=== PATIENT | male | born 1965 | race Hispanic/Latino ===

== ENCOUNTER 2019-05-05 00:26 | Emergency (ER) | payer OTHER ==
[2019-05-05] MEDS ORDERED: METOPROLOL TAR 50 MG TAB ONE (01:57)
[2019-05-05 02:03] LABS: Absolute Lymphocytes (CBC) 1.4 K/uL (0.7-4.9); Basophils % 0.8 % (0-1.3); Hematocrit 45.5 % (39.6-49.0); Lymphocytes % 18.4 % (15.3-44.8); MPV 8.4 fL (7.6-11.3); RBC Red Blood Cell Count 5.72 M/uL (4.33-5.43)
[2019-05-05 02:14] LABS: Potassium 3.5 mmol/L (3.5-5.1)
--- NOTE | 2019-05-05 02:30 | ER ---
Nurse's Notes [facility] Name: Mat Tate Age: 54 yrs Sex: Male : 1965 Arrival Date: 05/05/2019 Time: 00:29 Bed 18 Private MD: Montrell Bryant T Diagnosis: Twitching left eye. Hypertension Presentation: 05/05 00:58 Presenting complaint: Patient states: using the language line pt c/o twitching to left bb eye area no changes in vision x 2 or 3 days. Transition of care: patient was not received from another setting of care. Onset of symptoms was May 01, 2019. Risk Assessment: Do you want to hurt yourself or someone else? Patient reports no desire to harm self or others. Initial Sepsis Screen: Does the patient meet any 2 criteria? No. Patient's initial sepsis screen is negative. Does the patient have a suspected source of infection? No. Patient's initial sepsis screen is negative. Care prior to arrival: None. 00:58 Method Of Arrival: Ambulatory bb 00:58 Acuity: CHRISTIANA 3 bb Historical: - Allergies: 01:00 No Known Allergies; bb - Home Meds: 01:00 None [Active]; bb - PMHx: 01:00 Deaf; bb - PSHx: 01:00 Tonsillectomy; bb - Immunization history:: Adult Immunizations up to date. - Social history:: Smoking status: Patient/guardian denies using tobacco. - Ebola Screening: : No symptoms or risks identified at this time. Screenin:00 Abuse screen: Denies threats or abuse. Nutritional screening: No deficits noted. fc Tuberculosis screening: No symptoms or risk factors identified. Fall Risk None identified. Assessment: 01:00 General: Appears in no apparent distress. comfortable, slender, well groomed, Behavior fc is calm, cooperative, appropriate for age. Pain: Denies pain. Neuro: Level of Consciousness is awake, alert, obeys commands, Oriented to person, place, time, situation, Appropriate for age. Cardiovascular: No deficits noted. Respiratory: Airway is patent Respiratory effort is even, unlabored, Respiratory pattern is regular, symmetrical, Breath sounds are clear bilaterally. Denies cough, shortness of breath. GI: No deficits noted. : No deficits noted. EENT: Eyes twitching of left eye. Denies pain or vision loss. Derm: Skin is pink, warm \T\ dry. Musculoskeletal: Circulation, motion, and sensation intact. Capillary refill < 3 seconds, Range of motion: intact in all extremities. 01:20 Reassessment: Pt has just returned from CT Scan via stretcher. fc 01:55 Reassessment: No changes from previously documented assessment. Patient and/or family fc updated on plan of care and expected duration. Pain level reassessed. Patient is alert, oriented x 3, equal unlabored respirations, skin warm/dry/pink. Discussed bp with dr and new orders rec'd. 02:53 Reassessment: No changes from previously documented assessment. Patient and/or family fc updated on plan of care and expected duration. Pain level reassessed. Patient is alert, oriented x 3, equal unlabored respirations, skin warm/dry/pink. Dr Hewitt states that all test are normal and pt is ready to be discharged. 03:02 Reassessment: discharge instructions given to pt with help of field artillery senior sergeant Paco Anguiano #[id number]. Vital Signs: 01:00 BP 175 / 109; Pulse 89; Resp 14 S; Temp 98.5(O); Pulse Ox 96% on R/A; Weight 70.76 kg bb (R); Height 5 ft. 5 in. (165.10 cm) (R); Pain 0/10; 01:22 BP 159 / 99; Pulse 96; Resp 18; Pulse Ox 97% ; fc 01:50 BP 165 / 104; Pulse 75; Resp 18; Pulse Ox 98% on R/A; Pain 0/10; fc 02:19 BP 164 / 94; Pulse 78; Resp 18; Pulse Ox 98% on R/A; fc 02:47 BP 146 / 89; Pulse 72; Resp 18; Pulse Ox 96% on R/A; Pain 0/10; fc 01:00 Body Mass Index 25.96 (70.76 kg, 165.10 cm) bb Visual Acuity: 01:02 Left Eye Visual acuity 20/25, Pupil size 4 mm, Reactive To Accomodation; Right Eye bb Visual acuity 20/25, Pupil size 4 mm, Reactive To Accomodation; Both Eyes Visual acuity 20/20; With Lenses; ED Course: 00:29 Patient arrived in ED. es 00:30 Montrell Bryant MD is Private Physician. es 00:44 Brett Hewitt MD is Attending Physician. pkl 00:59 Triage completed. bb 01:00 Arm band placed on Patient placed in an exam room, on a stretcher, on pulse oximetry. bb 01:00 Patient has correct armband on for positive identification. Placed in gown. Bed in low fc position. Call light in reach. Side rails up X2. dietary internship on. Pulse ox on. NIBP on. 01:00 No provider procedures requiring assistance completed. fc 01:29 Initial lab(s) drawn, by me, sent to lab. fc 01:31 CT completed. Patient tolerated procedure well. Patient moved to CT via stretcher. Patient moved back from CT. 01:40 CT Head Brain wo Cont In Process Unspecified. EDMS 02:28 Shellie Ruiz MD is Referral Physician. pkl 03:03 Patient did not have IV access during this emergency room visit. fc Administered Medications: 01:54 Not Given (Physician Discretion): cloNIDine 0.1 mg PO once bb 01:57 Drug: Metoprolol TARTRATE (Lopressor) 50 mg Route: PO; fc 03:04 Follow up: Response: No adverse reaction; Marked relief of symptoms; Blood pressure is fc lowered Outcome: 02:29 Discharge ordered by . pkl 03:03 Discharged to home ambulatory. fc 03:03 Condition: good 03:03 Discharge instructions given to patient, Instructed on discharge instructions, follow up and referral plans. medication usage, Demonstrated understanding of instructions, follow-up care, medications, Prescriptions given X 1. 03:03 Patient left the ED. fc Signatures: Dispatcher [employer] EDFL Brett Hewitt MD MD pk Onelia Betancourt Ervin Jacqueline Charles RN RN Arianna Pacheco RN RN bb Corrections: (The following items were deleted from the chart) 01:38 01:00 EENT: Eyes twitching of right eye. Denies pain or vision loss. fc fc
--- NOTE | 2019-05-05 02:31 | EDPHYS ---
Physician Documentation [facility] Name: Mat Tate Age: 54 yrs Sex: Male : 1965 Arrival Date: 05/05/2019 Time: 00:29 Bed 18 Private MD: Montrell Bryant T ED Physician Brett Hewitt HPI: 05/05 01:01 This 54 yrs old Male presents to ER via Ambulatory with complaints of Eye pkl Problem. 01:01 Twitching left eye. Onset: The symptoms/episode began/occurred 3 day(s) ago. Associated pkl signs and symptoms: Pertinent positives: None. Historical: - Allergies: 01:00 No Known Allergies; bb - Home Meds: 01:00 None [Active]; bb - PMHx: 01:00 Deaf; bb - PSHx: 01:00 Tonsillectomy; bb - Immunization history:: Adult Immunizations up to date. - Social history:: Smoking status: Patient/guardian denies using tobacco. - Ebola Screening: : No symptoms or risks identified at this time. ROS: 01:01 Eyes: Positive for of the left eye, Twitching. pkl 01:01 ENT: Negative for acute changes. 01:01 Neck: Negative for stiffness. 01:01 Cardiovascular: Negative for chest pain. 01:01 Respiratory: Negative for cough, shortness of breath. 01:01 Abdomen/GI: Negative for abdominal pain, nausea, vomiting, and diarrhea. 01:01 Back: Negative for acute changes. 01:01 : Negative for urinary symptoms. 01:01 MS/extremity: Negative for acute changes. 01:01 Skin: Negative for rash. 01:01 Neuro: Negative for altered mental status, headache, loss of consciousness. Exam: 01:01 Visual Acuity: I have reviewed the nursing documentation. pkl 01:01 ENT: Nares patent. No nasal discharge, no septal abnormalities noted. Tympanic membranes are normal and external auditory canals are clear. Oropharynx with no redness, swelling, or masses, exudates, or evidence of obstruction, uvula midline. Mucous membranes moist. 01:01 Eyes: Periorbital structures: appear normal, Pupils: no acute changes. 01:01 Neck: Exam negative for nuchal rigidity. 01:01 Chest/axilla: Exam negative for acute changes. 01:01 Cardiovascular: Rate: normal, Rhythm: regular. 01:01 Respiratory: the patient does not display signs of respiratory distress, Respirations: normal, Breath sounds: are clear throughout. 01:01 Abdomen/GI: Exam negative for acute changes. 01:01 Back: Exam negative for acute changes. 01:01 : Exam negative for acute changes. 01:01 Musculoskeletal/extremity: Exam is negative for acute changes. 01:01 Skin: Exam negative for rash. 01:01 Neuro: Orientation: is normal, Mentation: is normal, Cranial nerves: grossly normal, Motor: is normal. Vital Signs: 01:00 BP 175 / 109; Pulse 89; Resp 14 S; Temp 98.5(O); Pulse Ox 96% on R/A; Weight 70.76 kg bb (R); Height 5 ft. 5 in. (165.10 cm) (R); Pain 0/10; 01:22 BP 159 / 99; Pulse 96; Resp 18; Pulse Ox 97% ; fc 01:50 BP 165 / 104; Pulse 75; Resp 18; Pulse Ox 98% on R/A; Pain 0/10; fc 02:19 BP 164 / 94; Pulse 78; Resp 18; Pulse Ox 98% on R/A; fc 02:47 BP 146 / 89; Pulse 72; Resp 18; Pulse Ox 96% on R/A; Pain 0/10; fc 01:00 Body Mass Index 25.96 (70.76 kg, 165.10 cm) bb Visual Acuity: 01:02 Left Eye Visual acuity 20/25, Pupil size 4 mm, Reactive To Accomodation; Right Eye bb Visual acuity 20/25, Pupil size 4 mm, Reactive To Accomodation; Both Eyes Visual acuity 20/20; With Lenses; MDM: 00:44 Patient medically screened. pkl 02:28 Data reviewed: vital signs, nurses notes, lab test result(s), radiologic studies, CT pkl scan. 05/05 00:52 Order name: CBC with Diff; Complete Time: 02:22 pkl 05/05 00:52 Order name: Chem 7; Complete Time: 02:22 pkl 05/05 00:52 Order name: CT Head Brain wo Cont pkl Administered Medications: 01:54 Not Given (Physician Discretion): cloNIDine 0.1 mg PO once bb 01:57 Drug: Metoprolol TARTRATE (Lopressor) 50 mg Route: PO; fc 03:04 Follow up: Response: No adverse reaction; Marked relief of symptoms; Blood pressure is fc lowered Disposition: 05/05/19 02:29 Discharged to Home. Impression: Twitching left eye. Hypertension. - Condition is Stable. - Prescriptions for Carvedilol 6.25 mg Oral Tablet - take 1 tablet by ORAL route 2 times per day with food; 60 tablet. - Medication Reconciliation Form, Thank You Letter, Antibiotic Education, Prescription Opioid Use, Work release form form. - Follow up: Shellie Ruiz MD; When: 1 - 2 days; Reason: Re-evaluation by your physician. - Problem is new. - Symptoms are unchanged. Signatures: Dispatcher [employer] EDMS Brett Hewitt MD MD pkl Jacqueline Charles RN RN Arianna Montalvo RN RN bb Corrections: (The following items were deleted from the chart) 03:03 02:29 05/05/2019 02:29 Discharged to Home. Impression: Twitching left eye. fc Hypertension. Condition is Stable. Forms are Medication Reconciliation Form, Thank You Letter, Antibiotic Education, Prescription Opioid Use. Follow up: Shellie Ruiz; When: 1 - 2 days; Reason: Re-evaluation by your physician. Problem is new. Symptoms are unchanged. pkl
[2019-05-05 03:09] VITALS: TEMP 98.5
[2019-05-05 03:15] VITALS: BP 146/89; O2SAT 96
--- NOTE | 2019-05-05 10:22 | RAD REPORT ---
EXAM DESCRIPTION: CT - Head Brain Wo Cont - 05/05/2019 1:40 am CLINICAL HISTORY: The patient is 54 years old and is Male; twitching left eye TECHNIQUE: Axial computed tomography images of the head/brain without intravenous contrast. Sagitt al and coronal reformatted images were created and reviewed. This CT exam was performed using one o r more of the following dose reduction techniques: automated exposure control, adjustment of the mA and/or kV according to patient size, and/or use of iterative reconstruction technique. COMPARISON: No relevant prior studies available. FINDINGS: BRAIN: Unremarkable. The quintana-white matter differentiation is preserved . No hemorrhag e. No significant white matter disease. No edema. No extra-axial fluid collections. VENTRICLES: Unremarkable. No ventriculomegaly. BONES/JOINTS: No acute fracture. SOFT TISSUES: Unremarkable. SINUSES: A right maxillary sinus mucus retention cyst is present. No acute sinusitis. MASTOID AIR CELLS: Unremarkable as visualized. No mastoid effusion. ORBITS: Unremarkable as visualized. IMPRESSION: No acute intracranial findings. Electronically signed by: Nya Betancur MD 05/05/2019 1:58 AM AUTOMATIC CHIEF Due to temporary technical issues with the PACS/Fluency reporting system, reports are being signed by the in house radiologist as a courtesy to ensure prompt reporting. The interpreting radiologist is f ully responsible for the content of the report.
== END 2019-05-05 03:03 | disposition home or self-care (01) ==
LOC: ER 00:26
DX: I10 Essential (primary) hypertension (principal)
CPT/HCPCS: 36415; 70450; 80048; 85025; 99285

== ENCOUNTER 2021-01-29 23:46 | Emergency (ER) | payer BC, OTHER ==
[2021-01-30 00:40] LABS: Urine Blood Trace-intact (Negative); Urine Glucose Negative (Negative); Urine Protein Negative (Negative)
[2021-01-30 01:36] LABS: Urine Blood Negative (Negative); Urine Glucose Negative (Negative); Urine Protein Negative (Negative)
[2021-01-30] MEDS ORDERED: ACETAMINOPHEN 500 MG TAB ONE (01:39)
[2021-01-30 01:53] LABS: Protime INR 1.03
[2021-01-30 01:54] LABS: MPV 8.3 fL (7.6-11.3)
[2021-01-30 02:03] LABS: Absolute Lymphocytes (CBC) 1.3 K/uL (0.7-4.9); Basophils % 0.7 % (0-1.3); Hematocrit 49.2 % (39.6-49.0); Lymphocytes % 16.1 % (15.3-44.8); RBC Red Blood Cell Count 6.26 M/uL (4.33-5.43)
[2021-01-30 02:08] LABS: ALT/SGPT 44 U/L (12-78); AST/SGOT 21 U/L (15-37); Albumin 4.1 g/dL (3.4-5.0); Alkaline Phosphatase 123 U/L (45-117); BUN Blood Urea Nitrogen 18 mg/dL (7-18); Bicarbonate 26 mmol/L (21-32); Bilirubin Direct 0.1 mg/dL (0-0.2); Bilirubin Total 0.5 mg/dL (0.2-1.0); Glucose Level 83 mg/dL (74-106); Magnesium 2.2 mg/dL (1.8-2.4); NT PRO-BNP 51 pg/mL (<125); Phosphorus 2.1 mg/dL (2.5-4.9); Potassium 3.7 mmol/L (3.5-5.1); Protein, Total 7.8 g/dL (6.4-8.2); Sodium Level 143 mmol/L (136-145); Troponin (Emerg Dept Use Only) < 0.02 ng/mL (0.0-0.045)
[2021-01-30 02:56] LABS: Urine Bacteria <20 /HPF (NONE SEEN); Urine RBC <5 /HPF (NONE SEEN)
--- NOTE | 2021-01-30 03:42 | EDPHYS ---
Physician Documentation [facility] Name: Mat Tate Age: 55 yrs Sex: Male : 1965 Arrival Date: 01/29/2021 Time: 23:49 Bed 27 Private MD: ED Physician Woody Lewis HPI: 01/30 00:57 This 55 yrs old Male presents to ER via Ambulatory with complaints of mh7 Headache. Left eye twitching. 00:57 The patient complains of pain to the Left side of head. The patient describes the mh7 headache as throbbing. Onset: The symptoms/episode began/occurred 4 month(s) ago. Associated signs and symptoms: Pertinent positives: dizziness, Left eye twitching, Pertinent negatives: altered mental status, fever, malaise, nausea, neck stiffness, paresthesias, Photophobia rash, sinus congestion, sinus tenderness, vision changes, vision loss, vomiting, weakness, vertigo. Severity of symptoms: At its worst the pain was moderate, 3 months ago, in the emergency department the pain has improved, moderately. Headache History: The patient has had previous headaches and this one is similar to previous episodes. The symptoms are alleviated by over the counter pain medication, OTC NSAIDS, the symptoms are aggravated by nothing. The patient has experienced similar episodes in the past, several times. Patient reports intermittent left-sided headache for least 4 months. He also reports intermittent twitching of left eye and some intermittent tearing of the eye. Denies any visual disturbances. He also complains of pain and unusual sensation to right shoulder has been intermittent for several days. Denies any fever, neck pain, chest pain, abdominal pain, shortness of breath, cough, nausea, vomiting, diarrhea, weakness. He states that he has seen a doctor in the past with the symptoms but was not given any information by doctors in the past.. Historical: - Allergies: 00:12 No Known Allergies; wg - Home Meds: 00:12 None [Active]; wg - PMHx: 00:12 Deaf; wg - Immunization history:: Adult Immunizations up to date. - Social history:: Smoking status: Patient denies any tobacco usage or history of. ROS: 00:57 Constitutional: Negative for fever, chills, and weight loss, ENT: Negative for injury, mh7 pain, and discharge, Neck: Negative for injury, pain, and swelling, Cardiovascular: Negative for chest pain, palpitations, and edema, Respiratory: Negative for shortness of breath, cough, wheezing, and pleuritic chest pain, Abdomen/GI: Negative for abdominal pain, nausea, vomiting, diarrhea, and constipation, Back: Negative for injury and pain, : Negative for injury, bleeding, discharge, and swelling, Skin: Negative for injury, rash, and discoloration, Psych: Negative for depression, anxiety, suicide ideation, homicidal ideation, and hallucinations, Allergy/Immunology: Negative for hives, rash, and allergies, Endocrine: Negative for neck swelling, polydipsia, polyuria, polyphagia, and marked weight changes, Hematologic/Lymphatic: Negative for swollen nodes, abnormal bleeding, and unusual bruising. Exam: 00:57 Constitutional: This is a well developed, well nourished patient who is awake, alert, mh7 and in no acute distress. Head/Face: Normocephalic, atraumatic. Eyes: Pupils equal round and reactive to light, extra-ocular motions intact. Lids and lashes normal. Conjunctiva and sclera are non-icteric and not injected. Cornea within normal limits. Periorbital areas with no swelling, redness, or edema. ENT: Nares patent. No nasal discharge, no septal abnormalities noted. Tympanic membranes are normal and external auditory canals are clear. Oropharynx with no redness, swelling, or masses, exudates, or evidence of obstruction, uvula midline. Mucous membranes moist. Neck: Trachea midline, no thyromegaly or masses palpated, and no cervical lymphadenopathy. Supple, full range of motion without nuchal rigidity, or vertebral point tenderness. No Meningismus. Chest/axilla: Normal chest wall appearance and motion. Nontender with no deformity. No lesions are appreciated. Cardiovascular: Regular rate and rhythm with a normal S1 and S2. No gallops, murmurs, or rubs. Normal PMI, no JVD. No pulse deficits. Respiratory: Lungs have equal breath sounds bilaterally, clear to auscultation and percussion. No rales, rhonchi or wheezes noted. No increased work of breathing, no retractions or nasal flaring. Abdomen/GI: Soft, non-tender, with normal bowel sounds. No distension or tympany. No guarding or rebound. No evidence of tenderness throughout. Back: No spinal tenderness. No costovertebral tenderness. Full range of motion. Skin: Warm, dry with normal turgor. Normal color with no rashes, no lesions, and no evidence of cellulitis. MS/ Extremity: Pulses equal, no cyanosis. Neurovascular intact. Full, normal range of motion. Neuro: Awake and alert, GCS 15, oriented to person, place, time, and situation. Cranial nerves II-XII grossly intact. Motor strength 5/5 in all extremities. Sensory grossly intact. Cerebellar exam normal. Normal gait. Psych: Awake, alert, with orientation to person, place and time. Behavior, mood, and affect are within normal limits. Vital Signs: 00:06 BP 186 / 112; Pulse 78; Resp 18; Temp 98.5; Pulse Ox 100% on R/A; Weight 71.21 kg; wg Height 5 ft. 5 in. (165.10 cm); Pain 7/10; 04:01 BP 144 / 98; Pulse 72; Resp 15; Temp 98.3(O); Pulse Ox 100% on R/A; Pain 0/10; bc5 00:06 Body Mass Index 26.13 (71.21 kg, 165.10 cm) wg [place] Coma Score: 03:37 Eye Response: spontaneous(4). Verbal Response: oriented(5). Motor Response: obeys mh7 commands(6). Total: 15. MDM: 03:37 Differential diagnosis: cluster headache, hypertensive headache, hypoglycemia, mh7 hyponatremia, intracerebral hemorrhage, migraine, neoplasm, tension headache. Data reviewed: vital signs, nurses notes, old medical records, lab test result(s), cardiac enzymes, CBC, electrolytes, urinalysis, EKG, radiologic studies, CT scan, plain films. Data interpreted: Pulse oximetry: on room air is 100 %. Interpretation: normal. Counseling: I had a detailed discussion with the patient and/or guardian regarding: the historical points, exam findings, and any diagnostic results supporting the discharge/admit diagnosis, the presence of at least one elevated blood pressure reading (>120/80) during this emergency department visit, lab results, radiology results, the need for outpatient follow up, an opthalmologist, a neurologist, to return to the emergency department if symptoms worsen or persist or if there are any questions or concerns that arise at home. Response to treatment: the patient's symptoms have markedly improved after treatment. 03:41 Patient medically screened. [facility] 01/30 00:40 Order name: Urine Dipstick-Ancillary [facility] 01/30 00:54 Order name: Basic Metabolic Panel [facility] 01/30 00:54 Order name: CBC with Diff; Complete Time: 02:11 [facility] 01/30 00:54 Order name: LFT's; Complete Time: 02:11 [facility] 01/30 00:54 Order name: Magnesium; Complete Time: 02:11 [facility] 01/30 00:54 Order name: NT PRO-BNP; Complete Time: 02:11 [facility] 01/30 00:54 Order name: PT-INR; Complete Time: 02:11 [facility] 01/30 00:54 Order name: Troponin (emerg Dept Use Only); Complete Time: 02:11 [facility] 01/30 00:54 Order name: XRAY Chest (1 view) [facility] 01/30 00:54 Order name: Phosphorus; Complete Time: 02:11 [facility] 01/30 00:54 Order name: Shoulder Right (2 View) XRAY [facility] 01/30 01:16 Order name: Basic Metabolic Panel; Complete Time: 02:11 [facility] 01/30 01:36 Order name: Urine Dipstick-Ancillary; Complete Time: 01:58 [facility] 01/30 01:59 Order name: Urine Microscopic Only; Complete Time: 03:21 [facility] 01/30 00:54 Order name: EKG; Complete Time: 01:16 [facility] 01/30 00:54 Order name: Cardiac monitoring; Complete Time: 01:18 [facility] 01/30 00:54 Order name: EKG - Nurse/Tech; Complete Time: :29 [facility] 01/30 00:54 Order name: IV Saline Lock; Complete Time: 01:18 [facility] 01/30 00:54 Order name: Labs collected and sent; Complete Time: :23 [facility] 01/30 00:54 Order name: O2 Per Protocol; Complete Time: 01:13 [facility] 01/30 00:54 Order name: O2 Sat Monitoring; Complete Time: 01:18 [facility] 01/30 00:54 Order name: CT Head C Spine [facility] 01/30 00:54 Order name: Urine Dipstick-Ancillary (obtain specimen); Complete Time: 01:28 mh7 Administered Medications: 01:18 Drug: Tylenol 1000 mg Route: PO; bc5 04:00 Follow up: Response: Pain is decreased bc5 Disposition Summary: 01/30/21 03:41 Discharge Ordered Location: Home [facility] Problem: chronic mh7 Symptoms: have improved mh7 Condition: Stable mh7 Diagnosis - Headache mh7 - Left Eye Twitching mh7 - Shoulder Pain, Right mh7 - Essential (primary) hypertension mh7 - UTI/ Urinary tract infection, site not specified 7 Followup: 7 - With: Private Physician - When: 1 - 2 days - Reason: Worsening of condition, Recheck today's complaints, Continuance of care, Re-evaluation by your physician Followup: 7 - With: Reece Castellanos MD - When: 1 - 2 days - Reason: Worsening of condition, Recheck today's complaints Followup: 7 - With: Shellie Ruiz MD - When: 1 - 2 days - Reason: Worsening of condition, Recheck today's complaints Followup: 7 - With: Romario Nichols MD - When: 1 - 2 days - Reason: Worsening of condition, Recheck today's complaints Discharge Instructions: - Discharge Summary Sheet mh7 - General Headache Without Cause mh7 - Hypertension, Adult mh7 - Muscle Pain, Adult mh7 - Urinary Tract Infection, Adult, [id number] 7 - Form - Excuse from Work, School, or Physical Activity [facility] Forms: - Medication Reconciliation Form 7 - Thank You Letter 7 - Antibiotic Education 7 - Prescription Opioid Use 7 - Work release form df1 Prescriptions: - Cephalexin 500 mg Oral Capsule - take 1 capsule by ORAL route every 12 hours for 7 days; 14 capsule; Refills: 0, mh7 Product Selection Permitted Signatures: Dispatcher [employer] Woody Zavala MD MD 7 Rene Jewell RN wg Corado, Bella, RN RN bc5
--- NOTE | 2021-01-30 03:42 | ER ---
Nurse's Notes [facility] Name: Mat Tate Age: 55 yrs Sex: Male : 1965 Arrival Date: 01/29/2021 Time: 23:49 Bed 27 Private MD: Diagnosis: Headache;Left Eye Twitching;Shoulder Pain, Right;Essential (primary) hypertension;UTI/ Urinary tract infection, site not specified Presentation: 01/30 00:06 Chief complaint: Patient states: Pt is deaf and communicates through sign-language and wg writing. Sign-foreign language interpreter used. Pt c/o Left Eye throbbing sensation along with the left side of his head throbbing that has been intermittent for the past 4 months. States his eye jain often and makes it hard to drive. Pt states he was seen about 4 months ago and given eye drops but it hasn't gotten better. Pt a;sp complaining of his right shoulder "Feels funny". Pt denies any trauma or injury but states when he wakes up it feels funny. Pt states he had good ROM and denies pain in the arm/shoulder but states it just feels funny. Pt denies SOB, CP, N/V/D, dizziness and abd pain. Coronavirus screen: Vaccine status: Patient reports receiving the 2nd dose of the covid vaccine. Date December 02, 2020 At this time, the client does not indicate any symptoms associated with coronavirus-19. Ebola Screen: No symptoms or risks identified at this time. Initial Sepsis Screen: Does the patient meet any 2 criteria? No. Patient's initial sepsis screen is negative. Does the patient have a suspected source of infection? No. Patient's initial sepsis screen is negative. Risk Assessment: Do you want to hurt yourself or someone else? Patient reports no desire to harm self or others. Onset of symptoms was September 2020. 00:06 Method Of Arrival: Ambulatory wg 00:06 Acuity: CHRISTIANA 3 wg Triage Assessment: 00:12 General: Appears uncomfortable, Behavior is calm, cooperative, appropriate for age. wg Pain: Complains of pain in Left eye, left side of head and right shoulder Pain currently is 7 out of 10 on a pain scale. Historical: - Allergies: 00:12 No Known Allergies; wg - Home Meds: 00:12 None [Active]; wg - PMHx: 00:12 Deaf; wg - Immunization history:: Adult Immunizations up to date. - Social history:: Smoking status: Patient denies any tobacco usage or history of. Screenin:54 Abuse screen: Denies threats or abuse. Denies injuries from another. Nutritional bc5 screening: No deficits noted. Tuberculosis screening: No symptoms or risk factors identified. Fall Risk None identified. Assessment: 00:54 Reassessment: chief inspector Antonio [id number]. Pt c/o left eye watering and twitching, left bc5 sided head pain onset 4 months ago and right shoulder pain onset 9 am yesterday 01/28/21. Pt denies injury. A\\T\\O x 3, RR is even and unlabored, speaking in clear and complete sentences at this time. Pt agrees to use written communication for short and simple questions/requests "but for more detailed communication like results please use the foreign language interpreter". 01:37 Reassessment:. 5 04:02 Reassessment: staff interpreter Antonio [id number] used to teach discharge instructions. 5 Vital Signs: 00:06 BP 186 / 112; Pulse 78; Resp 18; Temp 98.5; Pulse Ox 100% on R/A; Weight 71.21 kg; wg Height 5 ft. 5 in. (165.10 cm); Pain 7/10; 04:01 BP 144 / 98; Pulse 72; Resp 15; Temp 98.3(O); Pulse Ox 100% on R/A; Pain 0/10; bc5 00:06 Body Mass Index 26.13 (71.21 kg, 165.10 cm) Holt Coma Score: 03:37 Eye Response: spontaneous(4). Verbal Response: oriented(5). Motor Response: obeys mh7 commands(6). Total: 15. ED Course: 01/29 23:49 Patient arrived in ED. cf2 01/30 00:12 Triage completed. wg 00:12 Arm band placed on left wrist. wg 00:19 Dot Ricks, HUGO is Primary Nurse. 5 00:26 Woody Lewis MD is Attending Physician. 7 00:43 Urine Dipstick-Ancillary Sent. bc5 00:54 Patient has correct armband on for positive identification. Call light in reach. Side bc5 rails up X 1. 00:54 No provider procedures requiring assistance completed. bc5 01:46 CT Head C Spine In Process Unspecified. EDMS 01:56 XRAY Chest (1 view) In Process Unspecified. EDMS 01:56 Shoulder Right (2 View) XRAY In Process Unspecified. EDMS 03:39 Reece Castellanos MD is Referral Physician. mh7 03:39 Shellie Ruiz MD is Referral Physician. 7 03:40 Romario Nichols MD is Referral Physician. 7 04:01 Patient did not have IV access during this emergency room visit. bc5 Administered Medications: 01:18 Drug: Tylenol 1000 mg Route: PO; bc5 04:00 Follow up: Response: Pain is decreased [facility] Outcome: 03:41 Discharge ordered by MD. [facility] 04:00 Condition: improved 5 04:00 Discharge instructions given to patient, family, Instructed on discharge instructions, follow up and referral plans. medication usage. 04:01 Discharged to home ambulatory, with family. 5 04:03 Patient left the ED. 5 Signatures: Dispatcher [employer] Edd Bales cf2 Woody Lewis MD MD 7 Rene Jewell, RN Dot Ricks, HUGO RN 5 Corrections: (The following items were deleted from the chart) 00:14 00:06 Chief complaint: Patient states: Pt communicates through sign-language and writing. Sign-foreign language interpreter used. Pt c/o Left Eye throbbing sensation along with the left side of his head throbbing that has been intermittent for the past 4 months. States his eye jain often and makes it hard to drive. Pt states he was seen about 4 months ago and given eye drops but it hasn't gotten better. Pt a;sp complaining of his right shoulder "Feels funny". Pt denies any trauma or injury but states when he wakes up it feels funny. Pt states he had good ROM and denies pain in the arm/shoulder but states it just feels funny. Pt denies SOB, CP, N/V/D, dizziness and abd pain. 01:40 00:54 Reassessment: chief inspector Antonio [id number]. Pt c/o left eye watering and twitching, bc5 left sided head pain onset 4 months ago and right shoulder pain onset 9 am yesterday 01/28/21. Pt denies injury. A\\T\\O x 3, RR is even and unlabored, speaking in clear and complete sentences at this time bc5
[2021-01-30 04:08] VITALS: O2SAT 100
[2021-01-30 04:09] VITALS: BP 144/98; TEMP 98.3
--- NOTE | 2021-01-30 07:54 | RAD REPORT ---
EXAM DESCRIPTION: RAD - Chest Single View - 01/30/2021 1:56 am CLINICAL HISTORY: Hypertension COMPARISON: No comparisons FINDINGS: Lines: None. Lungs: Low lung volumes which accentuates the pulmonary vasculature. Pleural: No significant pleural effusions or pneumothorax. Cardiac: Low lung volumes which accentuates the cardiac silhouette. Bones: No acute fractures. Other: IMPRESSION: Low lung volumes which accentuates the pulmonary vasculature. Difficult to exclude eithe r vascular congestion and/or mild edema.
--- NOTE | 2021-01-30 07:54 | RAD REPORT ---
EXAM DESCRIPTION: RAD - Shoulder Right 2 View - 01/30/2021 1:56 am CLINICAL HISTORY: PAIN COMPARISON: No comparisons FINDINGS: No acute fracture. No malalignment. No significant focal degenerative changes. IMPRESSION: No acute osseous abnormality involving the right shoulder.
--- NOTE | 2021-01-30 13:12 | RAD REPORT ---
EXAM DESCRIPTION: CT - Head C Spine Mpr Wo Con - 01/30/2021 6:29 am COMPARISON: CT head May 05, 2019 CLINICAL HISTORY: [facility] MAIN PAIN TECHNIQUE: Axial images were obtained from skull base to vertex without intravenous contrast. Imag es viewed on bone and brain windows. Multiplanar reformats were performed. Automated exposure contr ol was utilized on this examination as a dose lowering technique. FINDINGS: Brain parenchyma, ventricles, dura, meninges, and extra-axial spaces: Ventricles and sulci are normal. No abnormal attenuation of brain parenchyma is present. No acute intracranial hemor rhage or abnormal extra-axial fluid collections are present. Vascular structures: No hyperdense arteries or veins. Calvarium, mastoid air cells, paranasal sinuses and orbits: The calvarium is normal. The mastoid air cells are clear. 1.8 cm right maxillary sinus mucosal retention cyst or polyp. Orbital structures are unremarkable. EXAM DESCRIPTION: CT Cervical Spine COMPARISON: None. CLINICAL HISTORY: [facility] MAIN PAIN TECHNIQUE: Axial CT images were obtained through the entire cervical spine without contrast. Sagit kevin and coronal reconstructions are provided. Automated exposure control was utilized on this examina tion as a dose lowering technique. FINDINGS: Vertebrae: Vertebral statures and alignment are normal. No acute fracture, dislocation o r destructive osseous process is present. Spinal canal, foramina, and facet joints: No significant spinal canal or foraminal stenoses. No significant facet arthropathy. Paraspinous soft-tissues: Normal. Thyroid: Normal. Other Findings: None. IMPRESSION: HEAD IMPRESSION: No acute intracranial abnormality. C-SPINE IMPRESSION: No acute findings of the cervical spine. Electronically signed by: Patrick Sebastian MD 01/30/2021 2:29 AM CDT Due to temporary technical issues with the PACS/Fluency reporting system, reports are being signed by the in house radiologists without review as a courtesy to insure prompt reporting. The interpreting radiologist is fully responsible for the content of the report.
--- NOTE | 2021-01-31 16:00 | EKG ---
Test Date: 2021-01-30 Test Time: 01:25:31 Senior Accountant Analyst: CALVIN MEASUREMENT RESULTS: Intervals: Rate: 69 ME: 156 QRSD: 94 QT: 398 QTc: 426 [place]: P: 17 ME: 156 QRS: 22 T: 16 INTERPRETIVE STATEMENTS: Normal sinus rhythm Minimal voltage criteria for LVH, may be normal variant Borderline ECG Compared to ECG 05/29/2015 23:12:21 Left ventricular hypertrophy now present Electronically Signed On 01-31-21 15:56:43 CDT by Reginaldo Marr
== END 2021-01-30 04:03 | disposition home or self-care (01) ==
LOC: ER 23:46
DX: R51.9 Headache, unspecified (principal); N39.0 Urinary tract infection, site not specified; M25.511 Pain in right shoulder; H55.89 Other irregular eye movements; I10 Essential (primary) hypertension
CPT/HCPCS: 36415; 70450; 71045; 72125; 80048; 80076; 81003; 81015; 83735; 83880; 84100; 84484; 85025; 85610; 93005; 99283

== ENCOUNTER 2021-06-30 16:31 | Emergency (ER) | payer BC ==
[2021-06-30] MEDS ORDERED: METOCLOPRAMIDE 10 MG/2mL INJ ONE (17:26)
[2021-06-30] MEDS ORDERED: NA CHLORIDE 0.9% 1,000 ML ONE (17:26)
[2021-06-30] MEDS ORDERED: ACETAMINOPHEN 500 MG TAB ONE (17:26)
--- NOTE | 2021-06-30 17:40 | RAD REPORT ---
EXAM DESCRIPTION: CT - Head Brain Wo Cont - 06/30/2021 5:24 pm CLINICAL HISTORY: L facial droop and ataxia COMPARISON: No comparisonsHead Brain Wo Cont dated 05/05/2019 TECHNIQUE: All CT scans are performed using dose optimization technique as appropriate and may inclu de automated exposure control or mA/KV adjustment according to patient size. FINDINGS: 2.8 cm x 1.3 cm right basal ganglia hemorrhageno mass effect or midline shift.No areas of brain edema or evidence of midline shift. Mucous retention cysts in the right maxillary sinus. The calvarium is intact. IMPRESSION: Right basal ganglia hemorrhage likely secondary to a hemorrhagic lacunar infarct. No sig nificant mass effect. Discussed with Dr. William by Dr. Laws at 1739 on 06/30/21
[2021-06-30 17:48] LABS: Absolute Lymphocytes (CBC) 1.5 K/uL (0.7-4.9); Hematocrit 47.7 % (39.6-49.0); Lymphocytes % 14.6 % (15.3-44.8); MPV 7.7 fL (7.6-11.3); RBC Red Blood Cell Count 6.06 M/uL (4.33-5.43)
[2021-06-30 17:51] LABS: Protime INR 1.17
[2021-06-30 18:08] LABS: ALT/SGPT 34 U/L (12-78); Albumin 3.6 g/dL (3.4-5.0); Alkaline Phosphatase 115 U/L (45-117); BUN Blood Urea Nitrogen 24 mg/dL (7-18); Bicarbonate 25 mmol/L (21-32); Bilirubin Total 0.3 mg/dL (0.2-1.0); Glucose Level 158 mg/dL (74-106); NT PRO-BNP 104 pg/mL (<125); Protein, Total 7.2 g/dL (6.4-8.2); Sodium Level 141 mmol/L (136-145)
[2021-06-30 18:09] LABS: AST/SGOT 16 U/L (15-37); Bilirubin Direct < 0.1 mg/dL (0-0.2); Magnesium 2.2 mg/dL (1.8-2.4); Potassium 3.6 mmol/L (3.5-5.1)
[2021-06-30] MEDS ORDERED: Nicardipine/NS 25 MG/250 ML KIT IV ONE (18:10)
--- NOTE | 2021-06-30 18:38 | ER ---
Nurse's Notes [facility] Name: Mat Tate Age: 56 yrs Sex: Male : 1965 Arrival Date: 06/30/2021 Time: 16:36 Bed 23 Private MD: Diagnosis: hemorrhagic stroke;Coronavirus infection, unspecified Presentation: 06/30 16:38 Chief complaint: Patient states: Intermittent dizziness, L arm numbness/ tingling and L ss sided facial droop that began 3.5 days ago. Pt is frustrated because he is deaf and has had trouble communicating with individuals at work. Coronavirus screen: Client denies travel out of the [place] in the last 14 days. Ebola Screen: Patient denies exposure to infectious person. Patient denies travel to an Ebola-affected area in the 21 days before illness onset. Pre-hospital glucose is not applicable to this patient. No acute neurological deficit is noted. Initial Sepsis Screen: Does the patient meet any 2 criteria? No. Patient's initial sepsis screen is negative. Does the patient have a suspected source of infection? No. Patient's initial sepsis screen is negative. Risk Assessment: Do you want to hurt yourself or someone else? Patient reports no desire to harm self or others. Onset of symptoms was June 27, 2021. 16:38 Method Of Arrival: Ambulatory ss 16:38 Acuity: CHRISTIANA 3 ss Triage Assessment: 18:21 The onset of the patients symptoms was June 27, 2021 at 05:00. lr4 Stroke Activation: Symptom onset > 6 hours Physician: Stroke Attending; Name: ; Notified At: ; Arrived At: Physician: Chief Stroke Resident; Name: ; Notified At: ; Arrived At: Physician: Stroke Resident; Name: ; Notified At: ; Arrived At: Physician: ED Attending; Name: ; Notified At: ; Arrived At: Physician: ED Resident; Name: ; Notified At: ; Arrived At: Historical: - Allergies: 16:53 No Known Allergies; ss - Home Meds: 16:53 None [Active]; ss - PMHx: 16:53 Deaf; ss - PSHx: 16:53 None; ss - Immunization history:: Client reports receiving the 2nd dose of the Covid vaccine. - Social history:: Smoking status: Patient denies any tobacco usage or history of. Screenin:54 Abuse screen: Denies threats or abuse. Denies injuries from another. Nutritional ss screening: No deficits noted. Tuberculosis screening: Never had TB. Fall Risk None identified. Assessment: 18:16 VAN Scoring: Arm Drift: Patients demonstrates NO arm weakness. Patient is VAN Negative. lr4 Visual Disturbance: No visual disturbance noted. Aphasia: No aphasia noted. Neglect: No neglect noted. The patient is alert, and able to follow commands. The patient does not exhibit slurred or garbled speech. The patient is not exhibiting difficulty speaking. The patient does not exhibit difficulty understanding words. The patient is able to swallow own secretions with no drooling or need for suction. Patient tolerated one teaspoon of water. No drooling, immediate coughing, gurgling, or clearing of the throat was noted. The patient tolerated 90mL of water. No drooling, immediate coughing, gurgling, or clearing of the throat was noted. The patient passed the bedside swallow screening. Oral medications may be given as ordered. Contact Physician for further diet orders. Provider notified of bedside swallow screening results: Wilbert William MD. The patient has not been NPO before screening. The patient is currently on the following diet: regular. T-PA (Activase) Screening: Contraindications: Intracranial hemorrhage and its risk factor and suspicion of subarachnoid bleed: Yes. General: Appears in no apparent distress. comfortable, Behavior is calm, cooperative. Pain: Denies pain. Neuro: No deficits noted. Reports dizziness, paresthesias. Cardiovascular: No deficits noted. Respiratory: No deficits noted. 19:47 Reassessment: No changes from previously documented assessment. Patient denies pain at lr4 this time. Patient states feeling better. 20:43 Reassessment: report given to Grecia ARIAS at . Patient denies pain at this time. lr4 Patient states feeling better. Pt departed ed with [place] unit 3 with all personal effects, resp even an unlabored, vss. . Vital Signs: 16:38 Pulse 102; Resp 18; Temp 97.5; Pulse Ox 99% ; ss 16:38 BP 191 / 107; Weight 68.95 kg; Height 5 ft. 5 in. (165.10 cm); Pain 0/10; ss 18:02 BP 181 / 110; Pulse 100; Resp 20; Pulse Ox 97% on R/A; lr4 18:20 BP 170 / 110; Pulse 104; Resp 20; Pulse Ox 95% on R/A; lr4 18:34 BP 175 / 98; Pulse 104 LA; Resp 18; Pulse Ox 99% on R/A; lr4 18:54 BP 156 / 92; Pulse 103; Resp 18; Pulse Ox 95% ; Pain 0/10; lr4 19:00 BP 151 / 88; Pulse 101; Resp 20; Pulse Ox 100% on R/A; lr4 19:15 BP 165 / 93; Pulse 100; Resp 20; Pulse Ox 94% on R/A; lr4 19:30 BP 150 / 128; Pulse 102; Resp 20; Pulse Ox 97% ; lr4 19:44 BP 149 / 81; Pulse 102; Resp 18; Pulse Ox 96% on R/A; Pain 0/10; lr4 20:00 BP 145 / 87; Pulse 95; Resp 18; Pulse Ox 98% on R/A; lr4 20:07 BP 145 / 87; Pulse 95; Resp 18; Pulse Ox 96% on R/A; lr4 20:42 BP 151 / 90; Pulse 96; Resp 20; Pulse Ox 95% on R/A; Pain 0/10; lr4 16:38 Body Mass Index 25.29 (68.95 kg, 165.10 cm) NIH Stroke Scale Scores: 18:16 NIHSS Score: 1 lr4 ED Course: 16:36 Patient arrived in ED. ss 16:42 Wilbert William MD is Attending Physician. jr11 16:50 Triage completed. ss 16:53 Arm band placed on right wrist. ss 16:54 Patient has correct armband on for positive identification. Bed in low position. Call ss light in reach. 17:17 Dina Murillo, HUGO is Primary Nurse. lr4 17:24 CT Head Brain wo Cont In Process Unspecified. EDMS 17:35 Inserted saline lock: 20 gauge in right antecubital area, using aseptic technique. lr4 17:38 XRAY Chest (1 view) Sent. lr4 18:00 initiated a transfer with Hawa Alas Rn from the [facility]. eb 18:03 COVID-19 SARS RT PCR (Document "Date of Onset" if Symptomatic) Sent. lr4 18:06 XRAY Chest (1 view) In Process Unspecified. EDMS 18:[address] Daniel the Neuro manager fashion with Dr. William for patient transfer eb consultation. 18:21 No provider procedures requiring assistance completed. lr4 18:37 administrative approval given by Hawa Morel/ patient has been accepted to [address] to the Neuro ICU [address] [address] bed 7512/ Dr. Daniel accepted the patient in transfer/report to be called to [phone]. 19:17 called [facility] Transfer Center spoke to Swathi Rivera to give her the patients [facility] results. 19:34 [facility] denied transfer due to no Covid ICU beds. mw2 19:50 initiated a transfer with Soha from [facility]. mw2 20:[address] Lewis with Dr. Carmona from [facility]. mw2 20:06 administrative approval given by Soha Fuentes/ patient has been accepted to [address] to the Stroke Unit/ Dr. Garner accepted the patient in transfer/ report to be called to [phone]. 20:45 Report given to Grecia RN \\T\\ . lr4 20:45 Patient transferred, IV remains in place. lr4 Administered Medications: 17:38 Drug: NS 0.9% 1000 ml Route: IV; Rate: 1 bolus; Site: right antecubital; lr4 18:15 Follow up: IV Status: Infusion continued lr4 17:38 Drug: Reglan (metoCLOPramide) 10 mg Route: IVP; Site: right antecubital; lr4 18:15 Follow up: Response: No adverse reaction; Nausea is decreased lr4 17:38 Drug: Tylenol 1000 mg Route: PO; lr4 18:15 Follow up: Response: No adverse reaction; Pain is decreased lr4 18:10 Drug: niCARdipine (25mg/250ml) 5 mg/hr Route: IV; Rate: 2.5 Titrate; Site: right lr4 antecubital; 18:16 Follow up: IV Status: Infusion continued lr4 18:36 Follow up: Rate change 7.5 mg/hr lr4 19:45 Follow up: Rate change 5 mg/hr lr4 Point of Care Testing: Blood Glucose: 18:21 Blood Glucose: 158 mg/dL; lr4 Ranges: Outcome: 18:23 Condition: stable lr4 18:38 ER care complete, transfer ordered by . jr11 20:45 Instructed on the need for transfer. lr4 20:46 Transferred by ground EMS to [facility], Transfer form completed. X-rays sent lr4 w/ patient. 20:46 Patient left the ED. lr4 NIH Stroke Scale - NIH Stroke Score Date: 06/30/2021 Time: 18:16 Total Score = 1 1a. Level of Consciousness (LOC) - 0(Alert) 1b. Level of Consciousness (LOC) (Month \\T\\ Age) - 0(Both) 1c. LOC Commands (Open \\T\\ Closes Eyes/Assistant Store Manager Sales) - 0(Both) 2. Best Gaze (Lateral Gaze Paresis) - 0(Normal) 3. Visual Field Loss - 0(No visual loss) 4. Facial Palsy - 1(Minor Paralysis) 5a. Left Arm: Motor (10-second hold) - 0(No drift) 5b. Right Arm: Motor (10-second hold) - 0(No drift) 6a. Left Leg: Motor (5-second hold - always test supine) - 0(No drift) 6b. Right Leg: Motor (5-second hold - always test supine) - 0(No drift) 7. Limb Ataxia (finger/nose \\T\\ heel/borden - test with eyes open) - 0(Absent) 8. Sensory Loss (pinprick arms/legs/face) - 0(Normal) 9. Best Language: Aphasia (description/naming/reading) - 0(No aphasia) 10. Dysarthria (speech clarity - read or repeat words) - 0(Normal) 11. Extinction and Inattention (visual/tactile/auditory/spatial/personal) - 0(No abnormality) Initials: lr4 Signatures: Dispatcher [employer] EDMS Aimee Solano RN RN Katelyn Hamm mw2 Zenaida Dennison Jose, MD MD jr11 Dina Murillo RN RN lr4 Corrections: (The following items were deleted from the chart) 19:35 18:50 administrative approval given by Hawa Morel/ patient has been mw2 accepted to [facility] to the Neuro ICU [address] [place] [address] bed 7512/ Dr. Daniel accepted the patient in transfer/report to be called to [phone] 2
--- NOTE | 2021-06-30 18:38 | EDPHYS ---
Physician Documentation [facility] Name: Mat Tate Age: 56 yrs Sex: Male : 1965 Arrival Date: 06/30/2021 Time: 16:36 Bed 23 Private MD: ED Physician Wilbert William HPI: 06/30 17:17 This 56 yrs old Male presents to ER via Ambulatory with complaints of jr11 Dizziness, Arm Problem. 17:17 The patient presents with dizziness, feeling faint, lightheadedness, feeling off jr11 balance, vertigo. Onset: The symptoms/episode began/occurred 3 day(s) ago. Context: occurred at home, occurred while the patient was working. Modifying factors: The symptoms are alleviated by nothing, the symptoms are aggravated by movement of head, changing position. Associated signs and symptoms: Pertinent positives: ataxia, headache, L facial droop and eye twitching x 1 mo. Severity of symptoms: At their worst the symptoms were moderate in the emergency department the symptoms are worse Pain is currently a 8 / 10. Patient is a 56-year-old male that has had a history of dizziness for 3 days, has been falling over to the left, and has had a left-sided facial droop for 3 months. Patient also with greater than 8 hours episode of chest pain, only when coughing. Denies a productive cough or shortness of breath. Denies any weakness.. Historical: - Allergies: 16:53 No Known Allergies; ss - Home Meds: 16:53 None [Active]; ss - PMHx: 16:53 Deaf; ss - PSHx: 16:53 None; ss - Immunization history:: Client reports receiving the 2nd dose of the Covid vaccine. - Social history:: Smoking status: Patient denies any tobacco usage or history of. ROS: 17:17 Constitutional: Negative for fever, chills Eyes: Negative for injury, pain, redness, jr11 and discharge, ENT: Negative for injury, pain, and discharge, Neck: Negative for injury, pain, and swelling, Cardiovascular: Negative for chest pain, palpitations, and edema, Respiratory: Negative for shortness of breath, cough Back: Negative for injury and pain, : Negative for injury, bleeding, discharge, and swelling, MS/Extremity: Negative for injury and deformity, Skin: Negative for injury, rash, and discoloration, Endocrine: Negative for neck swelling, polydipsia, polyuria, polyphagia, and marked weight changes. Exam: 17:17 Constitutional: This is a well developed, well nourished patient who is awake, alert, jr11 and in no acute distress. Head/Face: Normocephalic, atraumatic. L sided facial droop, complete Eyes: Extra-ocular motions intact. Lids and lashes normal. Conjunctiva and sclera are non-icteric and not injected. Cornea within normal limits. Periorbital areas with no swelling, redness, or edema. ENT: Nares patent. No nasal discharge, no septal abnormalities noted. Oropharynx with no redness, swelling, or masses, exudates, or evidence of obstruction, uvula midline. Mucous membranes moist. Neck: Trachea midline, no thyromegaly or masses palpated, and no cervical lymphadenopathy. Supple, full range of motion without nuchal rigidity, or vertebral point tenderness. No Meningismus. Chest/axilla: Normal chest wall appearance and motion. Nontender with no deformity. No lesions are appreciated. Cardiovascular: Regular rate and rhythm with a normal S1 and S2. No gallops, murmurs, or rubs. Normal PMI, no JVD. No pulse deficits. Respiratory: Lungs have equal breath sounds bilaterally, clear to auscultation and percussion. No rales, rhonchi or wheezes noted. No increased work of breathing, no retractions or nasal flaring. Abdomen/GI: Soft, non-tender, with normal bowel sounds. No distension or tympany. No guarding or rebound. No evidence of tenderness throughout. Skin: Warm, dry with normal turgor. Normal color with no rashes, no lesions, and no evidence of cellulitis. Neuro: Awake and alert, GCS 15, oriented to person, place, time, and situation. No gross motor or sensory deficits. +ataxia and diziness on feet. 17:35 g EKG interpreted by me shows normal sinus rhythm, normal axis, T wave inversions in jr11 lead II and aVF also V5 V6 concerning for inferior and lateral ischemia. No acute ST changes. Vital Signs: 16:38 Pulse 102; Resp 18; Temp 97.5; Pulse Ox 99% ; ss 16:38 BP 191 / 107; Weight 68.95 kg; Height 5 ft. 5 in. (165.10 cm); Pain 0/10; ss 18:02 BP 181 / 110; Pulse 100; Resp 20; Pulse Ox 97% on R/A; lr4 18:20 BP 170 / 110; Pulse 104; Resp 20; Pulse Ox 95% on R/A; lr4 18:34 BP 175 / 98; Pulse 104 LA; Resp 18; Pulse Ox 99% on R/A; lr4 18:54 BP 156 / 92; Pulse 103; Resp 18; Pulse Ox 95% ; Pain 0/10; lr4 19:00 BP 151 / 88; Pulse 101; Resp 20; Pulse Ox 100% on R/A; lr4 19:15 BP 165 / 93; Pulse 100; Resp 20; Pulse Ox 94% on R/A; lr4 19:30 BP 150 / 128; Pulse 102; Resp 20; Pulse Ox 97% ; lr4 19:44 BP 149 / 81; Pulse 102; Resp 18; Pulse Ox 96% on R/A; Pain 0/10; lr4 20:00 BP 145 / 87; Pulse 95; Resp 18; Pulse Ox 98% on R/A; lr4 20:07 BP 145 / 87; Pulse 95; Resp 18; Pulse Ox 96% on R/A; lr4 20:42 BP 151 / 90; Pulse 96; Resp 20; Pulse Ox 95% on R/A; Pain 0/10; lr4 16:38 Body Mass Index 25.29 (68.95 kg, 165.10 cm) ss NIH Stroke Scale Scores: 18:16 NIHSS Score: 1 lr4 MDM: 17:06 Patient medically screened. jr11 17:17 Differential diagnosis: cardiac arrhythmia, generalized weakness, TIA, vertigo. Data [facility] reviewed: vital signs, nurses notes, lab test result(s), EKG. 20:15 ED course: Patient not accepted to [facility] due to positive COVID test and no COVID [facility] beds available. Accepted for transfer to [facility].. 06/30 17:09 Order name: Basic Metabolic Panel; Complete Time: 18:17 06/30 17:09 Order name: CBC with Diff; Complete Time: 17:55 [facility] 06/30 17:09 Order name: LFT's; Complete Time: 18:17 [facility] 06/30 17:09 Order name: Magnesium; Complete Time: 18:17 06/30 17:09 Order name: NT PRO-BNP; Complete Time: 18:17 06/30 17:09 Order name: PT-INR; Complete Time: 17:55 06/30 17:09 Order name: Troponin HS; Complete Time: 18:17 06/30 17:09 Order name: XRAY Chest (1 view); Complete Time: 19:37 06/30 17:10 Order name: CT Head Brain wo Cont; Complete Time: 17:55 06/30 17:48 Order name: COVID-19 SARS RT PCR (Document "Date of Onset" if Symptomatic); Complete ss Time: 19:37 06/30 17:09 Order name: EKG; Complete Time: 17:09 06/30 17:09 Order name: Cardiac monitoring; Complete Time: 17:38 06/30 17:09 Order name: EKG - Nurse/Tech; Complete Time: 17:39 06/30 17:09 Order name: IV Saline Lock; Complete Time: 17:39 06/30 17:09 Order name: Labs collected and sent; Complete Time: 17:39 06/30 17:09 Order name: O2 Per Protocol; Complete Time: 17:39 06/30 17:09 Order name: O2 Sat Monitoring; Complete Time: 17:39 Administered Medications: 17:38 Drug: NS 0.9% 1000 ml Route: IV; Rate: 1 bolus; Site: right antecubital; lr4 18:15 Follow up: IV Status: Infusion continued lr4 17:38 Drug: Reglan (metoCLOPramide) 10 mg Route: IVP; Site: right antecubital; lr4 18:15 Follow up: Response: No adverse reaction; Nausea is decreased lr4 17:38 Drug: Tylenol 1000 mg Route: PO; lr4 18:15 Follow up: Response: No adverse reaction; Pain is decreased lr4 18:10 Drug: niCARdipine (25mg/250ml) 5 mg/hr Route: IV; Rate: 2.5 Titrate; Site: right lr4 antecubital; 18:16 Follow up: IV Status: Infusion continued lr4 18:36 Follow up: Rate change 7.5 mg/hr lr4 19:45 Follow up: Rate change 5 mg/hr lr4 Point of Care Testing: Blood Glucose: 18:21 Blood Glucose: 158 mg/dL; lr4 Ranges: Critical Glucose Levels:Adult <50 mg/dl or >400 mg/dl <40 mg/dl or >180 mg/dl Disposition Summary: 06/30/21 18:38 Transfer Ordered Reason: Higher level of care jr11 Condition: Serious jr11 Problem: new jr11 Symptoms: are unchanged jr11 Transfer Location: [facility](06/30/21 20:15) [facility] Accepting Physician: Dr. Garner(06/30/21 20:46) lr4 Diagnosis - hemorrhagic stroke jr11 - Coronavirus infection, unspecified [facility] Forms: - Medication Reconciliation Form jr11 - SBAR form jr11 Critical care time excluding procedures: 18:00 Critical care time: Bedside Care: 15 minutes, Consultation: 15 minutes, Family jr11 Intervention: 7 minutes. Total time: 37 minutes NIH Stroke Scale - NIH Stroke Score Date: 06/30/2021 Time: 18:16 Total Score = 1 1a. Level of Consciousness (LOC) - 0(Alert) 1b. Level of Consciousness (LOC) (Month \\T\\ Age) - 0(Both) 1c. LOC Commands (Open \\T\\ Closes Eyes/Form [employer] Forms) - 0(Both) 2. Best Gaze (Lateral Gaze Paresis) - 0(Normal) 3. Visual Field Loss - 0(No visual loss) 4. Facial Palsy - 1(Minor Paralysis) 5a. Left Arm: Motor (10-second hold) - 0(No drift) 5b. Right Arm: Motor (10-second hold) - 0(No drift) 6a. Left Leg: Motor (5-second hold - always test supine) - 0(No drift) 6b. Right Leg: Motor (5-second hold - always test supine) - 0(No drift) 7. Limb Ataxia (finger/nose \\T\\ heel/borden - test with eyes open) - 0(Absent) 8. Sensory Loss (pinprick arms/legs/face) - 0(Normal) 9. Best Language: Aphasia (description/naming/reading) - 0(No aphasia) 10. Dysarthria (speech clarity - read or repeat words) - 0(Normal) 11. Extinction and Inattention (visual/tactile/auditory/spatial/personal) - 0(No abnormality) Initials: lr4 Signatures: Dispatcher [employer] Aimee Louise, RN RN ss Woody Lewis MD MD 7 Wilbert William MD MD [facility] Dina Murillo RN RN lr4 Corrections: (The following items were deleted from the chart) 20:15 18:38 [email or web address] 20:15 18:38 [place] [id number] 20:46 20:15 Dr. Garner [facility] lr4
--- NOTE | 2021-06-30 18:55 | RAD REPORT ---
EXAM DESCRIPTION: RAD - Chest Single View - 06/30/2021 6:06 pm CLINICAL HISTORY: dizziness COMPARISON: Abdomen Pelvis Wo Contrast dated 03/23/2021; Stone Protocol dated 02/18/2021; Stone Pr otocol dated 10/28/2020; Abdomen Pelvis Wo Contrast dated 10/09/2020Head Brain Wo Cont dated ; Head Brain Wo Cont dated 09/03/2020hest Single View dated 01/30/2021 FINDINGS: Lines: None. Lungs: No evidence of edema or pneumonia. Pleural: No significant pleural effusions or pneumothorax. Cardiac: The heart size is within normal limits. Bones: No acute fractures. Other: IMPRESSION: No acute cardiopulmonary disease.
[2021-06-30 20:52] VITALS: TEMP 97.5
[2021-06-30 21:06] VITALS: BP 151/90; O2SAT 95
--- NOTE | 2021-07-01 08:49 | EKG ---
Test Date: 2021-06-30 Test Time: 17:34:09 [employer]: DENNY MEASUREMENT RESULTS: Intervals: Rate: 90 UT: 134 QRSD: 86 QT: 362 QTc: 442 [place]: P: 40 UT: 134 QRS: 51 T: -30 INTERPRETIVE STATEMENTS: Normal sinus rhythm Cannot rule out Inferior infarct, age undetermined Cannot rule out Anterior infarct, age undetermined Abnormal ECG Compared to ECG 01/30/2021 01:25:31 Myocardial infarct finding now present Left ventricular hypertrophy no longer present Electronically Signed On 07-01-21 08:47:43 [employer]STRUCTION [employer]QUIPMENT MECH[employer]IC HELPER by Reginaldo Marr
== END 2021-06-30 20:46 | disposition short-term general hospital (02) ==
LOC: ER 16:31
DX: I62.9 Nontraumatic intracranial hemorrhage, unspecified (principal); R27.0 Ataxia, unspecified; U07.1 COVID-19; R29.701 NIHSS score 1
CPT/HCPCS: 96361; 93005; 85025; 80048; 36415; 83735; 85610; 80076; 84484; 83880; 70450; 71045; 96375; 96374; 99285; U0003; J2765; J7030

== ENCOUNTER 2022-11-03 20:04 | Emergency (ER) | payer BC ==
--- OUTSIDE RECORDS SUMMARY | 2022-11-03 20:07 | XMS REPORT | Continuity of Care Document ---
:1965 Author Organization [facility] t Address [address] [place] [address] Care Team Providers Name Role Phone LIZANDRO LEZAMA Attending Clinician Unavailable SHAMIKA FIELD Attending Clinician Unavailable GERRI KU Attending Clinician Unavailable Scott Melo Attending Clinician GERRI KU Admitting Clinician Unavailable Payers Payer Name Policy Type Policy Number Effective Date Expiration Date S ource BCBSTX PPO [id number] 2021 00:00:00 BCBS PPO POS EPO [id number] 2021 00:00:00 CHOICE Problems Condition Condition Condition Status Onset Resolution Last Treating Co mments Source Name Details Category Date Date Treatment Clinician Date Hemifacial Hemifacia Problem Active 2021-12-15 Memoria spasm l spasm 22:01:28 l (finding) (finding) Mary zayas Active Problem 12/15/2021 [facility] Cerebral Cerebral Problem Active 2021-12-15 Memoria hemorrhage hemorrhage 22:01:28 l (disorder) (disorder) Nigel hurst Active Problem 12/15/2021 [facility] Hypertensi Hypertens Problem Active 2021-12-15 Memoria ve callie 22:01:28 l disorder, disorder, Mary zayas systemic systemic arterial arterial (disorder) (disorder) Active Problem 12/15/2021 [facility] Hypertensi Hypertens Problem Active 2021-12-15 Memoria ve callie 22:01:28 l emergency emergency Mary zayas (disorder) (disorder) Active Problem 12/15/2021 [facility] Blepharosp Blepharos Problem Active 2021-12-15 Memoria asm pasm 22:01:28 l (disorder) (disorder) He rmann Active Problem 12/15/2021 [facility] Allergies, Adverse Reactions, Alerts This patient has no known allergies or adverse reactions. Social History Social Habit Start Date Stop Date Quantity Comments Source Social History 2021-07-01 2021-07-01 [facility] 05:05:44 05:05:44 Sex Assigned At [birth year] [facility]00 [facility] Medications Ordered Filled Start Stop Current Ordering Indication Dosage Frequency Signature Comments Components Source Medication Medication Date Date Medication? Clinician (SIG) Name Name baclofen 10 Yes 10 mg = 1 M emoria mg oral 4-27 tab, PO, l tablet 18:43: Bedtime, # Bekah nn 00 30 tab, 3 Refill(s), Pharmacy: [id number], 162.56, cm, 08/28/21 13:19:00 CDT, Height, 75.455, kg, 08/28/21 13:19:00 CDT, Weight Vital Signs Vital Name Observation Time Observation Value Comments Source Systolic (mm Hg) 2021-08-28 18:10:00 Dre rial [place] Diastolic (mm Hg) 2021-08-28 18:10[facility] [place] [facility] Rate 2021-08-28 18:10:[address] [facility] [place] Respitory Rate 2021-08-28 18:10:00 Memori al [place] Height 2021-08-28 18:10:00 162.56 cm [facility] Weight 2021-08-28 18:10:00 [facility] BMI Calculated 2021-08-28 18:10:00 Memori al [place] Systolic (mm Hg) 2020-04-10 20:22:00 Dre rial [place] Diastolic (mm Hg) 2020-04-10 20:22:00 [facility] orial [place] Heart Rate 2020-04-10 20:22:[address] [facility] [place] Respitory Rate 2020-04-10 20:22:00 Memori al [place] Height 2020-04-10 20:22:00 162.56 cm [facility] Weight 2020-04-10 20:22:00 [facility] BMI Calculated 2020-04-10 20:22:00 [facility] Procedures This patient has no known procedures. Encounters Start End Encounter Admission Attending Care Care Encounter Source Date/Time Date/Time Type Type Clinicians Facility Department ID 2021-07-[address] [facility] [id number] [place] 12:58:22 [id number] [facility] 2021-07-02 Outpatient TEJA, [facility] [id number] [place] 17:00:59 Critical access hospital 2021-07-02 Outpatient RASHIDA, [facility] [id number] [place] 10:22:46 [facility] 2021-06-[address] [facility] Neurosurger [id number] 18:28:49 [facility] 2021-12-13 2021-12-13 Ambulatory nullFlavo MNA [id number] Memoria 16:00:00 16:00:00 Pre-Reg r Neurology 02 l Capri [place] 2021-12-13 2021-12-13 Outpatient LATRICE MeloSCHENRICO [id number] 11:00:00 11:00:00 Scott 02 [place] 2021-11-27 2021-11-27 Outpatient MHIE MHIE [id number] Memoria 13:45:00 13:45:00 02 sherry Schwarz 2021-08-28 2021-08-29 Outpatient nullFlavo MNA [id number] Memoria 18:00:00 04:59:59 r Neurology 01 l Capri Schwarz 2021-08-28 2021-08-28 Outpatient LATRICE MeloSCHENRICO [id number] 13:00:00 23:59:59 Scott 01 [place] 2021-08-28 2021-08-28 Outpatient MHIE MHIE [id number] Memoria 13:00:00 13:00:00 01 sherry Schwarz 2020-04-10 2020-04-11 Outpatient nullFlavo MNA [id number] Memoria 20:15:00 05:59:59 r Neurology 00 l Capri Schwarz 2020-04-10 2020-04-10 Outpatient LATRICE Melo MHMISCHENRICO [id number] 14:15:00 23:59:59 Scott 00 [place] 2020-04-10 2020-04-10 Outpatient [facility] [id number] [facility] 14:15:00 14:15:00 00 sherry Schwarz Results This patient has no known results.
[2022-11-03 20:40] LABS: Absolute Lymphocytes (CBC) 0.3 K/uL (0.7-4.9); Hematocrit 47.4 % (39.6-49.0); Lymphocytes % 2.3 % (15.3-44.8); MCV 79.2 fL (80-100); MPV 7.8 fL (7.6-11.3); RBC Red Blood Cell Count 5.99 M/uL (4.33-5.43)
[2022-11-03] MEDS ORDERED: NA CHLORIDE 0.9% 500 ML ONE (20:43)
[2022-11-03] MEDS ORDERED: NA CHLORIDE 0.9% 1,000 ML ONE (20:43)
[2022-11-03 20:48] LABS: Barbiturates NEGATIVE (NEGATIVE); Benzodiazepines NEGATIVE (NEGATIVE); Cocaine NEGATIVE (NEGATIVE); METHAMPHETAM NEGATIVE (NEGATIVE); Methadone NEGATIVE (NEGATIVE); Opiates NEGATIVE (NEGATIVE); Phencyclidine NEGATIVE (NEGATIVE); THC Cannibis NEGATIVE (NEGATIVE)
[2022-11-03] MEDS ORDERED: LEVETIRACETAM 500 MG/5 ML VIAL IV ONE ×2 (20:51→20:57)
[2022-11-03] MEDS ORDERED: NA CHLORIDE 0.9% 100 ML ONE ×2 (20:51→20:58)
[2022-11-03 20:54] LABS: Protime INR 1.02
[2022-11-03] MEDS ORDERED: LORazepam 2 MG/ML VIAL ONE (20:57)
[2022-11-03] MEDS ORDERED: FOLIC ACID 5 MG/ML VIAL ONE (20:58)
[2022-11-03 21:04] LABS: ALT/SGPT 25 U/L (16-61); AST/SGOT 20 U/L (15-37); Albumin 3.8 g/dL (3.4-5.0); Alkaline Phosphatase 99 U/L (45-117); BUN Blood Urea Nitrogen 20 mg/dL (7-18); Bicarbonate 25 mEq/L (21-32); Bilirubin Total 0.4 mg/dL (0.2-1.0); Glomerular Filtration Rate 74 ml/min (=/>90); Glucose Level 122 mg/dL (74-106); Protein, Total 7.3 g/dL (6.4-8.2); Sodium Level 139 mEq/L (136-145)
[2022-11-03 21:06] LABS: Bilirubin Direct < 0.1 mg/dL (0-0.2); Bilirubin Indirect, Calculated ND mg/dL (0.2-0.8)
--- NOTE | 2022-11-03 21:21 | RAD REPORT ---
EXAM DESCRIPTION: RAD - Chest Single View - 11/03/2022 9:11 pm CLINICAL HISTORY: COUGH Chest pain. COMPARISON: Chest Single View dated 06/30/2021; Chest Single View dated 01/30/2021 FINDINGS: Portable technique limits examination quality. The lungs are underinflated but grossly clear. The heart is normal in size. No displaced fractures. IMPRESSION: No acute intrathoracic process suspected.
--- NOTE | 2022-11-03 21:46 | RAD REPORT ---
EXAM DESCRIPTION: CT - CTHCSPWOC - 11/03/2022 9:35 pm CLINICAL HISTORY: Trauma, head and neck injury. DIZZINESS COMPARISON: Head C Spine Mpr Wo Con dated 01/30/2021 TECHNIQUE: Axial 5 mm thick images of the head were obtained. Axial 2 mm thick images of the cervical spine were obtained with sagittal and coronal reconstruction images generated and reviewed. All CT scans are performed using dose optimization technique as appropriate and may include automated exposure control or mA/KV adjustment according to patient size. FINDINGS: CT HEAD WITHOUT CONTRAST: There is a 23 x 19 mm acute hemorrhage in the left aspect of the brainstem, predominately in the emil on of the aileen. There is moderate mass effect on the fourth ventricle without obstructive hydrocephal us.No significant midline shift seen. No additional areas of hemorrhage. No hydrocephalus or extra-ax ial collection. The paranasal sinuses and mastoids are clear.The calvarium is intact. CT CERVICAL SPINE WITHOUT CONTRAST: No fracture or subluxation.Mild lower cervical spondylosis.No prevertebral soft tissues swelling is i dentified. IMPRESSION: 23 x 19 mm acute bleed left aspect of the brainstem. The findings were discussed with doctor Jordan in the ER on 11/03/2022 at 9:40 p.m. by telephone.
[2022-11-03] MEDS ORDERED: dexAMETHasone 10 MG/ML VIAL ONE (21:53)
[2022-11-03] MEDS ORDERED: Nicardipine/NS 25 MG/250 ML KIT IV ONE (21:54)
--- NOTE | 2022-11-03 21:59 | ER ---
Nurse's Notes [facility] Name: Mat Tate Age: 57 yrs Sex: Male : 1965 Arrival Date: 11/03/2022 Time: 20:04 Bed 3 Private MD: Diagnosis: Nontraumatic intracerebral hemorrhage, unspecified Presentation: 11/03 20:15 Chief complaint: EMS states: called out for fall/unresponsive. pt has a history of as6 seizures. it appears pt had a seizure, had a fall and hit head and is now post ictal. Coronavirus screen: At this time, the client does not indicate any symptoms associated with coronavirus-19. Ebola Screen: No symptoms or risks identified at this time. Initial Sepsis Screen: Does the patient meet any 2 criteria? No. Patient's initial sepsis screen is negative. Does the patient have a suspected source of infection? No. Patient's initial sepsis screen is negative. Risk Assessment: Do you want to hurt yourself or someone else? Unable to obtain. Onset of symptoms was November 03, 2022. 20:15 Method Of Arrival: EMS: [facility] as6 20:15 Acuity: CHRISTIANA 2 as6 Historical: - PMHx: 20:18 Deaf; Seizure; as6 - Immunization history:: Adult Immunizations unknown. - Social history:: Smoking status: unknown. - Family history:: not pertinent. Screenin:20 [facility] ED Fall Risk Assessment (Adult) Score/Fall Risk Level 0 - 2 = Low Risk. Abuse as6 screen: Denies threats or abuse. Denies injuries from another. Nutritional screening: No deficits noted. Tuberculosis screening: No symptoms or risk factors identified. Assessment: 20:18 General: Appears in no apparent distress. ill, Behavior is drowsy. Pain: Unable to use as6 pain scale. FLACC scale score is 0 out of 10. Neuro: Level of Consciousness is lethargic, post ictal. Respiratory: Respiratory effort is even, unlabored. 20:19 Derm: Wound noted left flank and left knee Wound is abrasions noted. as6 20:28 General: reports pt was at work and was walking to the bathroom and had a seizure as6 and fell. 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 reports pt does not have a history of as6 seizures and this is the first time this had happened . 21:25 Reassessment: Pt remains drowsy. Does not open eyes to stimuli. IV fluids infusing jb4 without issue. Family remains at the bedside. 21:56 Reassessment: Received verbal order for nicardipine drip to maintain a Systolic B/p no jb4 greater than 130. Vital Signs: 20:15 BP 175 / 98; Pulse 75; Resp 20 S; Temp 97.1(Ca); Pulse Ox 98% on R/A; Weight 68.04 kg; as6 21:01 BP 159 / 94; Pulse 80; Resp 20 S; Temp 98.3(Ca); Pulse Ox 97% on R/A; as6 21:47 BP 160 / 101; Pulse 77; Resp 17 S; Temp 97.8(Ca); Pulse Ox 97% on R/A; as6 21:56 BP 146 / 88; Pulse 84; Resp 18 S; Temp 97.8(Ca); Pulse Ox 98% on R/A; as6 22:07 BP 159 / 88; Pulse 94; Resp 16; Pulse Ox 97% on R/A; jb4 22:20 BP 162 / 94; Pulse 90; Resp 17; Pulse Ox 97% on R/A; jb4 [place]is Coma Score: 21:27 Eye Response: to pain(2). Modifying Factors: Medicated. Motor Response: localizes jb4 pain(5). Verbal Response: none(1). Total: 8. 22:32 Eye Response: to pain(2). Modifying Factors: Medicated. Motor Response: localizes jb4 pain(5). Verbal Response: none(1). Total: 8. NIH Stroke Scale Scores: 21:44 NIHSS Score: 30 [facility] ED Course: 20:15 Patient arrived in ED. as6 20:15 Arm band placed on. as6 20:16 David Jordan MD is Attending Physician. [facility] 20:18 Triage completed. as6 20:20 Myles Hester, HUGO is Primary Nurse. as6 20:20 Placed in gown. Bed in low position. Call light in reach. Side rails up X2. Client as6 placed on continuous cardiac and pulse oximetry monitoring. NIBP monitoring applied. 20:20 Smith cath inserted, using sterile technique, 16 Fr., by ma, balloon inflated, to as6 gravity drainage, urine specimen collected. returned clear yellow urine. Patient tolerated well. Maintain EMS IV. Dressing intact. Good blood return noted. Site clean \T\ dry. Gauge \T\ site: 20G Left hand. 20:21 EKG done, by ED staff, reviewed by David Jordan MD. mc5 20:31 Seizure precautions initiated. mc5 20:32 Acetaminophen Sent. jb4 20:32 Basic Metabolic Panel Sent. jb4 20:32 CBC with Diff Sent. jb4 20:32 ETOH Level Sent. jb4 20:32 Hepatic Function Sent. jb4 20:32 PT-INR Sent. jb4 20:32 Ptt, Activated Sent. jb4 20:32 Salicylate Sent. jb4 20:33 Urine Drug Screen Sent. jb4 21:13 Chest Single View XRAY In Process Unspecified. EDMS 21:37 CT Head C Spine In Process Unspecified. EDMS 21:47 Inserted saline lock: 18 gauge in right forearm, using aseptic technique. as6 21:[address] [facility] by dr Joe Daniel. 1 22:00 [facility] contacted. ah1 22:09 Faxed over face sheet to [facility]. ah1 22:11 Hospital approval from [facility] room 7 south 5 bed 11[facility] 22:23 [facility] arrived. 1 22:25 No provider procedures requiring assistance completed. Patient transferred, IV remains as6 in place. 22:30 Initial contact to [facility] by Dr Jordan. He spoke with Anabelle Shane RN [facility]. 1 Administered Medications: 20:39 Drug: NS 0.9% IV 500 ml Route: IV; Rate: bolus; Site: left hand; jb4 22:26 Follow up: Response: No adverse reaction; IV Status: Completed infusion; IV Intake: as6 500ml 20:39 Drug: NS 0.9% IV 1000 ml Route: IV; Rate: 125 ml/hr; Site: left hand; jb4 22:26 Follow up: Response: No adverse reaction; IV Status: Infusion continued upon transfer; as6 IV Intake: 200ml 20:56 Drug: Keppra IV 2000 mg Route: IV; Rate: per protocol; Site: left hand; jb4 22:26 Follow up: Response: No adverse reaction; IV Status: Completed infusion; IV Intake: as6 200ml 20:56 Drug: Ativan IVP 1 mg Route: IVP; Site: left hand; jb4 22:26 Follow up: Response: No adverse reaction as6 20:56 Drug: foLIC Acid IVPB 1 mg Route: IVPB; Site: left hand; jb4 22:26 Follow up: Response: No adverse reaction; IV Status: Completed infusion; IV Intake: [id number] 21:52 Drug: niCARdipine IV 5 mg/hr Route: IV; Rate: per protocol; Site: right forearm; jb4 22:07 Follow up: Rate change 7.5 mg/hr jb4 22:25 Follow up: Response: No adverse reaction; IV Status: Infusion continued upon transfer; as6 IV Intake: 20ml 21:55 Drug: Decadron - Dexamethasone IVP 10 mg Route: IVP; Site: left hand; jb4 22:25 Follow up: Response: No adverse reaction as6 22:05 Drug: Mannitol IVP (25%) 50 ml Route: IVP; Site: left hand; as6 22:25 Follow up: Response: No adverse reaction as6 Medication: 20:20 VIS not applicable for this client. as6 Intake: 22:25 IV: 20ml; Total: 20ml. as6 22:26 IV: 50ml; Total: 70ml. as6 22:26 IV: 200ml; Total: 270ml. as6 22:26 IV: 500ml; Total: 770ml. as6 22:26 IV: 200ml; Total: 970ml. as6 Outcome: 21:58 ER care complete, transfer ordered by MD. lucas 22:25 Transferred by helicopter to [facility], Transfer form completed. as6 X-rays sent w/ patient. 22:25 critical 22:25 Instructed on the need for transfer. 22:27 Patient left the ED. as6 NIH Stroke Scale - NIH Stroke Score Date: 11/03/2022 Time: 21:44 Total Score = 30 10. Dysarthria (speech clarity - read or repeat words) - 2(Severe) 11. Extinction and Inattention (visual/tactile/auditory/spatial/personal) - 2(Profound) 1a. Level of Consciousness (LOC) - 3(Unresponsive) 1b. Level of Consciousness (LOC) (Month \T\ Age) - 2(Neither) 1c. LOC Commands (Open \T\ Closes Eyes/Jig Operator) - 2(Neither) 2. Best Gaze (Lateral Gaze Paresis) - 0(Normal) 3. Visual Field Loss - 0(No visual loss) 4. Facial Palsy - 1(Minor Paralysis) 5a. Left Arm: Motor (10-second hold) - 4(No movement) 5b. Right Arm: Motor (10-second hold) - 4(No movement) 6a. Left Leg: Motor (5-second hold - always test supine) - 2(Drift, some effort against gravity) 6b. Right Leg: Motor (5-second hold - always test supine) - 2(Drift, some effort against gravity) 7. Limb Ataxia (finger/nose \T\ heel/borden - test with eyes open) - 2(Present in two limbs) 8. Sensory Loss (pinprick arms/legs/face) - 1(Mild to moderate loss) 9. Best Language: Aphasia (description/naming/reading) - 3(Mute, global aphasia) Initials: shayy Signatures: Dispatcher [employer] EDDavid Taylor MD MD cha Bryson, James, RN RN jb4 Myles Hester RN RN as6 Jez Santos 1 Fara Green 5 Corrections: (The following items were deleted from the chart) : 21:25 Reassessment: Pt remains drowsy. Does not open eyes to stimuli. IV fluids jb4 infusing without issue. Family remains at the bedside. jb4 21:28 21:25 Reassessment: Pt remains drowsy. Does not open eyes to verbal stimuli. IV jb4 fluids infusing without issue. Family remains at the bedside. jb4 : 21:27 GCS: 8, Medicated, jb4 jb4 22:33 21:27 GCS: 9, Medicated, jb4 jb4 22:33 22:32 GCS: 8, jb4 jb4
--- NOTE | 2022-11-03 21:59 | EDPHYS ---
Physician Documentation [facility] Name: Mat Tate Age: 57 yrs Sex: Male : 1965 Arrival Date: 11/03/2022 Time: 20:04 Bed 3 Private MD: ED Physician David Jordan HPI: 11/03 21:44 This 57 yrs old Male presents to ER via EMS with complaints of unresponsive, shayy seizure at work. 21:44 The patient's problem is reported as unresponsive. Onset: The symptoms/episode shayy began/occurred just prior to arrival. Duration: The episode is continuous. The symptoms are alleviated by nothing. The symptoms are aggravated by nothing. The patient presents with decreased responsiveness. Possible causes: CVA or TIA, head injury, seizure, sepsis. The patient presents after having a single isolated seizure, that lasted an unknown period of time. Seizure onset: just prior to arrival. Associated injury: Head/face: forehead. Historical: - PMHx: 20:18 Deaf; Seizure; as6 - Immunization history:: Adult Immunizations unknown. - Social history:: Smoking status: unknown. - Family history:: not pertinent. ROS: 21:44 Constitutional: Negative for fever, chills, and weight loss, Eyes: Negative for injury, shayy pain, redness, and discharge, ENT: Negative for injury, pain, and discharge, Neck: Negative for injury, pain, and swelling, Cardiovascular: Negative for chest pain, palpitations, and edema, Respiratory: Negative for shortness of breath, cough, wheezing, and pleuritic chest pain, Abdomen/GI: Negative for abdominal pain, nausea, vomiting, diarrhea, and constipation, Back: Negative for injury and pain, : Negative for injury, bleeding, discharge, and swelling, MS/Extremity: Negative for injury and deformity, Skin: Negative for injury, rash, and discoloration, Psych: Negative for depression, anxiety, suicide ideation, homicidal ideation, and hallucinations, Allergy/Immunology: Negative for hives, rash, and allergies, Endocrine: Negative for neck swelling, polydipsia, polyuria, polyphagia, and marked weight changes, Hematologic/Lymphatic: Negative for swollen nodes, abnormal bleeding, and unusual bruising. 21:44 Neuro: Positive for altered mental status, seizure activity. Exam: 21:44 Radiologist reports: left brainstem hemorrhage [id number] shayy 21:44 Constitutional: This is a well developed, well nourished patient who is awake, alert, and in no acute distress. Head/Face: Normocephalic, atraumatic. Eyes: Pupils equal round and reactive to light, extra-ocular motions intact. Lids and lashes normal. Conjunctiva and sclera are non-icteric and not injected. Cornea within normal limits. Periorbital areas with no swelling, redness, or edema. ENT: Nares patent. No nasal discharge, no septal abnormalities noted. Tympanic membranes are normal and external auditory canals are clear. Oropharynx with no redness, swelling, or masses, exudates, or evidence of obstruction, uvula midline. Mucous membranes moist. Neck: Trachea midline, no thyromegaly or masses palpated, and no cervical lymphadenopathy. Supple, full range of motion without nuchal rigidity, or vertebral point tenderness. No Meningismus. Chest/axilla: Normal chest wall appearance and motion. Nontender with no deformity. No lesions are appreciated. Cardiovascular: Regular rate and rhythm with a normal S1 and S2. No gallops, murmurs, or rubs. Normal PMI, no JVD. No pulse deficits. Respiratory: Lungs have equal breath sounds bilaterally, clear to auscultation and percussion. No rales, rhonchi or wheezes noted. No increased work of breathing, no retractions or nasal flaring. Abdomen/GI: Soft, non-tender, with normal bowel sounds. No distension or tympany. No guarding or rebound. No evidence of tenderness throughout. Back: No spinal tenderness. No costovertebral tenderness. Full range of motion. Male : Normal genitalia with no discharge or lesions. Skin: Warm, dry with normal turgor. Normal color with no rashes, no lesions, and no evidence of cellulitis. MS/ Extremity: Pulses equal, no cyanosis. Neurovascular intact. Full, normal range of motion. Psych: Awake, alert, with orientation to person, place and time. Behavior, mood, and affect are within normal limits. 21:44 Neuro: Orientation: unable to test, the patient is comatose, Mentation: unable to follow commands, Memory: unable to test, Cranial nerves: unable to test, Cerebellar function: unable to test, Sensation: unable to test, Gait: not tested. Deep tendon reflexes are 1 (trace) + in the bilateral brachioradialis, bicep, tricep and patellar and Achilles tendons, seizure activity. Vital Signs: 20:15 BP 175 / 98; Pulse 75; Resp 20 S; Temp 97.1(Ca); Pulse Ox 98% on R/A; Weight 68.04 kg; as6 21:01 BP 159 / 94; Pulse 80; Resp 20 S; Temp 98.3(Ca); Pulse Ox 97% on R/A; as6 21:47 BP 160 / 101; Pulse 77; Resp 17 S; Temp 97.8(Ca); Pulse Ox 97% on R/A; as6 21:56 BP 146 / 88; Pulse 84; Resp 18 S; Temp 97.8(Ca); Pulse Ox 98% on R/A; as6 22:07 BP 159 / 88; Pulse 94; Resp 16; Pulse Ox 97% on R/A; jb4 22:20 BP 162 / 94; Pulse 90; Resp 17; Pulse Ox 97% on R/A; jb4 NIH Stroke Scale Scores: 21:44 NIHSS Score: 30 shayy [place] Coma Score: 21:27 Eye Response: to pain(2). Modifying Factors: Medicated. Motor Response: localizes jb4 pain(5). Verbal Response: none(1). Total: 8. 22:32 Eye Response: to pain(2). Modifying Factors: Medicated. Motor Response: localizes jb4 pain(5). Verbal Response: none(1). Total: 8. MDM: 20:16 Patient medically screened. shayy 21:53 Differential diagnosis: CVA, TIA, Dementia, paralysis, metabolic disorder. Differential shayy Diagnosis: CVA, electrolyte abnormality, hypoglycemia, intracranial bleed, meningitis, seizure, TIA, volume depletion, cardiac arrhythmia. Data reviewed: vital signs, nurses notes, lab test result(s), EKG, radiologic studies, CT scan, plain films. Consideration of Admission/Observation Escalation of care including admission/observation considered. I considered the following discharge prescriptions or medication management in the emergency department Medications were administered in the Emergency Department. See MAR. Test considered but Not performed: MRI: no brain mri. Care significantly affected by the following chronic conditions: Hypertension, deaf, seizures. Counseling: I had a detailed discussion with the patient and/or guardian regarding: the historical points, exam findings, and any diagnostic results supporting the discharge/admit diagnosis, the presence of at least one elevated blood pressure reading (>120/80) during this emergency department visit, lab results, radiology results, the need to transfer to another facility, for higher level of care, [facility] the required specialist. 11/03 20:23 Order name: Acetaminophen; Complete Time: 21:38 [facility] 11/03 20:23 Order name: Basic Metabolic Panel; Complete Time: 21:38 [facility] 11/03 20:23 Order name: CBC with Diff; Complete Time: 21:38 [facility] 11/03 20:23 Order name: ETOH Level; Complete Time: 21:38 [facility] 11/03 20:23 Order name: Hepatic Function; Complete Time: 21:38 [facility] 11/03 20:23 Order name: PT-INR; Complete Time: 21:38 [facility] 11/03 20:23 Order name: Ptt, Activated; Complete Time: 21:38 [facility] 11/03 20:23 Order name: Salicylate; Complete Time: 21:38 [facility] 11/03 20:23 Order name: Urine Drug Screen; Complete Time: 21:38 [facility] 11/03 20:38 Order name: Troponin High Sensitivity; Complete Time: 21:38 [facility] 11/03 20:25 Order name: CT Head C Spine; Complete Time: 21:58 [facility] 11/03 20:45 Order name: Chest Single View XRAY; Complete Time: 21:38 [facility] 11/03 20:23 Order name: EKG; Complete Time: 20:24 [facility] 11/03 20:23 Order name: EKG - Nurse/Tech; Complete Time: 20:23 [facility] 11/03 20:23 Order name: IV Saline Lock; Complete Time: 20:23 [facility] 11/03 20:23 Order name: Labs collected and sent; Complete Time: 20:23 [facility] 11/03 20:26 Order name: Seizure Precautions; Complete Time: 20:30 [facility] 11/03 21:43 Order name: IV Saline Lock - Large Bore; Complete Time: 21:47 [facility] 11/03 22:00 Order name: Smith; Complete Time: 22:00 [facility] Administered Medications: 20:39 Drug: NS 0.9% IV 500 ml Route: IV; Rate: bolus; Site: left hand; [facility] 22:26 Follow up: Response: No adverse reaction; IV Status: Completed infusion; IV Intake: as6 500ml 20:39 Drug: NS 0.9% IV 1000 ml Route: IV; Rate: 125 ml/hr; Site: left hand; jb4 22:26 Follow up: Response: No adverse reaction; IV Status: Infusion continued upon transfer; as6 IV Intake: 200ml 20:56 Drug: Keppra IV 2000 mg Route: IV; Rate: per protocol; Site: left hand; jb4 22:26 Follow up: Response: No adverse reaction; IV Status: Completed infusion; IV Intake: as6 200ml 20:56 Drug: Ativan IVP 1 mg Route: IVP; Site: left hand; jb4 22:26 Follow up: Response: No adverse reaction as6 20:56 Drug: foLIC Acid IVPB 1 mg Route: IVPB; Site: left hand; jb4 22:26 Follow up: Response: No adverse reaction; IV Status: Completed infusion; IV Intake: [id number] 21:52 Drug: niCARdipine IV 5 mg/hr Route: IV; Rate: per protocol; Site: right forearm; jb4 22:07 Follow up: Rate change 7.5 mg/hr jb4 22:25 Follow up: Response: No adverse reaction; IV Status: Infusion continued upon transfer; as6 IV Intake: 20ml 21:55 Drug: Decadron - Dexamethasone IVP 10 mg Route: IVP; Site: left hand; jb4 22:25 Follow up: Response: No adverse reaction as6 22:05 Drug: Mannitol IVP (25%) 50 ml Route: IVP; Site: left hand; as6 22:25 Follow up: Response: No adverse reaction as6 Disposition Summary: 11/03/22 21:58 Transfer Ordered Transfer Location: [facility] shayy Reason: Higher level of care shayy Condition: Critical shayy Problem: new shayy Symptoms: have improved shayy Accepting Physician: dr aviles(11/03/22 22:27) as6 Diagnosis - Nontraumatic intracerebral hemorrhage, unspecified shayy Forms: - Medication Reconciliation Form shayy - SBAR form shayy NIH Stroke Scale - NIH Stroke Score Date: 11/03/2022 Time: 21:44 Total Score = 30 10. Dysarthria (speech clarity - read or repeat words) - 2(Severe) 11. Extinction and Inattention (visual/tactile/auditory/spatial/personal) - 2(Profound) 1a. Level of Consciousness (LOC) - 3(Unresponsive) 1b. Level of Consciousness (LOC) (Month \T\ Age) - 2(Neither) 1c. LOC Commands (Open \T\ Closes Eyes/Software Asset Manager) - 2(Neither) 2. Best Gaze (Lateral Gaze Paresis) - 0(Normal) 3. Visual Field Loss - 0(No visual loss) 4. Facial Palsy - 1(Minor Paralysis) 5a. Left Arm: Motor (10-second hold) - 4(No movement) 5b. Right Arm: Motor (10-second hold) - 4(No movement) 6a. Left Leg: Motor (5-second hold - always test supine) - 2(Drift, some effort against gravity) 6b. Right Leg: Motor (5-second hold - always test supine) - 2(Drift, some effort against gravity) 7. Limb Ataxia (finger/nose \T\ heel/borden - test with eyes open) - 2(Present in two limbs) 8. Sensory Loss (pinprick arms/legs/face) - 1(Mild to moderate loss) 9. Best Language: Aphasia (description/naming/reading) - 3(Mute, global aphasia) Initials: shayy Signatures: Dispatcher [employer] EDDavid Taylor MD MD cha Bryson, James RN HUGO jb4 Myles Hester RN RN as6 Corrections: (The following items were deleted from the chart) 20:26 20:23 Suicide Screening ([place]) ordered. lauryn lucas 22:27 21:58 dr stefan lucas as6
[2022-11-03] MEDS ORDERED: MANNITOL 25% 50 ML IV ONE (22:10)
[2022-11-03 22:53] VITALS: TEMP 97.8
[2022-11-03 22:57] VITALS: O2SAT 97
[2022-11-03 22:58] VITALS: BP 162/94
--- NOTE | 2022-11-05 12:34 | EKG ---
Test Date: 2022-11-03 Test Time: 20:17:40 Stock Wetter: BRITTANY MEASUREMENT RESULTS: Intervals: Rate: 75 VT: 152 QRSD: 88 QT: 392 QTc: 437 [place]: P: 34 VT: 152 QRS: 57 T: 11 INTERPRETIVE STATEMENTS: Normal sinus rhythm Minimal voltage criteria for LVH, may be normal variant Borderline ECG Compared to ECG 06/30/2021 17:34:09 Left ventricular hypertrophy now present Myocardial infarct finding no longer present Electronically Signed On 11-05-22 12:32:40 CDT by Jc Arora
== END 2022-11-03 22:27 | disposition short-term general hospital (02) ==
LOC: ER 20:04
DX: I61.9 Nontraumatic intracerebral hemorrhage, unspecified (principal); R29.730 NIHSS score 30
CPT/HCPCS: 93005; 85025; 80048; 36415; 85610; 80076; 85730; 84484; 80307; 70450; 72125; 71045; 51702; 99285; 80143; 80179; 82077; J1953 ×2; J2150; J1100; J7040; J7030

== ENCOUNTER 2022-11-26 09:29 | Inpatient (IN) | payer BC ==
--- OUTSIDE RECORDS SUMMARY | 2022-11-26 12:24 | XMS REPORT | Continuity of Care Document ---
:1965 Author Organization [facility] t Address [address] [place] [address] Care Team Providers Name Role Phone NOEL BEAULIEU Attending Clinician Unavailable PALOMO WOODS Attending Clinician Unavailable KEIRA TA Attending Clinician Unavailable FALGUNI BEE Attending Clinician Unavailable GERRI KU Attending Clinician Unavailable LIZANDRO LEZAMA Attending Clinician Unavailable SHAMIKA FIELD Attending Clinician Unavailable Scott Melo Attending Clinician FALGUNI BEE Admitting Clinician Unavailable GERRI KU Admitting Clinician Unavailable Payers Payer Name Policy Type Policy Number Effective Date Expiration Date S ource BCBS OS [id number] 2022 00:00:00 [place] [id number] 2021 00:00:00 OUT OF STATE Problems Condition Condition Condition Status Onset Resolution Last Treating Co mments Source Name Details Category Date Date Treatment Clinician Date Blepharosp Blepharos Problem Active 2021-12-15 [facility] pasm 22:01:28 l (disorder) (disorder) Nigel voraann Active Problem 12/15/2021 [facility] Hemifacial Hemifacia Problem Active 2021-12-15 Memoria spasm l spasm 22:01:28 l (finding) (finding) Mary chana Active Problem 12/15/2021 [facility] Cerebral Cerebral Problem Active 2021-12-15 Memoria hemorrhage hemorrhage 22:01:28 l (disorder) (disorder) He rmann Active Problem 12/15/2021 [facility] Hypertensi Hypertens Problem Active 2021-12-15 Memoria ve callie 22:01:28 l disorder, disorder, Herm chana systemic systemic arterial arterial (disorder) (disorder) Active Problem 12/15/2021 [facility] Hypertensi Hypertens Problem Active 2021-12-15 Memoria ve callie 22:01:28 l emergency emergency Herm chana (disorder) (disorder) Active Problem 12/15/2021 [facility] Allergies, Adverse Reactions, Alerts Allergy Allergy Status Severity Reaction(s) Onset Inactive Treating Comm ents Source Name Type Date Date Clinician NO KNOWN Allergy Active [facility] Social History Social Habit Start Date Stop Date Quantity Comments Source Social History 2021-07-01 2021-07-01 [facility] 05:05:44 05:05:44 Sex Ass[birth year] At [birth year] [facility] 00:00:00 00:00:00 [facility] Medications Ordered Filled Start Stop Current Ordering Indication Dosage Frequency Signature Comments Components Source Medication Medication Date Date Medication? Clinician (SIG) Name Name baclofen Yes 10 mg = 1 M emoria mg oral 4-27 tab, PO, l tablet 18:43: Bedtime, # Bekah nn 00 30 tab, 3 Refill(s), Pharmacy: [facility], 162.56, cm, 08/28/21 13:19:00 CDT, Height, 75.455, kg, 08/28/21 13:19:00 CDT, Weight baclofen Yes 10 mg = 1 M emoria mg oral 4-27 tab, PO, l tablet 18:43: Bedtime, # Bekah nn 00 30 tab, 3 Refill(s), Pharmacy: [facility], 162.56, cm, 08/28/21 13:19:00 CDT, Height, 75.455, kg, 08/28/21 13:19:00 CDT, Weight baclofen 10 Yes 10 mg = 1 M emoria mg oral 4-27 tab, PO, l tablet 18:43: Bedtime, # Bekah nn 00 30 tab, 3 Refill(s), Pharmacy: [facility], 162.56, cm, 08/28/21 13:19:00 CDT, Height, 75.455, kg, 08/28/21 13:19:00 CDT, Weight baclofen 10 2021-0 Yes 10 mg = 1 M emoria mg oral 4-27 tab, PO, l tablet 18:43: Bedtime, # Bekah nn 00 30 tab, 3 Refill(s), Pharmacy: [facility], 162.56, cm, 08/28/21 13:19:00 CDT, Height, 75.455, kg, 08/28/21 13:19:00 CDT, Weight baclofen 10 2021-0 Yes 10 mg = 1 M emoria mg oral 4-27 tab, PO, l tablet 18:43: Bedtime, # Bekah nn 00 30 tab, 3 Refill(s), Pharmacy: [facility], 162.56, cm, 08/28/21 13:19:00 CDT, Height, 75.455, kg, 08/28/21 13:19:00 CDT, Weight baclofen 10 2021-0 Yes 10 mg = 1 M emoria mg oral 4-27 tab, PO, l tablet 18:43: Bedtime, # Bekah nn 00 30 tab, 3 Refill(s), Pharmacy: [facility], 162.56, cm, 08/28/21 13:19:00 CDT, Height, 75.455, kg, 08/28/21 13:19:00 CDT, Weight baclofen 10 2021-0 Yes 10 mg = 1 M emoria mg oral 4-27 tab, PO, l tablet 18:43: Bedtime, # Bekah nn 00 30 tab, 3 Refill(s), Pharmacy: [facility], 162.56, cm, 08/28/21 13:19:00 CDT, Height, 75.455, kg, 08/28/21 13:19:00 CDT, Weight baclofen 10 2021-0 Yes 10 mg = 1 M emoria mg oral 4-27 tab, PO, l tablet 18:43: Bedtime, # Bekah nn 00 30 tab, 3 Refill(s), Pharmacy: [facility], 162.56, cm, 08/28/21 13:19:00 CDT, Height, 75.455, kg, 08/28/21 13:19:00 CDT, Weight baclofen 10 2021-0 Yes 10 mg = 1 M emoria mg oral 4-27 tab, PO, l tablet 18:43: Bedtime, # Bekah nn 00 30 tab, 3 Refill(s), Pharmacy: [facility], 162.56, cm, 08/28/21 13:19:00 CDT, Height, 75.455, kg, 08/28/21 13:19:00 CDT, Weight baclofen 10 2021-0 Yes 10 mg = 1 M emoria mg oral 4-27 tab, PO, l tablet 18:43: Bedtime, # Bekah nn 00 30 tab, 3 Refill(s), Pharmacy: [facility], 162.56, cm, 08/28/21 13:19:00 CDT, Height, 75.455, kg, 08/28/21 13:19:00 CDT, Weight baclofen 10 2021-0 Yes 10 mg = 1 M emoria mg oral 4-27 tab, PO, l tablet 18:43: Bedtime, # Bekah nn 00 30 tab, 3 Refill(s), Pharmacy: [facility], 162.56, cm, 08/28/21 13:19:00 CDT, Height, 75.455, kg, 08/28/21 13:19:00 CDT, Weight baclofen 10 2021-0 Yes 10 mg = 1 M emoria mg oral 4-27 tab, PO, l tablet 18:43: Bedtime, # Bekah nn 00 30 tab, 3 Refill(s), Pharmacy: [facility], 162.56, cm, 08/28/21 13:19:00 CDT, Height, 75.455, kg, 08/28/21 13:19:00 CDT, Weight baclofen 10 2021-0 Yes 10 mg = 1 M emoria mg oral 4-27 tab, PO, l tablet 18:43: Bedtime, # Bekah nn 00 30 tab, 3 Refill(s), Pharmacy: [facility], 162.56, cm, 08/28/21 13:19:00 CDT, Height, 75.455, kg, 08/28/21 13:19:00 CDT, Weight baclofen 10 2021-0 Yes 10 mg = 1 M emoria mg oral 4-27 tab, PO, l tablet 18:43: Bedtime, # Bekah nn 00 30 tab, 3 Refill(s), Pharmacy: [facility], 162.56, cm, 08/28/21 13:19:00 CDT, Height, 75.455, kg, 08/28/21 13:19:00 CDT, Weight baclofen 10 2021-0 Yes 10 mg = 1 M emoria mg oral 4-27 tab, PO, l tablet 18:43: Bedtime, # Bekah nn 00 30 tab, 3 Refill(s), Pharmacy: [facility], 162.56, cm, 08/28/21 13:19:00 CDT, Height, 75.455, kg, 08/28/21 13:19:00 CDT, Weight Vital Signs Vital Name Observation Time Observation Value Comments Source WEIGHT 2022-11-18 05:26:00 68.675 kg WEIGHT 2022-11-15 06:00:00 68 kg WEIGHT 2022-11-13 06:00:00 68 kg WEIGHT 2022-11-09 00:00:00 68.5 kg WEIGHT 2022-11-08 06:00:00 68.3 kg WEIGHT 2022-11-05 06:00:00 68.2 kg HEIGHT 2022-11-04 07:00:00 162.6 cm WEIGHT 2022-11-04 00:00:00 68 kg WEIGHT 2022-11-18 05:26:00 68.675 kg WEIGHT 2022-11-15 06:00:00 68 kg WEIGHT 2022-11-13 06:00:00 68 kg WEIGHT 2022-11-09 00:00:00 68.5 kg WEIGHT 2022-11-08 06:00:00 68.3 kg WEIGHT 2022-11-05 06:00:00 68.2 kg HEIGHT 2022-11-04 07:00:00 162.6 cm WEIGHT 2022-11-04 00:00:00 68 kg Systolic (mm Hg) 2021-08-28 18:10:00 Dre rial [place] Diastolic (mm Hg) 2021-08-28 18:10:00 Mem o[facility] [place] Heart Rate 2021-08-28 18:10:00 [facility] [place] Respitory Rate 2021-08-28 18:10:00 Mem[facility] [place] Height 2021-08-28 18:10:00 162.56 cm [facility] [place] Weight 2021-08-28 18:10:00 [facility] [place] BMI Calculated 2021-08-28 18:10:00 Mem[facility] [place] Systolic (mm Hg) 2020-04-10 20:22:00 Dre rial [place] Diastolic (mm Hg) 2020-04-10 20:22:00 Mem orial [place] Heart Rate 2020-04-10 20:22:00 [facility] [place] Respitory Rate 2020-04-10 20:22:00 Memori al [place] Height 2020-04-10 20:22:00 162.56 cm [facility] [place] Weight 2020-04-10 20:22:00 [facility] [place] BMI Calculated 2020-04-10 20:22:00 Memori al [place] Procedures This patient has no known procedures. Encounters Start End Encounter Admission Attending Care Care Encounter Source Date/Time Date/Time Type Type Clinicians Facility Department ID 2022-11-23 [facility]patient [facility] [id number] [facility] 16:43:43 MRINALINI 2022-11-21 Inpatient ER CHUCK [facility] [id number] [facility] 00:00:00 PALOMO 2022-11-19 Inpatient ER BRITTNEE [facility] [id number] [facility] 13:43:58 MRINALINI 2022-11-19 Inpatient ER BRITTNEE [facility] [id number] [facility] 12:07:38 MRINALINI 2022-11-17 Inpatient ER BRITTNEE [facility] [id number] [facility] 18:57:40 MRINALINI 2022-11-17 Inpatient ER BRITTNEE [facility] [id number] [facility] 13:21:32 MRINALINI 2022-11-16 Inpatient ER BRITTNEE [facility] [id number] [facility]:12[facility] ER BRITTNEE, [facility] [id number] [facility] 18:09:15 MRINALINI 2022-11-12 Inpatient ER RAMACHANDRA [facility] [id number] [facility] 10:47:24 N, [facility] 2022-11-12 Inpatient ER BERSHAD, SLEH [facility] [id number] [facility] 08:14:58 FALGUNI 2022-11-12 Inpatient ER BERSHAD, [facility]H [facility] [id number] [facility] 08:14:51 FALGUNI 2022-11-12 Inpatient ER WOODS, [facility]H [facility] [id number] [facility] 04:37:56 [facility] 2022-11-12 Inpatient ER WOODS, SLEH [facility] [id number] [facility] 04:20:00 [facility] 2022-11-11 Inpatient ER BERSHAD, SLEH [facility] [id number] [facility] 00:25:30 FALGUNI 2022-11-10 Inpatient ER BERSHAD, [facility]H [facility] [id number] [facility] 00:05:49 FALGUNI 2022-11-09 Inpatient ER BERSHAD, SLEH [facility] [id number] [facility] 00:27:15 FALGUNI 2022-11-08 Inpatient ER SLEH [facility] [id number] [facility] 00:26:38 2022-11-07 Inpatient ER SLEH SLEH [id number] SLE[facility] 15:12:58 2022-11-07 Inpatient ER BERSHAD, [facility]H [facility] [id number] SLE[facility] 14:35:00 FALGUNI 2022-11-07 Inpatient ER SLEH SLEH [id number] SLE[facility] 13:27:25 2022-11-07 Inpatient ER RAMACHANDRA [facility] [id number] [facility] 08:29:48 [facility] ER RAMACHANDRA [facility] [id number] SLEH 07:58:55 N, [facility] 2022-11-07 Inpatient ER SLEH SLEH [id number] SLE[facility] 00:07:44 2022-11-06 Inpatient ER BERSHAD, SLEH [facility]H [id number] SLEH 20:29:11 FALGUNI 2022-11-06 Inpatient ER SLEH SLEH [id number] SLEH 17:15:27 2022-11-06 Inpatient ER SLEH SLEH [id number] SLE[facility] 17:15:20 2022-11-06 Inpatient ER RAMACHANDRA SLE[facility] SLE [id number] SLEH 16:03:43 N, [facility] 2022-11-06 Inpatient ER RAMACHANDRA SLEH SLE [id number] SLEH 16:03:37 N, [facility] 2022-11-06 Inpatient ER BERSHAD, SLEH SLEH [id number] SLEH 13:19:28 [facility] 2022-11-06 Inpatient ER BERSHAD, SLEH SLEH [id number] [facility] 00:25:37 [facility] 2022-11-05 Inpatient ER BERSHAD, SLEH SLEH [id number] [facility] 09:20:39 [facility] 2022-11-04 Inpatient ER BERSHAD, SLEH [facility] [id number] [facility] 14:30:51 [facility] 2022-11-04 Inpatient ER RAMACHANDRA SLEH SLEH [id number] SLEH 10:05:39 N, [facility] 2022-11-04 Inpatient ER ELMIRA, SLEH SLEH [id number] SLEH 06:27:46 [facility] 2022-11-04 Inpatient ER ELMIRA, SLEH SLEH [id number] SLEH 06:27:39 [facility] 2022-11-04 Inpatient ER ELMIRA, SLEH SLEH [id number] SLEH 06:27:32 [facility] 2022-11-04 Inpatient ER ELMIRA, SLEH SLEH [id number] SLEH 00:28:35 [facility] 2022-11-03 Outpatient [facility] [id number] [place] 23:37:31 [id number] [facility] 2022-11-03 Inpatient ER ELMIRA, SLEH SLEH [id number] SLEH 23:02:31 [facility] 2021-07-29 Outpatient [facility] [id number] [place] 12:58:22 [id number] [facility] 2021-07-02 Outpatient TEJA, [facility] [id number] [place] 17:00:59 [facility] 2021-07-02 Outpatient RASHIDA [facility] [id number] [place] 10:22:46 [facility] 2021-06-30 Inpatient ER ELMIRA [facility] Neurosurger [id number] 18:28:49 [facility] 2022-11-03 2022-11-26 Inpatient ER BRITTNEE, [facility] Neuro ICU [id number] SLE 22:50:00 10:56:00 MRINALINI 2022-11-06 2022-11-06 Inpatient ER RAMACHANDRA [facility] [id number] [facility] 12:12:14 00:00:00 NKEIRA 2022-11-05 2022-11-05 Inpatient ER ELMIRA [facility] [id number] SLE 00:38:59 00:00:00 [facility] 2021-12-13 2021-12-13 Ambulatory nullFlavo MNA [id number] Memoria 16:00:00 16:00:00 Pre-Reg r Neurology 02 l Capri [place] 2021-12-13 2021-12-13 Ambulatory nullFlavo MNA [id number] Memoria 16:00:00 16:00:00 Pre-Reg r Neurology 02 l Capri [place] 2021-12-13 2021-12-13 Outpatient [facility]ICE [facility] [id number] 11:00:00 11:00:00 Scott 02 [place] 2021-11-27 2021-11-27 Outpatient MHIE KYLAHIE [id number] Memoria 13:45:00 13:45:00 02 [place] 2021-08-28 2021-08-29 Outpatient nullFlavo MNA [id number] Memoria 18:00:00 04:59:59 r Neurology 01 l Capri [place] 2021-08-28 2021-08-29 Outpatient nullFlavo MNA [id number] Memoria 18:00:00 04:59:59 r Neurology 01 l [place] 2021-08-28 2021-08-28 Outpatient LATRICE Melo [place] [id number] 13:00:00 23:59:59 Scott 01 [place] 2021-08-28 2021-08-28 Outpatient MHIE IE [id number] Memoria 13:00:00 13:00:00 01 l Chong 2020-04-10 2020-04-11 Outpatient nullFlavo MNA [id number] Memoria 20:15:00 05:59:59 r Neurology 00 l Capri Schwarz 2020-04-10 2020-04-11 Outpatient nullFlavo MNA [id number] Memoria 20:15:00 05:59:59 r Neurology 00 l Capri Schwarz 2020-04-10 2020-04-10 Outpatient Lorie[facility] [id number] 14:15:00 23:59:59 Scott 00 [place] 2020-04-10 2020-04-10 Outpatient MHIE IE [id number] Memoria 14:15:00 14:15:00 00 l Chong Results Test Description Test Time Test Comments Results Result Comments Source POCT-GLUCOSE METER 2022-11-26 07:10:15 Test Item Value Reference Range Interpretation Comme nts POC-GLUCOSE METER (BEAKER) 113 mg/dL 70-110 H : TESTED AT [facility] [address] (test code = 1538) [facility] X, [address]: Pastoral Worker/Techni carol ID = [id number] for LUIS BOUDREAUX POLK [id number] 06:34:45 Test Item Value Reference Range Interpretation Comments MAGNESIUM (BEAKER) (test code = 1.8 mg/dL 1.6-2.6 627) Pastoral Worker ID - [id number] 06:34:45 Test Item Value Reference Range Interpretation Comments PHOSPHORUS (BEAKER) (test code = 2.8 mg/dL 2.3-4.7 604) Pastoral Worker ID - ADMINPOCT-GLUCOSE [id number] 01:10:15 Test Item Value Reference Range Interpretation Comments POC-GLUCOSE METER 100 mg/dL 70-110 : TESTED A [facility] [address] (BEAKER) (test code = [place], 1538) [address]: Pastoral Worker/Techni carol ID = [id number] for MARIELA MARTINEZ POCT-GLUCOSE [id number] 17:12:52 Test Item Value Reference Range Interpretation Comments POC-GLUCOSE METER 104 mg/dL 70-110 : TESTED A [facility] [address] (BEAKER) (test code = [place] Huerta [place], 1538) [address]: Pastoral Worker/Techni carol ID = [id number] for An Delmy avila POCT-GLUCOSE [id number] 12:42:29 Test Item Value Reference Range Interpretation Comments POC-GLUCOSE METER 109 mg/dL 70-110 : TESTED A T [facility] [address] (BEAKER) (test code = [place] Huerta [place], 1538) [address]: Pastoral Worker/Techni carol ID = [id number] for An Delmy avila [id number] 05:29:16 Test Item Value Reference Range Interpretation Comments PHOSPHORUS (BEAKER) (test code = 2.7 mg/dL 2.3-4.7 604) Pastoral Worker ID - FABIAN WBASIC METABOLIC [id number] 05:29:15 Test Item Value Reference Range Interpretation Comments SODIUM (BEAKER) 142 meq/L 136-145 (test code = 381) POTASSIUM 3.9 meq/L 3.5-5.1 (BEAKER) (test code = 379) CHLORIDE (BEAKER) 109 meq/L 98-107 H (test code = 382) CO2 (BEAKER) 24 meq/L 22-29 (test code = 355) BLOOD UREA 28 mg/dL 7-21 H NITROGEN (BEAKER) (test code = 354) CREATININE 0.78 mg/dL 0.57-1.25 (BEAKER) (test code = 358) GLUCOSE RANDOM 112 mg/dL 70-105 H (BEAKER) (test code = 652) CALCIUM (BEAKER) 8.9 mg/dL 8.4-10.2 (test code = 697) EGFR (BEAKER) 105 Interpretatio n of eGFR (test code = mL/min/1.73 values Stage De scription 1092) sq m Result G1 Onelia l or high >=90 G2 Mildly decreased 60-89 G3a Mildl y to moderately 45-5 9 G3b Moderately to s everely 30-44 G4 Severl y decreased 15-29 G5 Kidney failure <15Reported eGF R is based on the CKD-EPI 2020 equation that d oes not use a race coefficientEsti mated GFR is not as accur ate as Creatinine Eugenia mesha in predicting glom erular filtration rate . Estimated GFR is not appl icable for dialysis patien ts Pastoral Worker ID - FABIAN [id number] 05:29:15 Test Item Value Reference Range Interpretation Comments MAGNESIUM (BEAKER) (test code = 2.0 mg/dL 1.6-2.6 627) Pastoral Worker ID - FABIAN WPOCT-GLUCOSE [id number] 01:39:19 Test Item Value Reference Range Interpretation Comments POC-GLUCOSE METER 129 mg/dL 70-110 H : TESTED A T [facility] [address] (BEAKER) (test code = [place], 1538) [address]: Pastoral Worker/Techni carol ID = [id number] for MARIELA MARTINEZ CBC W/PLT COUNT & AUTO [id number] 10:38:05 Test Item Value Reference Range Interpretation Comments WHITE BLOOD CELL COUNT (BEAKER) 17.7 K/ L 3.5-10.5 H (test code = 775) RED BLOOD CELL COUNT (BEAKER) 4.70 M/ L 4.63-6.08 (test code = 761) HEMOGLOBIN (BEAKER) (test code = 12.2 GM/DL 13.7-17.5 L 410) HEMATOCRIT (BEAKER) (test code = 38.1 % 40.1-51.0 L 411) MEAN CORPUSCULAR VOLUME (BEAKER) 81 fL 79-92 (test code = 753) MEAN CORPUSCULAR HEMOGLOBIN 26.0 pg 25.7-32.2 (BEAKER) (test code = 751) MEAN CORPUSCULAR HEMOGLOBIN CONC 32.0 GM/DL 32.3-36.5 L (BEAKER) (test code = 752) RED CELL DISTRIBUTION WIDTH 14.3 % 11.6-14.4 (BEAKER) (test code = 412) PLATELET COUNT (BEAKER) (test 382 K/CU MM 150-450 code = 756) MEAN PLATELET VOLUME (BEAKER) 9.5 fL 9.4-12.4 (test code = 754) NUCLEATED RED BLOOD CELLS 0 /100 WBC 0-0 (BEAKER) (test code = 413) NEUTROPHILS RELATIVE PERCENT 86 % (BEAKER) (test code = 429) LYMPHOCYTES RELATIVE PERCENT 6 % (BEAKER) (test code = 430) MONOCYTES RELATIVE PERCENT 6 % (BEAKER) (test code = 431) EOSINOPHILS RELATIVE PERCENT 1 % (BEAKER) (test code = 432) BASOPHILS RELATIVE PERCENT 0 % (BEAKER) (test code = 437) NEUTROPHILS ABSOLUTE COUNT 15.23 K/ L 1.78-5.38 H (BEAKER) (test code = 670) LYMPHOCYTES ABSOLUTE COUNT 1.01 K/ L 1.32-3.57 L (BEAKER) (test code = 414) MONOCYTES ABSOLUTE COUNT (BEAKER) 1.13 K/ L 0.30-0.82 H (test code = 415) EOSINOPHILS ABSOLUTE COUNT 0.18 K/ L 0.04-0.54 (BEAKER) (test code = 416) BASOPHILS ABSOLUTE COUNT (BEAKER) 0.06 K/ L 0.01-0.08 (test code = 417) IMMATURE GRANULOCYTES-RELATIVE 0.50 % 0.00-1.00 PERCENT (BEAKER) (test code = 2801) POCT-GLUCOSE [id number] 06:03:32 Test Item Value Reference Range Interpretation Comments POC-GLUCOSE METER 123 mg/dL 70-110 H : TESTED A T [facility] [address] (BEAKER) (test code = [facility], 153) [address]: Pastoral Worker/Techni carol ID = [id number] for BRUNO SULLIVAN [id number] 05:07:42 Test Item Value Reference Range Interpretation Comments PHOSPHORUS (BEAKER) (test code = 2.5 mg/dL 2.3-4.7 604) Pastoral Worker ID - FABIAN [id number] 05:07:41 Test Item Value Reference Range Interpretation Comments MAGNESIUM (BEAKER) (test code = 2.0 mg/dL 1.6-2.6 627) Pastoral Worker ID - FABIAN WPOCT-GLUCOSE [id number] 00:05:37 Test Item Value Reference Range Interpretation Comments POC-GLUCOSE METER 122 mg/dL 70-110 H : TESTED A T [facility] [address] (BEAKER) (test code = [facility], 1538) [address]: Pastoral Worker/Techni carol ID = [id number] for BRUNO SULLIVAN URINALYSIS W/ REFLEX URINE [id number] 18:50:27 Test Item Value Reference Range Interpretation Comments COLOR (BEAKER) (test code = 470) Yellow CLARITY (BEAKER) (test code = 469) Hazy SPECIFIC GRAVITY UA (BEAKER) (test 1.029 1.001-1.035 code = 468) PH UA (BEAKER) (test code = 467) 7.0 5.0-8.0 PROTEIN UA (BEAKER) (test code = 20 mg/dL Negative A 464) GLUCOSE UA (BEAKER) (test code = Negative Negative 365) KETONES UA (BEAKER) (test code = Negative Negative 371) BILIRUBIN UA (BEAKER) (test code = Negative Negative 462) BLOOD UA (BEAKER) (test code = 461) Negative Negative NITRITE UA (BEAKER) (test code = Negative Negative 465) LEUKOCYTE ESTERASE UA (BEAKER) (test Negative Negative code = 466) UROBILINOGEN UA (BEAKER) (test code 2 0.2-1.0 H = 463) RBC UA (BEAKER) (test code = 519) 2 /HPF WBC UA (BEAKER) (test code = 520) 5 /HPF MUCUS (BEAKER) (test code = 1574) Rare SOURCE(BEAKER) (test code = 2795) Pastoral Worker ID - [auto]Pastoral Worker ID - techPOCT-GLUCOSE [id number] 17:27:05 Test Item Value Reference Range Interpretation Comments POC-GLUCOSE METER 144 mg/dL 70-110 H : TESTED A T [facility] [address] (BEAKER) (test code = TREVOR Huerta [facility], 1538) [address]: Pastoral Worker/Techni carol ID = [id number] for An Delmy avila XR CHEST 1 VIEW PORTABLE / [id number] 17:17:52 [facility] 1965 Sex: MChest one v iew:HISTORY: follow up PneumoniaComparison: 11/17/2022There has been partial clearing of the left base. Patchy airspaceopacity in the right lung base is now noted. There is no pleuraleffusion identified. Cardiac size is within normal limits. The feedingtube noted previously has been removed in the inter josette.IMPRESSION:Partial clearing of the left lung base with new limitedpatchy airspace disease in theright base.Electronically Signed By: Timmy Mcintyre11/23/2022 17:19 CDTWorkstation Name: [id number] METER 2022-11-23 12:28:58 Test Item Value Reference Range Interpretation Comments POC-GLUCOSE METER 124 mg/dL 70-110 H : TESTED A T [facility] 6720 (BEAKER) (test code = [facility], 1538) 97869: Pastoral Worker/Techni carol ID = [id number] for Delmy Orr POCT-GLUCOSE [id number] 06:37:26 Test Item Value Reference Range Interpretation Comments POC-GLUCOSE METER 130 mg/dL 70-110 H : TESTED A T [facility] 6720 (BEAKER) (test code = [facility], 1538) 12810: Pastoral Worker/Techni carol ID = [id number] for BRUNO SULLIVAN [id number] 05:52:45 Test Item Value Reference Range Interpretation Comments MAGNESIUM (BEAKER) (test code = 2.1 mg/dL 1.6-2.6 627) Pastoral Worker ID - [id number] 05:52:45 Test Item Value Reference Range Interpretation Comments PHOSPHORUS (BEAKER) (test code = 2.7 mg/dL 2.3-4.7 604) Pastoral Worker ID - MMPOCT-GLUCOSE [id number] 00:24:47 Test Item Value Reference Range Interpretation Comments POC-GLUCOSE METER 105 mg/dL 70-110 : TESTED A T [facility] 6720 (BEAKER) (test code = [facility], 1538) 15588: Pastoral Worker/Techni carol ID = [id number] for GURPO SULLIVANA POCT-GLUCOSE [id number] 12:59:07 Test Item Value Reference Range Interpretation Comments POC-GLUCOSE METER 90 mg/dL 70-110 : TESTED A T [facility] 6720 (BEAKER) (test code = [facility] [place], 1538) 06876: Pastoral Worker/Techni carol ID = [id number] for ESPINOZA KAMARA POCT-GLUCOSE [id number] 06:53:06 Test Item Value Reference Range Interpretation Comments POC-GLUCOSE METER 79 mg/dL 70-110 : TESTED A T [facility] 6720 (BEAKER) (test code = [facility] [place], 1538) 90945: Pastoral Worker/Techni carol ID = [id number] for FRANK SHINE [id number] 06:00:35 Test Item Value Reference Range Interpretation Comments MAGNESIUM (BEAKER) (test code = 2.1 mg/dL 1.6-2.6 627) Pastoral Worker ID - [id number] 06:00:35 Test Item Value Reference Range Interpretation Comments PHOSPHORUS (BEAKER) (test code = 3.2 mg/dL 2.3-4.7 604) Pastoral Worker ID - BSBASIC METABOLIC [id number] 06:00:34 Test Item Value Reference Range Interpretation Comments SODIUM (BEAKER) 144 meq/L 136-145 (test code = 381) POTASSIUM 4.4 meq/L 3.5-5.1 (BEAKER) (test code = 379) CHLORIDE (BEAKER) 111 meq/L 98-107 H (test code = 382) CO2 (BEAKER) 25 meq/L 22-29 (test code = 355) BLOOD UREA 35 mg/dL 7-21 H NITROGEN (BEAKER) (test code = 354) CREATININE 0.87 mg/dL 0.57-1.25 (BEAKER) (test code = 358) GLUCOSE RANDOM 81 mg/dL 70-105 (BEAKER) (test code = 652) CALCIUM (BEAKER) 8.9 mg/dL 8.4-10.2 (test code = 697) EGFR (BEAKER) 102 Interpretatio n of eGFR (test code = mL/min/1.73 values Stage De scription 1092) sq m Result G1 Onelia l or high >=90 G2 Mildly decreased 60-89 G3a Mildl y to moderately 45-5 9 G3b Moderately to s everely 30-44 G4 Severl y decreased 15-29 G5 Kidney failure <15Reported eGF R is based on the CKD-EPI 2020 equation that d oes not use a race coefficientEsti mated GFR is not as accur ate as Creatinine Eugenia zimmer in predicting glom erular filtration rate . Estimated GFR is not appl icable for dialysis patien ts Pastoral Worker ID - BSCBC W/PLT COUNT & AUTO [id number] 05:31:38 Test Item Value Reference Range Interpretation Comments WHITE BLOOD CELL COUNT (BEAKER) 10.1 K/ L 3.5-10.5 (test code = 775) RED BLOOD CELL COUNT (BEAKER) 4.79 M/ L 4.63-6.08 (test code = 761) HEMOGLOBIN (BEAKER) (test code = 12.4 GM/DL 13.7-17.5 L 410) HEMATOCRIT (BEAKER) (test code = 40.1 % 40.1-51.0 411) MEAN CORPUSCULAR VOLUME (BEAKER) 84 fL 79-92 (test code = 753) MEAN CORPUSCULAR HEMOGLOBIN 25.9 pg 25.7-32.2 (BEAKER) (test code = 751) MEAN CORPUSCULAR HEMOGLOBIN CONC 30.9 GM/DL 32.3-36.5 L (BEAKER) (test code = 752) RED CELL DISTRIBUTION WIDTH 14.1 % 11.6-14.4 (BEAKER) (test code = 412) PLATELET COUNT (BEAKER) (test 392 K/CU MM 150-450 code = 756) MEAN PLATELET VOLUME (BEAKER) 9.7 fL 9.4-12.4 (test code = 754) NUCLEATED RED BLOOD CELLS 0 /100 WBC 0-0 (BEAKER) (test code = 413) NEUTROPHILS RELATIVE PERCENT 78 % (BEAKER) (test code = 429) LYMPHOCYTES RELATIVE PERCENT 11 % (BEAKER) (test code = 430) MONOCYTES RELATIVE PERCENT 8 % (BEAKER) (test code = 431) EOSINOPHILS RELATIVE PERCENT 2 % (BEAKER) (test code = 432) BASOPHILS RELATIVE PERCENT 1 % (BEAKER) (test code = 437) NEUTROPHILS ABSOLUTE COUNT 7.85 K/ L 1.78-5.38 H (BEAKER) (test code = 670) LYMPHOCYTES ABSOLUTE COUNT 1.12 K/ L 1.32-3.57 L (BEAKER) (test code = 414) MONOCYTES ABSOLUTE COUNT (BEAKER) 0.76 K/ L 0.30-0.82 (test code = 415) EOSINOPHILS ABSOLUTE COUNT 0.24 K/ L 0.04-0.54 (BEAKER) (test code = 416) BASOPHILS ABSOLUTE COUNT (BEAKER) 0.08 K/ L 0.01-0.08 (test code = 417) IMMATURE GRANULOCYTES-RELATIVE 0.50 % 0.00-1.00 PERCENT (BEAKER) (test code = 2801) POCT-GLUCOSE [id number] 01:00:35 Test Item Value Reference Range Interpretation Comments POC-GLUCOSE METER 93 mg/dL 70-110 : TESTED A T [facility] 6720 (BEAKER) (test code = [facility], 1538) 50576: Pastoral Worker/Techni carol ID = [id number] for FRANK SHINE POCT-GLUCOSE [id number] 18:15:53 Test Item Value Reference Range Interpretation Comments POC-GLUCOSE METER 88 mg/dL 70-110 : TESTED A T [facility] 6720 (BEAKER) (test code = [facility], 1538) 32190: Pastoral Worker/Techni carol ID = [id number] for PIO TERENCE WHITTAKERILIA POCT-GLUCOSE [id number] 13:34:49 Test Item Value Reference Range Interpretation Comments POC-GLUCOSE METER 100 mg/dL 70-110 : TESTED A T [facility] 6720 (BEAKER) (test code = [facility], 1538) 27582: Pastoral Worker/Techni carol ID = [id number] for MYRIAM KARTHIKEYAN ESPANA PROTHROMBIN [id number] 06:38:54 Test Item Value Reference Range Interpretation Comments PROTIME (BEAKER) (test code = 14.7 seconds 11.9-14.2 H 759) INR (BEAKER) (test code = 370) 1.23 <=5.90 RECOMMENDED COUMADIN/WARFARIN INR THERAPY RANGESSTANDARD DOSE: 2.0 - 3.0 Includes: PROPHYLAXIS for venous thrombosis, systemic embolization; TREATMENT for venous thrombosis and/or pulmonary embolus.HIGH RISK: Target INR is 2.5-3.5 for patients with mechanical heart valves.POCT-GLUCOSE [id number] 06:23:43 Test Item Value Reference Range Interpretation Comments POC-GLUCOSE METER 108 mg/dL 70-110 : TESTED A T [facility] (BEAKER) (test code = [place], 1538) 56753: Pastoral Worker/Techni carol ID = [id number] for SHAMIKA DON [id number] 04:40:04 Test Item Value Reference Range Interpretation Comments MAGNESIUM (BEAKER) (test code = 2.0 mg/dL 1.6-2.6 627) Pastoral Worker ID - [id number] 04:40:04 Test Item Value Reference Range Interpretation Comments PHOSPHORUS (BEAKER) (test code = 3.1 mg/dL 2.3-4.7 604) Pastoral Worker ID - DBBASIC METABOLIC [id number] 04:40:03 Test Item Value Reference Range Interpretation Comments SODIUM (BEAKER) 143 meq/L 136-145 (test code = 381) POTASSIUM 3.8 meq/L 3.5-5.1 (BEAKER) (test code = 379) CHLORIDE (BEAKER) 109 meq/L 98-107 H (test code = 382) CO2 (BEAKER) 25 meq/L 22-29 (test code = 355) BLOOD UREA 36 mg/dL 7-21 H NITROGEN (BEAKER) (test code = 354) CREATININE 0.92 mg/dL 0.57-1.25 (BEAKER) (test code = 358) GLUCOSE RANDOM 110 mg/dL 70-105 H (BEAKER) (test code = 652) CALCIUM (BEAKER) 8.7 mg/dL 8.4-10.2 (test code = 697) EGFR (BEAKER) 99 Interpretatio n of eGFR (test code = mL/min/1.73 values Stage De scription 1092) sq m Result G1 Norm al or high >=90 G2 Mildly decreased 60-89 G3a Mildl y to moderately 45-5 9 G3b Moderately to s everely 30-44 G4 Severl y decreased 15-29 G5 Kidney failure <15Reported eGF R is based on the CKD-EPI 1 equation that d oes not use a race coefficientEsti mated GFR is not as accur ate as Creatinine Eugenia mesha in predicting glom erular filtration rate . Estimated GFR is not appl icable for dialysis patien ts Pastoral Worker ID - DBCBC W/PLT COUNT & AUTO [id number] 04:38:30 Test Item Value Reference Range Interpretation Comments WHITE BLOOD CELL COUNT (BEAKER) 11.4 K/ L 3.5-10.5 H (test code = 775) RED BLOOD CELL COUNT (BEAKER) 4.69 M/ L 4.63-6.08 (test code = 761) HEMOGLOBIN (BEAKER) (test code = 11.9 GM/DL 13.7-17.5 L 410) HEMATOCRIT (BEAKER) (test code = 37.9 % 40.1-51.0 L 411) MEAN CORPUSCULAR VOLUME (BEAKER) 81 fL 79-92 (test code = 753) MEAN CORPUSCULAR HEMOGLOBIN 25.4 pg 25.7-32.2 L (BEAKER) (test code = 751) MEAN CORPUSCULAR HEMOGLOBIN CONC 31.4 GM/DL 32.3-36.5 L (BEAKER) (test code = 752) RED CELL DISTRIBUTION WIDTH 14.5 % 11.6-14.4 H (BEAKER) (test code = 412) PLATELET COUNT (BEAKER) (test 455 K/CU MM 150-450 H code = 756) MEAN PLATELET VOLUME (BEAKER) 9.6 fL 9.4-12.4 (test code = 754) NUCLEATED RED BLOOD CELLS 0 /100 WBC 0-0 (BEAKER) (test code = 413) NEUTROPHILS RELATIVE PERCENT 76 % (BEAKER) (test code = 429) LYMPHOCYTES RELATIVE PERCENT 12 % (BEAKER) (test code = 430) MONOCYTES RELATIVE PERCENT 9 % (BEAKER) (test code = 431) EOSINOPHILS RELATIVE PERCENT 3 % (BEAKER) (test code = 432) BASOPHILS RELATIVE PERCENT 1 % (BEAKER) (test code = 437) NEUTROPHILS ABSOLUTE COUNT 8.59 K/ L 1.78-5.38 H (BEAKER) (test code = 670) LYMPHOCYTES ABSOLUTE COUNT 1.32 K/ L 1.32-3.57 (BEAKER) (test code = 414) MONOCYTES ABSOLUTE COUNT (BEAKER) 1.01 K/ L 0.30-0.82 H (test code = 415) EOSINOPHILS ABSOLUTE COUNT 0.29 K/ L 0.04-0.54 (BEAKER) (test code = 416) BASOPHILS ABSOLUTE COUNT (BEAKER) 0.07 K/ L 0.01-0.08 (test code = 417) IMMATURE GRANULOCYTES-RELATIVE 0.60 % 0.00-1.00 PERCENT (BEAKER) (test code = 2801) POCT-GLUCOSE [id number] 23:40:37 Test Item Value Reference Range Interpretation Comments POC-GLUCOSE METER 140 mg/dL 70-110 H : TESTED A T [facility] 6720 (BEAKER) (test code = [facility], 153) 45960: Pastoral Worker/Techni carol ID = [id number] for SHAMIKA DON POCT-GLUCOSE [id number] 17:58:13 Test Item Value Reference Range Interpretation Comments POC-GLUCOSE METER 118 mg/dL 70-110 H : TESTED A T [facility] 6720 (BEAKER) (test code = [facility], 153) 73723: Pastoral Worker/Techni carol ID = [id number] for Martita avila Delmy POCT-GLUCOSE [id number] 12:12:53 Test Item Value Reference Range Interpretation Comments POC-GLUCOSE METER 123 mg/dL 70-110 H : TESTED A T [facility] 6720 (BEAKER) (test code = [facility], 153) 90008: Pastoral Worker/Techni carol ID = [id number] for Martita avila Delmy POCT-GLUCOSE [id number] 06:03:50 Test Item Value Reference Range Interpretation Comments POC-GLUCOSE METER 120 mg/dL 70-110 H : TESTED A T [facility] 6720 (BEAKER) (test code = [facility], 153) 45491: Pastoral Worker/Techni carol ID = [id number] for BRUNO SULLIVAN [id number] 06:03:44 Test Item Value Reference Range Interpretation Comments PHOSPHORUS (BEAKER) (test code = 3.2 mg/dL 2.3-4.7 604) Pastoral Worker ID - [id number] 06:03:43 Test Item Value Reference Range Interpretation Comments MAGNESIUM (BEAKER) (test code = 2.1 mg/dL 1.6-2.6 627) Pastoral Worker ID - BSBASIC METABOLIC [id number] 06:03:42 Test Item Value Reference Range Interpretation Comments SODIUM (BEAKER) 139 meq/L 136-145 (test code = 381) POTASSIUM 4.1 meq/L 3.5-5.1 (BEAKER) (test code = 379) CHLORIDE (BEAKER) 107 meq/L 98-107 (test code = 382) CO2 (BEAKER) 25 meq/L 22-29 (test code = 355) BLOOD UREA 37 mg/dL 7-21 H NITROGEN (BEAKER) (test code = 354) CREATININE 0.93 mg/dL 0.57-1.25 (BEAKER) (test code = 358) GLUCOSE RANDOM 125 mg/dL 70-105 H (BEAKER) (test code = 652) CALCIUM (BEAKER) 8.8 mg/dL 8.4-10.2 (test code = 697) EGFR (BEAKER) 98 Interpretatio n of eGFR (test code = mL/min/1.73 values Stage De scription 1092) sq m Result G1 Norm al or high >=90 G2 Mildly decreased 60-89 G3a Mildl y to moderately 45-5 9 G3b Moderately to s everely 30-44 G4 Severl y decreased 15-29 G5 Kidne y failure <15Reported eGF R is based on the CKD-EPI 202 equation that d oes not use a race coefficientEsti mated GFR is not as accur ate as Creatinine Eugenia zimmer in predicting glom erular filtration rate . Estimated GFR is not appl icable for dialysis patien ts Pastoral Worker ID - BSCBC W/PLT COUNT & AUTO [id number] 05:13:39 Test Item Value Reference Range Interpretation Comments WHITE BLOOD CELL COUNT (BEAKER) 17.6 K/ L 3.5-10.5 H (test code = 775) RED BLOOD CELL COUNT (BEAKER) 4.84 M/ L 4.63-6.08 (test code = 761) HEMOGLOBIN (BEAKER) (test code = 12.7 GM/DL 13.7-17.5 L 410) HEMATOCRIT (BEAKER) (test code = 38.9 % 40.1-51.0 L 411) MEAN CORPUSCULAR VOLUME (BEAKER) 80 fL 79-92 (test code = 753) MEAN CORPUSCULAR HEMOGLOBIN 26.2 pg 25.7-32.2 (BEAKER) (test code = 751) MEAN CORPUSCULAR HEMOGLOBIN CONC 32.6 GM/DL 32.3-36.5 (BEAKER) (test code = 752) RED CELL DISTRIBUTION WIDTH 14.5 % 11.6-14.4 H (BEAKER) (test code = 412) PLATELET COUNT (BEAKER) (test 438 K/CU MM 150-450 code = 756) MEAN PLATELET VOLUME (BEAKER) 9.6 fL 9.4-12.4 (test code = 754) NUCLEATED RED BLOOD CELLS 0 /100 WBC 0-0 (BEAKER) (test code = 413) NEUTROPHILS RELATIVE PERCENT 81 % (BEAKER) (test code = 429) LYMPHOCYTES RELATIVE PERCENT 8 % (BEAKER) (test code = 430) MONOCYTES RELATIVE PERCENT 8 % (BEAKER) (test code = 431) EOSINOPHILS RELATIVE PERCENT 2 % (BEAKER) (test code = 432) BASOPHILS RELATIVE PERCENT 1 % (BEAKER) (test code = 437) NEUTROPHILS ABSOLUTE COUNT 14.33 K/ L 1.78-5.38 H (BEAKER) (test code = 670) LYMPHOCYTES ABSOLUTE COUNT 1.43 K/ L 1.32-3.57 (BEAKER) (test code = 414) MONOCYTES ABSOLUTE COUNT (BEAKER) 1.35 K/ L 0.30-0.82 H (test code = 415) EOSINOPHILS ABSOLUTE COUNT 0.26 K/ L 0.04-0.54 (BEAKER) (test code = 416) BASOPHILS ABSOLUTE COUNT (BEAKER) 0.08 K/ L 0.01-0.08 (test code = 417) IMMATURE GRANULOCYTES-RELATIVE 0.90 % 0.00-1.00 PERCENT (BEAKER) (test code = 2801) POCT-GLUCOSE [id number] 00:21:43 Test Item Value Reference Range Interpretation Comments POC-GLUCOSE METER 122 mg/dL 70-110 H : TESTED A T [facility] 6720 (BEAKER) (test code = [facility], 1538) 88034: Pastoral Worker/Techni carol ID = [id number] for LAKESHA SULLIVANLOKESHRachel POCT-GLUCOSE [id number] 17:44:59 Test Item Value Reference Range Interpretation Comments POC-GLUCOSE METER 91 mg/dL 70-110 : TESTED A T [facility] 6720 (BEAKER) (test code = [facility], 1538) 50883: Pastoral Worker/Techni carol ID = [id number] for RODG ERS, LESVIAECA XR ABDOMEN/KUB 1 VIEW [id number] 15:07:20 [facility] : 1965 Sex: MTECHNIQUE:XR ABDOMEN/KUB 1 VIEW PORTABLEINDICATION: NG tube placement.COMPARISON: 11/17/2022FINDINGS:Feeding tube tip projects over the second portion of the duodenum. Acatheter projects over the pelvis. Nonobstructive bowel gas pattern.Supine radiographs are insensitive for detection of free intraperitonealair.IMPRESSION:1. Feeding tube tip projects over the second portion of the duodenum.Electronically SignedBy: Oscar Zqwhdueivsq35/19/2023 15:09 CDTWorkstation Name: [id number] 11:55:25 Test Item Value Reference Range Interpretation Comments POC-GLUCOSE METER 85 mg/dL 70-110 : TESTED A T [facility] 6720 (BEAKER) (test code = [place], 1538) 67752: Pastoral Worker/Techni carol ID = [id number] for RODLESVIA YORKECA (CELLAVISION MANUAL DIFF)2022-11-19 06:41:39 Test Item Value Reference Range Interpretation Comments NEUTROPHILS - REL 88 % (CELLAVISION)(BEAKER) (test code = 2816) LYMPHOCYTES - REL 7 % (CELLAVISION)(BEAKER) (test code = 2817) MONOCYTES - REL 3 % (CELLAVISION)(BEAKER) (test code = 2818) EOSINOPHILS - REL 1 % (CELLAVISION)(BEAKER) (test code = 2819) BASOPHILS - REL 1 % (CELLAVISION)(BEAKER) (test code = 2820) NEUTROPHILS - ABS 16.10 K/ul 1.78-5.38 H (CELLAVISION)(BEAKER) (test code = 2830) LYMPHOCYTES - ABS 1.28 K/ul 1.32-3.57 L (CELLAVISION)(BEAKER) (test code = 2831) MONOCYTES - ABS 0.55 K/uL 0.30-0.82 (CELLAVISION)(BEAKER) (test code = 2832) EOSINOPHILS - ABS 0.18 K/uL 0.04-0.54 (CELLAVISION)(BEAKER) (test code = 2834) BASOPHILS - ABS 0.18 K/uL 0.01-0.08 H (CELLAVISION)(BEAKER) (test code = 2835) TOTAL COUNTED (BEAKER) (test code 100 = 1351) WBC MORPHOLOGY (BEAKER) (test Normal code = 487) PLT MORPHOLOGY (BEAKER) (test Normal code = 486) ANISOCYTOSIS (BEAKER) (test code 2+ moderate = 961) MICROCYTES (BEAKER) (test code = 2+ moderate 965) POIKILOCYTES (BEAKER) (test code 1+ few = 966) OVALOCYTES (BEAKER) (test code = 1+ few 477) ARTIFACT (CELLAVISION)(BEAKER) Present (test code = 3432) PLATELET CONCENTRATION Adequate (CELLAVISION)(BEAKER) (test code = 3438) Pastoral Worker ID - Tiffany Keen comments: Slide comments:CBC W/PLT COUNT & AUTO [id number] 06:41:38 Test Item Value Reference Range Interpretation Comments WHITE BLOOD CELL COUNT (BEAKER) 18.3 K/ L 3.5-10.5 H (test code = 775) RED BLOOD CELL COUNT (BEAKER) 5.21 M/ L 4.63-6.08 (test code = 761) HEMOGLOBIN (BEAKER) (test code = 13.5 GM/DL 13.7-17.5 L 410) HEMATOCRIT (BEAKER) (test code = 41.8 % 40.1-51.0 411) MEAN CORPUSCULAR VOLUME (BEAKER) 80 fL 79-92 (test code = 753) MEAN CORPUSCULAR HEMOGLOBIN 25.9 pg 25.7-32.2 (BEAKER) (test code = 751) MEAN CORPUSCULAR HEMOGLOBIN CONC 32.3 GM/DL 32.3-36.5 (BEAKER) (test code = 752) RED CELL DISTRIBUTION WIDTH 14.6 % 11.6-14.4 H (BEAKER) (test code = 412) PLATELET COUNT (BEAKER) (test 410 K/CU MM 150-450 code = 756) MEAN PLATELET VOLUME (BEAKER) 9.4 fL 9.4-12.4 (test code = 754) NUCLEATED RED BLOOD CELLS 0 /100 WBC 0-0 (BEAKER) (test code = 413) POCT-GLUCOSE [id number] 06:12:53 Test Item Value Reference Range Interpretation Comments POC-GLUCOSE METER 98 mg/dL 70-110 : [facility] (test code = [place], 1538) 589[address]: Pastoral Worker/Techni carol ID = [id number] for BRUNO SHARP [id number] 04:43:04 Test Item Value Reference Range Interpretation Comments PHOSPHORUS (BEAKER) (test code = 3.5 mg/dL 2.3-4.7 604) Pastoral Worker ID - EOOBASIC METABOLIC [id number] 04:43:03 Test Item Value Reference Range Interpretation Comments SODIUM (BEAKER) 139 meq/L 136-145 (test code = 381) POTASSIUM 4.2 meq/L 3.5-5.1 (BEAKER) (test code = 379) CHLORIDE (BEAKER) 107 meq/L 98-107 (test code = 382) CO2 (BEAKER) 23 meq/L 22-29 (test code = 355) BLOOD UREA 34 mg/dL 7-21 H NITROGEN (BEAKER) (test code = 354) CREATININE 0.99 mg/dL 0.57-1.25 (BEAKER) (test code = 358) GLUCOSE RANDOM 96 mg/dL 70-105 (BEAKER) (test code = 652) CALCIUM (BEAKER) 9.0 mg/dL 8.4-10.2 (test code = 697) EGFR (BEAKER) 90 Interpretatio n of eGFR (test code = mL/min/1.73 values Stage De scription 1092) sq m Result G1 Onelia l or high >=90 G2 Mildly decreased 60-89 G3a Mildl y to moderately 45-5 9 G3b Moderately to s everely 30-44 G4 Severl y decreased 15-29 G5 Kidney failure <15Reported eGF R is based on the CKD-EPI 2020 equation that d oes not use a race coefficientEsti mated GFR is not as accur ate as Creatinine Eugenia mesha in predicting glom erular filtration rate . Estimated GFR is not appl icable for dialysis patien ts Pastoral Worker ID - [id number] 04:43:03 Test Item Value Reference Range Interpretation Comments MAGNESIUM (BEAKER) (test code = 2.1 mg/dL 1.6-2.6 627) Pastoral Worker ID - EOOPOCT-GLUCOSE [id number] 23:57:38 Test Item Value Reference Range Interpretation Comments POC-GLUCOSE METER 93 mg/dL 70-110 : TESTED A T [facility] 6720 (BEAKER) (test code = [facility], 1538) 11127: Pastoral Worker/Techni carol ID = [id number] for BRUNO SHARP POCT-GLUCOSE [id number] 19:00:28 Test Item Value Reference Range Interpretation Comments POC-GLUCOSE METER 125 mg/dL 70-110 H : TESTED A T [facility] 6720 (BEAKER) (test code = [facility], 1538) 72745: Pastoral Worker/Techni carol ID = [id number] for Beni Sullivannda POCT-GLUCOSE [id number] 12:41:10 Test Item Value Reference Range Interpretation Comments POC-GLUCOSE METER 116 mg/dL 70-110 H : TESTED A T [facility] 6720 (BEAKER) (test code = [facility], 1538) 52547: Pastoral Worker/Techni carol ID = [id number] for Vicky carvajal, Triwanda (CELLAVISION MANUAL DIFF)2022-11-18 07:54:05 Test Item Value Reference Range Interpretation Comments NEUTROPHILS - REL 90 % (CELLAVISION)(BEAKER) (test code = 2816) LYMPHOCYTES - REL 5 % (CELLAVISION)(BEAKER) (test code = 2817) MONOCYTES - REL 3 % (CELLAVISION)(BEAKER) (test code = 2818) ATYPICAL LYMPHOCYTES - REL 2 % 0-0 H (CELLAVISION)(BEAKER) (test code = 2829) NEUTROPHILS - ABS 23.76 K/ul 1.78-5.38 H (CELLAVISION)(BEAKER) (test code = 2830) LYMPHOCYTES - ABS 1.32 K/ul 1.32-3.57 (CELLAVISION)(BEAKER) (test code = 2831) MONOCYTES - ABS 0.79 K/uL 0.30-0.82 (CELLAVISION)(BEAKER) (test code = 2832) ATYPICAL LYMPHOCYTES - ABS 0.53 K/uL 0.00-0.00 H (CELLAVISION)(BEAKER) (test code = 2858) TOTAL COUNTED (BEAKER) (test code 100 = 1351) WBC MORPHOLOGY (BEAKER) (test code Normal = 487) GIANT PLATELETS (BEAKER) (test Present code = 313) ANISOCYTOSIS (BEAKER) (test code = 1+ few 961) MICROCYTES (BEAKER) (test code = 1+ few 965) POIKILOCYTES (BEAKER) (test code = 1+ few 966) ELLIPTOCYTES (BEAKER) (test code = 1+ few 962) ARTIFACT (CELLAVISION)(BEAKER) Present (test code = 3432) PLATELET CONCENTRATION Adequate (CELLAVISION)(BEAKER) (test code = 3438) Pastoral Worker ID - brett Howell comments: Slide comments:CBC W/PLT COUNT & AUTO [id number] 07:54:04 Test Item Value Reference Range Interpretation Comments WHITE BLOOD CELL COUNT (BEAKER) 26.4 K/ L 3.5-10.5 H (test code = 775) RED BLOOD CELL COUNT (BEAKER) 5.51 M/ L 4.63-6.08 (test code = 761) HEMOGLOBIN (BEAKER) (test code = 14.1 GM/DL 13.7-17.5 410) HEMATOCRIT (BEAKER) (test code = 44.0 % 40.1-51.0 411) MEAN CORPUSCULAR VOLUME (BEAKER) 80 fL 79-92 (test code = 753) MEAN CORPUSCULAR HEMOGLOBIN 25.6 pg 25.7-32.2 L (BEAKER) (test code = 751) MEAN CORPUSCULAR HEMOGLOBIN CONC 32.0 GM/DL 32.3-36.5 L (BEAKER) (test code = 752) RED CELL DISTRIBUTION WIDTH 14.7 % 11.6-14.4 H (BEAKER) (test code = 412) PLATELET COUNT (BEAKER) (test 426 K/CU MM 150-450 code = 756) MEAN PLATELET VOLUME (BEAKER) 9.8 fL 9.4-12.4 (test code = 754) NUCLEATED RED BLOOD CELLS 0 /100 WBC 0-0 (BEAKER) (test code = 413) POCT-GLUCOSE [id number] 07:17:47 Test Item Value Reference Range Interpretation Comments POC-GLUCOSE METER 128 mg/dL 70-110 H : TESTED A T [facility] 6720 (BEAKER) (test code = [place], 1538) [address]: Pastoral Worker/Techni carol ID = [id number] for Ch Gracie montero [id number] 06:22:58 Test Item Value Reference Range Interpretation Comments MAGNESIUM (BEAKER) 2.1 mg/dL 1.6-2.6 Specimen slightly (test code = 627) hemolyzed Pastoral Worker ID Kendall PERALTA [id number] 06:22:58 Test Item Value Reference Range Interpretation Comments PHOSPHORUS (BEAKER) 3.6 mg/dL 2.3-4.7 Specimen slightly (test code = 604) hemolyzed Pastoral Worker ID - FABIAN WBASIC METABOLIC [id number] 06:22:58 Test Item Value Reference Range Interpretation Comments SODIUM (BEAKER) 139 meq/L 136-145 (test code = 381) POTASSIUM 4.8 meq/L 3.5-5.1 Specimen slight ly (BEAKER) (test hemolyzed code = 379) CHLORIDE (BEAKER) 106 meq/L 98-107 (test code = 382) CO2 (BEAKER) 25 meq/L 22-29 (test code = 355) BLOOD UREA 29 mg/dL 7-21 H NITROGEN (BEAKER) (test code = 354) CREATININE 0.95 mg/dL 0.57-1.25 Specimen slight ly (BEAKER) (test hemolyzed code = 358) GLUCOSE RANDOM 112 mg/dL 70-105 H (KOMAL) (test code = 652) CALCIUM (KOMAL) 9.4 mg/dL 8.4-10.2 (test code = 697) EGFR (KOMAL) 95 Interpretatio n of eGFR (test code = mL/min/1.73 values Stage De scription 1092) sq m Result G1 Onelia l or high >=90 G2 Mildly decreased 60-89 G3a Mildl y to moderately 45-5 9 G3b Moderately to s everely 30-44 G4 Severl y decreased 15-29 G5 Kidney failure <15Reported eGF R is based on the CKD-EPI 2020 equation that d oes not use a race coefficientEsti mated GFR is not as accur ate as Creatinine Eugenia mesha in predicting glom erular filtration rate . Estimated GFR is not appl icable for dialysis patien ts Pastoral Worker ID - FABIAN WPOCT-GLUCOSE [id number] 23:56:34 Test Item Value Reference Range Interpretation Comments POC-GLUCOSE METER 106 mg/dL 70-110 : TESTED A T [facility] 6720 (KOMAL) (test code = JOSETONYA Huerta [facility], 1538) [id number]: Pastoral Worker/Techni carol ID = [id number] for Ch Gracie montero XR ABDOMEN/KUB 1 VIEW [id number] 20:53:28 [facility] 1965 Sex: MEXAMINATION: XR ABDOMEN/KUB 1 VIEW PORTABLE INDICATION: NG tube placementCOMPARISON: KUB of 11/16/22 FINDINGS/IMPRESSION:Enteric tube tip terminates in the proximal duodenum. No bowelobstruction or free air. No acute osseous injury.Electronically Signed By: Amita Bernal11/17/2022 20:55 CDTWorkstation Name: [id number] 18:09:40 Test Item Value Reference Range Interpretation Comments POC-GLUCOSE METER 113 mg/dL 70-110 H : [facility]LUKEPairin[facility] (test code = TREVOR Huerta [facility], 1538) [id number]: Pastoral Worker/Techni carol ID = [id number] for MYRIAM ESPANA KARTHIKEYAN XR CHEST 1 VIEW PORTABLE / [id number] 15:35:17 [facility] 1965 Sex: MAP view of the chest dated 3COMPARISON: November 12LINICAL INFORMATION: follow up infiltartesComment: Heart is normal in size. Pulmonary vasculature isunremarkable. Opacity is seen in the left lower lobe suggestivepneumonia unchanged from prior study. The rest of lungs are clear. Nopleural effusion or pneumothorax is seen. Feeding tube remains in place.IMPRESSION:Left lower lobe pneumonia unchanged from prior study.Electronically Signed By: Claudio Acevedo11/17/2022 15:37 CDTWorkstation Name: [id number] 12:18:49 Test Item Value Reference Range Interpretation Comments POC-GLUCOSE METER 120 mg/dL 70-110 H : TESTED A T [facility] 6720 (LUKEPairin) (test code = TREVOR Huerta [facility], 1538) [id number]: Pastoral Worker/Techni carol ID = [id number] for KARTHIKEYAN ALTAMIRANO BLOOD [id number] 06:00:10 Test Item Value Reference Range Interpretation Comments CULTURE (BEAKER) (test No growth in 5 days code = 1095) BLOOD [id number] 06:00:09 Test Item Value Reference Range Interpretation Comments CULTURE (BEAKER) (test No growth in 5 days code = 1095) [id number] 04:53:04 Test Item Value Reference Range Interpretation Comments MAGNESIUM (BEAKER) (test code = 2.1 mg/dL 1.6-2.6 627) [id number] 04:53:04 Test Item Value Reference Range Interpretation Comments PHOSPHORUS (BEAKER) (test code = 3.1 mg/dL 2.3-4.7 604) BASIC METABOLIC [id number] 04:53:03 Test Item Value Reference Range Interpretation Comments SODIUM (BEAKER) 137 meq/L 136-145 (test code = 381) POTASSIUM 4.4 meq/L 3.5-5.1 (BEAKER) (test code = 379) CHLORIDE (BEAKER) 103 meq/L 98-107 (test code = 382) CO2 (BEAKER) 25 meq/L 22-29 (test code = 355) BLOOD UREA 34 mg/dL 7-21 H NITROGEN (BEAKER) (test code = 354) CREATININE 0.87 mg/dL 0.57-1.25 (BEAKER) (test code = 358) GLUCOSE RANDOM 122 mg/dL 70-105 H (BEAKER) (test code = 652) CALCIUM (BEAKER) 8.7 mg/dL 8.4-10.2 (test code = 697) EGFR (BEAKER) 102 Interpretatio n of eGFR (test code = mL/min/1.73 values Stage De scription 1092) sq m Result G1 Onelia l or high >=90 G2 Mildly decreased 60-89 G3a Mildl y to moderately 45-5 9 G3b Moderately to s everely 30-44 G4 Severl y decreased 15-29 G5 Kidney failure <15Reported eGF R is based on the CKD-EPI 1 equation that d oes not use a race coefficientEsti mated GFR is not as accur ate as Creatinine Eugenia zimmer in predicting glom erular filtration rate . Estimated GFR is not appl icable for dialysis patien ts CBC W/PLT COUNT & AUTO [id number] 04:36:30 Test Item Value Reference Range Interpretation Comments WHITE BLOOD CELL COUNT (BEAKER) 12.1 K/ L 3.5-10.5 H (test code = 775) RED BLOOD CELL COUNT (BEAKER) 5.10 M/ L 4.63-6.08 (test code = 761) HEMOGLOBIN (BEAKER) (test code = 13.0 GM/DL 13.7-17.5 L 410) HEMATOCRIT (BEAKER) (test code = 41.1 % 40.1-51.0 411) MEAN CORPUSCULAR VOLUME (BEAKER) 81 fL 79-92 (test code = 753) MEAN CORPUSCULAR HEMOGLOBIN 25.5 pg 25.7-32.2 L (BEAKER) (test code = 751) MEAN CORPUSCULAR HEMOGLOBIN CONC 31.6 GM/DL 32.3-36.5 L (BEAKER) (test code = 752) RED CELL DISTRIBUTION WIDTH 14.1 % 11.6-14.4 (BEAKER) (test code = 412) PLATELET COUNT (BEAKER) (test 350 K/CU MM 150-450 code = 756) MEAN PLATELET VOLUME (BEAKER) 9.7 fL 9.4-12.4 (test code = 754) NUCLEATED RED BLOOD CELLS 0 /100 WBC 0-0 (BEAKER) (test code = 413) NEUTROPHILS RELATIVE PERCENT 76 % (BEAKER) (test code = 429) LYMPHOCYTES RELATIVE PERCENT 11 % (BEAKER) (test code = 430) MONOCYTES RELATIVE PERCENT 9 % (BEAKER) (test code = 431) EOSINOPHILS RELATIVE PERCENT 2 % (BEAKER) (test code = 432) BASOPHILS RELATIVE PERCENT 1 % (BEAKER) (test code = 437) NEUTROPHILS ABSOLUTE COUNT 9.23 K/ L 1.78-5.38 H (BEAKER) (test code = 670) LYMPHOCYTES ABSOLUTE COUNT 1.28 K/ L 1.32-3.57 L (BEAKER) (test code = 414) MONOCYTES ABSOLUTE COUNT (BEAKER) 1.08 K/ L 0.30-0.82 H (test code = 415) EOSINOPHILS ABSOLUTE COUNT 0.28 K/ L 0.04-0.54 (BEAKER) (test code = 416) BASOPHILS ABSOLUTE COUNT (BEAKER) 0.08 K/ L 0.01-0.08 (test code = 417) IMMATURE GRANULOCYTES-RELATIVE 1.30 % 0.00-1.00 H PERCENT (KOMAL) (test code = 2801) POCT-GLUCOSE [id number] 21:57:20 Test Item Value Reference Range Interpretation Comments POC-GLUCOSE METER 121 mg/dL 70-110 H : TESTED A T [facility] 6720 (KOMAL) (test code = [facility], 1538) 08005: Pastoral Worker/Techni carol ID = [id number] for Jolynn Good POCT-GLUCOSE [id number] 17:46:20 Test Item Value Reference Range Interpretation Comments POC-GLUCOSE METER 109 mg/dL 70-110 : TESTED A T [facility] 6720 (BEAKER) (test code = [facility], 1538) 31220: Pastoral Worker/Techni carol ID = [id number] for Courtney Jean POCT-GLUCOSE [id number] 12:37:23 Test Item Value Reference Range Interpretation Comments POC-GLUCOSE METER 94 mg/dL 70-110 : TESTED A T [facility] 6720 ([facility]) (test code = [facility], 1538) 21806: Pastoral Worker/Techni carol ID = [id number] for Courtney Matthews XR ABDOMEN/KUB 1 VIEW [id number] 12:18:19 [facility] 1965 Sex: MONE VIEW AB DOMENHISTORY: Feeding tube placementCOMPARISON:11/15/2022FINDINGS:2 supine AP images of the abdomen were obtained.The feeding tube has been advanced, with its tip now at the junction ofthe second and third portions of the duodenum.No dilated bowel loops are visualized.Electronically Signed By: Montrell Benoit 11/16/2022 12:20 CDTWorkstation Name: [id number] 08:28:32 Test Item Value Reference Range Interpretation Comments POC-GLUCOSE METER 91 mg/dL 70-110 : TESTED A T [facility] 6720 (BEAKER) (test code = [facility] [place], 1538) 689[address]: Pastoral Worker/Techni carol ID = [id number] for Courtney Matthews CBC W/PLT COUNT & AUTO [id number] 04:56:54 Test Item Value Reference Range Interpretation Comments WHITE BLOOD CELL COUNT (BEAKER) 14.6 K/ L 3.5-10.5 H (test code = 775) RED BLOOD CELL COUNT (BEAKER) 5.16 M/ L 4.63-6.08 (test code = 761) HEMOGLOBIN (BEAKER) (test code = 13.0 GM/DL 13.7-17.5 L 410) HEMATOCRIT (BEAKER) (test code = 41.4 % 40.1-51.0 411) MEAN CORPUSCULAR VOLUME (BEAKER) 80 fL 79-92 (test code = 753) MEAN CORPUSCULAR HEMOGLOBIN 25.2 pg 25.7-32.2 L (BEAKER) (test code = 751) MEAN CORPUSCULAR HEMOGLOBIN CONC 31.4 GM/DL 32.3-36.5 L (BEAKER) (test code = 752) RED CELL DISTRIBUTION WIDTH 14.6 % 11.6-14.4 H (BEAKER) (test code = 412) PLATELET COUNT (BEAKER) (test 341 K/CU MM 150-450 code = 756) MEAN PLATELET VOLUME (BEAKER) 9.9 fL 9.4-12.4 (test code = 754) NUCLEATED RED BLOOD CELLS 0 /100 WBC 0-0 (BEAKER) (test code = 413) NEUTROPHILS RELATIVE PERCENT 81 % (BEAKER) (test code = 429) LYMPHOCYTES RELATIVE PERCENT 7 % (BEAKER) (test code = 430) MONOCYTES RELATIVE PERCENT 8 % (BEAKER) (test code = 431) EOSINOPHILS RELATIVE PERCENT 2 % (BEAKER) (test code = 432) BASOPHILS RELATIVE PERCENT 1 % (BEAKER) (test code = 437) NEUTROPHILS ABSOLUTE COUNT 11.86 K/ L 1.78-5.38 H (BEAKER) (test code = 670) LYMPHOCYTES ABSOLUTE COUNT 1.08 K/ L 1.32-3.57 L (BEAKER) (test code = 414) MONOCYTES ABSOLUTE COUNT (BEAKER) 1.13 K/ L 0.30-0.82 H (test code = 415) EOSINOPHILS ABSOLUTE COUNT 0.26 K/ L 0.04-0.54 (BEAKER) (test code = 416) BASOPHILS ABSOLUTE COUNT (BEAKER) 0.07 K/ L 0.01-0.08 (test code = 417) IMMATURE GRANULOCYTES-RELATIVE 1.40 % 0.00-1.00 H PERCENT (BEAKER) (test code = 2801) [id number] 04:52:25 Test Item Value Reference Range Interpretation Comments MAGNESIUM (BEAKER) (test code = 2.0 mg/dL 1.6-2.6 627) Pastoral Worker ID - [id number] 04:52:25 Test Item Value Reference Range Interpretation Comments PHOSPHORUS (BEAKER) (test code = 3.0 mg/dL 2.3-4.7 604) Pastoral Worker ID - MARCOBASIC METABOLIC [id number] 04:52:24 Test Item Value Reference Range Interpretation Comments SODIUM (BEAKER) 140 meq/L 136-145 (test code = 381) POTASSIUM 4.5 meq/L 3.5-5.1 (BEAKER) (test code = 379) CHLORIDE (BEAKER) 107 meq/L 98-107 (test code = 382) CO2 (BEAKER) 22 meq/L 22-29 (test code = 355) BLOOD UREA 24 mg/dL 7-21 H NITROGEN (BEAKER) (test code = 354) CREATININE 0.77 mg/dL 0.57-1.25 (BEAKER) (test code = 358) GLUCOSE RANDOM 94 mg/dL 70-105 (BEAKER) (test code = 652) CALCIUM (BEAKER) 9.2 mg/dL 8.4-10.2 (test code = 697) EGFR (BEAKER) 105 Interpretatio n of eGFR (test code = mL/min/1.73 values Stage De scription 1092) sq m Result G1 Onelia l or high >=90 G2 Mildly decreased 60-89 G3a Mildl y to moderately 45-5 9 G3b Moderately to s everely 30-44 G4 Severl y decreased 15-29 G5 Kidney failure <15Reported eGF R is based on the CKD-EPI 2020 equation that d oes not use a race coefficientEsti mated GFR is not as accur ate as Creatinine Eugenia mesha in predicting glom erular filtration rate . Estimated GFR is not appl icable for dialysis patien ts Pastoral Worker ID - MARCOPOCT-GLUCOSE [id number] 22:19:57 Test Item Value Reference Range Interpretation Comments POC-GLUCOSE METER 85 mg/dL 70-110 : TESTED A T [facility] 6720 ([employer] (test code = [place], 1538) 644[address]: Pastoral Worker/Techni carol ID = [id number] for Jolynn Farris XR ABDOMEN/KUB 1 VIEW [id number] 21:30:05 [facility] : 1965 Sex: MEXAM/TECHNIQUE: XR ABDOMEN/KUB 1 VIEW PORTABLEINDICATION: cortrak placementCOMPARISON: 11/12/2022.FINDINGS: Feeding tube terminates in the stomach. Nondilated loops of large smallbowel. No acute osseous process.IMPRESSION:Impression:Feeding tube terminates in the stomach.Electronically Signed By: Ilan Sung11/15/2022 21:32 CDTWorkstation Name: [id number] 18:11:10 Test Item Value Reference Range Interpretation Comments POC-GLUCOSE METER 88 mg/dL 70-110 : TESTED A T [facility] 6720 ([employer] (test code = [facility], 1538) 04241: Pastoral Worker/Techni carol ID = [id number] for Rajinder Sharp LIPID [id number] 13:11:54 Test Item Value Reference Range Interpretation Comments TRIGLYCERIDES (BEAKER) (test code = 77 mg/dL 540) CHOLESTEROL (BEAKER) (test code = 123 mg/dL 631) HDL CHOLESTEROL (BEAKER) (test code 24 mg/dL = 976) LDL CHOLESTEROL CALCULATED (AKER) 84 mg/dL (test code = 633) Triglyceride Reference Range: Low Risk <150 Borderline 150-199 High Risk 200- 499 Very High Risk >=500Cholesterol Reference Range: Low Risk <200 Borderline 200-239 High Risk >240HDL Cholesterol Reference Range: Low Risk >=60 High Risk <40LDL Cholesterol Reference Range: Optimal <100 Near Optimal 100-129 Borderline 130-159 High 160-189 Very High >=190 Pastoral Worker ID - ADMINPOCT-GLUCOSE [id number] 12:44:17 Test Item Value Reference Range Interpretation Comments POC-GLUCOSE METER 113 mg/dL 70-110 H : TESTED A T [facility] 6720 (BEAKER) (test code = [facility], 1538) 03243: Pastoral Worker/Techni carol ID = [id number] for Rajinder Sullivan POCT-GLUCOSE [id number] 08:51:18 Test Item Value Reference Range Interpretation Comments POC-GLUCOSE METER 108 mg/dL 70-110 : TESTED A T [facility] 6720 (BEAKER) (test code = [facility], 1538) 15452: Pastoral Worker/Techni carol ID = [id number] for Vicky carvajal, Beninda POCT-GLUCOSE [id number] 06:40:10 Test Item Value Reference Range Interpretation Comments POC-GLUCOSE METER 117 mg/dL 70-110 H : TESTED A T [facility] 6720 (BEAKER) (test code = [facility], 1538) 52780: Pastoral Worker/Techni carol ID = [id number] for Jolynn Godo [id number] 06:06:26 Test Item Value Reference Range Interpretation Comments PHOSPHORUS (BEAKER) (test code = 3.0 mg/dL 2.3-4.7 604) BASIC METABOLIC [id number] 06:06:25 Test Item Value Reference Range Interpretation Comments SODIUM (BEAKER) 139 meq/L 136-145 (test code = 381) POTASSIUM 4.4 meq/L 3.5-5.1 (BEAKER) (test code = 379) CHLORIDE (BEAKER) 108 meq/L 98-107 H (test code = 382) CO2 (BEAKER) 24 meq/L 22-29 (test code = 355) BLOOD UREA 28 mg/dL 7-21 H NITROGEN (BEAKER) (test code = 354) CREATININE 0.81 mg/dL 0.57-1.25 (BEAKER) (test code = 358) GLUCOSE RANDOM 111 mg/dL 70-105 H (BEAKER) (test code = 652) CALCIUM (BEAKER) 8.6 mg/dL 8.4-10.2 (test code = 697) EGFR (BEAKER) 104 Interpretatio n of eGFR (test code = mL/min/1.73 values Stage De scription 1092) sq m Result G1 Onelia l or high >=90 G2 Mildly decreased 60-89 G3a Mildl y to moderately 45-5 9 G3b Moderately to s everely 30-44 G4 Severl y decreased 15-29 G5 Kidney failure <15Reported eGF R is based on the CKD-EPI 2020 equation that d oes not use a race coefficientEsti mated GFR is not as accur ate as Creatinine Eugenia zimmer in predicting glom erular filtration rate . Estimated GFR is not appl icable for dialysis patien ts [id number] 06:06:25 Test Item Value Reference Range Interpretation Comments MAGNESIUM (BEAKER) (test code = 1.9 mg/dL 1.6-2.6 627) CBC W/PLT COUNT & AUTO [id number] 05:31:57 Test Item Value Reference Range Interpretation Comments WHITE BLOOD CELL COUNT (BEAKER) 11.3 K/ L 3.5-10.5 H (test code = 775) RED BLOOD CELL COUNT (BEAKER) 4.68 M/ L 4.63-6.08 (test code = 761) HEMOGLOBIN (BEAKER) (test code = 11.9 GM/DL 13.7-17.5 L 410) HEMATOCRIT (BEAKER) (test code = 37.9 % 40.1-51.0 L 411) MEAN CORPUSCULAR VOLUME (BEAKER) 81 fL 79-92 (test code = 753) MEAN CORPUSCULAR HEMOGLOBIN 25.4 pg 25.7-32.2 L (BEAKER) (test code = 751) MEAN CORPUSCULAR HEMOGLOBIN CONC 31.4 GM/DL 32.3-36.5 L (BEAKER) (test code = 752) RED CELL DISTRIBUTION WIDTH 14.7 % 11.6-14.4 H (BEAKER) (test code = 412) PLATELET COUNT (BEAKER) (test 327 K/CU MM 150-450 code = 756) MEAN PLATELET VOLUME (BEAKER) 9.9 fL 9.4-12.4 (test code = 754) NUCLEATED RED BLOOD CELLS 0 /100 WBC 0-0 (BEAKER) (test code = 413) NEUTROPHILS RELATIVE PERCENT 77 % (BEAKER) (test code = 429) LYMPHOCYTES RELATIVE PERCENT 11 % (BEAKER) (test code = 430) MONOCYTES RELATIVE PERCENT 8 % (BEAKER) (test code = 431) EOSINOPHILS RELATIVE PERCENT 2 % (BEAKER) (test code = 432) BASOPHILS RELATIVE PERCENT 0 % (BEAKER) (test code = 437) NEUTROPHILS ABSOLUTE COUNT 8.67 K/ L 1.78-5.38 H (BEAKER) (test code = 670) LYMPHOCYTES ABSOLUTE COUNT 1.26 K/ L 1.32-3.57 L (BEAKER) (test code = 414) MONOCYTES ABSOLUTE COUNT (BEAKER) 0.93 K/ L 0.30-0.82 H (test code = 415) EOSINOPHILS ABSOLUTE COUNT 0.27 K/ L 0.04-0.54 (BEAKER) (test code = 416) BASOPHILS ABSOLUTE COUNT (BEAKER) 0.03 K/ L 0.01-0.08 (test code = 417) IMMATURE GRANULOCYTES-RELATIVE 1.20 % 0.00-1.00 H PERCENT (BEAKER) (test code = 2801) POCT-GLUCOSE [id number] 23:34:04 Test Item Value Reference Range Interpretation Comments POC-GLUCOSE METER 109 mg/dL 70-110 : TESTED [place] [facility] 67[address] (BEAKER) (test code = [place], 1538) 61652: Pastoral Worker/Techni carol ID = [id number] for Jolynn Good POCT-GLUCOSE [id number] 18:31:14 Test Item Value Reference Range Interpretation Comments POC-GLUCOSE METER 112 mg/dL 70-110 H : TESTED A T [facility] 6720 (BEAKER) (test code = [place], 1538) 89033: Pastoral Worker/Techni carol ID = [id number] for AL ONSO ESPINAL, ELIOT SPUTUM CULTURE + GRAM [id number] 11:17:03 Test Item Value Reference Range Interpretation Comments CULTURE (BEAKER) 4+ Normal respiratory (test code = 1095) kei present GRAM STAIN RESULT 1+ WBCs (BEAKER) (test code = 1123) GRAM STAIN RESULT 1+ budding yeast (BEAKER) (test code = 64149) GRAM STAIN RESULT <1+ gram variable rods (BEAKER) (test code = 31137) [id number] 07:15:02 Test Item Value Reference Range Interpretation Comments MAGNESIUM (BEAKER) (test code = 1.8 mg/dL 1.6-2.6 627) Pastoral Worker ID - [id number] 07:15:02 Test Item Value Reference Range Interpretation Comments PHOSPHORUS (BEAKER) (test code = 2.6 mg/dL 2.3-4.7 604) Pastoral Worker ID - MMBASIC METABOLIC [id number] 07:15:01 Test Item Value Reference Range Interpretation Comments SODIUM (BEAKER) 141 meq/L 136-145 (test code = 381) POTASSIUM 4.3 meq/L 3.5-5.1 (BEAKER) (test code = 379) CHLORIDE (BEAKER) 112 meq/L 98-107 H (test code = 382) CO2 (BEAKER) 22 meq/L 22-29 (test code = 355) BLOOD UREA 26 mg/dL 7-21 H NITROGEN (BEAKER) (test code = 354) CREATININE 0.76 mg/dL 0.57-1.25 (BEAKER) (test code = 358) GLUCOSE RANDOM 104 mg/dL 70-105 (BEAKER) (test code = 652) CALCIUM (BEAKER) 8.2 mg/dL 8.4-10.2 L (test code = 697) EGFR (BEAKER) 106 Interpretatio n of eGFR (test code = mL/min/1.73 values Stage De scription 1092) sq m Result G1 Onelia l or high >=90 G2 Mildly decreased 60-89 G3a Mildl y to moderately 45-5 9 G3b Moderately to s everely 30-44 G4 Severl y decreased 15-29 G5 Kidney failure <15Reported eGF R is based on the CKD-EPI 2020 equation that d oes not use a race coefficientEsti mated GFR is not as accur ate as Creatinine Eugenia mesha in predicting glom erular filtration rate . Estimated GFR is not appl icable for dialysis patien ts Pastoral Worker ID - MMCBC W/PLT COUNT & AUTO [id number] 06:11:39 Test Item Value Reference Range Interpretation Comments WHITE BLOOD CELL COUNT (BEAKER) 13.3 K/ L 3.5-10.5 H (test code = 775) RED BLOOD CELL COUNT (BEAKER) 4.46 M/ L 4.63-6.08 L (test code = 761) HEMOGLOBIN (BEAKER) (test code = 11.4 GM/DL 13.7-17.5 L 410) HEMATOCRIT (BEAKER) (test code = 36.6 % 40.1-51.0 L 411) MEAN CORPUSCULAR VOLUME (BEAKER) 82 fL 79-92 (test code = 753) MEAN CORPUSCULAR HEMOGLOBIN 25.6 pg 25.7-32.2 L (BEAKER) (test code = 751) MEAN CORPUSCULAR HEMOGLOBIN CONC 31.1 GM/DL 32.3-36.5 L (BEAKER) (test code = 752) RED CELL DISTRIBUTION WIDTH 14.8 % 11.6-14.4 H (BEAKER) (test code = 412) PLATELET COUNT (BEAKER) (test 277 K/CU MM 150-450 code = 756) MEAN PLATELET VOLUME (BEAKER) 10.1 fL 9.4-12.4 (test code = 754) NUCLEATED RED BLOOD CELLS 0 /100 WBC 0-0 (BEAKER) (test code = 413) NEUTROPHILS RELATIVE PERCENT 78 % (BEAKER) (test code = 429) LYMPHOCYTES RELATIVE PERCENT 10 % (BEAKER) (test code = 430) MONOCYTES RELATIVE PERCENT 8 % (BEAKER) (test code = 431) EOSINOPHILS RELATIVE PERCENT 3 % (BEAKER) (test code = 432) BASOPHILS RELATIVE PERCENT 0 % (BEAKER) (test code = 437) NEUTROPHILS ABSOLUTE COUNT 10.42 K/ L 1.78-5.38 H (BEAKER) (test code = 670) LYMPHOCYTES ABSOLUTE COUNT 1.34 K/ L 1.32-3.57 (BEAKER) (test code = 414) MONOCYTES ABSOLUTE COUNT (BEAKER) 1.02 K/ L 0.30-0.82 H (test code = 415) EOSINOPHILS ABSOLUTE COUNT 0.34 K/ L 0.04-0.54 (BEAKER) (test code = 416) BASOPHILS ABSOLUTE COUNT (BEAKER) 0.04 K/ L 0.01-0.08 (test code = 417) IMMATURE GRANULOCYTES-RELATIVE 1.30 % 0.00-1.00 H PERCENT (AKER) (test code = 2801) POCT-GLUCOSE [id number] 06:09:35 Test Item Value Reference Range Interpretation Comments POC-GLUCOSE METER 111 mg/dL 70-110 H : TESTED A T [facility] 6720 ([facility]) (test code = [facility], 1538) 73239: Pastoral Worker/Techni carol ID = [id number] for Aaliyah Fu POCT-GLUCOSE [id number] 01:00:38 Test Item Value Reference Range Interpretation Comments POC-GLUCOSE METER 105 mg/dL 70-110 : TESTED A T [facility] 6720 ([facility]) (test code [facility], = 1538) 22995: Pastoral Worker/Techni carol ID = [id number] for Dorothy Storey POCT-GLUCOSE [id number] 00:22:13 Test Item Value Reference Range Interpretation Comments POC-GLUCOSE METER 101 mg/dL 70-110 : TESTED A T [facility] 6720 ([facility]) (test code = [facility], 1538) 76457: Pastoral Worker/Techni carol ID = [id number] for CASIE EVANS VANCOMYCIN LEVEL, [id number] 18:01:21 Test Item Value Reference Range Interpretation Comments VANCOMYCIN TROUGH ([facility]) (test 8.2 ug/mL 10.0-20.0 L code = 522) Pastoral Worker ID - BSPOCT-GLUCOSE [id number] 16:47:25 Test Item Value Reference Range Interpretation Comments POC-GLUCOSE METER 106 mg/dL 70-110 : TESTED A T [facility] 6720 ([facility]) (test code = [facility], 1538) 74186: Pastoral Worker/Techni carol ID = [id number] for Anabel Ruiz POCT-GLUCOSE [id number] 11:49:02 Test Item Value Reference Range Interpretation Comments POC-GLUCOSE METER 121 mg/dL 70-110 H : TESTED A T [facility] 6720 (BEAKER) (test code = [facility], 1538) 77545: Pastoral Worker/Techni carol ID = [id number] for Anabel Ruiz POCT-GLUCOSE [id number] 06:31:39 Test Item Value Reference Range Interpretation Comments POC-GLUCOSE METER 109 mg/dL 70-110 : TESTED A T [facility] 6720 (BEAKER) (test code = [facility], 1538) 34240: Pastoral Worker/Techni carol ID = [id number] for SOULEYMANE RAYO CBC W/PLT COUNT & AUTO [id number] 04:20:15 Test Item Value Reference Range Interpretation Comments WHITE BLOOD CELL COUNT (BEAKER) 15.2 K/ L 3.5-10.5 H (test code = 775) RED BLOOD CELL COUNT (BEAKER) 4.62 M/ L 4.63-6.08 L (test code = 761) HEMOGLOBIN (BEAKER) (test code = 11.9 GM/DL 13.7-17.5 L 410) HEMATOCRIT (BEAKER) (test code = 37.6 % 40.1-51.0 L 411) MEAN CORPUSCULAR VOLUME (BEAKER) 81 fL 79-92 (test code = 753) MEAN CORPUSCULAR HEMOGLOBIN 25.8 pg 25.7-32.2 (BEAKER) (test code = 751) MEAN CORPUSCULAR HEMOGLOBIN CONC 31.6 GM/DL 32.3-36.5 L (BEAKER) (test code = 752) RED CELL DISTRIBUTION WIDTH 14.9 % 11.6-14.4 H (BEAKER) (test code = 412) PLATELET COUNT (BEAKER) (test 253 K/CU MM 150-450 code = 756) MEAN PLATELET VOLUME (BEAKER) 10.1 fL 9.4-12.4 (test code = 754) NUCLEATED RED BLOOD CELLS 0 /100 WBC 0-0 (BEAKER) (test code = 413) NEUTROPHILS RELATIVE PERCENT 80 % (BEAKER) (test code = 429) LYMPHOCYTES RELATIVE PERCENT 9 % (BEAKER) (test code = 430) MONOCYTES RELATIVE PERCENT 7 % (BEAKER) (test code = 431) EOSINOPHILS RELATIVE PERCENT 2 % (BEAKER) (test code = 432) BASOPHILS RELATIVE PERCENT 0 % (BEAKER) (test code = 437) NEUTROPHILS ABSOLUTE COUNT 12.16 K/ L 1.78-5.38 H (BEAKER) (test code = 670) LYMPHOCYTES ABSOLUTE COUNT 1.43 K/ L 1.32-3.57 (BEAKER) (test code = 414) MONOCYTES ABSOLUTE COUNT (BEAKER) 1.07 K/ L 0.30-0.82 H (test code = 415) EOSINOPHILS ABSOLUTE COUNT 0.31 K/ L 0.04-0.54 (BEAKER) (test code = 416) BASOPHILS ABSOLUTE COUNT (BEAKER) 0.05 K/ L 0.01-0.08 (test code = 417) IMMATURE GRANULOCYTES-RELATIVE 1.10 % 0.00-1.00 H PERCENT (BEAKER) (test code = 2801) BASIC METABOLIC [id number] 04:10:46 Test Item Value Reference Range Interpretation Comments SODIUM (BEAKER) 142 meq/L 136-145 (test code = 381) POTASSIUM 4.1 meq/L 3.5-5.1 (BEAKER) (test code = 379) CHLORIDE (BEAKER) 111 meq/L 98-107 H (test code = 382) CO2 (BEAKER) 25 meq/L 22-29 (test code = 355) BLOOD UREA 31 mg/dL 7-21 H NITROGEN (BEAKER) (test code = 354) CREATININE 0.81 mg/dL 0.57-1.25 (BEAKER) (test code = 358) GLUCOSE RANDOM 110 mg/dL 70-105 H (BEAKER) (test code = 652) CALCIUM (BEAKER) 8.2 mg/dL 8.4-10.2 L (test code = 697) EGFR (BEAKER) 104 Interpretatio n of eGFR (test code = mL/min/1.73 values Stage De scription 1092) sq m Result G1 Onelia l or high >=90 G2 Mildly decreased 60-89 G3a Mildl y to moderately 45-5 9 G3b Moderately to s everely 30-44 G4 Severl y decreased 15-29 G5 Kidney failure <15Reported eGF R is based on the CKD-EPI 2020 equation that d oes not use a race coefficientEsti mated GFR is not as accur ate as Creatinine Eugenia mesha in predicting glom erular filtration rate . Estimated GFR is not appl icable for dialysis patien ts Pastoral Worker ID - [id number] 04:10:46 Test Item Value Reference Range Interpretation Comments MAGNESIUM (BEAKER) (test code = 1.9 mg/dL 1.6-2.6 627) Pastoral Worker ID - [id number] 04:10:46 Test Item Value Reference Range Interpretation Comments PHOSPHORUS (BEAKER) (test code = 2.6 mg/dL 2.3-4.7 604) Pastoral Worker ID - ADMINPOCT-GLUCOSE [id number] 00:36:00 Test Item Value Reference Range Interpretation Comments POC-GLUCOSE METER 115 mg/dL 70-110 H : TESTED A T [facility] 6720 (BEAKER) (test code = [facility], 1538) [id number]: Pastoral Worker/Techni carol ID = [id number] for SOULEYMANE RAYO POCT-GLUCOSE [id number] 17:40:35 Test Item Value Reference Range Interpretation Comments POC-GLUCOSE METER 107 mg/dL 70-110 : TESTED A T [facility] 6720 (BEAKER) (test code = [facility], 1538) 23824: Pastoral Worker/Techni carol ID = [id number] for Anabel Ruiz XR ABDOMEN/KUB 1 VIEW [id number] 13:44:03 [facility] 1965 Sex: MEXAMINATION: XR ABDOMEN/KUB 1 VIEW PORTABLE INDICATION: Diarreha, concern for colitisCOMPARISON: November 06, 2022 FINDINGS/IMPRESSION:No bowel obstruction or free air. No radiographically apparent urinarycalculi. No acute osseous injury.The tip of the Dobbhoff feeding tube overlies the mid duodenum.Electronically Signed By: Salma Khan11/12/2022 13:46 CDTWorkstation Name: [id number] METER 2022-11-12 11:58:32 Test Item Value Reference Range Interpretation Comments POC-GLUCOSE METER 124 mg/dL 70-110 H : TESTED A T [facility] 6720 (BEAKER) (test code = [facility] [place], 1538) 25352: Pastoral Worker/Techni carol ID = [id number] for MISSY MUIR LACTIC ACID, [id number] 08:57:10 Test Item Value Reference Range Interpretation Comments LACTATE BLOOD VENOUS (2) (BEAKER) 0.78 mmol/L 0.50-2.00 (test code = 2872) (CELLAVISION MANUAL DIFF)2022-11-12 07:51:51 Test Item Value Reference Range Interpretation Comments NEUTROPHILS - REL 93 % (CELLAVISION)(BEAKER) (test code = 2816) LYMPHOCYTES - REL 2 % (CELLAVISION)(BEAKER) (test code = 2817) MONOCYTES - REL 3 % (CELLAVISION)(BEAKER) (test code = 2818) EOSINOPHILS - REL 2 % (CELLAVISION)(BEAKER) (test code = 2819) NEUTROPHILS - ABS 21.76 K/ul 1.78-5.38 H (CELLAVISION)(BEAKER) (test code = 2830) LYMPHOCYTES - ABS 0.47 K/ul 1.32-3.57 L (CELLAVISION)(BEAKER) (test code = 2831) MONOCYTES - ABS 0.70 K/uL 0.30-0.82 (CELLAVISION)(BEAKER) (test code = 2832) EOSINOPHILS - ABS 0.47 K/uL 0.04-0.54 (CELLAVISION)(BEAKER) (test code = 2834) TOTAL COUNTED (BEAKER) (test code 100 = 1351) WBC MORPHOLOGY (BEAKER) (test Normal code = 487) PLT MORPHOLOGY (BEAKER) (test Normal code = 486) POLYCHROMATOPHILLIC RBCS(BEAKER) 2+ moderate (test code = 478) ANISOCYTOSIS (BEAKER) (test code 1+ few = 961) MICROCYTES (BEAKER) (test code = 1+ few 965) POIKILOCYTES (BEAKER) (test code 1+ few = 966) OVALOCYTES (BEAKER) (test code = 1+ few 477) ARTIFACT (CELLAVISION)(BEAKER) Present (test code = 3432) PLATELET CONCENTRATION Adequate (CELLAVISION)(BEAKER) (test code = 3438) Pastoral Worker ID - Tiffany Keen comments: Slide comments:CBC W/PLT COUNT & AUTO [id number] 07:51:37 Test Item Value Reference Range Interpretation Comments WHITE BLOOD CELL COUNT (BEAKER) 23.4 K/ L 3.5-10.5 H (test code = 775) RED BLOOD CELL COUNT (BEAKER) 5.22 M/ L 4.63-6.08 (test code = 761) HEMOGLOBIN (BEAKER) (test code = 13.4 GM/DL 13.7-17.5 L 410) HEMATOCRIT (BEAKER) (test code = 42.0 % 40.1-51.0 411) MEAN CORPUSCULAR VOLUME (BEAKER) 81 fL 79-92 (test code = 753) MEAN CORPUSCULAR HEMOGLOBIN 25.7 pg 25.7-32.2 (BEAKER) (test code = 751) MEAN CORPUSCULAR HEMOGLOBIN CONC 31.9 GM/DL 32.3-36.5 L (BEAKER) (test code = 752) RED CELL DISTRIBUTION WIDTH 14.6 % 11.6-14.4 H (BEAKER) (test code = 412) PLATELET COUNT (BEAKER) (test 262 K/CU MM 150-450 code = 756) MEAN PLATELET VOLUME (BEAKER) 9.8 fL 9.4-12.4 (test code = 754) NUCLEATED RED BLOOD CELLS 0 /100 WBC 0-0 (BEAKER) (test code = 413) URINALYSIS [id number] 06:44:11 Test Item Value Reference Range Interpretation Comments RBC UA (BEAKER) (test code = 519) 40 /HPF WBC UA (BEAKER) (test code = 520) 3 /HPF MUCUS (BEAKER) (test code = 1574) Rare SQUAMOUS EPITHELIAL (BEAKER) (test 4 /HPF code = 516) Pastoral Worker ID - techURINALYSIS WITH MICROSCOPIC IF [id number] 06:26:58 Test Item Value Reference Range Interpretation Comments COLOR (BEAKER) (test code = 470) Yellow CLARITY (BEAKER) (test code = 469) Clear SPECIFIC GRAVITY UA (BEAKER) (test 1.026 1.001-1.035 code = 468) PH UA (BEAKER) (test code = 467) 6.0 5.0-8.0 PROTEIN UA (BEAKER) (test code = 30 mg/dL Negative A 464) GLUCOSE UA (BEAKER) (test code = Negative Negative 365) KETONES UA (BEAKER) (test code = 10 mg/dL Negative A 371) BILIRUBIN UA (BEAKER) (test code = Negative Negative 462) BLOOD UA (BEAKER) (test code = 461) Small Negative A NITRITE UA (BEAKER) (test code = Negative Negative 465) LEUKOCYTE ESTERASE UA (BEAKER) (test Negative Negative code = 466) UROBILINOGEN UA (BEAKER) (test code 4 0.2-1.0 H = 463) SOURCE(BEAKER) (test code = 2795) Pastoral Worker ID - [auto]XR CHEST 1 VIEW PORTABLE / [id number] 05:32:07 [facility] : 1965 Sex: MCLINICAL IN DICATION: c/f pneumoniaComparison: 11/11/2022The cardiomediastinal contours are stable.The lung volumes remain low. Central pulmonary vascular prominence andbilateral parenchymal opacities are unchanged.There is no pneumothorax.A feeding tube remains in place.Electronically Signed By: Jamarcus Schumacher11/12/2022 05:34 CDTWorkstation Name: [id number] 04:01:45 Test Item Value Reference Range Interpretation Comments PROCALCITONIN (BEAKER) (test code 0.26 ng/mL <0.05 H = 3036) SEPSIS RISK (ng/mL)Low: 0.05-0.50Intermediate: 0.51-2.00High: >=2.01BASIC METABOLIC [id number] 03:34:39 Test Item Value Reference Range Interpretation Comments SODIUM (BEAKER) 143 meq/L 136-145 (test code = 381) POTASSIUM 4.2 meq/L 3.5-5.1 (BEAKER) (test code = 379) CHLORIDE (BEAKER) 110 meq/L 98-107 H (test code = 382) CO2 (BEAKER) 25 meq/L 22-29 (test code = 355) BLOOD UREA 35 mg/dL 7-21 H NITROGEN (BEAKER) (test code = 354) CREATININE 0.91 mg/dL 0.57-1.25 (BEAKER) (test code = 358) GLUCOSE RANDOM 142 mg/dL 70-105 H (BEAKER) (test code = 652) CALCIUM (BEAKER) 8.2 mg/dL 8.4-10.2 L (test code = 697) EGFR (BEAKER) 100 Interpretatio n of eGFR (test code = mL/min/1.73 values Stage De scription 1092) sq m Result G1 Onelia l or high >=90 G2 Mildly decreased 60-89 G3a Mildl y to moderately 45-5 9 G3b Moderately to s everely 30-44 G4 Severl y decreased 15-29 G5 Kidney failure <15Reported eGF R is based on the CKD-EPI 2020 equation that d oes not use a race coefficientEsti mated GFR is not as accur ate as Creatinine Eugenia mesha in predicting glom erular filtration rate . Estimated GFR is not appl icable for dialysis patien ts Pastoral Worker ID - FABIAN [id number] 03:34:39 Test Item Value Reference Range Interpretation Comments MAGNESIUM (BEAKER) (test code = 2.0 mg/dL 1.6-2.6 627) Pastoral Worker ID - FABIAN [id number] 03:34:39 Test Item Value Reference Range Interpretation Comments PHOSPHORUS (BEAKER) (test code = 2.4 mg/dL 2.3-4.7 604) Pastoral Worker ID - FABIAN WPOCT-GLUCOSE [id number] 03:21:18 Test Item Value Reference Range Interpretation Comments POC-GLUCOSE METER 140 mg/dL 70-110 H : TESTED A T [facility] 6720 (BEAKER) (test code = [facility], 1538) 127[address]: Pastoral Worker/Techni carol ID = [id number] for YE (V), WEIPING POCT-GLUCOSE [id number] 21:27:28 Test Item Value Reference Range Interpretation Comments POC-GLUCOSE METER 129 mg/dL 70-110 H : TESTED A T [facility] 6720 (BEAKER) (test code = [facility], 1538) 85724: Pastoral Worker/Techni carol ID = [id number] for YE (V), WEIPING POCT-GLUCOSE [id number] 12:21:08 Test Item Value Reference Range Interpretation Comments POC-GLUCOSE METER 142 mg/dL 70-110 H : TESTED A T [facility] 6720 (BEAKER) (test code = [facility], 1538) 83810: Pastoral Worker/Techni carol ID = [id number] for Anabel Ruiz XR CHEST 1 VIEW PORTABLE / [id number] 08:50:01 [facility] 1965 Sex: MXR CHEST 1VIEW PORTABLE / BEDSIDEINDICATION: IntubationCOMPARISON: Prior day's examFINDINGS: Portable frontal view of the chest. IMPRESSION:Support Lines: Endotracheal tube removed. Stable enteric tube.Lungs andpleura: Low lung volumes. Increased right lung baseatelectasis. Stable left lower lobe streaky opacities. No pneumothorax.Heart and mediastinum: Stable contours. Additional findings: None.Electronically Signed By: Ken Muniz11/11/2022 08:52 CDTWorkstation Name: [id number] W/PLT COUNT & AUTO [id number] 08:44:26 Test Item Value Reference Range Interpretation Comments WHITE BLOOD CELL COUNT 13.6 K/ L 3.5-10.5 H (BEAKER) (test code = 775) RED BLOOD CELL COUNT 5.82 M/ L 4.63-6.08 (BEAKER) (test code = 761) HEMOGLOBIN (BEAKER) 15.0 GM/DL 13.7-17.5 DISCORDA NT HGB (test code = 410) RESULT COM PARED TO PREVIOUS RESULT ; CLINICAL CORREL ATION REQUIRED. HEMATOCRIT (BEAKER) 46.3 % 40.1-51.0 (test code = 411) MEAN CORPUSCULAR 80 fL 79-92 VOLUME (BEAKER) (test code = 753) MEAN CORPUSCULAR 25.8 pg 25.7-32.2 HEMOGLOBIN (BEAKER) (test code = 751) MEAN CORPUSCULAR 32.4 GM/DL 32.3-36.5 HEMOGLOBIN CONC (BEAKER) (test code = 752) RED CELL DISTRIBUTION 14.7 % 11.6-14.4 H WIDTH (BEAKER) (test code = 412) PLATELET COUNT 256 K/CU MM 150-450 (BEAKER) (test code = 756) MEAN PLATELET VOLUME 10.0 fL 9.4-12.4 (BEAKER) (test code = 754) NUCLEATED RED BLOOD 0 /100 WBC 0-0 CELLS (BEAKER) (test code = 413) NEUTROPHILS RELATIVE 82 % PERCENT (BEAKER) (test code = 429) LYMPHOCYTES RELATIVE 7 % PERCENT (BEAKER) (test code = 430) MONOCYTES RELATIVE 8 % PERCENT (BEAKER) (test code = 431) EOSINOPHILS RELATIVE 2 % PERCENT (BEAKER) (test code = 432) BASOPHILS RELATIVE 0 % PERCENT (BEAKER) (test code = 437) NEUTROPHILS ABSOLUTE 11.18 K/ L 1.78-5.38 H COUNT (BEAKER) (test code = 670) LYMPHOCYTES ABSOLUTE 0.93 K/ L 1.32-3.57 L COUNT (BEAKER) (test code = 414) MONOCYTES ABSOLUTE 1.07 K/ L 0.30-0.82 H COUNT (BEAKER) (test code = 415) EOSINOPHILS ABSOLUTE 0.27 K/ L 0.04-0.54 COUNT (BEAKER) (test code = 416) BASOPHILS ABSOLUTE 0.05 K/ L 0.01-0.08 COUNT (BEAKER) (test code = 417) IMMATURE 0.50 % 0.00-1.00 GRANULOCYTES-RELATIVE PERCENT (BEAKER) (test code = 2801) POCT-GLUCOSE [id number] 06:38:49 Test Item Value Reference Range Interpretation Comments POC-GLUCOSE METER 91 mg/dL 70-110 : TESTED A T [facility] 6720 (BEAKER) (test code = [facility] [place], 1538) 22[address]: Pastoral Worker/Techni carol ID = [id number] for [place] Ahmadi [id number] 05:32:17 Test Item Value Reference Range Interpretation Comments PHOSPHORUS (BEAKER) 2.6 mg/dL 2.3-4.7 Specimen slightly (test code = 604) hemolyzed Pastoral Worker ID - FABIAN WBASIC METABOLIC [id number] 05:32:17 Test Item Value Reference Range Interpretation Comments SODIUM (BEAKER) 141 meq/L 136-145 (test code = 381) POTASSIUM 4.4 meq/L 3.5-5.1 Specimen slight ly (BEAKER) (test hemolyzed code = 379) CHLORIDE (BEAKER) 109 meq/L 98-107 H (test code = 382) CO2 (BEAKER) 21 meq/L 22-29 L (test code = 355) BLOOD UREA 28 mg/dL 7-21 H NITROGEN (BEAKER) (test code = 354) CREATININE 0.81 mg/dL 0.57-1.25 Specimen slight ly (BEAKER) (test hemolyzed code = 358) GLUCOSE RANDOM 103 mg/dL 70-105 (BEAKER) (test code = 652) CALCIUM (BEAKER) 8.8 mg/dL 8.4-10.2 (test code = 697) EGFR (BEAKER) 104 Interpretatio n of eGFR (test code = mL/min/1.73 values Stage De scription 1092) sq m Result G1 Onelia l or high >=90 G2 Mildly decreased 60-89 G3a Mildl y to moderately 45-5 9 G3b Moderately to s everely 30-44 G4 Severl y decreased 15-29 G5 Kidney failure <15Reported eGF R is based on the CKD-EPI 2020 equation that d oes not use a race coefficientEsti mated GFR is not as accur ate as Creatinine Eugenia mesha in predicting glom erular filtration rate . Estimated GFR is not appl icable for dialysis patien ts Pastoral Worker ID Kendall PERALTA [id number] 05:32:16 Test Item Value Reference Range Interpretation Comments MAGNESIUM (BEAKER) 2.1 mg/dL 1.6-2.6 Specimen slightly (test code = 627) hemolyzed Pastoral Worker ID Kendall PERALTA WPOCT-GLUCOSE [id number] 23:53:55 Test Item Value Reference Range Interpretation Comments POC-GLUCOSE METER 87 mg/dL 70-110 : TESTED A T [facility] 6720 (BEAKER) (test code = TREVOR Huerta [facility], 1538) 708[address]: Pastoral Worker/Techni carol ID = [id number] for [place] Ahmadi BLOOD [id number] 15:01:19 Test Item Value Reference Range Interpretation Comments CULTURE (BEAKER) (test No growth in 5 days code = 1095) The specimen volume collected for this blood culture was below the optimum (10 mL per bottle or 20 mL total). Use of lower volumes may adversely affect recovery and/or detection times of some organisms.BLOOD [id number] 15:01:19 Test Item Value Reference Range Interpretation Comments CULTURE (BEAKER) (test No growth in 5 days code = 1095) The specimen volume collected for this blood culture was below the optimum (10 mL per bottle or 20 mL total). Use of lower volumes may adversely affect recovery and/or detection times of some organisms.POCT-GLUCOSE [id number] 14:36:04 Test Item Value Reference Range Interpretation Comments POC-GLUCOSE METER 115 mg/dL 70-110 H : TESTED A T [facility] 6720 (BEAKER) (test code [facility], = 1538) 81959: Pastoral Worker/Techni carol ID = [id number] for Jaswinder hamilton ([facility])Deborah BASIC METABOLIC [id number] 14:32:42 Test Item Value Reference Range Interpretation Comments SODIUM (BEAKER) 142 meq/L 136-145 (test code = 381) POTASSIUM 4.4 meq/L 3.5-5.1 (BEAKER) (test code = 379) CHLORIDE (BEAKER) 109 meq/L 98-107 H (test code = 382) CO2 (BEAKER) 25 meq/L 22-29 (test code = 355) BLOOD UREA 24 mg/dL 7-21 H NITROGEN (BEAKER) (test code = 354) CREATININE 0.86 mg/dL 0.57-1.25 (BEAKER) (test code = 358) GLUCOSE RANDOM 107 mg/dL 70-105 H (BEAKER) (test code = 652) CALCIUM (BEAKER) 8.9 mg/dL 8.4-10.2 (test code = 697) EGFR (BEAKER) 103 Interpretatio n of eGFR (test code = mL/min/1.73 values Stage De scription 1092) sq m Result G1 Onelia l or high >=90 G2 Mildly decreased 60-89 G3a Mildl y to moderately 45-5 9 G3b Moderately to s everely 30-44 G4 Severl y decreased 15-29 G5 Kidney failure <15Reported eGF R is based on the CKD-EPI 202 equation that d oes not use a race coefficientEsti mated GFR is not as accur ate as Creatinine Eugenia zimmer in predicting glom erular filtration rate . Estimated GFR is not appl icable for dialysis patien ts Pastoral Worker ID - [id number] 14:32:42 Test Item Value Reference Range Interpretation Comments MAGNESIUM (BEAKER) (test code = 2.3 mg/dL 1.6-2.6 627) Pastoral Worker ID - EOOPOCT-GLUCOSE [id number] 11:22:50 Test Item Value Reference Range Interpretation Comments POC-GLUCOSE METER 114 mg/dL 70-110 H : TESTED A T [facility] 6720 (BEAKER) (test code = JOSETONYA Huerta [facility], 1538) 04282: Pastoral Worker/Techni carol ID = [id number] for An Christel weiss XR CHEST 1 VIEW PORTABLE / [id number] 06:21:45 [facility] : 1965 Sex: MXR CHEST 1VIEW PORTABLE / BEDSIDEINDICATION: IntubationCOMPARISON: Prior day's examFINDINGS: Portable frontal view of the chest. IMPRESSION:Support Lines: ET tube terminates 4 cm above the ulisses. Otherwisestable support apparatus. Lungs and pleura: Low lung volumes with stable small patchy opacitieswithout newlung consolidation. Small effusions not excluded. Nopneumothorax.Heart and mediastinum: Stable contours. Additional findings: None.Electronically Signed By: Ken Muniz11/10/2022 06:23 CDTWorkstation Name: [id number] METABOLIC PANEL 2022-11-10 04:58:19 Test Item Value Reference Range Interpretation Comments SODIUM (BEAKER) 139 meq/L 136-145 Verified by clinical (test code = 381) history POTASSIUM 4.0 meq/L 3.5-5.1 (BEAKER) (test code = 379) CHLORIDE (BEAKER) 110 meq/L 98-107 H (test code = 382) CO2 (BEAKER) 24 meq/L 22-29 (test code = 355) BLOOD UREA 29 mg/dL 7-21 H NITROGEN (BEAKER) (test code = 354) CREATININE 0.83 mg/dL 0.57-1.25 (BEAKER) (test code = 358) GLUCOSE RANDOM 137 mg/dL 70-105 H (BEAKER) (test code = 652) CALCIUM (BEAKER) 8.1 mg/dL 8.4-10.2 L (test code = 697) EGFR (BEAKER) 103 Interpretatio n of eGFR (test code = mL/min/1.73 values Stage De scription 1092) sq m Result G1 Onelia l or high >=90 G2 Mildly decreased 60-89 G3a Mildl y to moderately 45-5 9 G3b Moderately to s everely 30-44 G4 Severl y decreased 15-29 G5 Kidney failure <15Reported eGF R is based on the CKD-EPI 202 equation that d oes not use a race coefficientEsti mated GFR is not as accur ate as Creatinine Eugenia mesha in predicting glom erular filtration rate . Estimated GFR is not appl icable for dialysis patien ts Pastoral Worker ID - BVOperator ID - [id number] 04:14:08 Test Item Value Reference Range Interpretation Comments PHOSPHORUS (BEAKER) (test code = 3.3 mg/dL 2.3-4.7 604) Pastoral Worker ID - [id number] 04:14:07 Test Item Value Reference Range Interpretation Comments MAGNESIUM (BEAKER) (test code = 1.9 mg/dL 1.6-2.6 627) Pastoral Worker ID - BVPOCT-GLUCOSE [id number] 03:53:24 Test Item Value Reference Range Interpretation Comments POC-GLUCOSE METER 105 mg/dL 70-110 : TESTED A T [facility] 6720 (BEAKER) (test code = TREVOR Deanna [facility], 1538) 96684: Pastoral Worker/Techni carol ID = [id number] for LEAH SEGAL CBC W/PLT COUNT & AUTO [id number] 03:46:39 Test Item Value Reference Range Interpretation Comments WHITE BLOOD CELL COUNT (BEAKER) 8.3 K/ L 3.5-10.5 (test code = 775) RED BLOOD CELL COUNT (BEAKER) 4.57 M/ L 4.63-6.08 L (test code = 761) HEMOGLOBIN (BEAKER) (test code = 11.6 GM/DL 13.7-17.5 L 410) HEMATOCRIT (BEAKER) (test code = 37.9 % 40.1-51.0 L 411) MEAN CORPUSCULAR VOLUME (BEAKER) 83 fL 79-92 (test code = 753) MEAN CORPUSCULAR HEMOGLOBIN 25.4 pg 25.7-32.2 L (BEAKER) (test code = 751) MEAN CORPUSCULAR HEMOGLOBIN CONC 30.6 GM/DL 32.3-36.5 L (BEAKER) (test code = 752) RED CELL DISTRIBUTION WIDTH 14.8 % 11.6-14.4 H (BEAKER) (test code = 412) PLATELET COUNT (BEAKER) (test 182 K/CU MM 150-450 code = 756) MEAN PLATELET VOLUME (BEAKER) 10.5 fL 9.4-12.4 (test code = 754) NUCLEATED RED BLOOD CELLS 0 /100 WBC 0-0 (BEAKER) (test code = 413) NEUTROPHILS RELATIVE PERCENT 68 % (BEAKER) (test code = 429) LYMPHOCYTES RELATIVE PERCENT 16 % (BEAKER) (test code = 430) MONOCYTES RELATIVE PERCENT 12 % (BEAKER) (test code = 431) EOSINOPHILS RELATIVE PERCENT 4 % (BEAKER) (test code = 432) BASOPHILS RELATIVE PERCENT 0 % (BEAKER) (test code = 437) NEUTROPHILS ABSOLUTE COUNT 5.62 K/ L 1.78-5.38 H (BEAKER) (test code = 670) LYMPHOCYTES ABSOLUTE COUNT 1.30 K/ L 1.32-3.57 L (BEAKER) (test code = 414) MONOCYTES ABSOLUTE COUNT (BEAKER) 0.96 K/ L 0.30-0.82 H (test code = 415) EOSINOPHILS ABSOLUTE COUNT 0.33 K/ L 0.04-0.54 (BEAKER) (test code = 416) BASOPHILS ABSOLUTE COUNT (BEAKER) 0.03 K/ L 0.01-0.08 (test code = 417) IMMATURE GRANULOCYTES-RELATIVE 0.60 % 0.00-1.00 PERCENT (BEAKER) (test code = 2801) BLOOD GAS, [id number] 03:43:46 Test Item Value Reference Range Interpretation Comments PH ARTERIAL (BEAKER) (test code = 7.45 7.35-7.45 383) PCO2 ARTERIAL (BEAKER) (test code 37 mm Hg 35-45 = 384) PO2 ARTERIAL (BEAKER) (test code = 225 mm Hg 80-90 H 385) O2 SATURATION ARTERIAL (BEAKER) 99.5 % 96.0-97.0 H (test code = 386) HCO3 ARTERIAL (BEAKER) (test code 25 mmol/L 21-29 = 388) BASE EXCESS ARTERIAL (BEAKER) 1.1 mmol/L -2.0-3.0 (test code = 387) PATIENT TEMPERATURE (BEAKER) (test 35.8 code = 1818) FIO2 (BEAKER) (test code = 1819) 32.0 POCT-GLUCOSE [id number] 22:29:45 Test Item Value Reference Range Interpretation Comments POC-GLUCOSE METER 149 mg/dL 70-110 H : TESTED A T [facility] 6720 (BEAKER) (test code = [facility], 1538) 78260: Pastoral Worker/Techni carol ID = [id number] for LEAH SEGAL POCT-GLUCOSE [id number] 14:53:25 Test Item Value Reference Range Interpretation Comments POC-GLUCOSE METER 131 mg/dL 70-110 H : TESTED A T [facility] 6720 (BEAKER) (test code = [facility], 1538) 70904: Pastoral Worker/Techni carol ID = [id number] for An Christel weiss POCT-GLUCOSE [id number] 11:25:13 Test Item Value Reference Range Interpretation Comments POC-GLUCOSE METER 125 mg/dL 70-110 H : TESTED A T [facility] 6720 (BEAKER) (test code = [facility], 1538) 62598: Pastoral Worker/Techni carol ID = [id number] for An Christel weiss XR CHEST 1 VIEW PORTABLE / [id number] 09:08:16 [facility] 1965 Sex: MEXAMINATION: XR CHEST 1 VIEW PORTABLE / BEDSIDE INDICATION: IntubationCOMPARISON: CXR of the prior day FINDINGS:LINES/TUBES: Endotracheal tube terminates 2.4 cm above the ulisses.Interval removal of previously seen feeding tube and placement of an NGtube which courses below the diaphragm and out of view. LUNGS: Stable lung volumes. No new airspace consolidation.PLEURA: No pleural effusion or pneumothorax.MEDIASTINUM: The cardiomediastinal silhouette is stable in size andshape.BONES/SOFT TISSUES: No acute osseous injury.ABDOMEN: No free air under the diaphragm.IMPRESSION:No significant interval change.Electronically Signed By: Amita Bernal11/09/2022 09:10 CDTWorkstation Name: [id number] 03:52:49 Test Item Value Reference Range Interpretation Comments MAGNESIUM (BEAKER) (test code = 2.3 mg/dL 1.6-2.6 627) Pastoral Worker ID - [id number] 03:52:49 Test Item Value Reference Range Interpretation Comments PHOSPHORUS (BEAKER) (test code = 2.4 mg/dL 2.3-4.7 604) Pastoral Worker ID - MARCOBASIC METABOLIC [id number] 03:52:48 Test Item Value Reference Range Interpretation Comments SODIUM (BEAKER) 148 meq/L 136-145 H (test code = 381) POTASSIUM 3.9 meq/L 3.5-5.1 (BEAKER) (test code = 379) CHLORIDE (BEAKER) 113 meq/L 98-107 H (test code = 382) CO2 (BEAKER) 27 meq/L 22-29 (test code = 355) BLOOD UREA 38 mg/dL 7-21 H NITROGEN (BEAKER) (test code = 354) CREATININE 1.44 mg/dL 0.57-1.25 H (BEAKER) (test code = 358) GLUCOSE RANDOM 111 mg/dL 70-105 H (BEAKER) (test code = 652) CALCIUM (BEAKER) 8.1 mg/dL 8.4-10.2 L (test code = 697) EGFR (BEAKER) 58 Interpretatio n of eGFR (test code = mL/min/1.73 values Stage De scription 1092) sq m Result G1 Onelia l or high >=90 G2 Mildly decreased 60-89 G3a Mildl y to moderately 45-5 9 G3b Moderately to s everely 30-44 G4 Severl y decreased 15-29 G5 Kidney failure <15Reported eGF R is based on the CKD-EPI 2020 equation that d oes not use a race coefficientEsti mated GFR is not as accur ate as Creatinine Eugenia mesha in predicting glom erular filtration rate . Estimated GFR is not appl icable for dialysis patien ts Pastoral Worker ID - MARCOCBC W/PLT COUNT & AUTO [id number] 03:35:35 Test Item Value Reference Range Interpretation Comments WHITE BLOOD CELL COUNT (BEAKER) 11.7 K/ L 3.5-10.5 H (test code = 775) RED BLOOD CELL COUNT (BEAKER) 4.41 M/ L 4.63-6.08 L (test code = 761) HEMOGLOBIN (BEAKER) (test code = 11.3 GM/DL 13.7-17.5 L 410) HEMATOCRIT (BEAKER) (test code = 35.5 % 40.1-51.0 L 411) MEAN CORPUSCULAR VOLUME (BEAKER) 81 fL 79-92 (test code = 753) MEAN CORPUSCULAR HEMOGLOBIN 25.6 pg 25.7-32.2 L (BEAKER) (test code = 751) MEAN CORPUSCULAR HEMOGLOBIN CONC 31.8 GM/DL 32.3-36.5 L (BEAKER) (test code = 752) RED CELL DISTRIBUTION WIDTH 14.6 % 11.6-14.4 H (BEAKER) (test code = 412) PLATELET COUNT (BEAKER) (test 197 K/CU MM 150-450 code = 756) MEAN PLATELET VOLUME (BEAKER) 10.3 fL 9.4-12.4 (test code = 754) NUCLEATED RED BLOOD CELLS 0 /100 WBC 0-0 (BEAKER) (test code = 413) NEUTROPHILS RELATIVE PERCENT 79 % (BEAKER) (test code = 429) LYMPHOCYTES RELATIVE PERCENT 8 % (BEAKER) (test code = 430) MONOCYTES RELATIVE PERCENT 11 % (BEAKER) (test code = 431) EOSINOPHILS RELATIVE PERCENT 1 % (BEAKER) (test code = 432) BASOPHILS RELATIVE PERCENT 0 % (BEAKER) (test code = 437) NEUTROPHILS ABSOLUTE COUNT 9.28 K/ L 1.78-5.38 H (BEAKER) (test code = 670) LYMPHOCYTES ABSOLUTE COUNT 0.97 K/ L 1.32-3.57 L (BEAKER) (test code = 414) MONOCYTES ABSOLUTE COUNT (BEAKER) 1.29 K/ L 0.30-0.82 H (test code = 415) EOSINOPHILS ABSOLUTE COUNT 0.08 K/ L 0.04-0.54 (BEAKER) (test code = 416) BASOPHILS ABSOLUTE COUNT (BEAKER) 0.02 K/ L 0.01-0.08 (test code = 417) IMMATURE GRANULOCYTES-RELATIVE 0.50 % 0.00-1.00 PERCENT (BEAKER) (test code = 2801) BLOOD GAS, [id number] 03:29:39 Test Item Value Reference Range Interpretation Comments PH ARTERIAL (BEAKER) (test code = 7.47 7.35-7.45 H 383) PCO2 ARTERIAL (BEAKER) (test code 43 mm Hg 35-45 = 384) PO2 ARTERIAL (BEAKER) (test code = 219 mm Hg 80-90 H 385) O2 SATURATION ARTERIAL (BEAKER) 99.5 % 96.0-97.0 H (test code = 386) HCO3 ARTERIAL (BEAKER) (test code 30 mmol/L 21-29 H = 388) BASE EXCESS ARTERIAL (BEAKER) 5.8 mmol/L -2.0-3.0 H (test code = 387) PATIENT TEMPERATURE (BEAKER) (test 38.0 code = 1818) FIO2 (BEAKER) (test code = 1819) 24.0 POCT-GLUCOSE [id number] 02:52:45 Test Item Value Reference Range Interpretation Comments POC-GLUCOSE METER 110 mg/dL 70-110 : TESTED A T [facility] 6720 (BEAKER) (test code = [facility], 1538) [id number]: Pastoral Worker/Techni carol ID = [id number] for AKHIONBARE, LEAH POCT-GLUCOSE [id number] 02:49:54 Test Item Value Reference Range Interpretation Comments POC-GLUCOSE METER 167 mg/dL 70-110 H : TESTED A T [facility] 6720 (BEAKER) (test code = [facility], 1538) [id number]: Pastoral Worker/Techni carol ID = [id number] for AKHIONBARE, LEAH TH BASIC METABOLIC [id number] 16:07:43 Test Item Value Reference Range Interpretation Comments SODIUM (BEAKER) 148 meq/L 136-145 H (test code = 381) POTASSIUM 3.9 meq/L 3.5-5.1 (BEAKER) (test code = 379) CHLORIDE (BEAKER) 112 meq/L 98-107 H (test code = 382) CO2 (BEAKER) 30 meq/L 22-29 H (test code = 355) BLOOD UREA 39 mg/dL 7-21 H NITROGEN (BEAKER) (test code = 354) CREATININE 1.77 mg/dL 0.57-1.25 H (BEAKER) (test code = 358) GLUCOSE RANDOM 152 mg/dL 70-105 H (BEAKER) (test code = 652) CALCIUM (BEAKER) 8.3 mg/dL 8.4-10.2 L (test code = 697) EGFR (BEAKER) 45 Interpretatio n of eGFR (test code = mL/min/1.73 values Stage De scription 1092) sq m Result G1 Onelia l or high >=90 G2 Mildly decreased 60-89 G3a Mildl y to moderately 45-5 9 G3b Moderately to s everely 30-44 G4 Severl y decreased 15-29 G5 Kidney failure <15Reported eGF R is based on the CKD-EPI 2020 equation that d oes not use a race coefficientEsti mated GFR is not as accur ate as Creatinine Eugenia zimmer in predicting glom erular filtration rate . Estimated GFR is not appl icable for dialysis patien ts Pastoral Worker ID - [id number] CULTURE + GRAM [id number] 10:16:15 Test Item Value Reference Range Interpretation Comments CULTURE A 1+ Beta-hemolyt ic (BEAKER) (test streptococcus group code = 1095) G, by serologic al grouping GRAM STAIN 4+ WBCs RESULT (BEAKER) (test code = 1123) GRAM STAIN 1+ gram positive RESULT (BEAKER) cocci in chains and (test code = pairs [id number]) GRAM STAIN 1+ gram negative RESULT (BEAKER) coccobacilli (test code = 321088) GRAM STAIN <1+ gram positive RESULT (BEAKER) rods (test code = 840946) GRAM STAIN <1+ gram positive RESULT (BEAKER) cocci in clusters (test code = 164944) 3+ Normal respiratory kei presentXR CHEST 1 VIEW PORTABLE / [id number] 06:31:38[facility] : 1965 Sex: MChest one v iew:HISTORY: PneumoniaCompared to 11/07/2022. Bibasilar subsegmental atelectasis is present and improved on the left.There is a minimal left pleural effusion. Cardiac size remains withinnormal limits. Anendotracheal tube and enteric feeding tube appearunchanged in position.Electronically Signed By: Timmy Mcintyre11/08/2022 06:33 CDTWorkstation Name: [id number] 03:37:56 Test Item Value Reference Range Interpretation Comments MAGNESIUM (BEAKER) (test code = 2.3 mg/dL 1.6-2.6 627) Pastoral Worker ID - [id number] 03:37:56 Test Item Value Reference Range Interpretation Comments PHOSPHORUS (BEAKER) (test code = 3.2 mg/dL 2.3-4.7 604) Pastoral Worker ID - ADMINBASIC METABOLIC [id number] 03:37:55 Test Item Value Reference Range Interpretation Comments SODIUM (BEAKER) 145 meq/L 136-145 (test code = 381) POTASSIUM 4.0 meq/L 3.5-5.1 (BEAKER) (test code = 379) CHLORIDE (BEAKER) 111 meq/L 98-107 H (test code = 382) CO2 (BEAKER) 25 meq/L 22-29 (test code = 355) BLOOD UREA 37 mg/dL 7-21 H NITROGEN (BEAKER) (test code = 354) CREATININE 2.17 mg/dL 0.57-1.25 H (BEAKER) (test code = 358) GLUCOSE RANDOM 152 mg/dL 70-105 H (BEAKER) (test code = 652) CALCIUM (BEAKER) 8.2 mg/dL 8.4-10.2 L (test code = 697) EGFR (BEAKER) 35 Interpretatio n of eGFR (test code = mL/min/1.73 values Stage De scription 1092) sq m Result G1 Onelia l or high >=90 G2 Mildly decreased 60-89 G3a Mildl y to moderately 45-5 9 G3b Moderately to s everely 30-44 G4 Severl y decreased 15-29 G5 Kidney failure <15Reported eGF R is based on the CKD-EPI 2020 equation that d oes not use a race coefficientEsti mated GFR is not as accur ate as Creatinine Eugenia mesha in predicting glom erular filtration rate . Estimated GFR is not appl icable for dialysis patien ts Pastoral Worker ID - ADMINCBC W/PLT COUNT & AUTO [id number] 03:32:03 Test Item Value Reference Range Interpretation Comments WHITE BLOOD CELL COUNT (BEAKER) 11.8 K/ L 3.5-10.5 H (test code = 775) RED BLOOD CELL COUNT (BEAKER) 4.93 M/ L 4.63-6.08 (test code = 761) HEMOGLOBIN (BEAKER) (test code = 12.8 GM/DL 13.7-17.5 L 410) HEMATOCRIT (BEAKER) (test code = 38.7 % 40.1-51.0 L 411) MEAN CORPUSCULAR VOLUME (BEAKER) 79 fL 79-92 (test code = 753) MEAN CORPUSCULAR HEMOGLOBIN 26.0 pg 25.7-32.2 (BEAKER) (test code = 751) MEAN CORPUSCULAR HEMOGLOBIN CONC 33.1 GM/DL 32.3-36.5 (BEAKER) (test code = 752) RED CELL DISTRIBUTION WIDTH 14.6 % 11.6-14.4 H (BEAKER) (test code = 412) PLATELET COUNT (BEAKER) (test 190 K/CU MM 150-450 code = 756) MEAN PLATELET VOLUME (BEAKER) 10.1 fL 9.4-12.4 (test code = 754) NUCLEATED RED BLOOD CELLS 0 /100 WBC 0-0 (BEAKER) (test code = 413) NEUTROPHILS RELATIVE PERCENT 95 % (BEAKER) (test code = 429) LYMPHOCYTES RELATIVE PERCENT 2 % (BEAKER) (test code = 430) MONOCYTES RELATIVE PERCENT 2 % (BEAKER) (test code = 431) EOSINOPHILS RELATIVE PERCENT 0 % (BEAKER) (test code = 432) BASOPHILS RELATIVE PERCENT 0 % (BEAKER) (test code = 437) NEUTROPHILS ABSOLUTE COUNT 11.30 K/ L 1.78-5.38 H (BEAKER) (test code = 670) LYMPHOCYTES ABSOLUTE COUNT 0.25 K/ L 1.32-3.57 L (BEAKER) (test code = 414) MONOCYTES ABSOLUTE COUNT (BEAKER) 0.21 K/ L 0.30-0.82 L (test code = 415) EOSINOPHILS ABSOLUTE COUNT 0.00 K/ L 0.04-0.54 L (BEAKER) (test code = 416) BASOPHILS ABSOLUTE COUNT (BEAKER) 0.02 K/ L 0.01-0.08 (test code = 417) IMMATURE GRANULOCYTES-RELATIVE 0.50 % 0.00-1.00 PERCENT (BEAKER) (test code = 2801) BLOOD GAS, [id number] 03:15:14 Test Item Value Reference Range Interpretation Comments PH ARTERIAL (BEAKER) (test code = 7.47 7.35-7.45 H 383) PCO2 ARTERIAL (BEAKER) (test code 42 mm Hg 35-45 = 384) PO2 ARTERIAL (BEAKER) (test code = 100 mm Hg 80-90 H 385) O2 SATURATION ARTERIAL (BEAKER) 97.8 % 96.0-97.0 H (test code = 386) HCO3 ARTERIAL (BEAKER) (test code 30 mmol/L 21-29 H = 388) BASE EXCESS ARTERIAL (BEAKER) 5.5 mmol/L -2.0-3.0 H (test code = 387) PATIENT TEMPERATURE (BEAKER) (test 37.0 code = 1818) FIO2 (BEAKER) (test code = 1819) 24.0 POCT-GLUCOSE [id number] 23:26:56 Test Item Value Reference Range Interpretation Comments POC-GLUCOSE METER 133 mg/dL 70-110 H : TESTED A T [facility] 6720 (BEAKER) (test code = [place], 1538) [address]: Pastoral Worker/Techni carol ID = [id number] for IR FATOU TEAGUE POCT-GLUCOSE [id number] 19:00:51 Test Item Value Reference Range Interpretation Comments POC-GLUCOSE METER 125 mg/dL 70-110 H : Notified RN/MD: (KOMAL) (test code = TESTED AT [facility] 6720 1538) MARIZ[place] [facility], [address]: Pastoral Worker/Techni carol ID = [id number] for MISSY MUIR XR CHEST 1 VIEW PORTABLE / [id number] 18:19:28 [facility] 1965 Sex: MExam: XR CHEST 1 VIEW PORTABLE / BEDSIDEDate: 11/07/2022 6:18 PMIndication:worsening hypoxiaComparison: Chest radiograph from earlier today.IMPRESSION:Lines/Tubes:Unchanged support devices.Lungs and Pleura : Low lung volumes. Mildly increasing perihilaropacities. Trace bilateral pleural effusions. No pneumothorax.Heart/Mediastinum:Unchanged.Bones/Soft Tissues: No acute osseous abnormality.Upper abdomen: Unremarkable.Electronically Signed By: Gerardo Cheng11/07/2022 18:21 CDTWorkstation Name: [id number] METABOLIC PANEL 2022-11-07 17:42:19 Test Item Value Reference Range Interpretation Comments SODIUM (BEAKER) 145 meq/L 136-145 (test code = 381) POTASSIUM 3.3 meq/L 3.5-5.1 L (BEAKER) (test code = 379) CHLORIDE (BEAKER) 113 meq/L 98-107 H (test code = 382) CO2 (BEAKER) 22 meq/L 22-29 (test code = 355) BLOOD UREA 46 mg/dL 7-21 H NITROGEN (BEAKER) (test code = 354) CREATININE 3.80 mg/dL 0.57-1.25 H (BEAKER) (test code = 358) GLUCOSE RANDOM 160 mg/dL 70-105 H (BEAKER) (test code = 652) CALCIUM (BEAKER) 7.6 mg/dL 8.4-10.2 L (test code = 697) EGFR (BEAKER) 18 Interpretatio n of eGFR (test code = mL/min/1.73 values Stage De scription 1092) sq m Result G1 Onelia l or high >=90 G2 Mildly decreased 60-89 G3a Mildl y to moderately 45-5 9 G3b Moderately to s everely 30-44 G4 Severl y decreased 15-29 G5 Kidney failure <15Reported eGF R is based on the CKD-EPI 2020 equation that d oes not use a race coefficientEsti mated GFR is not as accur ate as Creatinine Eugenia mesha in predicting glom erular filtration rate . Estimated GFR is not appl icable for dialysis patien ts Pastoral Worker ID - ADMINBLOOD GAS, [id number] 17:07:40 Test Item Value Reference Range Interpretation Comments PH ARTERIAL (BEAKER) (test code = 7.45 7.35-7.45 383) PCO2 ARTERIAL (BEAKER) (test code 32 mm Hg 35-45 L = 384) PO2 ARTERIAL (BEAKER) (test code 101 mm Hg 80-90 H = 385) O2 SATURATION ARTERIAL (BEAKER) 97.9 % 96.0-97.0 H (test code = 386) HCO3 ARTERIAL (BEAKER) (test code 22 mmol/L 21-29 = 388) BASE EXCESS ARTERIAL (BEAKER) -1.2 mmol/L -2.0-3.0 (test code = 387) PATIENT TEMPERATURE (BEAKER) 37.0 (test code = 1818) FIO2 (BEAKER) (test code = 1819) 21.0 BASIC METABOLIC [id number] 16:56:17 Test Item Value Reference Range Interpretation Comments SODIUM (BEAKER) 141 meq/L 136-145 (test code = 381) POTASSIUM 4.4 meq/L 3.5-5.1 Specimen modera tely (BEAKER) (test hemolyzed code = 379) CHLORIDE (BEAKER) 113 meq/L 98-107 H (test code = 382) CO2 (BEAKER) 16 meq/L 22-29 L (test code = 355) BLOOD UREA 46 mg/dL 7-21 H NITROGEN (BEAKER) (test code = 354) CREATININE 4.66 mg/dL 0.57-1.25 H Specimen modera tely (BEAKER) (test hemolyzed code = 358) GLUCOSE RANDOM 151 mg/dL 70-105 H (BEAKER) (test code = 652) CALCIUM (BEAKER) 7.9 mg/dL 8.4-10.2 L (test code = 697) EGFR (BEAKER) 14 Interpretatio n of eGFR (test code = mL/min/1.73 values Stage De scription 1092) sq m Result G1 Onelia l or high >=90 G2 Mildly decreased 60-89 G3a Mildl y to moderately 45-5 9 G3b Moderately to s everely 30-44 G4 Severl y decreased 15-29 G5 Kidney failure <15Reported eGF R is based on the CKD-EPI 2020 equation that d oes not use a race coefficientEsti mated GFR is not as accur ate as Creatinine Eugenia mesha in predicting glom erular filtration rate . Estimated GFR is not appl icable for dialysis patien ts Pastoral Worker ID - BSUS RENAL [id number] 16:15:21 [facility] 1965 Sex: MEXAM: Renal UltrasoundINDICATION: MAJOR vs. Renal Failure COMPARISON: None TECHNIQUE: Transverse and longitudinalimages of the kidneys and bladderwere obtained. FINDINGS: Right Kidney: Length: 10.7 cmAppearance: Normal echogenicity. Collecting system: No hydronephrosisStones: NoneCyst/Mass: NoneLeft Kidney: Length: 10.2 cmAppearance: Normal echogenicity. Collecting system: No hydronephrosisStones: NoneCyst/Mass:NoneBladder: Smith catheter in the decompressed bladder.IMPRESSION:No hydronephrosis or renal calclul i.Electronically Signed By: Amita Bernal11/07/2022 16:17 CDTWorkstation Name: [id number] NITROGEN, RANDOM [id number] 14:25:38 Test Item Value Reference Range Interpretation Comments UREA NITROGEN URINE (BEAKER) (test 351 mg/dL code = 538) Reference Range: No NormalsOperator ID - ADMINCREATININE, RANDOM [id number] 14:25:37 Test Item Value Reference Range Interpretation Comments CREATININE URINE (BEAKER) (test 117.9 mg/dL code = 375) Reference Range: No NormalsOperator ID - ADMINSODIUM, RANDOM [id number] 14:25:37 Test Item Value Reference Range Interpretation Comments SODIUM URINE (BEAKER) (test code = 43 meq/L 243) Reference Range: No NormalsOperator ID - ADMINBASIC METABOLIC [id number] 14:01:34 Test Item Value Reference Range Interpretation Comments SODIUM (BEAKER) 143 meq/L 136-145 (test code = 381) POTASSIUM 3.8 meq/L 3.5-5.1 (BEAKER) (test code = 379) CHLORIDE (BEAKER) 112 meq/L 98-107 H (test code = 382) CO2 (BEAKER) 18 meq/L 22-29 L (test code = 355) BLOOD UREA 48 mg/dL 7-21 H NITROGEN (BEAKER) (test code = 354) CREATININE 4.83 mg/dL 0.57-1.25 H (BEAKER) (test code = 358) GLUCOSE RANDOM 154 mg/dL 70-105 H (BEAKER) (test code = 652) CALCIUM (BEAKER) 7.8 mg/dL 8.4-10.2 L (test code = 697) EGFR (BEAKER) 14 Interpretatio n of eGFR (test code = mL/min/1.73 values Stage De scription 1092) sq m Result G1 Onelia l or high >=90 G2 Mildly decreased 60-89 G3a Mildl y to moderately 45-5 9 G3b Moderately to s everely 30-44 G4 Severl y decreased 15-29 G5 Kidney failure <15Reported eGF R is based on the CKD-EPI 2020 equation that d oes not use a race coefficientEsti mated GFR is not as accur ate as Creatinine Eugenia zimmer in predicting glom erular filtration rate . Estimated GFR is not appl icable for dialysis patien ts Pastoral Worker ID - MARCOB-TYPE NATRIURETIC FACTOR (BNP)2022-11-07 13:54:47 Test Item Value Reference Range Interpretation Comments B-TYPE NATRIURETIC PEPTIDE (BEAKER) 108 pg/mL 0-100 H (test code = 700) Pastoral Worker ID - MARCOBLOOD GAS, [id number] 13:38:48 Test Item Value Reference Range Interpretation Comments PH ARTERIAL (BEAKER) (test code = 7.47 7.35-7.45 H 383) PCO2 ARTERIAL (BEAKER) (test code 25 mm Hg 35-45 L = 384) PO2 ARTERIAL (BEAKER) (test code 208 mm Hg 80-90 H = 385) O2 SATURATION ARTERIAL (BEAKER) 99.5 % 96.0-97.0 H (test code = 386) HCO3 ARTERIAL (BEAKER) (test code 17 mmol/L 21-29 L = 388) BASE EXCESS ARTERIAL (BEAKER) -4.5 mmol/L -2.0-3.0 L (test code = 387) PATIENT TEMPERATURE (BEAKER) 37.0 (test code = 1818) FIO2 (BEAKER) (test code = 1819) 21 OSMOLALITY, [id number] 12:37:47 Test Item Value Reference Range Interpretation Comments OSMOLALITY, SERUM (BEAKER) (test 302 mOsm/kg 275-295 H code = 615) POCT-GLUCOSE [id number] 12:14:10 Test Item Value Reference Range Interpretation Comments POC-GLUCOSE METER 144 mg/dL 70-110 H : Notified RN/MD: (BEAKER) (test code = TESTED AT [facility] 7567 5358) [facility], [address]: Pastoral Worker/Techni carol ID = [id number] for MISSY MUIR CREATINE KINASE (CK)2022-11-07 12:06:52 Test Item Value Reference Range Interpretation Comments CREATINE KINASE TOTAL (BEAKER) (test 393 U/L 29-200 H code = 380) Pastoral Worker ID - JACOB [id number] 11:47:18 Test Item Value Reference Range Interpretation Comments OSMOLALITY URINE 355 mOsm/kg See_Comment [Automated message] (BEAKER) (test code = The sy stem which 614) generated this result transmitted ref erence range: 50-1,200 mOsm/kg. The reference range was not used to int erpret this result as normal/abnormal . URINALYSIS WITH MICROSCOPIC IF [id number] 11:46:16 Test Item Value Reference Range Interpretation Comments COLOR (BEAKER) (test code = 470) [place] CLARITY (BEAKER) (test code = 469) Hazy SPECIFIC GRAVITY UA (BEAKER) (test 1.020 1.001-1.035 code = 468) PH UA (BEAKER) (test code = 467) 6.0 5.0-8.0 PROTEIN UA (BEAKER) (test code = 100 mg/dL Negative A 464) GLUCOSE UA (BEAKER) (test code = 30 mg/dL Negative A 365) KETONES UA (BEAKER) (test code = Trace Negative A 371) BILIRUBIN UA (BEAKER) (test code = Negative Negative 462) BLOOD UA (BEAKER) (test code = 461) Moderate Negative A NITRITE UA (BEAKER) (test code = Negative Negative 465) LEUKOCYTE ESTERASE UA (BEAKER) Moderate Negative A (test code = 466) UROBILINOGEN UA (BEAKER) (test code 6 0.2-1.0 H = 463) SOURCE(BEAKER) (test code = 2795) Pastoral Worker ID - [auto]Pastoral Worker ID - techURINALYSIS [id number] 11:46:16 Test Item Value Reference Range Interpretation Comments RBC UA (BEAKER) (test code = 519) 56 /HPF WBC UA (BEAKER) (test code = 520) 14 /HPF MUCUS (BEAKER) (test code = 1574) Rare SQUAMOUS EPITHELIAL (BEAKER) (test < /HPF code = 516) CASTS (BEAKER) (test code = 1579) 1 /LPF CRYSTALS, URINE (BEAKER) (test Occasional None Seen A code = 1521) Pastoral Worker ID - techBLOOD GAS, [id number] 09:07:12 Test Item Value Reference Range Interpretation Comments PH ARTERIAL (BEAKER) (test code 7.46 7.35-7.45 H = 383) PCO2 ARTERIAL (BEAKER) (test 15 mm Hg 35-45 LL code = 384) PO2 ARTERIAL (BEAKER) (test code 202 mm Hg 80-90 H = 385) O2 SATURATION ARTERIAL (BEAKER) 99.5 % 96.0-97.0 H (test code = 386) HCO3 ARTERIAL (BEAKER) (test 10 mmol/L 21-29 LL code = 388) BASE EXCESS ARTERIAL (BEAKER) -12.0 mmol/L -2.0-3.0 L (test code = 387) PATIENT TEMPERATURE (BEAKER) 37.0 (test code = 1818) FIO2 (BEAKER) (test code = 1819) 30.0 HEPATIC FUNCTION [id number] 08:17:04 Test Item Value Reference Range Interpretation Comments TOTAL PROTEIN (BEAKER) (test code = 5.8 gm/dL 6.0-8.3 L 770) ALBUMIN (BEAKER) (test code = 1145) 3.1 g/dL 3.5-5.0 L BILIRUBIN TOTAL (BEAKER) (test code 0.9 mg/dL 0.2-1.2 = 377) BILIRUBIN DIRECT (BEAKER) (test 0.4 mg/dL 0.1-0.5 code = 706) ALKALINE PHOSPHATASE (BEAKER) (test 84 U/L 40-150 code = 346) AST (SGOT) (BEAKER) (test code = 34 U/L 5-34 353) ALT (SGPT) (BEAKER) (test code = 24 U/L 6-55 347) Pastoral Worker ID - MARCOXR CHEST 1 VIEW PORTABLE / [id number] 06:56:03 [facility] 1965 Sex: MCLINICAL HISTORY: pneumonia follow-upTECHNIQUE: 1 view of the chest.COMPARISON: 11/06/2022IMPRESSION:ETT terminates 3 cm above the ulisses. Feeding tube now seen in theduodenum. Low lung volumes are again seen with decreased right perihilarairspace opacity. There are no significant appearing effusions. Thecardiomediastinal silhouette is magnified by technique.Electronically Signed By: Del Macdonald11/07/2022 06:58 CDTWorkstation Name: [id number] METABOLIC [id number] 04:01:18 Test Item Value Reference Range Interpretation Comments SODIUM (BEAKER) 141 meq/L 136-145 (test code = 381) POTASSIUM 3.8 meq/L 3.5-5.1 (BEAKER) (test code = 379) CHLORIDE (BEAKER) 113 meq/L 98-107 H (test code = 382) CO2 (BEAKER) 16 meq/L 22-29 L (test code = 355) BLOOD UREA 42 mg/dL 7-21 H NITROGEN (BEAKER) (test code = 354) CREATININE 3.25 mg/dL 0.57-1.25 H (BEAKER) (test code = 358) GLUCOSE RANDOM 159 mg/dL 70-105 H (BEAKER) (test code = 652) CALCIUM (BEAKER) 7.9 mg/dL 8.4-10.2 L (test code = 697) EGFR (BEAKER) 22 Interpretatio n of eGFR (test code = mL/min/1.73 values Stage De scription 1092) sq m Result G1 Onelia l or high >=90 G2 Mildly decreased 60-89 G3a Mildl y to moderately 45-5 9 G3b Moderately to s everely 30-44 G4 Severl y decreased 15-29 G5 Kidney failure <15Reported eGF R is based on the CKD-EPI 202 equation that d oes not use a race coefficientEsti mated GFR is not as accur ate as Creatinine Eugenia mesha in predicting glom erular filtration rate . Estimated GFR is not appl icable for dialysis patien ts Pastoral Worker ID - [id number] 03:53:48 Test Item Value Reference Range Interpretation Comments MAGNESIUM (BEAKER) (test code = 2.0 mg/dL 1.6-2.6 627) Pastoral Worker ID - [id number] 03:53:48 Test Item Value Reference Range Interpretation Comments PHOSPHORUS (BEAKER) (test code = 4.8 mg/dL 2.3-4.7 H 604) Pastoral Worker ID - ADMINCBC W/PLT COUNT & AUTO [id number] 03:39:24 Test Item Value Reference Range Interpretation Comments WHITE BLOOD CELL COUNT (BEAKER) 13.3 K/ L 3.5-10.5 H (test code = 775) RED BLOOD CELL COUNT (BEAKER) 4.96 M/ L 4.63-6.08 (test code = 761) HEMOGLOBIN (BEAKER) (test code = 12.9 GM/DL 13.7-17.5 L 410) HEMATOCRIT (BEAKER) (test code = 39.3 % 40.1-51.0 L 411) MEAN CORPUSCULAR VOLUME (BEAKER) 79 fL 79-92 (test code = 753) MEAN CORPUSCULAR HEMOGLOBIN 26.0 pg 25.7-32.2 (BEAKER) (test code = 751) MEAN CORPUSCULAR HEMOGLOBIN CONC 32.8 GM/DL 32.3-36.5 (BEAKER) (test code = 752) RED CELL DISTRIBUTION WIDTH 14.6 % 11.6-14.4 H (BEAKER) (test code = 412) PLATELET COUNT (BEAKER) (test 171 K/CU MM 150-450 code = 756) MEAN PLATELET VOLUME (BEAKER) 10.2 fL 9.4-12.4 (test code = 754) NUCLEATED RED BLOOD CELLS 0 /100 WBC 0-0 (BEAKER) (test code = 413) NEUTROPHILS RELATIVE PERCENT 87 % (BEAKER) (test code = 429) LYMPHOCYTES RELATIVE PERCENT 4 % (BEAKER) (test code = 430) MONOCYTES RELATIVE PERCENT 9 % (BEAKER) (test code = 431) EOSINOPHILS RELATIVE PERCENT 0 % (BEAKER) (test code = 432) BASOPHILS RELATIVE PERCENT 0 % (BEAKER) (test code = 437) NEUTROPHILS ABSOLUTE COUNT 11.55 K/ L 1.78-5.38 H (BEAKER) (test code = 670) LYMPHOCYTES ABSOLUTE COUNT 0.49 K/ L 1.32-3.57 L (BEAKER) (test code = 414) MONOCYTES ABSOLUTE COUNT (BEAKER) 1.16 K/ L 0.30-0.82 H (test code = 415) EOSINOPHILS ABSOLUTE COUNT 0.00 K/ L 0.04-0.54 L (BEAKER) (test code = 416) BASOPHILS ABSOLUTE COUNT (BEAKER) 0.02 K/ L 0.01-0.08 (test code = 417) IMMATURE GRANULOCYTES-RELATIVE 0.50 % 0.00-1.00 PERCENT (BEAKER) (test code = 2801) BLOOD GAS, [id number] 03:20:41 Test Item Value Reference Range Interpretation Comments PH ARTERIAL (BEAKER) (test code = 7.43 7.35-7.45 383) PCO2 ARTERIAL (BEAKER) (test code 26 mm Hg 35-45 L = 384) PO2 ARTERIAL (BEAKER) (test code 155 mm Hg 80-90 H = 385) O2 SATURATION ARTERIAL (BEAKER) 99.1 % 96.0-97.0 H (test code = 386) HCO3 ARTERIAL (BEAKER) (test code 17 mmol/L 21-29 L = 388) BASE EXCESS ARTERIAL (BEAKER) -5.7 mmol/L -2.0-3.0 L (test code = 387) PATIENT TEMPERATURE (BEAKER) 37.0 (test code = 1818) FIO2 (BEAKER) (test code = 1819) 60.0 BLOOD GAS, [id number] 23:12:54 Test Item Value Reference Range Interpretation Comments PH ARTERIAL (BEAKER) (test code = 7.42 7.35-7.45 383) PCO2 ARTERIAL (BEAKER) (test code 27 mm Hg 35-45 L = 384) PO2 ARTERIAL (BEAKER) (test code 184 mm Hg 80-90 H = 385) O2 SATURATION ARTERIAL (BEAKER) 99.3 % 96.0-97.0 H (test code = 386) HCO3 ARTERIAL (BEAKER) (test code 17 mmol/L 21-29 L = 388) BASE EXCESS ARTERIAL (BEAKER) -6.0 mmol/L -2.0-3.0 L (test code = 387) PATIENT TEMPERATURE (BEAKER) 36.5 (test code = 1818) FIO2 (BEAKER) (test code = 1819) 80.0 XR ABDOMEN/KUB 1 VIEW [id number] 22:12:42 [facility] 1965 Sex: MTECHNIQUE:XR ABDOMEN/KUB 1 VIEW PORTABLEINDICATION: corpak.COMPARISON: 11/06/2022FINDINGS:Feeding tube tip projects over the first portion of the duodenum. Nospecific evidence for bowel obstruction. Supine radiographs areinsensitive for detection of free intraperitoneal air.IMPRESSION:Feeding tube tip now projects over the first portion of the duodenum.Electronically Signed By: sOcar Orosco11/06/2022 22:14 CDTWorkstation Name: [id number] GAS, [id number] 20:54:23 Test Item Value Reference Range Interpretation Comments PH ARTERIAL (BEAKER) (test code = 7.40 7.35-7.45 383) PCO2 ARTERIAL (BEAKER) (test code 30 mm Hg 35-45 L = 384) PO2 ARTERIAL (BEAKER) (test code 187 mm Hg 80-90 H = 385) O2 SATURATION ARTERIAL (BEAKER) 99.3 % 96.0-97.0 H (test code = 386) HCO3 ARTERIAL (BEAKER) (test code 18 mmol/L 21-29 L = 388) BASE EXCESS ARTERIAL (BEAKER) -5.5 mmol/L -2.0-3.0 L (test code = 387) PATIENT TEMPERATURE (BEAKER) 37.0 (test code = 1818) FIO2 (BEAKER) (test code = 1819) 100.0 BLOOD GAS, [id number] 20:16:35 Test Item Value Reference Range Interpretation Comments PH ARTERIAL (BEAKER) (test code = 7.36 7.35-7.45 383) PCO2 ARTERIAL (BEAKER) (test code 32 mm Hg 35-45 L = 384) PO2 ARTERIAL (BEAKER) (test code 211 mm Hg 80-90 H = 385) O2 SATURATION ARTERIAL (BEAKER) 99.4 % 96.0-97.0 H (test code = 386) HCO3 ARTERIAL (BEAKER) (test code 18 mmol/L 21-29 L = 388) BASE EXCESS ARTERIAL (BEAKER) -6.3 mmol/L -2.0-3.0 L (test code = 387) PATIENT TEMPERATURE (BEAKER) 37.9 (test code = 1818) FIO2 (BEAKER) (test code = 1819) 100.0 XR ABDOMEN/KUB 1 VIEW [id number] 19:23:18 [facility] 1965 Sex: MTECHNIQUE:XR ABDOMEN/KUB 1 VIEW PORTABLEINDICATION: corpak.COMPARISON: 11/04/2022FINDINGS:Feeding tube with the tip projecting over the gastric fundus. Mildgaseous distention of the stomach. No specific evidence for bowelobstruction. Supine radiographs are insensitive for detection of freeintraperitoneal air.IMPRESSION:Feeding tube tip projects over the gastric fundus.Electronically Signed By: Oscar Orosco11/06/2022 19:25 CDTWorkstation Name: [id number] CHEST 1 VIEW PORTABLE / [id number] 19:07:36[facility] 1965 Sex: MTECHNIQUE:Frontal view of the chest.INDICATION: Intubation.COMPARISON: 11/06/2022 at at 1:49 AM.FINDINGS:LINES/TUBES: Endotracheal tube tip projected 4.4 cm above the level ofthe ulisses. Feeding tube tip projectedover the gastric fundus.HEART AND MEDIASTINUM: Cardiomediastinal contour is stable. LUNGS: Increase in right perihilar opacity. Hazy left infrahilaropacity.PLEURA: No pneumothorax. No significant pleural effusion.SOFT TISSUES AND BONES: Unremarkable.IMPRESSION:1. Endotracheal tube tip projected 4.4 cmabove the level of the ulisses.There are two increasing right perihilar and left infrahilar opacities.This may be related to asymmetric edema or developing pneumonia.Follow-up to resolution is advised.Electronically Signed By: Oscar Orosco11/06/2022 19:09 CDTWorkstation Name: [id number] GAS, [id number] 18:22:09 Test Item Value Reference Range Interpretation Comments PH ARTERIAL (BEAKER) (test code = 7.37 7.35-7.45 383) PCO2 ARTERIAL (BEAKER) (test code 29 mm Hg 35-45 L = 384) PO2 ARTERIAL (BEAKER) (test code 151 mm Hg 80-90 H = 385) O2 SATURATION ARTERIAL (BEAKER) 98.8 % 96.0-97.0 H (test code = 386) HCO3 ARTERIAL (BEAKER) (test code 16 mmol/L 21-29 L = 388) BASE EXCESS ARTERIAL (BEAKER) -7.5 mmol/L -2.0-3.0 L (test code = 387) PATIENT TEMPERATURE (BEAKER) 38.5 (test code = 1818) FIO2 (BEAKER) (test code = 1819) 100.0 POCT-GLUCOSE [id number] 17:11:20 Test Item Value Reference Range Interpretation Comments POC-GLUCOSE METER 143 mg/dL 70-110 H : TESTED A T [facility] 6720 (BEAKER) (test code = [place], 1538) [address]: Pastoral Worker/Techni carol ID = [id number] for David García BLOOD GAS, [id number] 17:03:39 Test Item Value Reference Range Interpretation Comments PH ARTERIAL (BEAKER) (test code = 7.23 7.35-7.45 L 383) PCO2 ARTERIAL (BEAKER) (test code 51 mm Hg 35-45 H = 384) PO2 ARTERIAL (BEAKER) (test code 169 mm Hg 80-90 H = 385) O2 SATURATION ARTERIAL (BEAKER) 98.8 % 96.0-97.0 H (test code = 386) HCO3 ARTERIAL (BEAKER) (test code 21 mmol/L 21-29 = 388) BASE EXCESS ARTERIAL (BEAKER) -6.9 mmol/L -2.0-3.0 L (test code = 387) PATIENT TEMPERATURE (BEAKER) 38.1 (test code = 1818) FIO2 (BEAKER) (test code = 1819) 50.0 XR CHEST 1 VIEW PORTABLE / [id number] 15:04:51 [facility] 1965 Sex: MCLINICAL HISTORY: Respiratory distress TECHNIQUE: 1 view of the chest.COMPARISON: 11/06/2022IMPRESSION:ETT removal. Feeding tube remains below the diaphragm.There is new right lung base consolidation/atelectasis. Left infrahilaratelectasis is unchanged. There is blunting of the right costophrenicangle. The cardiome diastinal silhouette is magnified by technique.Electronically Signed By: Del Macdonald11/06/2022 15:06 CDTWorkstation Name: [id number] GAS, ARTERIAL 2022-11-06 13:58:39 Test Item Value Reference Range Interpretation Comments PH ARTERIAL (BEAKER) (test code = 7.41 7.35-7.45 383) PCO2 ARTERIAL (BEAKER) (test code 26 mm Hg 35-45 L = 384) PO2 ARTERIAL (BEAKER) (test code 197 mm Hg 80-90 H = 385) O2 SATURATION ARTERIAL (BEAKER) 99.4 % 96.0-97.0 H (test code = 386) HCO3 ARTERIAL (BEAKER) (test code 16 mmol/L 21-29 L = 388) BASE EXCESS ARTERIAL (BEAKER) -6.7 mmol/L -2.0-3.0 L (test code = 387) PATIENT TEMPERATURE (BEAKER) 37.2 (test code = 1818) FIO2 (BEAKER) (test code = 1819) 44.0 POCT-GLUCOSE [id number] 13:32:55 Test Item Value Reference Range Interpretation Comments POC-GLUCOSE METER 100 mg/dL 70-110 : [facility] (BEPairin) (test code = [employer]one [facility], 1538) [address]: Pastoral Worker/Techni carol ID = [id number] for RandyjohnnyBrad chirinos David [id number] 12:02:30 Test Item Value Reference Range Interpretation Comments PROCALCITONIN (BEAKER) (test code 0.12 ng/mL <0.05 H = 3036) SEPSIS RISK (ng/mL)Low: 0.05-0.50Intermediate: 0.51-2.00High: >=2.01LACTIC ACID, [id number] 11:45:29 Test Item Value Reference Range Interpretation Comments LACTATE BLOOD VENOUS 0.94 mmol/L 0.50-2.00 Specime n slightly (2) (BEAKER) (test hemolyzed code = 2872) Pastoral Worker ID - MARCOPOCT-GLUCOSE [id number] 09:00:12 Test Item Value Reference Range Interpretation Comments POC-GLUCOSE METER 114 mg/dL 70-110 H : TESTED A T [facility] 6720 (BEPairin) (test code = [facility] [employer] [facility], 1538) [address]: Pastoral Worker/Techni carol ID = [id number] for David García XR CHEST 1 VIEW PORTABLE / [id number] 08:33:53 [facility] : 1965 Sex: MCLINICAL HISTORY: IntubatedTECHNIQUE: 1 view of the chest.COMPARISON: 11/05/2022IMPRESSION:ETT and feeding tube unchanged. Bibasilar bandlike opacities unchanged.No significant pleural fluid. The cardiomediastinal silhouette ismagnified by technique.Electronically Signed By: Del Macdonald11/06/2022 08:35 CDTWorkstation Name: [id number] GAS, [id number] 04:54:00 Test Item Value Reference Range Interpretation Comments PH ARTERIAL (BEAKER) (test code = 7.44 7.35-7.45 383) PCO2 ARTERIAL (BEAKER) (test code 27 mm Hg 35-45 L = 384) PO2 ARTERIAL (BEAKER) (test code 174 mm Hg 80-90 H = 385) O2 SATURATION ARTERIAL (BEAKER) 99.3 % 96.0-97.0 H (test code = 386) HCO3 ARTERIAL (BEAKER) (test code 18 mmol/L 21-29 L = 388) BASE EXCESS ARTERIAL (BEAKER) -4.2 mmol/L -2.0-3.0 L (test code = 387) PATIENT TEMPERATURE (BEAKER) 37.5 (test code = 1818) FIO2 (BEAKER) (test code = 1819) 24.0 BASIC METABOLIC [id number] 04:25:31 Test Item Value Reference Range Interpretation Comments SODIUM (BEAKER) 139 meq/L 136-145 (test code = 381) POTASSIUM 4.4 meq/L 3.5-5.1 Specimen slight ly (BEAKER) (test hemolyzed code = 379) CHLORIDE (BEAKER) 112 meq/L 98-107 H (test code = 382) CO2 (BEAKER) 19 meq/L 22-29 L (test code = 355) BLOOD UREA 19 mg/dL 7-21 NITROGEN (BEAKER) (test code = 354) CREATININE 1.02 mg/dL 0.57-1.25 Specimen slight ly (BEAKER) (test hemolyzed code = 358) GLUCOSE RANDOM 111 mg/dL 70-105 H (BEAKER) (test code = 652) CALCIUM (BEAKER) 8.2 mg/dL 8.4-10.2 L (test code = 697) EGFR (BEAKER) 87 Interpretatio n of eGFR (test code = mL/min/1.73 values Stage De scription 1092) sq m Result G1 Onelia l or high >=90 G2 Mildly decreased 60-89 G3a Mildl y to moderately 45-5 9 G3b Moderately to s everely 30-44 G4 Severl y decreased 15-29 G5 Kidney failure <15Reported eGF R is based on the CKD-EPI 2020 equation that d oes not use a race coefficientEsti mated GFR is not as accur ate as Creatinine Eugenia zimmer in predicting glom erular filtration rate . Estimated GFR is not appl icable for dialysis patien ts Pastoral Worker ID - DBCBC W/PLT COUNT & AUTO [id number] 04:12:40 Test Item Value Reference Range Interpretation Comments WHITE BLOOD CELL COUNT (BEAKER) 13.6 K/ L 3.5-10.5 H (test code = 775) RED BLOOD CELL COUNT (BEAKER) 5.76 M/ L 4.63-6.08 (test code = 761) HEMOGLOBIN (BEAKER) (test code = 14.6 GM/DL 13.7-17.5 410) HEMATOCRIT (BEAKER) (test code = 45.8 % 40.1-51.0 411) MEAN CORPUSCULAR VOLUME (BEAKER) 80 fL 79-92 (test code = 753) MEAN CORPUSCULAR HEMOGLOBIN 25.3 pg 25.7-32.2 L (BEAKER) (test code = 751) MEAN CORPUSCULAR HEMOGLOBIN CONC 31.9 GM/DL 32.3-36.5 L (BEAKER) (test code = 752) RED CELL DISTRIBUTION WIDTH 14.1 % 11.6-14.4 (BEAKER) (test code = 412) PLATELET COUNT (BEAKER) (test 191 K/CU MM 150-450 code = 756) MEAN PLATELET VOLUME (BEAKER) 10.2 fL 9.4-12.4 (test code = 754) NUCLEATED RED BLOOD CELLS 0 /100 WBC 0-0 (BEAKER) (test code = 413) NEUTROPHILS RELATIVE PERCENT 88 % (BEAKER) (test code = 429) LYMPHOCYTES RELATIVE PERCENT 4 % (BEAKER) (test code = 430) MONOCYTES RELATIVE PERCENT 7 % (BEAKER) (test code = 431) EOSINOPHILS RELATIVE PERCENT 0 % (BEAKER) (test code = 432) BASOPHILS RELATIVE PERCENT 0 % (BEAKER) (test code = 437) NEUTROPHILS ABSOLUTE COUNT 11.98 K/ L 1.78-5.38 H (BEAKER) (test code = 670) LYMPHOCYTES ABSOLUTE COUNT 0.58 K/ L 1.32-3.57 L (BEAKER) (test code = 414) MONOCYTES ABSOLUTE COUNT (BEAKER) 0.97 K/ L 0.30-0.82 H (test code = 415) EOSINOPHILS ABSOLUTE COUNT 0.02 K/ L 0.04-0.54 L (BEAKER) (test code = 416) BASOPHILS ABSOLUTE COUNT (BEAKER) 0.02 K/ L 0.01-0.08 (test code = 417) IMMATURE GRANULOCYTES-RELATIVE 0.50 % 0.00-1.00 PERCENT (BEAKER) (test code = 2801) POCT-GLUCOSE [id number] 04:02:47 Test Item Value Reference Range Interpretation Comments POC-GLUCOSE METER 118 mg/dL 70-110 H : TESTED A T [facility] 6720 (BEAKER) (test code = [facility] Huerta [facility], 1538) [address]: Pastoral Worker/Techni carol ID = [id number] for LEAH SEGAL POCT-GLUCOSE [id number] 22:18:43 Test Item Value Reference Range Interpretation Comments POC-GLUCOSE METER 112 mg/dL 70-110 H : TESTED A T [facility] 6720 (BEAKER) (test code = [place], 1538) [address]: Pastoral Worker/Techni carol ID = [id number] for LEAH SEGAL POCT-GLUCOSE [id number] 18:11:35 Test Item Value Reference Range Interpretation Comments POC-GLUCOSE METER 100 mg/dL 70-110 : TESTED A T [facility] 6720 (BEAKER) (test code = TREVOR Huerta [facility], 1538) [address]: Pastoral Worker/Techni carol ID = [id number] for Indu Davidson URINALYSIS WITH MICROSCOPIC IF [id number] 14:21:46 Test Item Value Reference Range Interpretation Comments COLOR (BEAKER) (test code = 470) Light Yellow CLARITY (BEAKER) (test code = Clear 469) SPECIFIC GRAVITY UA (BEAKER) 1.023 1.001-1.035 (test code = 468) PH UA (BEAKER) (test code = 467) 6.0 5.0-8.0 PROTEIN UA (BEAKER) (test code = Negative Negative 464) GLUCOSE UA (BEAKER) (test code = Negative Negative 365) KETONES UA (BEAKER) (test code = Negative Negative 371) BILIRUBIN UA (BEAKER) (test code Negative Negative = 462) BLOOD UA (BEAKER) (test code = Negative Negative 461) NITRITE UA (BEAKER) (test code = Negative Negative 465) LEUKOCYTE ESTERASE UA (BEAKER) Negative Negative (test code = 466) UROBILINOGEN UA (BEAKER) (test 0.2 0.2-1.0 code = 463) SOURCE(BEAKER) (test code = 2795) Pastoral Worker ID - [auto]XR CHEST 1 VIEW PORTABLE / [id number] 13:26:09 [facility] 1965 Sex: MCLINICAL HISTORY: IntubatedTECHNIQUE: 1 view of the chest.COMPARISON: 11/04/2022IMPRESSION:ETT again seen. New feeding tube in the distal stomach. There isincreased right basilar atelectasis. There is no significant pleuralfluid.Electronically Signed By: Del Macdonald11/05/2022 13:28 CDTWorkstation Name: [id number] GAS, ARTERIAL 2022-11-05 09:38:22 Test Item Value Reference Range Interpretation Comments PH ARTERIAL (BEAKER) (test code = 7.44 7.35-7.45 383) PCO2 ARTERIAL (BEAKER) (test code 30 mm Hg 35-45 L = 384) PO2 ARTERIAL (BEAKER) (test code 130 mm Hg 80-90 H = 385) O2 SATURATION ARTERIAL (BEAKER) 98.7 % 96.0-97.0 H (test code = 386) HCO3 ARTERIAL (BEAKER) (test code 20 mmol/L 21-29 L = 388) BASE EXCESS ARTERIAL (BEAKER) -3.0 mmol/L -2.0-3.0 L (test code = 387) PATIENT TEMPERATURE (BEAKER) 37.0 (test code = 1818) FIO2 (BEAKER) (test code = 1819) 21.0 POCT-GLUCOSE [id number] 06:10:38 Test Item Value Reference Range Interpretation Comments POC-GLUCOSE METER 94 mg/dL 70-110 : TESTED A T [facility] 6720 (BEAKER) (test code = [facility], 1538) [address]: Pastoral Worker/Techni carol ID = [id number] for Prabhakar dominguez [place] BASIC METABOLIC [id number] 03:44:06 Test Item Value Reference Range Interpretation Comments SODIUM (BEAKER) 140 meq/L 136-145 (test code = 381) POTASSIUM 4.0 meq/L 3.5-5.1 (BEAKER) (test code = 379) CHLORIDE (BEAKER) 113 meq/L 98-107 H (test code = 382) CO2 (BEAKER) 21 meq/L 22-29 L (test code = 355) BLOOD UREA 22 mg/dL 7-21 H NITROGEN (BEAKER) (test code = 354) CREATININE 0.90 mg/dL 0.57-1.25 (BEAKER) (test code = 358) GLUCOSE RANDOM 118 mg/dL 70-105 H (BEAKER) (test code = 652) CALCIUM (BEAKER) 8.2 mg/dL 8.4-10.2 L (test code = 697) EGFR (BEAKER) 101 Interpretatio n of eGFR (test code = mL/min/1.73 values Stage D escription 1092) sq m Result G1 Onelia l or high >=90 G2 Mildly decreased 60-89 G3a Mildl y to moderately 45-5 9 G3b Moderately to s everely 30-44 G4 Severl y decreased 15-29 G5 Kidney failure <15Reported eGF R is based on the CKD-EPI 2020 equation that d oes not use a race coefficientEsti mated GFR is not as accur ate as Creatinine Eugenia mesha in predicting glom erular filtration rate . Estimated GFR is not appl icable for dialysis patien ts Pastoral Worker ID - [id number] 03:44:06 Test Item Value Reference Range Interpretation Comments MAGNESIUM (BEAKER) (test code = 2.5 mg/dL 1.6-2.6 627) Pastoral Worker ID - [id number] 03:44:06 Test Item Value Reference Range Interpretation Comments PHOSPHORUS (BEAKER) (test code = 2.7 mg/dL 2.3-4.7 604) Pastoral Worker ID - [id number] TIME/[id number] 03:44:05 Test Item Value Reference Range Interpretation Comments PROTIME (BEAKER) (test code = 14.7 seconds 11.9-14.2 H 759) INR (BEAKER) (test code = 370) 1.17 <=5.90 RECOMMENDED COUMADIN/WARFARIN INR THERAPY RANGESSTANDARD DOSE: 2.0 - 3.0 Includes: PROPHYLAXIS for venous thrombosis, systemic embolization; TREATMENT for venous thrombosis and/or pulmonary embolus.HIGH RISK: Target INR is 2.5-3.5 for patients with mechanical heart valves.CBC W/PLT COUNT & AUTO [id number] 03:34:51 Test Item Value Reference Range Interpretation Comments WHITE BLOOD CELL COUNT (BEAKER) 19.1 K/ L 3.5-10.5 H (test code = 775) RED BLOOD CELL COUNT (BEAKER) 5.34 M/ L 4.63-6.08 (test code = 761) HEMOGLOBIN (BEAKER) (test code = 13.9 GM/DL 13.7-17.5 410) HEMATOCRIT (BEAKER) (test code = 41.8 % 40.1-51.0 411) MEAN CORPUSCULAR VOLUME (BEAKER) 78 fL 79-92 L (test code = 753) MEAN CORPUSCULAR HEMOGLOBIN 26.0 pg 25.7-32.2 (BEAKER) (test code = 751) MEAN CORPUSCULAR HEMOGLOBIN CONC 33.3 GM/DL 32.3-36.5 (BEAKER) (test code = 752) RED CELL DISTRIBUTION WIDTH 14.5 % 11.6-14.4 H (BEAKER) (test code = 412) PLATELET COUNT (BEAKER) (test 178 K/CU MM 150-450 code = 756) MEAN PLATELET VOLUME (BEAKER) 9.9 fL 9.4-12.4 (test code = 754) NUCLEATED RED BLOOD CELLS 0 /100 WBC 0-0 (BEAKER) (test code = 413) NEUTROPHILS RELATIVE PERCENT 87 % (BEAKER) (test code = 429) LYMPHOCYTES RELATIVE PERCENT 7 % (BEAKER) (test code = 430) MONOCYTES RELATIVE PERCENT 6 % (BEAKER) (test code = 431) EOSINOPHILS RELATIVE PERCENT 0 % (BEAKER) (test code = 432) BASOPHILS RELATIVE PERCENT 0 % (BEAKER) (test code = 437) NEUTROPHILS ABSOLUTE COUNT 16.60 K/ L 1.78-5.38 H (BEAKER) (test code = 670) LYMPHOCYTES ABSOLUTE COUNT 1.25 K/ L 1.32-3.57 L (BEAKER) (test code = 414) MONOCYTES ABSOLUTE COUNT (BEAKER) 1.09 K/ L 0.30-0.82 H (test code = 415) EOSINOPHILS ABSOLUTE COUNT 0.03 K/ L 0.04-0.54 L (BEAKER) (test code = 416) BASOPHILS ABSOLUTE COUNT (BEAKER) 0.02 K/ L 0.01-0.08 (test code = 417) IMMATURE GRANULOCYTES-RELATIVE 0.60 % 0.00-1.00 PERCENT (BEAKER) (test code = 2801) BLOOD GAS, [id number] 03:23:38 Test Item Value Reference Range Interpretation Comments PH ARTERIAL (BEAKER) (test code = 7.44 7.35-7.45 383) PCO2 ARTERIAL (BEAKER) (test code 31 mm Hg 35-45 L = 384) PO2 ARTERIAL (BEAKER) (test code 211 mm Hg 80-90 H = 385) O2 SATURATION ARTERIAL (BEAKER) 99.5 % 96.0-97.0 H (test code = 386) HCO3 ARTERIAL (BEAKER) (test code 21 mmol/L 21-29 = 388) BASE EXCESS ARTERIAL (BEAKER) -2.3 mmol/L -2.0-3.0 L (test code = 387) PATIENT TEMPERATURE (BEAKER) 37.0 (test code = 1818) FIO2 (BEAKER) (test code = 1819) 100.0 CT BRAIN WITHOUT IV [id number] 01:08:18 [facility] : 1965 Sex: MEXAM: CT BRAIN WITHOUT IV CONTRASTINDICATION: Stroke, follow upTECHNIQUE: CT images from skull base to vertex without IV contrast.This exam was performed according to the departmental dose optimizationprogram which includes automated exposure control, adjustment of the mAand/or kV according to the patient size, and/or use of an iterativereconstruction technique.COMPARISON: Exam from 17 hours priorFINDINGS: Parenchyma: Unchanged intraparenchymal hemorrhage centered within theleft hemipons extending to the midbrain and left cerebral peduncle. Nochange in mild mass effect with slight effacement of the fourthventricle. No hydrocephalus. No intraventricular extension ofhemorrhage. No hydrocephalus. No evidence ofacute infarction. No newhemorrhage.Extra-axial Collection: NoneVentricular System: As above.Osseous Structures: No acute osseous abnormality. Included Orbits: NormalParanasal Sinuses: Predominantly clearTympanomastoid Cavities: NormalOther: NoneIMPRESSION:Unchanged hemorrhage centered within the left h emipons extending to themidbrain and left cerebral peduncle. No acute interval abnormality.Electronically Signed By: Claudio Valencia11/05/2022 01:11 CDTWorkstation Name: [id number] ABDOMEN/KUB 1 VIEW [id number] 17:52:58 [facility] : 1965 Sex: MXR ABDOMEN/KUB 1 VIEW PORTABLEINDICATION: [place] advanceCOMPARISON: NoneTECHNIQUE: Limited portable radiograph of the lower chest and upperabdomen was acquired for purposes of evaluating tube placementFINDINGS/IMPRESSION:Feeding tube tip overlies the distal stomach. Electronically Signed By: Patricia Espinosa11/04/2022 17:55 CDTWorkstation Name: [id number] 17:26:34 Test Item Value Reference Range Interpretation Comments PHOSPHORUS (BEAKER) (test code = 3.4 mg/dL 2.3-4.7 604) Pastoral Worker ID - [id number] 17:26:34 Test Item Value Reference Range Interpretation Comments POTASSIUM (BEAKER) (test code = 4.2 meq/L 3.5-5.1 379) Pastoral Worker ID - [id number] 17:26:33 Test Item Value Reference Range Interpretation Comments MAGNESIUM (BEAKER) (test code = 3.2 mg/dL 1.6-2.6 H 627) Pastoral Worker ID - ADMINXR ABDOMEN/KUB 1 VIEW [id number] 14:07:03 [facility] : 1965 Sex: MXR ABDOMEN/KUB 1 VIEW PORTABLETECHNIQUE: Supine radiograph(s) of the abdomen and pelvis.HISTORY: Enteric tube placement verificationCOMPARISON: NoneIMPRESSION:Lines and tubes: Enteric tube is seen with tip at thegastric antrum.Bowel gas pattern: Nonobstructive bowel gas pattern. Moderate stoolthroughout the colonOther: No acute osseous abnormality. Residual contrast is seen in thebilateral collecting system and urinary bladder.Electronically Signed By: Maida Story11/04/2022 14:09 CDTWorkstation Name: [id number] GAS, [id number] 11:02:55 Test Item Value Reference Range Interpretation Comments PH ARTERIAL (BEAKER) (test code = 7.41 7.35-7.45 383) PCO2 ARTERIAL (BEAKER) (test code 33 mm Hg 35-45 L = 384) PO2 ARTERIAL (BEAKER) (test code 168 mm Hg 80-90 H = 385) O2 SATURATION ARTERIAL (BEAKER) 99.2 % 96.0-97.0 H (test code = 386) HCO3 ARTERIAL (BEAKER) (test code 21 mmol/L 21-29 = 388) BASE EXCESS ARTERIAL (BEAKER) -3.1 mmol/L -2.0-3.0 L (test code = 387) PATIENT TEMPERATURE (BEAKER) 37.0 (test code = 1818) FIO2 (BEAKER) (test code = 1819) 30.0 HEMOGLOBIN [id number] 11:01:34 Test Item Value Reference Range Interpretation Comments HEMOGLOBIN A1C 5.6 % See_Comment [Automated m essage] ELECTROPHORESIS (BEAKER) The system which (test code = 3811) generated this result transmitted ref erence range: <=5.6%. The reference range was not used to int erpret this result as normal/abnormal . "The A1c is measured using a [facility]-certified method. HbA1c value equal to or greater than 6.5% as thediagnosis cutoff for diabetes. An HbA1c value of 5.7- 6.4% indicates increased risk for diabetes (prediabetes)."Pastoral Worker ID - ADM HEPATIC FUNCTION [id number] 10:57:01 Test Item Value Reference Range Interpretation Comments TOTAL PROTEIN (BEAKER) (test code = 6.2 gm/dL 6.0-8.3 770) ALBUMIN (BEAKER) (test code = 1145) 3.6 g/dL 3.5-5.0 BILIRUBIN TOTAL (BEAKER) (test code 0.5 mg/dL 0.2-1.2 = 377) BILIRUBIN DIRECT (BEAKER) (test 0.2 mg/dL 0.1-0.5 code = 706) ALKALINE PHOSPHATASE (BEAKER) (test 88 U/L 40-150 code = 346) AST (SGOT) (BEAKER) (test code = 25 U/L 5-34 353) ALT (SGPT) (BEAKER) (test code = 16 U/L 6-55 347) Pastoral Worker ID - EOOCTA [id number] 08:10:09 [facility] : 1965 Sex: MCT BRAIN WITHOUT IV CONTRAST, CTA CAROTID, CTA BRAINBRAIN CT WITHOUT CONTRASTINDICATION: Cerebral hemorrhage suspectedCOMPARISON: CT head, 11/03/2022TECHNIQUE:Rapid acquisition spiral images were obtained between the aortic archand the cranial vertex during intravenous contrast infusion toreconstruct axial images and angiographic 3D maximum intensityprojections (MIP). 3-D volumetric reformatted images were created at [employer] workstation. Precontrast images of the brain were alsoobtained. Stenosis evaluation reported in compliance with NASCET criteria.DOSE REDUCTION: Dose modulation, iterative reconstruction,and/orweight- based adjustment of the mA/kV was utilized to reduce theradiation dose to as low as reasonably achievable.FINDINGS:CT BRAIN:Chronic lacunar infarct in the left frontal allen radiata. Chroniclacunar infarct in the right putamen/external capsule.A 3.7 x 2.0 x 2.5 cm (CC X AP X transverse) intraparenchymal hematomaseen centered in the left aileen extending to the left midbrain. Midlinestructures are normally developed. Hypoattenuation within theperiventricular and subcortical white matter is present, nonspecific byimaging, however, statistically representing chronic microvascularchanges in this age group. Diffuse senescent parenchymal volume loss.No hydrocephalus.Atherosclerotic calcification of the intracranial internal carotid andvertebral arteries. Orbits are within normal limits.Retention cysts in the right maxillary sinus. Endotracheal tube ispartially imaged. CTA BRAIN:Internal carotid arteries: Petrous, cavernous and supraclinoid portionspatent. Middle cerebral arteries: Patent to distal branches.Anterior cerebral arteries: Patent. No A-comm aneurysm.Basilar system: Patent vertebrobasilar system.Posterior cerebral arteries:Patent P1 and P2 segments. Venous opacification: Majordural sinuses unremarkable for bolus timing.Additional findings: None.CTA NECK:Common carotid arteries: The common carotid arteries are normal in size. Bifurcations: No flow-limiting stenosis. Cervicalinternal carotid arteries: No flow limiting stenosis.Vertebral arteries: Codominant. No origin stenosis.Arch anatomy: Conventional.Nonvascular findings:Osseous structures: No acute osseous abnormality.Intact calvarium andskull base. Mild spondylosis and facet arthropathy are present withinthe spine.Cervical soft tissues: No adenopathy. Patent aerodigestive tract. Theendotracheal tube extends to the proximal trachea.Lung apices: No apical consolidation or pneumothorax.IMPRESSION:CT brain:1. No significant change.2. Evolving 3.7 x 2.0 x 2.5 cm intraparenchymal hematoma in the leftpons extending to the left midbrain3. Chronic lacunar infarct in the right basal ganglia.CTA head and neck:1. No acute vascular abnormality in the head and neck.Electronically Signed By: Nelson Delvalle11/04/2022 08:12 CDTWorkstation Name: [id number] 08:10:09[facility] : 1965 Sex: MCT BRAIN WITHOUT IV CONTRAST, CTA CAROTID, CTA BRAINBRAIN CT WITHOUT CONTRASTINDICATION: Cerebral hemorrhage suspectedCOMPARISON: CT head, 11/03/2022TECHNIQUE:Rapid acquisition spiral images were obtained between the aortic archand the cranial vertex during intravenous contrast infusion toreconstruct axial images and angiographic 3D maximum intensityprojections (MIP). 3-D volumetric reformatted images were created at [employer] workstation. Precontrast images of the brain were alsoobtained. Stenosis evaluation reported in compliance with NASCET criteria.DOSE REDUCTION: Dose modulation, iterative reconstruction,and/orweight- based adjustment of the mA/kV was utilized to reduce theradiation dose to as low as reasonably achievable.FINDINGS:CT BRAIN:Chronic lacunar infarct in the left frontal allen radiata. Chroniclacunar infarct in the right putamen/external capsule.A 3.7 x 2.0 x 2.5 cm (CC X AP X transverse) intraparenchymal hematomaseen centered in the left aileen extending to the left midbrain. Midlinestructures are normally developed. Hypoattenuation within theperiventricular and subcortical white matter is present, nonspecific byimaging, however, statistically representing chronic microvascularchanges in this age group. Diffuse senescent parenchymal volume loss.No hydrocephalus.Atherosclerotic calcification of the intracranial internal carotid andvertebral arteries. Orbits are within normal limits.Retention cysts in the right maxillary sinus. Endotracheal tube ispartially imaged. CTA BRAIN:Internal carotid arteries: Petrous, cavernous and supraclinoid portionspatent. Middle cerebral arteries: Patent to distal branches.Anterior cerebral arteries: Patent. No A-comm aneurysm.Basilar system: Patent vertebrobasilar system.Posterior cerebral arteries:Patent P1 and P2 segments. Venous opacification: Majordural sinuses unremarkable for bolus timing.Additional findings: None.CTA NECK:Common carotid arteries: The common carotid arteries are normal in size. Bifurcations: No flow-limiting stenosis. Cervicalinternal carotid arteries: No flow limiting stenosis.Vertebral arteries: Codominant. No origin stenosis.Arch anatomy: Conventional.Nonvascular findings:Osseous structures: No acute osseous abnormality.Intact calvarium andskull base. Mild spondylosis and facet arthropathy are present withinthe spine.Cervical soft tissues: No adenopathy. Patent aerodigestive tract. Theendotracheal tube extends to the proximal trachea.Lung apices: No apical consolidation or pneumothorax.IMPRESSION:CT brain:1. No significant change.2. Evolving 3.7 x 2.0 x 2.5 cm intraparenchymal hematoma in the leftpons extending to the left midbrain3. Chronic lacunar infarct in the right basal ganglia.CTA head and neck:1. No acute vascular abnormality in the head and neck.Electronically Signed By: Nelson Delvalle11/04/2022 08:12 CDTWorkstation Name: [id number] BRAIN WITHOUT IV CONTRAST 2022-11-04 08:10:09 [facility] : 1965 Sex: MCT BRAIN WITHOUT IV CONTRAST, CTA CAROTID, CTA BRAINBRAIN CT WITHOUT CONTRASTINDICATION: Cerebral hemorrhage suspectedCOMPARISON: CT head, 11/03/2022TECHNIQUE:Rapid acquisition spiral images were obtained between the aortic archand the cranial vertex during intravenous contrast infusion toreconstruct axial images and angiographic 3D maximum intensityprojections (MIP). 3-D volumetric reformatted images were created at [employer] workstation. Precontrast images of the brain were alsoobtained. Stenosis evaluation reported in compliance with NASCET criteria.DOSE REDUCTION: Dose modulation, iterative reconstruction,and/orweight- based adjustment of the mA/kV was utilized to reduce theradiation dose to as low as reasonably achievable.FINDINGS:CT BRAIN:Chronic lacunar infarct in the left frontal allen radiata. Chroniclacunar infarct in the right putamen/external capsule.A 3.7 x 2.0 x 2.5 cm (CC X AP X transverse) intraparenchymal hematomaseen centered in the left aileen extending to the left midbrain. Midlinestructures are normally developed. Hypoattenuation within theperiventricular and subcortical white matter is present, nonspecific byimaging, however, statistically representing chronic microvascularchanges in this age group. Diffuse senescent parenchymal volume loss.No hydrocephalus.Atherosclerotic calcification of the intracranial internal carotid andvertebral arteries. Orbits are within normal limits.Retention cysts in the right maxillary sinus. Endotracheal tube ispartially imaged. CTA BRAIN:Internal carotid arteries: Petrous, cavernous and supraclinoid portionspatent. Middle cerebral arteries: Patent to distal branches.Anterior cerebral arteries: Patent. No A-comm aneurysm.Basilar system: Patent vertebrobasilar system.Posterior cerebral arteries:Patent P1 and P2 segments. Venous opacification: Majordural sinuses unremarkable for bolus timing.Additional findings: None.CTA NECK:Common carotid arteries: The common carotid arteries are normal in size. Bifurcations: No flow-limiting stenosis. Cervicalinternal carotid arteries: No flow limiting stenosis.Vertebral arteries: Codominant. No origin stenosis.Arch anatomy: Conventional.Nonvascular findings:Osseous structures: No acute osseous abnormality.Intact calvarium andskull base. Mild spondylosis and facet arthropathy are present withinthe spine.Cervical soft tissues: No adenopathy. Patent aerodigestive tract. Theendotracheal tube extends to the proximal trachea.Lung apices: No apical consolidation or pneumothorax.IMPRESSION:CT brain:1. No significant change.2. Evolving 3.7 x 2.0 x 2.5 cm intraparenchymal hematoma in the leftpons extending to the left midbrain3. Chronic lacunar infarct in the right basal ganglia.CTA head and neck:1. No acute vascular abnormality in the head and neck.Electronically Signed By: Nelson Delvalle11/04/2022 08:12 CDTWorkstation Name: [id number] 08:03:30 Test Item Value Reference Range Interpretation Comments PHOSPHORUS (BEAKER) (test code = 2.8 mg/dL 2.3-4.7 604) Pastoral Worker ID - [id number] 07:50:14 Test Item Value Reference Range Interpretation Comments FIBRINOGEN LEVEL (BEAKER) (test 279 mg/dl 225-434 code = 658) [id number] 07:50:14 Test Item Value Reference Range Interpretation Comments PARTIAL THROMBOPLASTIN TIME 26.5 seconds 22.5-36.0 (BEAKER) (test code = 760) PROTHROMBIN TIME/[id number] 07:49:36 Test Item Value Reference Range Interpretation Comments PROTIME (BEAKER) (test code = 14.8 seconds 11.9-14.2 H 759) INR (BEAKER) (test code = 370) 1.23 <=5.90 RECOMMENDED COUMADIN/WARFARIN INR THERAPY RANGESSTANDARD DOSE: 2.0 - 3.0 Includes: PROPHYLAXIS for venous thrombosis, systemic embolization; TREATMENT for venous thrombosis and/or pulmonary embolus.HIGH RISK: Target INR is 2.5-3.5 for patients with mechanical heart valves.BLOOD GAS, [id number] 06:29:10 Test Item Value Reference Range Interpretation Comments PH ARTERIAL (BEAKER) (test code = 7.48 7.35-7.45 H 383) PCO2 ARTERIAL (BEAKER) (test code 27 mm Hg 35-45 L = 384) PO2 ARTERIAL (BEAKER) (test code 184 mm Hg 80-90 H = 385) O2 SATURATION ARTERIAL (BEAKER) 99.4 % 96.0-97.0 H (test code = 386) HCO3 ARTERIAL (BEAKER) (test code 20 mmol/L 21-29 L = 388) BASE EXCESS ARTERIAL (BEAKER) -2.2 mmol/L -2.0-3.0 L (test code = 387) PATIENT TEMPERATURE (BEAKER) 36.8 (test code = 1818) FIO2 (BEAKER) (test code = 1819) 40.0 XR CHEST 1 VIEW PORTABLE / [id number] 06:26:18 [facility] : 1965 Sex: MXR CHEST 1VIEW PORTABLE / BEDSIDEINDICATION: post intubationCOMPARISON: Prior day's examFINDINGS: Portable frontal view of the chest. IMPRESSION:Support Lines: ET tube tip is 4 cm superior to the ulisses. Lungs and pleura: Lungs are clear No significant pneumothorax.Heart and mediastinum: Normal contours.Additional findings: None.Electronically Signed By: Patricia Espinosa11/04/2022 06:28 CDTWorkstation Name: [id number] 01:46:30 Test Item Value Reference Range Interpretation Comments PHOSPHORUS (BEAKER) 1.0 mg/dL 2.3-4.7 LL Specimen slightly (test code = 604) hemolyzed Pastoral Worker ID - ADMINBASIC METABOLIC [id number] 01:43:50 Test Item Value Reference Range Interpretation Comments SODIUM (BEAKER) 139 meq/L 136-145 (test code = 381) POTASSIUM 3.9 meq/L 3.5-5.1 Specimen slight ly (BEAKER) (test hemolyzed code = 379) CHLORIDE (BEAKER) 113 meq/L 98-107 H (test code = 382) CO2 (BEAKER) 19 meq/L 22-29 L (test code = 355) BLOOD UREA 14 mg/dL 7-21 NITROGEN (BEAKER) (test code = 354) CREATININE 0.84 mg/dL 0.57-1.25 Specimen slight ly (BEAKER) (test hemolyzed code = 358) GLUCOSE RANDOM 131 mg/dL 70-105 H (BEAKER) (test code = 652) CALCIUM (BEAKER) 7.9 mg/dL 8.4-10.2 L (test code = 697) EGFR (BEAKER) 103 Interpretatio n of eGFR (test code = mL/min/1.73 values Stage De scription 1092) sq m Result G1 Onelia l or high >=90 G2 Mildly decreased 60-89 G3a Mildl y to moderately 45-5 9 G3b Moderately to s everely 30-44 G4 Sever ly decreased 15-29 G5 Kidney failure <15Repo rted eGFR is based on the CKD-EPI 2020 equation t hat does not use a race coefficientEsti mated GFR is not as accur ate as Creatinine Eugenia mesha in predicting glom erular filtration rate . Estimated GFR is not appl icable for dialysis patien ts Pastoral Worker ID - [id number] 01:43:28 Test Item Value Reference Range Interpretation Comments MAGNESIUM (BEAKER) 1.8 mg/dL 1.6-2.6 Specimen slightly (test code = 627) hemolyzed Pastoral Worker ID - ADMINBLOOD GAS, [id number] 01:29:20 Test Item Value Reference Range Interpretation Comments PH ARTERIAL (BEAKER) (test code = 7.44 7.35-7.45 383) PCO2 ARTERIAL (BEAKER) (test code 32 mm Hg 35-45 L = 384) PO2 ARTERIAL (BEAKER) (test code 184 mm Hg 80-90 H = 385) O2 SATURATION ARTERIAL (BEAKER) 99.3 % 96.0-97.0 H (test code = 386) HCO3 ARTERIAL (BEAKER) (test code 21 mmol/L 21-29 = 388) BASE EXCESS ARTERIAL (BEAKER) -2.2 mmol/L -2.0-3.0 L (test code = 387) PATIENT TEMPERATURE (BEAKER) 36.8 (test code = 1818) FIO2 (BEAKER) (test code = 1819) 40.0 CBC W/PLT COUNT & AUTO [id number] 01:01:10 Test Item Value Reference Range Interpretation Comments WHITE BLOOD CELL COUNT (BEAKER) 12.0 K/ L 3.5-10.5 H (test code = 775) RED BLOOD CELL COUNT (BEAKER) 5.34 M/ L 4.63-6.08 (test code = 761) HEMOGLOBIN (BEAKER) (test code = 14.2 GM/DL 13.7-17.5 410) HEMATOCRIT (BEAKER) (test code = 41.9 % 40.1-51.0 411) MEAN CORPUSCULAR VOLUME (BEAKER) 79 fL 79-92 (test code = 753) MEAN CORPUSCULAR HEMOGLOBIN 26.6 pg 25.7-32.2 (BEAKER) (test code = 751) MEAN CORPUSCULAR HEMOGLOBIN CONC 33.9 GM/DL 32.3-36.5 (BEAKER) (test code = 752) RED CELL DISTRIBUTION WIDTH 13.9 % 11.6-14.4 (BEAKER) (test code = 412) PLATELET COUNT (BEAKER) (test 187 K/CU MM 150-450 code = 756) MEAN PLATELET VOLUME (BEAKER) 9.4 fL 9.4-12.4 (test code = 754) NUCLEATED RED BLOOD CELLS 0 /100 WBC 0-0 (BEAKER) (test code = 413) NEUTROPHILS RELATIVE PERCENT 96 % (BEAKER) (test code = 429) LYMPHOCYTES RELATIVE PERCENT 2 % (BEAKER) (test code = 430) MONOCYTES RELATIVE PERCENT 1 % (BEAKER) (test code = 431) EOSINOPHILS RELATIVE PERCENT 0 % (BEAKER) (test code = 432) BASOPHILS RELATIVE PERCENT 0 % (BEAKER) (test code = 437) NEUTROPHILS ABSOLUTE COUNT 11.49 K/ L 1.78-5.38 H (BEAKER) (test code = 670) LYMPHOCYTES ABSOLUTE COUNT 0.28 K/ L 1.32-3.57 L (BEAKER) (test code = 414) MONOCYTES ABSOLUTE COUNT (BEAKER) 0.14 K/ L 0.30-0.82 L (test code = 415) EOSINOPHILS ABSOLUTE COUNT 0.00 K/ L 0.04-0.54 L (BEAKER) (test code = 416) BASOPHILS ABSOLUTE COUNT (BEAKER) 0.02 K/ L 0.01-0.08 (test code = 417) IMMATURE GRANULOCYTES-RELATIVE 0.50 % 0.00-1.00 PERCENT (BEAKER) (test code = 2801) CT BRAIN WITHOUT IV [id number] 23:50:40 [facility] : 1965 Sex: MEXAM: CT BRAIN WITHOUT IV CONTRASTINDICATION: Cerebral hemorrhage suspectedNeuro deficit, acute, stroke suspectedTECHNIQUE: CT images from skull base to vertex without IV contrast.This exam was performed according to the departmental dose optimizationprogram which includes automated exposure control, adjustment of the mAand/or kV according to the patient size, and/or use of an iterativereconstruction technique.COMPARISON: None.FINDINGS: Parenchyma: There is acute hemorrhage centered within the left hemiponsextending to the left midbrain and left cerebral peduncle withmeasurements of 2.5 x 1.6 x 2.1 cm (4.2 cc). Mild associated vasogenicedema and slight effacement of the adjacent fourth ventricle whichremainspatent. No intraventricular extension. No hydrocephalus. Noevidence of acute large territory infarction. Chronic infarction of theright external capsule and chronic appearing lacunar infarction of theanterior limb of left internal capsule.Extra-axial Collection: NoneVentricular System: As aboveOsseousStructures: No acute osseous abnormality. Included Orbits: NormalParanasal Sinuses: Predominantly clearTympanomastoid Cavities: NormalOther: NoneIMPRESSION:Acute hemorrhage (4.2 cc) centered in the left hemipons extending to theleft midbrain and left cerebral peduncle. There is mild associated masseffect without hydrocephalus or intraventricular extension.Chronic bilateral basal ganglia infarctions.Discussed the on-call neurology resident at 11:49 PM 11/03/2022Electronically Signed By: Claudio Valencia11/03/2022 23:52 CDTWorkstation Name: [id number]
[2022-11-26] MEDS ORDERED: MELATONIN 3 MG TABLET PO PRN (14:14)
[2022-11-26] MEDS ORDERED: GLUCAGON 1 MG/VIAL IM PRN (14:26)
[2022-11-26] MEDS ORDERED: D10W 250 ML BAG IV PRN (14:26)
[2022-11-26] MEDS ORDERED: VITAL AF 1,000 ML BOT RTH SCH (16:00)
[2022-11-26] MEDS: INSULIN -REGULAR HUMAN 50 UNIT/0.5 ML ML SQ SCH (17:15)
--- NOTE | 2022-11-26 17:22 | RAD REPORT ---
EXAM DESCRIPTION: RAD - Chest Single View - 11/26/2022 5:15 pm CLINICAL HISTORY: cough Chest pain. COMPARISON: Chest Single View dated 11/03/2022; Chest Single View dated 06/30/2021; Chest Single View d ated 01/30/2021; Head C Spine Mpr Wo Con dated 11/03/2022 FINDINGS: Portable technique limits examination quality. The lungs are underinflated but grossly clear. The heart is normal in size. No displaced fractures.
[2022-11-26] MEDS: ENOXAPARIN 40 MG/0.4 ML SQ SCH (17:42)
[2022-11-26] MEDS: [UNRECOGNIZED DRUG - OTHER] OPTH SCH ×2 (17:44→21:54)
[2022-11-26 18:37] VITALS: BMI 25.0
[2022-11-26] MEDS ORDERED: NA CHLORIDE 0.9% 250 ML ONE (20:15)
[2022-11-26] MEDS: TERAZOSIN HCL 1 MG CAP FT SCH (21:00)
[2022-11-26] MEDS: DULOXETINE 30 MG CAP PO SCH (21:01)
[2022-11-26] MEDS: Pantoprazole (granules) 40 MG/BLIST PACKET FT SCH (21:01)
[2022-11-26] MEDS: AMPICILLIN/SULBACT 3 GM in NA CHLORIDE 0.9% 100 ML IVPB SCH (21:22)
[2022-11-26] MEDS: IPRATROPIUM BROM 0.5MG/2.5ML NEB SCH (21:40)
[2022-11-26] MEDS: ALBUTEROL 2.5 MG/3 ML NEB SOL NEB SCH (21:40)
[2022-11-27] MEDS: [UNRECOGNIZED DRUG - OTHER] OPTH SCH ×6 (00:21→21:24)
[2022-11-27] MEDS: ALBUTEROL 2.5 MG/3 ML NEB SOL NEB SCH ×4 (02:00→20:00)
[2022-11-27] MEDS: IPRATROPIUM BROM 0.5MG/2.5ML NEB SCH ×4 (02:00→20:00)
--- NOTE | 2022-11-27 02:45 | HP ---
Date of Admission: 11/26/2022 Time Of Service: 1:30 p.m. Chief Complaint: Patient actually communicates via sign language and notes weakness on the right vianey e. History Of Present Illness: Mr. Tate is a 57-year-old, right-handed, Jehovah witness, with hemifaci al spasm, deafness, right basal ganglia hemorrhage following a lacunar stroke, hypertension, tobacco abuse who presented to [facility] Emergency Room on November 04 with seizures. His [place] Com a Scale was [address] scan showed a 2.3 x 1.9 cm acute hemorrhagic stroke in the left aspect of the br ainstem. He received 2 g of Keppra, 10 mg of Decadron and was being transferred to [facility] in the [facility] on the when he desaturated requiring intubation. He received 5 of Versed, 100 fentanyl, 10 of etomidate and was intubated and unresponsive when he arrived to [facility]. Repeat CT scan showed a stable bleed with no hydrocephalus. He did require Haldol for agitation and on 11/06, he failed an attempt at extubation and had arterial line placed on 11/07 . By 11/10, he was extubated successfully and had light sedation for tachypnea. He developed pneumo margoth, likely with aspiration and has positive sputum cultures with Haemophilus influenzae and was star john on meropenem on 11/06. He had vomiting on 11/11, more tachycardia on 11/11, and had prerenal dys function and obstructive nephropathy. He did improve and had voiding trials. He was started on sylvia zosin in ICU, which did help. He was febrile and had leukocytosis, but that improved. His chest x-r ay was positive for pneumonia and he due to his stroke, had significant pooling, but was able to perf orm self suctioning in the ICU. Prior to his hemorrhagic stroke, patient was independent with his AD Ls and mobilization transfers. However, since this stroke, he requires maximal assist for all transf ers, ambulation, and bed mobilization. He does require an ASL heavy coil winder for deafness. He has signi ficant oropharyngeal dysphagia and uses a PEG tube for feeding due to his high aspiration risk. He d oes require 24-hour nursing and daily medical evaluations along with aggressive physical, occupationa l, and speech therapy to help him recover. He will have oncology social worker input as well as for placement as he recovers. He is now admitted to the inpatient rehabilitation unit at [facility] for physical, occupational, and speech therapy and care home along with daily physician evaluation management and for oncology social worker placement as he improves. Past Medical History: Hemifacial spasms, deafness, prior right basal ganglia stroke on June 25, tobacco abuse, hypertension, and he is deaf. His PEG tube was placed on 11/21/2022, had an endoscope done. Allergies: NO KNOWN DRUG ALLERGIES. Current Medications: Albuterol nebulizer 2.5 mg every 6 hours, ampicillin/sulbactam 3 g every 6 hour s IV, Cymbalta 30 mg at bedtime, Lovenox 40 mg subcutaneously daily, folate 1 mg daily, Atrovent 0.5 mg nebulizer every 6 hours, melatonin 3 mg at night, Provigil 100 mg daily, multivitamin liquid form 5 mL per PEG tube daily, Protonix suspension 40 mL per PEG tube twice daily, and Hytrin 2 mg per PEG tube at night. X-ray/imaging: CT scan on 11/03 showed a 2.3 x 1.9 cm acute bleed in the left aspect of brainstem. It is in the left nessa aileen extending to the left midbrain and cerebellar peduncle. There is mild as sociated mass-effect without hydrocephalus or intraventricular extension. There are chronic bilatera l basal ganglia infarcts. On 11/17, chest x-ray, 1 view, showed partial clearing of left lung base w ith new limited patchy airspace disease in the right base. Family History: Noncontributory. Review of Systems: Not difficult to complete. The patient does report, however, significant weakness with no functional use of the right hand. Right leg has very minimal ability to bend at the knee. He is signing with the left hand as he communicates through the remote ASL heavy coil winder. Laboratory Studies: White blood cell count was up to 78.7, hemoglobin 12.1, hematocrit 38.1, platele ts 282. Sodium 144, potassium 4.4, glucose 81, BUN 35, creatinine 0.87, calcium 8.9. Magnesium 2.0. Social History: The patient lives with family in single family home. No recent alcohol, tobacco, or IV drug use. Physical Examination: Vital Signs: Blood pressure 142/90, pulse 83, respiratory rate 16, temperature 97, oxygen saturation 99% on 2 L. General: Mr. Tate is resting in bed. He does have a significant asymmetry with decrease of the rig ht nasolabial fold and head was turned towards the right. He has dense paresis of the right upper ex tremity and the right lower extremity with no obvious distal movement, 1/5 knee flexion noted. Left upper and lower extremity 5/5. Sensation is intact in the left, difficult to assess likely less perc eption noted in the right upper and lower extremity. Otherwise, he is normocephalic, atraumatic. Sc lerae anicteric. Oropharynx moist. Neck: Supple. Chest: Clear. Heart: Regular. Extremities: Show no significant edema or cyanosis. Current Level Of Functioning: Currently, dependent for eating; moderate assist for oral hygiene; dep endent for toileting, showering; moderate assist for upper body dressing; dependent for lower body dr essing, donning and doffing of shoes; moderate assistance for rolling [id number], [id number]; d ependent for sitting and [id number]-rayix; dependent for going from chair to bed and bed to chair and to toilet; dependent for walking; and unable to go up and down stairs. Rehab And Medical Assessment And Plan: Mr. Tate is admitted to the rehabilitation unit with rehab o f patient impairment category 01 stroke. His impairment group code is 01.2 right body involvement, l eft brain. His etiologic diagnosis is left pontine hemorrhagic stroke. His comorbidities are anemia , decreased mobility, decrease in physical functioning, dysphagia with PEG tube, hypertension, leukoc ytosis, pneumonia, tachycardia, seizures. He also has hemifacial spasms, obstructive nephropathy, hy percalcemia, elevated BUN. Plan: 1.He will have physical, occupational, and speech therapy for 3.5 hours, 5 of 7 days. 2.For his pneumonia, we will continue his ampicillin/sulbactam for 21 bags starting on 11/26. 3.Continue duloxetine for the depression. 4.Continue Lovenox for DVT prophylaxis. 5.Continue albuterol nebulizer for his respiratory failure. 6.Melatonin for insomnia. 7.Provigil for poor energy. 8.Hytrin for urinary retention. 9.Protonix for GE reflux. 10.His multivitamin will continue for his anemia and malnutrition. Impact Of Comorbids: Mr. Tate has significant comorbid issues including pneumonia, seizure disorder , significant leukocytosis, marked debility, which all will be addressed aggressively in rehabilitati on. He also has a PEG tube placement as he is unable to swallow safely. Rehab Specific Plan: 1.Mr. Tate will have physical, occupational, and speech therapy for 3.5 hours, 5 of 7 days to impro ve his ability to begin to swallow and determine what consistencies. Modified barium swallow will be done at some point. 2.He has physical therapy, may help with his ability to transfer and to mobilize likely with a wheel chair. If possible to have him stand and assist with his transfers. Also, with his occupational the rapy, to improve ability to dress upper and lower body to perform toileting and showering tasks and t o do his eating properly. Next, with his speech therapy, will work on his ability to communicate. Saskia badillo does have inability to speak words, but has sign language and will work on helping to improve his a bility to communicate with his left hand through heavy coil winder. 3.He will have care home as noted and physician evaluation on a daily basis. 4.Mr. Tate has a good understanding of the process of his inpatient rehabilitation where he will re ceive physical, occupational, and speech therapy. If need be, nutrition services, respiratory servic e, psychiatric service, cardiology and pulmonary services will be consulted. Given his complex medic al condition and risk of further complications, rehabilitation cannot be safely or effectively perfor med at a lower level facility such as care home. Barriers To Discharge: Several barriers: 1.PEG tube placement with risk of aspiration pneumonia. 2.Risk of seizures. 3.Risk of further hemorrhagic stroke deficits. 4.High fall risk. 5.Risk of dependent skin breakdown given the patient has limited ability to move the right side and that will be offloaded and including his heel and elbows as appropriate. No IVs will be put in the r ight upper extremity, which is densely paretic. Length Of Stay: Perhaps 3 weeks. Disposition: May be home with family if they can be trained to assist him. Prognosis: Fair . Rehab Goals: 1.To be able to roll in bed with min assist. 2.Be able to transfer with min assist. 3.Able to mobilize a wheelchair with min assist. 4.To get to a toilet and shower with minimal assist. 5.Perform toilet and shower only with minimum assistance. 6.Be able to have a consistency that he can swallow with minimal assistance using the left hand. 7.Perform cognitive activities with supervision. 8.The goals were reviewed with the patient and he is in agreement. I acknowledge I have personally performed a full physical examination on Mr. Mat Tate no later th an 24 hours after his admission to the rehabilitation facility and determined he is able to tolerate the above course of treatment at an intensive level for reasonable period of time. A detailed indivi dualized plan of care for him will be completed by hospital day 4 based on the preadmission screen, h istory and physical and therapy evaluations. RILEY Voice ID: [id number]
[2022-11-27] MEDS: AMPICILLIN/SULBACT 3 GM in NA CHLORIDE 0.9% 100 ML IVPB SCH ×4 (03:06→21:24)
[2022-11-27 04:12] LABS: Absolute Lymphocytes (CBC) 0.8 K/uL (0.7-4.9); Hematocrit 37.6 % (39.6-49.0); Lymphocytes % 5.3 % (15.3-44.8); MCV 78.7 fL (80-100); MPV 7.7 fL (7.6-11.3); RBC Red Blood Cell Count 4.79 M/uL (4.33-5.43)
[2022-11-27 04:35] LABS: Albumin 2.7 g/dL (3.4-5.0); Magnesium 2.1 mg/dL (1.6-2.4); Potassium 3.8 mEq/L (3.5-5.1)
[2022-11-27] MEDS: INSULIN -REGULAR HUMAN 50 UNIT/0.5 ML ML SQ SCH ×4 (05:00→16:17)
[2022-11-27] MEDS: FOLIC ACID 1 MG TABLET PO SCH (07:51)
[2022-11-27] MEDS: MULTIVITAMINS 5 ML ORAL SYR FT SCH (07:52)
[2022-11-27] MEDS: Pantoprazole (granules) 40 MG/BLIST PACKET FT SCH ×2 (07:52→19:41)
[2022-11-27] MEDS: modafiniL 100 MG TAB PO SCH (12:16)
[2022-11-27] MEDS ORDERED: NA CHLORIDE 0.9% 250 ML ONE (16:51)
[2022-11-27] MEDS ORDERED: BISACODYL 10 MG RECTAL SUPP PR PRN (17:10)
[2022-11-27] MEDS: ENOXAPARIN 40 MG/0.4 ML SQ SCH (17:27)
[2022-11-27] MEDS: DULOXETINE 30 MG CAP PO SCH (19:40)
[2022-11-27] MEDS: TERAZOSIN HCL 1 MG CAP FT SCH (19:41)
[2022-11-27] MEDS: POLYVINYL ALCOHOL 1.4% 15 ML EACH EYE SCH ×2 (19:41→21:24)
[2022-11-27] MEDS ORDERED: FLEET ENEMA ADULT PR ONE (19:49)
[2022-11-27] MEDS: ACETYLCYST 20% 4 ML VIAL IH SCH (20:00)
--- NOTE | 2022-11-27 20:32 | RAD REPORT ---
EXAM DESCRIPTION: RAD - Abdomen 1 View (KUB) - 11/27/2022 8:13 pm CLINICAL HISTORY: tender abd, absence of bm COMPARISON: <Comparisons> FINDINGS: Nonobstructive bowel gas pattern. No acute osseous abnormality.Visualized lungs are unrema rkable.No abnormal calcifications. Gastrostomy tube . IMPRESSION: Nonobstructive bowel gas pattern.
[2022-11-27 20:38] LABS: Specific Gravity 1.027 (1.005-1.030); Urine Bacteria None Seen /HPF (<20); Urine Bilirubin NEGATIVE (Negative); Urine Blood 3+ (Negative); Urine Clarity Clear (Clear); Urine Color Yellow (Yellow); Urine Glucose NEGATIVE (Negative); Urine Mucus Slight /HPF (None Seen); Urine Protein TRACE (Negative); Urine RBC >50 /HPF (None Seen); Urine Urobilinogen Normal (Normal); Urine pH 5.5 (5.0-7.0)
--- NOTE | 2022-11-27 22:24 | PN ---
Date of Progress Note: 11/27/2022 Time Of Service: 1 p.m. Subjective: Mr. Tate can communicate via sign language and through the sign language interpretation system, says he is doing fairly okay, given that he is not able to move his entire right side. Unab le to communicate much more, except he says no significant pain. Able to sleep fairly okay. Review of Systems: Difficult to get a full review of systems, but no muscle spasms or cramps on his paretic side and no abdominal pain. No nausea. He does have to do suctioning on a regular basis. He is able to do that with the left hand. Physical Examination: Vital Signs: Blood pressure 157/92, pulse of 114, respiratory rate 19, temperature 98.2, oxygen satu ration 95% on 2 L. Mr. Tate is resting in bed. Head slightly turned towards the right. His right arm is flexed towards his head over the abdomen region. Right leg is extended. He does have some se cretions and is able to get the ongoing suction and help to clear that. His exam shows dense paresis in right upper extremity. However, he is able to show at least 2 to 3 strength in the right hand wi th movement opening and closing, very subtle biceps strength around 1, and right shoulder around 1/5, in the right lower extremity 0/5 proximally and distally. Some decreased sensation right versus lef t upper in the upper and lower extremity. He is non verbal, but communicates via sign language and h e is able to comprehend and follow instructions to the sign language interpreting system. Laboratory Studies: White blood cell count slightly elevated at 14.4, hemoglobin 12.3, neutrophils 8 4.7. Chemistries: Sodium 141, potassium 3.8, chloride 111, carbon dioxide 24, BUN 38, creatinine 1. 39, glucose ranged from 152 to 217, prealbumin 19, albumin 2.7. X-ray imaging: X-ray done yesterday showed lungs are under inflated, heart is normal, and lungs are grossly clear. No displaced fractur es. Medications: He is receiving ampicillin/sulbactam 3 g IV every 6 hours for his pneumonia, receiving Cymbalta 30 mg at bedtime for depression, albuterol nebulizer for his pulmonary insufficiency, Loveno x 40 mg subcutaneously daily for DVT prophylaxis, folic acid 1 mg daily for stroke risk reduction, me latonin 3 mg at bedtime for insomnia, also on Atrovent nebulizer, has modafinil for boosting energy, he has Theravite multivitamin for his nutritional status, Protonix for GE reflux, and terazosin for u rinary retention. Current Functional Status: Currently supine to sit transfers done with maximum assistance, stand piv ot transfers done with total assistance and 2 people required to assist with IV lines and feeding tub e. He did perform bilateral supine lower extremity exercises, 20 repetitions. Regarding his speech, did work on improving his labial seal and lingual protrusion and lateral movements. He requires mod [id number] assistance with those exercises. He is able to suction himself to help decrease myra rafaela in the mouth, but requires moderate assistance for oral care. While he does appear lethargic, he can be aroused and participates in therapy. Oral motor exercises done 10 times at 50% accuracy. He has severe weakness. He demonstrated 4 to 5 vocal swallows within 1 to 2 seconds during the session. Unable to safely tolerate ice chips. With occupational therapy, [id number] with mode rate assistance to move the right lower extremity off the bed and pull up to a sitting position. He continues to be on a continuous PEG tube feeding. The patient did mention to the therapist that he w ould like to get out of bed. Progress Towards Rehabilitation Goals: Mr. Tate is making very slow progress so far with goals of b eing able to sit in bed with min assist, do a transfer with min assist, to get to the wheelchair and mobilize with min assist, to be able to stand with min assist, and potentially begin to ambulate shor t distances with min to mod assist. In addition slow progress with beginning to take oral feeding, a s he is unable to tolerate even ice chips at this point. Feeding tube feeding is ongoing. Assessment: Mr. Tate is a 57-year-old patient in the rehabilitation unit with a left pontine hemorr hagic stroke producing dense right paresis of the lower greater than right upper extremity along with difficulty with his expression. He has comorbid pneumonia. He only communicates via sign language. Has PEG tube for feeding, hypertension, leukocytosis, tachycardia, seizures, and hemifacial spasms along with obstructive nephropathy, hypercalcemia. Plan: 1.Continue with physical, occupational, speech therapy for 3.5 hours, x7 days. 2.He will continue with his IV antibiotics. 3.Continue with duloxetine for depression. 4.Lovenox for DVT prophylaxis. 5.Albuterol and Ventolin nebulizers. 6.Melatonin for insomnia. 7.Provigil for maintaining energy. 8.Hytrin for urinary retention. 9.Protonix for GE reflux. 10.Continue with multivitamin and protein supplementation through the PEG tube for his anemia and ma lnutrition. Impact Of Comorbidities On Rehabilitation Process: His ongoing need for IV antibiotics is moderately impacting his ability to be able to transfer, as he needs to . In addition, his PEG is mi ldly impacting his rehabilitation. His ability to communicate only by sign language has required a t ranslator. All these can be overcome just with slight effort. At this point, he has dense paresis o f the right upper and lower extremity and has had a moderate amount of max assist for most activities of ADL and mobilization and communication. UYEN/DIONNE Voice ID: [id number] Report ID: [id number]
[2022-11-28] MEDS: [UNRECOGNIZED DRUG - OTHER] OPTH SCH ×3 (00:50→08:14)
[2022-11-28] MEDS ORDERED: NA CHLORIDE 0.9% 250 ML ONE (00:52)
[2022-11-28] MEDS: ALBUTEROL 2.5 MG/3 ML NEB SOL NEB SCH ×2 (01:15→08:00)
[2022-11-28] MEDS: IPRATROPIUM BROM 0.5MG/2.5ML NEB SCH ×2 (01:15→08:00)
[2022-11-28] MEDS: AMPICILLIN/SULBACT 3 GM in NA CHLORIDE 0.9% 100 ML IVPB SCH ×2 (03:32→09:12)
[2022-11-28] MEDS ORDERED: METOPROLOL TAR 25 MG TAB PO SCH (06:00)
[2022-11-28] MEDS: INSULIN -REGULAR HUMAN 50 UNIT/0.5 ML ML SQ SCH ×2 (06:00)
[2022-11-28 06:20] LABS: Hematocrit 36.9 % (39.6-49.0); Lymphocytes % 5.1 % (15.3-44.8); MCV 79.5 fL (80-100); MPV 8.4 fL (7.6-11.3); RBC Red Blood Cell Count 4.65 M/uL (4.33-5.43)
[2022-11-28] MEDS ORDERED: NA CHLORIDE 0.9% 1,000 ML IV SCH (07:00)
[2022-11-28] MEDS: Pantoprazole (granules) 40 MG/BLIST PACKET FT SCH (07:12)
[2022-11-28] MEDS: FOLIC ACID 1 MG TABLET PO SCH (07:12)
[2022-11-28] MEDS: MULTIVITAMINS 5 ML ORAL SYR FT SCH (07:28)
[2022-11-28] MEDS: modafiniL 100 MG TAB PO SCH (07:49)
[2022-11-28] MEDS: ACETYLCYST 20% 4 ML VIAL IH SCH (08:00)
[2022-11-28 08:16] VITALS: BP 137/79; TEMP 97.1
[2022-11-28] MEDS: POLYVINYL ALCOHOL 1.4% 15 ML EACH EYE SCH (09:19)
[2022-11-28 10:15] VITALS: O2SAT 97
[2022-11-28 10:32] LABS: Blood Morphology Comment NOT SEEN (NOT SEEN); Platelet Estimate ADEQ; White Blood Cell Scan OK (OK)
--- NOTE | 2022-11-28 13:49 | RAD REPORT ---
EXAM DESCRIPTION: CT - Abdomen Pelvis Wo Contrast - 11/28/2022 7:16 am CLINICAL HISTORY: The patient is 57 years old and is Male; Bloody Urine TECHNIQUE: Axial computed tomography images of the abdomen and pelvis without intravenous contrast. Sagittal and coronal reformatted images were created and reviewed. This CT exam was performed usi ng one or more of the following dose reduction techniques: automated exposure control, adjustment o f the mA and/or kV according to patient size, and/or use of iterative reconstruction technique. Ora l contrast was administered. COMPARISON: No relevant prior studies available. FINDINGS: Lung bases: Bilateral lower lobe atelectasis, left greater than right. Pleural space: Trace left pleural fluid. ABDOMEN: Liver: Unremarkable. Gallbladder and bile ducts: Unremarkable. No calcified stones. No ductal dilation. Pancreas: Unremarkable. No ductal dilation. Spleen: Unremarkable. No splenomegaly. Adrenals: Unremarkable. No mass. Kidneys and ureters: No nephrolithiasis, hydronephrosis or ureter stone. Stomach and bowel: Colonic diverticulosis. Air-fluid level in the rectal lumen, suggesting diarrh eal symptoms. No definite findings of colitis. Air-fluid level in the cecum and proximal right colon. Hyperdense stool. No obstruction. PELVIS: Appendix: The visualized appendix is normal. No pericecal inflammation to suggest acute appendici tis. Bladder: Smith catheter in the bladder. There is clot and gross hematuria in the bladder lumen. No stones. Reproductive: Enlarged prostate gland. ABDOMEN and PELVIS: Intraperitoneal space: No pneumoperitoneum. Presacral free fluid. Bones/joints: Partial ankylosis bilateral SI joints. No acute fracture in the hips and proximal femora. No hip dislocation. Soft tissues: Unremarkable. Vasculature: Unremarkable. No abdominal aortic aneurysm. Lymph nodes: No pathologically enlarged lymph nodes. Tubes, lines and devices: PEG tube in the stomach. IMPRESSION: 1. Smith catheter in the bladder. There is clot and gross hematuria in the bladder lum en. 2. Enlarged prostate gland. 3. Colonic diverticulosis. Air-fluid level in the rectal lumen, suggesting diarrheal symptoms. No d efinite findings of colitis. 4. PEG tube in the stomach. 5. Additional non-emergent findings as above. Electronically signed by: Cristin Espinosa MD 11/28/2022 7:08 AM CDT Due to temporary technical issues with the PACS/Fluency reporting system, reports are being signed by the in house radiologists without review as a courtesy to insure prompt reporting. The interpreting radiologist is fully responsible for the content of the report.
== END 2022-11-28 10:34 | disposition short-term general hospital (02) | DRG 56 ==
LOC: 5TH 12:14
PROVIDERS: ADMIT Psychiatry & Neurology Neurology with Special Qualifications in Child Neurology; ATTEND Psychiatry & Neurology Neurology with Special Qualifications in Child Neurology
DX: I69.391 Dysphagia following cerebral infarction (principal); J18.9 Pneumonia, unspecified organism; E46 Unspecified protein-calorie malnutrition; R13.12 Dysphagia, oropharyngeal phase; I10 Essential (primary) hypertension; E83.52 Hypercalcemia; D64.9 Anemia, unspecified; G47.00 Insomnia, unspecified; R33.9 Retention of urine, unspecified; Z93.1 Gastrostomy status; Z68.25 Body mass index [BMI] 25.0-25.9, adult
CPT/HCPCS: 36415; 71045; 74018; 74176; 80048; 81001; 82040; 82947; 83735; 84134; 85025; 87086; 87088; 92526; 92610; 94640; 94668; 97110; 97112; 97116; 97163; 97165; 97530; J0295; J1650; J1815; J7030; J7050; J7608; J7613; J7644

== ENCOUNTER 2022-11-28 10:45 | Inpatient (IN) | payer BC ==
--- OUTSIDE RECORDS SUMMARY | 2022-11-28 11:12 | XMS REPORT | Continuity of Care Document ---
:1965 Author Organization [facility] t Address [address] [facility] [address] [place] [address] Care Team Providers Name Role Phone NOEL [...] Date Expiration Date S ource BCBS OS [id number] 2022 00:00:00 POS/PP[place] [id number] 2021 00:00:00 OUT OF STATE Problems Condition [...] Date Date Clinician NO KNOWN Allergy Active [facility] Social History Social Habit Start Date Stop Date Quantity Comments Source Social History 2021-07-01 2021-07-01 [facility] 05:05:44 05:05:44 Sex Assigned At [birth year] [facility] 00:00:00 00:00:00 [facility] Medications Ordered Filled Start Stop Current Ordering Indication Dosage Frequency Signature Comments Components Source Medication Medication Date Date Medication? Clinician (SIG) Name Name baclofen Yes 10 mg = 1 M emoria mg oral 4-27 tab, PO, l tablet 18:43: Bedtime, # Bekah nn 00 30 tab, 3 Refill(s), Pharmacy: [facility], 162.56, cm, 08/28/21 13:19:00 CDT, Height, 75.455, kg, 08/28/21 13:19:00 CDT, Weight baclofen Yes 10 mg = 1 M emoria mg oral 4-27 tab, PO, l tablet 18:43: Bedtime, # Bekah nn 00 30 tab, 3 Refill(s), Pharmacy: [facility], 162.56, cm, 08/28/21 13:19:00 CDT, Height, 75.455, kg, 08/28/21 13:19:00 CDT, Weight baclofen Yes 10 mg = 1 M emoria mg oral 4-27 tab, PO, l tablet 18:43: Bedtime, # Bekah nn 00 30 tab, 3 Refill(s), Pharmacy: [facility], 162.56, cm, 08/28/21 13:19:00 CDT, Height, 75.455, kg, 08/28/21 13:19:00 CDT, Weight baclofen 10 2021-0 Yes 10 mg = 1 M emoria mg oral 4-27 tab, PO, l tablet 18:43: Bedtime, # Bekah nn 00 30 tab, 3 Refill(s), Pharmacy: [facility], 162.56, cm, 08/28/21 13:19:00 CDT, Height, 75.455, kg, 08/28/21 13:19:00 CDT, Weight baclofen 10 2021-0 Yes 10 mg = 1 M emoria mg oral 4-27 tab, PO, l tablet 18:43: Bedtime, # Bekah nn 00 30 tab, 3 Refill(s), Pharmacy: [facility], 162.56, cm, 08/28/21 13:19:00 CDT, Height, 75.455, kg, 08/28/21 13:19:00 CDT, Weight baclofen 10 2021-0 Yes 10 mg = 1 M emoria mg oral 4-27 tab, PO, l tablet 18:43: Bedtime, # Bekah nn 00 30 tab, 3 Refill(s), Pharmacy: [facility], 162.56, cm, 08/28/21 13:19:00 CDT, Height, 75.455, kg, 08/28/21 13:19:00 CDT, Weight baclofen 10 2021-0 Yes 10 mg = 1 M emoria mg oral 4-27 tab, PO, l tablet 18:43: Bedtime, # Bekah nn 00 30 tab, 3 Refill(s), Pharmacy: [facility], 162.56, cm, 08/28/21 13:19:00 CDT, Height, 75.455, kg, 08/28/21 13:19:00 CDT, Weight baclofen 10 2021-0 Yes 10 mg = 1 M emoria mg oral 4-27 tab, PO, l tablet 18:43: Bedtime, # Bekah nn 00 30 tab, 3 Refill(s), Pharmacy: [facility], 162.56, cm, 08/28/21 13:19:00 CDT, Height, 75.455, kg, 08/28/21 13:19:00 CDT, Weight baclofen 10 2021-0 Yes 10 mg = 1 M emoria mg oral 4-27 tab, PO, l tablet 18:43: Bedtime, # Bekah nn 00 30 tab, 3 Refill(s), Pharmacy: [facility], 162.56, cm, 08/28/21 13:19:00 CDT, Height, 75.455, kg, 08/28/21 13:19:00 CDT, Weight baclofen 10 2021-0 Yes 10 mg = 1 M emoria mg oral 4-27 tab, PO, l tablet 18:43: Bedtime, # Bekah nn 00 30 tab, 3 Refill(s), Pharmacy: [facility]08, 162.56, cm, 08/28/21 13:19:00 CDT, Height, 75.455, kg, 08/28/21 13:19:00 CDT, Weight baclofen 10 2021-0 Yes 10 mg = 1 M emoria mg oral 4-27 tab, PO, l tablet 18:43: Bedtime, # Bekah nn 00 30 tab, 3 Refill(s), Pharmacy: [facility] 808, 162.56, cm, 08/28/21 13:19:00 CDT, Height, 75.455, kg, 08/28/21 13:19:00 CDT, Weight baclofen 10 2021-0 Yes 10 mg = 1 M emoria mg oral 4-27 tab, PO, l tablet 18:43: Bedtime, # Bekah nn 00 30 tab, 3 Refill(s), Pharmacy: [facility], 162.56, cm, 08/28/21 13:19:00 CDT, Height, 75.455, kg, 08/28/21 13:19:00 CDT, Weight baclofen 10 2021-0 Yes 10 mg = 1 M emoria mg oral 4-27 tab, PO, l tablet 18:43: Bedtime, # Bekah nn 00 30 tab, 3 Refill(s), Pharmacy: [facility], 162.56, cm, 08/28/21 13:19:00 CDT, Height, 75.455, kg, 08/28/21 13:19:00 CDT, Weight baclofen 10 2021-0 Yes 10 mg = 1 M emoria mg oral 4-27 tab, PO, l tablet 18:43: Bedtime, # Bekah nn 00 30 tab, 3 Refill(s), Pharmacy: [facility], 162.56, cm, 08/28/21 13:19:00 CDT, Height, 75.455, kg, 08/28/21 13:19:00 CDT, Weight baclofen 10 2021-0 Yes 10 mg = 1 M emoria mg oral 4-27 tab, PO, l tablet 18:43: Bedtime, # Bekah nn 00 30 tab, 3 Refill(s), Pharmacy: [facility], 162.56, cm, 08/28/21 13:19:00 CDT, Height, 75.455, kg, 08/28/21 13:19:00 CDT, Weight baclofen 10 2021-0 Yes 10 mg = 1 M emoria mg oral 4-27 tab, PO, l tablet 18:43: Bedtime, # Bekah nn 00 30 tab, 3 Refill(s), Pharmacy: [facility], 162.56, cm, 08/28/21 13:19:00 [...] Systolic (mm Hg) 2021-08-28 18:10:00 Dre rial Chong Diastolic (mm Hg) 2021-08-28 18:10:00 Mem orial [place] Heart Rate 2021-08-28 18:10:00 [facility] [place] Respitory Rate 2021-08-28 18:10:00 Memori al [place] Height 2021-08-28 18:10:00 162.56 [facility] 2021-08-28 18:10:00 [facility] BMI Calculated 2021-08-28 18:10:00 Memori al Chong Systolic (mm Hg) 2020-04-10 20:22:00 Dre rial Chong Diastolic (mm Hg) 2020-04-10 20:22:00 Mem orial Chong Heart Rate 2020-04-10 20:22:00 [facility] [place] Respitory Rate 2020-04-10 20:22:00 Memori al Chong Height 2020-04-10 20:22:00 162.56 cm [facility] Weight 2020-04-10 20:22:00 [facility] BMI Calculated 2020-04-10 20:22:00 Memori al [place] Procedures This patient has no known procedures. Encounters Start End Encounter Admission Attending Care Care Encounter Source Date/Time Date/Time Type Type Clinicians Facility Department ID 2022-11-23 Inpatient ER BRITTNEE [facility] [id number] [facility] 16:43[facility]43 [facility] Inpatient ER CHUCK [facility] [id number] [facility] 00:00:00 PALOMO 2022-11-19 Inpatient ER BRITTNEE, [facility] [id number] [facility] 13:43:58 MRINALINI 2022-11-19 Inpatient ER BRITTNEE [facility] [id number] [facility] 12:07:38 MRINALINI 2022-11-17 Inpatient ER BRITTNEE, [facility] [id number] [facility] 18:57:40 MRINALINI 2022-11-17 Inpatient ER BRITTNEE, [facility] [id number] [facility] 13:21:32 MRINALINI 2022-11-16 Inpatient ER BRITTNEE, [facility] [id number] [facility] 11:12:44 MRINALINI 2022-11-15 Inpatient ER BRITTNEE, [facility] [id number] [facility] 18:09:15 MRINALINI 2022-11-12 Inpatient ER RAMACHANDRA [facility] [id number] [facility] 10:47:24 N, YVONNETKatherine 2022-11-12 Inpatient ER BERSHAD, [facility] [id number] [facility] 08:14:58 FALGUNI 2022-11-12 Inpatient ER BERSHAD, [facility] [id number] [facility] 08:14:51 FALGUNI 2022-11-12 Inpatient ER WOODS, [facility] [id number] [facility] 04:37:[address] [facility] 2022-11-12 Inpatient ER WOODS, [facility] [id number] SLEH 04:20:[address] [facility] 2022-11-11 Inpatient ER BERSHAD, [facility] [id number] [facility] 00:25:30 FALGUNI 2022-11-10 Inpatient ER BERSHAD, [facility] [id number] [facility] 00:05:49 FALGUNI 2022-11-09 Inpatient ER BERSHAD, [facility] [id number] [facility] 00:27:15 FALGUNI 2022-11-08 Inpatient ER SLEH [facility] [id number] [facility] 00:26:38 2022-11-07 Inpatient ER SLEH [facility] [id number] [facility] 15:12:58 2022-11-07 Inpatient ER BERSHAD, [facility] [id number] [facility] 14:35:00 FALGUNI 2022-11-07 Inpatient ER [facility] [id number] [facility] 13:27:25 2022-11-07 Inpatient ER RAMACHANDRA [facility] [id number] [facility] 08:29:48 N, [facility] 2022-11-07 Inpatient ER RAMACHANDRA [facility] [id number] [facility] 07:58:55 N, [facility] 2022-11-07 Inpatient ER SLEH [facility] [id number] [facility] 00:07:44 2022-11-06 Inpatient ER BERSHAD, [facility] [id number] [facility] 20:29:11 FALGUNI 2022-11-06 Inpatient ER SLEH [facility]H [id number] [facility] 17:15:27 2022-11-06 Inpatient ER SLEH [facility] [id number] [facility] 17:15:20 2022-11-06 Inpatient ER RAMACHANDRA [facility] SLE [id number] SLE[facility] 16:03:43 N, [facility] 2022-11-06 Inpatient ER RAMACHANDRA [facility] SLEH [id number] [facility]H 16:03:37 N, [facility] 2022-11-06 Inpatient ER BERSHAD, [facility] [id number] [facility] 13:19:28 [facility] 2022-11-06 Inpatient ER BERSHAD, [facility] [id number] [facility] 00:25:37 [facility] 2022-11-05 Inpatient ER BERSHAD, [facility] [id number] [facility] 09:20:39 [facility] 2022-11-04 Inpatient ER BERSHAD, [facility] [id number] [facility] 14:30:51 [facility] 2022-11-04 Inpatient ER RAMAIDAANDRA [facility] SLEH [id number] SLEH 10:05:39 N, [facility] 2022-11-04 Inpatient ER ELMIRA, [facility]H [facility]H [id number] [facility] 06:27:46 [facility] 2022-11-04 Inpatient ER ELMIRA, SLEH [facility] [id number] [facility] 06:27:39 [facility] 2022-11-04 Inpatient ER ELMIRA, [facility] [id number] [facility] 06:27:32 [facility] 2022-11-04 Inpatient ER ELMIRA, [facility]H [facility] [id number] [facility] 00:28:35 [facility] 2022-11-03 Outpatient [facility] [id number] [place] 23:37:[id number] [facility] 2022-11-03 Inpatient ER ELMIRA [facility] [id number] [facility] 23:02:31 [facility] 2021-07-29 Outpatient [facility] [id number] [place] 12:58:[id number] [facility] 2021-07-02 Outpatient TEJA, [facility] [id number] [place] 17:00:[address] [facility] 2021-07-02 Outpatient RASHIDA, [facility] [id number] [place] 10:22:46 [facility] 2021-06-30 Inpatient ER ELMIRA, [facility] Neurosurger [id number] 18:28:49 [facility] 2022-11-03 2022-11-26 Inpatient ER BRITTNEE, [facility] Neuro ICU [id number] SLE 22:50:00 10:56:00 MRINALINI 2022-11-06 2022-11-06 Inpatient ER RAMACHANDRA [facility] [id number] SLE 12:12:14 00:00:00 NYVONNETU 2022-11-05 2022-11-05 Inpatient ER ELMIRA [facility] [id number] SLE 00:38:59 00:00:00 [facility] 2021-12-13 2021-12-13 Ambulatory nullFlavo MNA [id number] Memoria 16:00:00 16:00:00 Pre-Reg r Neurology 02 l Capri Chong 2021-12-13 2021-12-13 Ambulatory nullFlavo MNA [id number] Memoria 16:00:00 16:00:00 Pre-Reg r Neurology 02 l Capri [place] 2021-12-13 2021-12-13 Outpatient LATRICE Melo MISCHER [id number] 11:00:00 11:00:00 Scott Fung 2021-11-27 2021-11-27 Outpatient MHIE MHIE [id number] Memoria 13:45:00 13:45:00 02 sherry Schwarz 2021-08-28 2021-08-29 Outpatient nullFlavo MNA [id number] Memoria 18:00:00 04:59:59 r Neurology 01 l Sidell [place] 2021-08-28 2021-08-29 Outpatient nullFlavo MNA [id number] Memoria 18:00:00 04:59:59 r Neurology 01 l Capri Hernandezann 2021-08-28 2021-08-28 Outpatient LATRICE Melo MARYSOLSCHENRICO [id number] 13:00:00 23:59:59 Scott Kenton 2021-08-28 2021-08-28 Outpatient ANTHONY ANTHONY [id number] Memoria 13:00:00 13:00:00 01 sherry [place] 2020-04-10 2020-04-11 Outpatient nullFlavo MNA [id number] Memoria 20:15:00 05:59:59 r Neurology 00 l Capri Hernandezann 2020-04-10 2020-04-11 Outpatient nullFlavo MNA [id number] Memoria 20:15:00 05:59:59 r Neurology 00 l Sidell Chong 2020-04-10 2020-04-10 [facility] [id number] 14:15:00 23:59:59 Scott 00 Kent[place] 2020-04-10 2020-04-10 Outpatient SILKE EDOUARD [id number] Memoria 14:15:00 14:15:00 00 sherry Chong Results Test Description Test Time Test Comments Results Result Comments Source POCT-GLUCOSE METER 2022-11-26 07:10:15 Test Item Value Reference Range Interpretation Comme nts POC-GLUCOSE METER (BEAKER) 113 mg/dL 70-110 H : TESTED AT [address] (test code = 1538) EMILY Paulson [id number]: Weatherization Director/Techni carol ID = [id number] for LUIS BOUDREAUX POLK [id number] 06:34:45 Test Item Value Reference Range Interpretation Comments MAGNESIUM (BEAKER) (test code = 1.8 mg/dL 1.6-2.6 627) Weatherization Director ID - [id number] 06:34:45 Test Item Value Reference Range Interpretation Comments PHOSPHORUS (BEAKER) (test code = 2.8 mg/dL 2.3-4.7 604) Weatherization Director ID - ADMINPOCT-GLUCOSE [id number] 01:10:15 Test Item Value Reference Range Interpretation Comments POC-GLUCOSE METER 100 mg/dL 70-110 : TESTED A T [facility] 6720 (BEAKER) (test code = [facility], 1538) 49712: Weatherization Director/Techni carol ID = [id number] for MARIELA MARTINEZ POCT-GLUCOSE [id number] 17:12:52 Test Item Value Reference Range Interpretation Comments POC-GLUCOSE METER 104 mg/dL 70-110 : TESTED A T [facility] 6720 (BEAKER) (test code = [facility], 1538) 47145: Weatherization Director/Techni carol ID = [id number] for Delmy Orr POCT-GLUCOSE [id number] 12:42:29 Test Item Value Reference Range Interpretation Comments POC-GLUCOSE METER 109 mg/dL 70-110 : TESTED A T [facility] 6720 (BEAKER) (test code = [facility], 1538) 13386: Weatherization Director/Techni carol ID = [id number] for Delmy Orr [id number] 05:29:16 Test Item Value Reference Range Interpretation Comments PHOSPHORUS (BEAKER) (test code = 2.7 mg/dL 2.3-4.7 604) Weatherization Director ID - FABIAN WBASIC METABOLIC [id number] 05:29:15 Test Item Value Reference Range Interpretation [...] (test code = 697) EGFR (BEAKER) 105 Interpretati on of eGFR (test code = mL/min/1.73 values [...] not appl icable for dialysis patien ts Weatherization Director ID - FABIAN [id number] 05:29:15 Test Item Value Reference Range Interpretation Comments MAGNESIUM (BEAKER) (test code = 2.0 mg/dL 1.6-2.6 627) Weatherization Director ID - FABIAN WPOCT-GLUCOSE [id number] 01:39:19 Test Item Value Reference Range Interpretation Comments POC-GLUCOSE METER 129 mg/dL 70-110 H : TESTED A T [facility] 6720 (BEAKER) (test code = [facility], 1538) 44828: Weatherization Director/Techni carol ID = [id number] for MARIELA MARTINEZ CBC W/PLT COUNT & AUTO [id number] 10:38:05 Test Item Value Reference Range Interpretation [...] PERCENT (BEAKER) (test code = 2801) POCT-GLUCOSE [id number] 06:03:32 Test Item Value Reference Range Interpretation Comments POC-GLUCOSE METER 123 mg/dL 70-110 H : TESTED A T [facility] 6720 (BEAKER) (test code = [place], 1538) 56464: Weatherization Director/Techni carol ID = [id number] for BRUNO SULLIVAN [id number] 05:07:42 Test Item Value Reference Range Interpretation Comments PHOSPHORUS (BEAKER) (test code = 2.5 mg/dL 2.3-4.7 604) Weatherization Director ID - FABIAN [id number] 05:07:41 Test Item Value Reference Range Interpretation Comments MAGNESIUM (BEAKER) (test code = 2.0 mg/dL 1.6-2.6 627) Weatherization Director ID - FABIAN WPOCT-GLUCOSE [id number] 00:05:37 Test Item Value Reference Range Interpretation Comments POC-GLUCOSE METER 122 mg/dL 70-110 H : TESTED A T [facility] 6720 (BEAKER) (test code = [facility] Huerta [facility], 1538) 47898: Weatherization Director/Techni carol ID = [id number] for BRUNO SULLIVAN URINALYSIS W/ REFLEX URINE [id number] 18:50:27 Test Item Value Reference Range Interpretation [...] 1574) Rare SOURCE(BEAKER) (test code = 2795) Weatherization Director ID - [auto]Weatherization Director ID - techPOCT-GLUCOSE [id number] 17:27:05 Test Item Value Reference Range Interpretation Comments POC-GLUCOSE METER 144 mg/dL 70-110 H : TESTED A T [facility] 6720 (BEAKER) (test code = TREVOR Huerta [facility], 1538) 73612: Weatherization Director/Techni carol ID = [id number] for An Delmy avila XR CHEST 1 VIEW PORTABLE / [id number] 17:17:52 [facility] : 1965 Sex: MChest one view:HISTORY: follow up PneumoniaComparison: 11/17/2022There has been partial clearing of the left base. Patchy airspaceopacity in the right lung base is now noted. There is no pleuraleffusion identified. Cardiac size is within normal limits. The feedingtube noted previously has been removed in the inte rval.IMPRESSION:Partial clearing of the left lung base with new limitedpatchy airspace disease in the right base.Electronically Signed By: Timmy Mcintyre11/23/2022 17:19 CDTWorkstation Name: [id number] METER 2022-11-23 12:28:58 Test Item Value Reference Range Interpretation Comments POC-GLUCOSE METER 124 mg/dL 70-110 H : TESTED A T [facility] 6720 (BEAKER) (test code = [facility], 1538) 19796: Weatherization Director/Techni carol ID = [id number] for Delmy Orr POCT-GLUCOSE [id number] 06:37:26 Test Item Value Reference Range Interpretation Comments POC-GLUCOSE METER 130 mg/dL 70-110 H : TESTED A T [facility] 6720 (BEAKER) (test code = [facility] [employer] [facility], 1538) 73300: Weatherization Director/Techni carol ID = [id number] for BRUNO SULLIVAN [id number] 05:52:45 Test Item Value Reference Range Interpretation Comments MAGNESIUM (BEAKER) (test code = 2.1 mg/dL 1.6-2.6 627) Weatherization Director ID - [id number] 05:52:45 Test Item Value Reference Range Interpretation Comments PHOSPHORUS (BEAKER) (test code = 2.7 mg/dL 2.3-4.7 604) Weatherization Director ID - MMPOCT-GLUCOSE [id number] 00:24:47 Test Item Value Reference Range Interpretation Comments POC-GLUCOSE METER 105 mg/dL 70-110 : TESTED A T [facility] 6720 (BEAKER) (test code = [facility], 1538) 87461: Weatherization Director/Techni carol ID = [id number] for BRUNO SULLIVAN POCT-GLUCOSE [id number] 12:59:07 Test Item Value Reference Range Interpretation Comments POC-GLUCOSE METER 90 mg/dL 70-110 : TESTED A T [facility] 6720 (BEAKER) (test code = [facility], 1538) 60198: Weatherization Director/Techni carol ID = [id number] for ESPINOZA KAMARA POCT-GLUCOSE [id number] 06:53:06 Test Item Value Reference Range Interpretation Comments POC-GLUCOSE METER 79 mg/dL 70-110 : TESTED A T [facility] 6720 (BEAKER) (test code = [facility], 1538) 13267: Weatherization Director/Techni carol ID = [id number] for FRANK SHINE [id number] 06:00:35 Test Item Value Reference Range Interpretation Comments MAGNESIUM (BEAKER) (test code = 2.1 mg/dL 1.6-2.6 627) Weatherization Director ID - [id number] 06:00:35 Test Item Value Reference Range Interpretation Comments PHOSPHORUS (BEAKER) (test code = 3.2 mg/dL 2.3-4.7 604) Weatherization Director ID - BSBASIC METABOLIC [id number] 06:00:34 Test Item Value Reference Range Interpretation [...] not appl icable for dialysis patien ts Weatherization Director ID - BSCBC W/PLT COUNT & AUTO [id number] 05:31:38 Test Item Value Reference Range Interpretation [...] PERCENT (BEAKER) (test code = 2801) POCT-GLUCOSE [id number] 01:00:35 Test Item Value Reference Range Interpretation Comments POC-GLUCOSE METER 93 mg/dL 70-110 : TESTED A T [facility] 6720 (BEAKER) (test code = [facility], 153) 49070: Weatherization Director/Techni carol ID = [id number] for FRANK SHINE POCT-GLUCOSE [id number] 18:15:53 Test Item Value Reference Range Interpretation Comments POC-GLUCOSE METER 88 mg/dL 70-110 : TESTED A T [facility] 6720 (BEAKER) (test code = [facility], 1538) 66003: Weatherization Director/Techni carol ID = [id number] for KARTHIKEYAN FLEMING POCT-GLUCOSE [id number] 13:34:49 Test Item Value Reference Range Interpretation Comments POC-GLUCOSE METER 100 mg/dL 70-110 : TESTED A T [facility] 6720 (BEAKER) (test code = [facility], 1538) 07628: Weatherization Director/Techni carol ID = [id number] for KARTHIKEYAN ALTAMIRANO PROTHROMBIN [id number] 06:38:54 Test Item Value Reference Range Interpretation Comments PROTIME (BEAKER) (test code = 14.7 seconds 11.9-14.2 H 759) INR (BEAKER) (test code = 370) 1.23 <=5.90 RECOMMENDED COUMADIN/WARFARIN INR THERAPY RANGESSTANDARD DOSE: 2.0 - 3.0 Includes: PROPHYLAXIS for venous thrombosis, systemic embolization; TREATMENT for venous thrombosis and/or pulmonary embolus.HIGH RISK: Target INR is 2.5-3.5 for patients with mechanical heart valves.POCT-GLUCOSE [id number] 06:23:43 Test Item Value Reference Range Interpretation Comments POC-GLUCOSE METER 108 mg/dL 70-110 : [facility] (BEAKER) (test code = TREVOR Huerta [facility], 1538) 52405: Weatherization Director/Techni carol ID = [id number] for SHAMIKA DON [id number] 04:40:04 Test Item Value Reference Range Interpretation Comments MAGNESIUM (BEAKER) (test code = 2.0 mg/dL 1.6-2.6 627) Weatherization Director ID - [id number] 04:40:04 Test Item Value Reference Range Interpretation Comments PHOSPHORUS (BEAKER) (test code = 3.1 mg/dL 2.3-4.7 604) Weatherization Director ID - DBBASIC METABOLIC [id number] 04:40:03 Test Item Value Reference Range Interpretation [...] De scription 1092) sq m Result G1 Onleia l or high >=90 G2 Mildly decreased [...] not appl icable for dialysis patien ts Weatherization Director ID - DBCBC W/PLT COUNT & AUTO [id number] 04:38:30 Test Item Value Reference Range Interpretation [...] PERCENT (BEAKER) (test code = 2801) POCT-GLUCOSE [id number] 23:40:37 Test Item Value Reference Range Interpretation Comments POC-GLUCOSE METER 140 mg/dL 70-110 H : TESTED A T [facility] 6720 (BEAKER) (test code = [facility], 153) 91300: Weatherization Director/Techni carol ID = [id number] for SHAMIKA DON POCT-GLUCOSE [id number] 17:58:13 Test Item Value Reference Range Interpretation Comments POC-GLUCOSE METER 118 mg/dL 70-110 H : TESTED A T [facility] 6720 (BEAKER) (test code = [facility], 153) 76015: Weatherization Director/Techni carol ID = [id number] for An derson, Delmy POCT-GLUCOSE [id number] 12:12:53 Test Item Value Reference Range Interpretation Comments POC-GLUCOSE METER 123 mg/dL 70-110 H : TESTED A T [facility] 6720 (BEAKER) (test code = [facility], 153) 67[address]: Weatherization Director/Techni carol ID = [id number] for An derson, Delmy POCT-GLUCOSE [id number] 06:03:50 Test Item Value Reference Range Interpretation Comments POC-GLUCOSE METER 120 mg/dL 70-110 H : TESTED A T [facility] 6720 (BEAKER) (test code = [facility], 153) [address]85[address]: Weatherization Director/Techni carol ID = [id number] for VICKY ADAMA SHRUTHIWILLIELOKESHRachel [id number] 06:03:44 Test Item Value Reference Range Interpretation Comments PHOSPHORUS (BEAKER) (test code = 3.2 mg/dL 2.3-4.7 604) Weatherization Director ID - [id number] 06:03:43 Test Item Value Reference Range Interpretation Comments MAGNESIUM (BEAKER) (test code = 2.1 mg/dL 1.6-2.6 627) Weatherization Director ID - BSBASIC METABOLIC [id number] 06:03:42 Test Item Value Reference Range Interpretation [...] not appl icable for dialysis patien ts Weatherization Director ID - BSCBC W/PLT COUNT & AUTO [id number] 05:13:39 Test Item Value Reference Range Interpretation [...] PERCENT (BEAKER) (test code = 2801) POCT-GLUCOSE [id number] 00:21:43 Test Item Value Reference Range Interpretation Comments POC-GLUCOSE METER 122 mg/dL 70-110 H : TESTED [place] [facility] 6720 (BEAKER) (test code = [facility] [facility] [place], 1538) [address]57[address]: Weatherization Director/Techni carol ID = [id number] for BRUNO SULLIVAN POCT-GLUCOSE [id number] 17:44:59 Test Item Value Reference Range Interpretation Comments POC-GLUCOSE METER 91 mg/dL 70-110 : TESTED A [facility] 6720 (BANNER) (test code = [facility], 1538) 25303: Weatherization Director/Techni carol ID = [id number] for RODG ERS, JAMECA XR ABDOMEN/KUB 1 VIEW [id number] 15:07:20 [facility] SAL[facility] : 1965 Sex: MTECHNIQUE:XR ABDOMEN/KUB 1 VIEW PORTABLEINDICATION: NG tube placement.COMPARISON: 11/17/2022FINDINGS:Feeding tube tip projects over the second portion of the duodenum. Acatheter projects over the pelvis. Nonobstructive bowel gas pattern.Supine radiographs are insensitive for detection of free intraperitonealair.IMPRESSION:1. Feeding tube tip projects over the second portion of the duodenum.Electronically SignedBy: Oscar Orosco11/19/2022 15:09 CDTWorkstation Name: [id number] 11:55:25 Test Item Value Reference Range Interpretation Comments POC-GLUCOSE METER 85 mg/dL 70-110 : [facility] T [facility] (test code = [facility], 1538) 13217: Weatherization Director/Techni carol ID = [id number] for RODG ERS, JAMECA (CELLAVISION MANUAL DIFF)2022-11-19 06:41:39 Test Item Value [...] CONCENTRATION Adequate (CELLAVISION)(BEAKER) (test code = 3438) Weatherization Director ID - Tiffany Keen comments: Slide comments:CBC W/PLT COUNT & AUTO [id number] 06:41:38 Test Item Value Reference Range Interpretation [...] 0-0 (BEAKER) (test code = 413) POCT-GLUCOSE [id number] 06:12:53 Test Item Value Reference Range Interpretation Comments POC-GLUCOSE METER 98 mg/dL 70-110 : TESTED A T [facility] 6720 (BEAKER) (test code = [facility] [place], 1538) 25603: Weatherization Director/Techni carol ID = [id number] for BRUNO SHARP [id number] 04:43:04 Test Item Value Reference Range Interpretation Comments PHOSPHORUS (BEAKER) (test code = 3.5 mg/dL 2.3-4.7 604) Weatherization Director ID - EOOBASIC METABOLIC [id number] 04:43:03 Test Item Value Reference Range Interpretation [...] not appl icable for dialysis patien ts Weatherization Director ID - [id number] 04:43:03 Test Item Value Reference Range Interpretation Comments MAGNESIUM (BEAKER) (test code = 2.1 mg/dL 1.6-2.6 627) Weatherization Director ID - EOOPOCT-GLUCOSE [id number] 23:57:38 Test Item Value Reference Range Interpretation Comments POC-GLUCOSE METER 93 mg/dL 70-110 : TESTED A T [facility] 6720 (BEAKER) (test code = [facility], 153) 55919: Weatherization Director/Techni carol ID = [id number] for BRUNO SHARP POCT-GLUCOSE [id number] 19:00:28 Test Item Value Reference Range Interpretation Comments POC-GLUCOSE METER 125 mg/dL 70-110 H : TESTED A T [facility] 6720 (BEAKER) (test code = [facility] T[place] [facility], 1538) 33416: Weatherization Director/Techni carol ID = [id number] for Rajinder Sullivan POCT-GLUCOSE [id number] 12:41:10 Test Item Value Reference Range Interpretation Comments POC-GLUCOSE METER 116 mg/dL 70-110 H : TESTED A T [facility] 6720 (BEAKER) (test code = [facility], 1538) 38315: Weatherization Director/Techni carol ID = [id number] for Rajinder Sullivan (CELLAVISION MANUAL DIFF)2022-11-18 07:54:05 Test Item Value [...] CONCENTRATION Adequate (CELLAVISION)(BEAKER) (test code = 3438) Weatherization Director ID - brett Howell comments: Slide comments:CBC W/PLT COUNT & AUTO [id number] 07:54:04 Test Item Value Reference Range Interpretation [...] 0-0 (BEAKER) (test code = 413) POCT-GLUCOSE [id number] 07:17:47 Test Item Value Reference Range Interpretation Comments POC-GLUCOSE METER 128 mg/dL 70-110 H : TESTED A T [facility] 6720 (BEAKER) (test code = [facility] [place], 1538) 92877: Weatherization Director/Techni carol ID = [id number] for Ch Gracie montero [id number] 06:22:58 Test Item Value Reference Range Interpretation Comments MAGNESIUM (BEAKER) 2.1 mg/dL 1.6-2.6 Specimen slightly (test code = 627) hemolyzed Weatherization Director ID - FABIAN [id number] 06:22:58 Test Item Value Reference Range Interpretation Comments PHOSPHORUS (BEAKER) 3.6 mg/dL 2.3-4.7 Specimen slightly (test code = 604) hemolyzed Weatherization Director ID - FABIAN WBASIC METABOLIC [id number] 06:22:58 Test Item Value Reference Range Interpretation [...] (BEAKER) (test code = 652) CALCIUM (BEAKER) 9.4 mg/dL 8.4-10.2 (test code = 697) EGFR (BEAKER) 95 Interpretatio n of eGFR (test code [...] not appl icable for dialysis patien ts Weatherization Director ID - FABIAN WPOCT-GLUCOSE [id number] 23:56:34 Test Item Value Reference Range Interpretation Comments POC-GLUCOSE METER 106 mg/dL 70-110 : TESTED A T [facility] 6720 (BEAKER) (test code = [facility] [place], 1538) 31533: Weatherization Director/Techni carol ID = [id number] for Ch Gracie montero XR ABDOMEN/KUB 1 VIEW [id number] 20:53:28 [facility] : 1965 Sex: MEXAMINATION: XR ABDOMEN/KUB 1 VIEW PORTABLE INDICATION: NG tube placementCOMPARISON: KUB of 11/16/22 FINDINGS/IMPRESSION:Enteric tube tip terminates in the proximal duodenum. No bowelobstruction or free air. No acute osseous injury.Electronically Signed By: Amita Bernal11/17/2022 20:55 CDTWorkstation Name: [id number] 18:09:40 Test Item Value Reference Range Interpretation Comments POC-GLUCOSE METER 113 mg/dL 70-110 H : TESTED A T [facility] 6720 [facility] (test code = [facility] [place], 1538) 43260: Weatherization Director/Techni carol ID = [id number] for KARTHIKEYAN ALTAMIRANO XR CHEST 1 VIEW PORTABLE / [id number] 15:35:17 [facility] BRETT SALDIVAR : 1965 Sex: MAP view ofthe chest dated 3COMPARISON: November 12LINICAL INFORMATION: follow up infiltartesComment: Heart is normal in size. Pulmonary vasculature isunremarkable. Opacity is seen in the left lower lobe suggestivepneumonia unchanged from prior study. The rest of lungs are clear. Nopleural effusion or pneumothorax is seen. Feeding tube remains in place.IMPRESSION:Left lower lobe pneumonia unchanged from prior study.Electronically Signed By: Claudio Acevedo11/17/2022 15:37 CDTWorkstation Name: [id number] 12:18:49 Test Item Value Reference Range Interpretation Comments POC-GLUCOSE METER 120 mg/dL 70-110 H : TESTED A T [facility] 6720 (BEAKER) (test code = [facility] [place], 1538) 16952: Weatherization Director/Techni carol ID = [id number] for KARTHIKEYAN ALTAMIRANO BLOOD [id number] 06:00:10 Test Item Value Reference Range Interpretation Comments CULTURE (BEAKER) (test No growth in 5 days code = 1095) BLOOD [id number] 06:00:09 Test Item Value Reference Range Interpretation Comments CULTURE (BEAKER) (test No growth in 5 days code = 1095) [id number] 04:53:04 Test Item Value Reference Range Interpretation Comments MAGNESIUM (BEAKER) (test code = 2.1 mg/dL 1.6-2.6 627) [id number] 04:53:04 Test Item Value Reference Range Interpretation Comments PHOSPHORUS (BEAKER) (test code = 3.1 mg/dL 2.3-4.7 604) BASIC METABOLIC [id number] 04:53:03 Test Item Value Reference Range Interpretation [...] patien ts CBC W/PLT COUNT & AUTO [id number] 04:36:30 Test Item Value Reference Range Interpretation [...] IMMATURE GRANULOCYTES-RELATIVE 1.30 % 0.00-1.00 H PERCENT (BEAKER) (test code = 2801) POCT-GLUCOSE [id number] 21:57:20 Test Item Value Reference Range Interpretation Comments POC-GLUCOSE METER 121 mg/dL 70-110 H : TESTED A T [facility] 6720 (BEAKER) (test code = [facility], 1538) 06793: Weatherization Director/Techni carol ID = [id number] for Jolynn Good POCT-GLUCOSE [id number] 17:46:20 Test Item Value Reference Range Interpretation Comments POC-GLUCOSE METER 109 mg/dL 70-110 : TESTED A T [facility] 6720 (BEAKER) (test code = [facility], 1538) 64417: Weatherization Director/Techni carol ID = [id number] for Maribel nixonseth Courtney POCT-GLUCOSE [id number] 12:37:23 Test Item Value Reference Range Interpretation Comments POC-GLUCOSE METER 94 mg/dL 70-110 : TESTED A T [facility] 6720 (BEAKER) (test code = [facility], 1538) 70859: Weatherization Director/Techni carol ID = [id number] for Jamey billieCourtney XR ABDOMEN/KUB 1 VIEW [id number] 12:18:19 [facility] : 1965 Sex: MONE VIEW AB DOMENHISTORY: Feeding tube placementCOMPARISON:11/15/2022FINDINGS:2 supine AP images of the abdomen were obtained.The feeding tube has been advanced, with its tip now at the junction ofthe second and third portions of the duodenum.No dilated bowel loops are visualized.Electronically Signed By: Montrell Benoit 11/16/2022 12:20 CDTWorkstation Name: [id number] 08:28:32 Test Item Value Reference Range Interpretation Comments POC-GLUCOSE METER 91 mg/dL 70-110 : TESTED A T [facility] 6720 (BEAKER) (test code = [facility] [place], 1538) 61611: Weatherization Director/Techni carol ID = [id number] for Courtney Matthews CBC W/PLT COUNT & AUTO [id number] 04:56:54 Test Item Value Reference Range Interpretation [...] H PERCENT (BEAKER) (test code = 2801) [id number] 04:52:25 Test Item Value Reference Range Interpretation Comments MAGNESIUM (BEAKER) (test code = 2.0 mg/dL 1.6-2.6 627) Weatherization Director ID - [id number] 04:52:25 Test Item Value Reference Range Interpretation Comments PHOSPHORUS (BEAKER) (test code = 3.0 mg/dL 2.3-4.7 604) Weatherization Director ID - MARCOBASIC METABOLIC [id number] 04:52:24 Test Item Value Reference Range Interpretation [...] 70-105 (BEAKER) (test code = 652) CALCIUM (KOMAL) 9.2 mg/dL 8.4-10.2 (test code = 697) EGFR (KOMAL) 105 Interpretatio n of eGFR (test code [...] not appl icable for dialysis patien ts Weatherization Director ID - MARCOPOCT-GLUCOSE [id number] 22:19:57 Test Item Value Reference Range Interpretation Comments POC-GLUCOSE METER 85 mg/dL 70-110 : TESTED A T [facility] 6720 (KOMAL) (test code = [facility] [place] [facility], 1538) 61732: Weatherization Director/Techni carol ID = [id number] for Jolynn Farris XR ABDOMEN/KUB 1 VIEW [id number] 21:30:05 [facility] : 1965 Sex: MEXAM/TECHNIQUE: XR ABDOMEN/KUB 1 VIEW PORTABLEINDICATION: cortrak placementCOMPARISON: 11/12/2022.FINDINGS: Feeding tube terminates in the stomach. Nondilated loops of large smallbowel. No acute osseous process.IMPRESSION:Impression:Feeding tube terminates in the stomach.Electronically Signed By: Ilan Acuna/ 21:32 CDTWorkstation Name: [id number] 18:11:10 Test Item Value Reference Range Interpretation Comments POC-GLUCOSE METER 88 mg/dL 70-110 : TESTED A T [facility] 6720 (BEAKER) (test code = [facility], 1538) 85591: Weatherization Director/Techni carol ID = [id number] for Rajinder Sharp LIPID [id number] 13:11:54 Test Item Value Reference Range Interpretation Comments TRIGLYCERIDES (BEAKER) (test code = 77 mg/dL 540) CHOLESTEROL (BEAKER) (test code = 123 mg/dL 631) HDL CHOLESTEROL (BEAKER) (test code 24 mg/dL = 976) LDL CHOLESTEROL CALCULATED (BANNER) 84 mg/dL (test code = 633) Triglyceride Reference Range: Low Risk <150 Borderline 150-199 High Risk 200- 499 Very High Risk >=500Cholesterol Reference Range: Low Risk <200 Borderline 200-239 High Risk >240HDL Cholesterol Reference Range: Low Risk >=60 High Risk <40LDL Cholesterol Reference Range: Optimal <100 Near Optimal 100-129 Borderline 130-159 High 160-189 Very High >=190 Weatherization Director ID - ADMINPOCT-GLUCOSE [id number] 12:44:17 Test Item Value Reference Range Interpretation Comments POC-GLUCOSE METER 113 mg/dL 70-110 H : TESTED A T [facility] 6720 (BEAKER) (test code = [facility], 1538) 52095: Weatherization Director/Techni carol ID = [id number] for Vicky hnson, Triwanda POCT-GLUCOSE [id number] 08:51:18 Test Item Value Reference Range Interpretation Comments POC-GLUCOSE METER 108 mg/dL 70-110 : TESTED A T [facility] 6720 (BEAKER) (test code = [facility], 153) 33469: Weatherization Director/Techni carol ID = [id number] for Vicky hnson, Triwanda POCT-GLUCOSE [id number] 06:40:10 Test Item Value Reference Range Interpretation Comments POC-GLUCOSE METER 117 mg/dL 70-110 H : TESTED A T [facility] 6720 (BEAKER) (test code = [facility] [place], 1538) 46544: Weatherization Director/Techni carol ID = [id number] for Jolynn Good [id number] 06:06:26 Test Item Value Reference Range Interpretation Comments PHOSPHORUS (BEAKER) (test code = 3.0 mg/dL 2.3-4.7 604) BASIC METABOLIC [id number] 06:06:25 Test Item Value Reference Range Interpretation [...] eGF R is based on the CKD-EPI 2021 equation that d oes not use a race coefficientEsti mated GFR is not as accur ate as Creatinine Eugenia zimmer in predicting glom erular filtration rate . Estimated GFR is not appl icable for dialysis patien ts [id number] 06:06:25 Test Item Value Reference Range Interpretation Comments MAGNESIUM (BEAKER) (test code = 1.9 mg/dL 1.6-2.6 627) CBC W/PLT COUNT & AUTO [id number] 05:31:57 Test Item Value Reference Range Interpretation [...] PERCENT (BEAKER) (test code = 2801) POCT-GLUCOSE [id number] 23:34:04 Test Item Value Reference Range Interpretation Comments POC-GLUCOSE METER 109 mg/dL 70-110 : TESTED A T [facility] 6720 (BEAKER) (test code = [facility], 1538) 44029: Weatherization Director/Techni carol ID = [id number] for Jolynn Good POCT-GLUCOSE [id number] 18:31:14 Test Item Value Reference Range Interpretation Comments POC-GLUCOSE METER 112 mg/dL 70-110 H : TESTED A T [facility] 6720 (BEAKER) (test code = [facility], 1538) 70189: Weatherization Director/Techni carol ID = [id number] for ELIOT ALEXANDER SPUTUM CULTURE + GRAM [id number] 11:17:03 Test Item Value Reference Range Interpretation Comments CULTURE (BEAKER) 4+ Normal respiratory (test code = 1095) kei present GRAM STAIN RESULT 1+ WBCs (BEAKER) (test code = 1123) GRAM STAIN RESULT 1+ budding yeast (BEAKER) (test code = 53320) GRAM STAIN RESULT <1+ gram variable rods (BEAKER) (test code = 61300) [id number] 07:15:02 Test Item Value Reference Range Interpretation Comments MAGNESIUM (BEAKER) (test code = 1.8 mg/dL 1.6-2.6 627) Weatherization Director ID - [id number] 07:15:02 Test Item Value Reference Range Interpretation Comments PHOSPHORUS (BEAKER) (test code = 2.6 mg/dL 2.3-4.7 604) Weatherization Director ID - MMBASIC METABOLIC [id number] 07:15:01 Test Item Value Reference Range Interpretation [...] not appl icable for dialysis patien ts Weatherization Director ID - MMCBC W/PLT COUNT & AUTO [id number] 06:11:39 Test Item Value Reference Range Interpretation [...] IMMATURE GRANULOCYTES-RELATIVE 1.30 % 0.00-1.00 H PERCENT (BEAKER) (test code = 2801) POCT-GLUCOSE [id number] 06:09:35 Test Item Value Reference Range Interpretation Comments POC-GLUCOSE METER 111 mg/dL 70-110 H : TESTED A T [facility] 6720 (BEAKER) (test code = [facility], 153) 77471: Weatherization Director/Techni carol ID = [id number] for Aaliyah Fu POCT-GLUCOSE [id number] 01:00:38 Test Item Value Reference Range Interpretation Comments POC-GLUCOSE METER 105 mg/dL 70-110 : TESTED A T [facility] 6720 (BEAKER) (test code [facility], = 1538) 13785: Weatherization Director/Techni carol ID = [id number] for Dorothy Storey POCT-GLUCOSE [id number] 00:22:13 Test Item Value Reference Range Interpretation Comments POC-GLUCOSE METER 101 mg/dL 70-110 : TESTED A T [facility] 6720 (BEAKER) (test code = [facility], 153) 81155: Weatherization Director/Techni carol ID = [id number] for CASIE EVANS VANCOMYCIN LEVEL, [id number] 18:01:21 Test Item Value Reference Range Interpretation Comments VANCOMYCIN TROUGH (BEAKER) (test 8.2 ug/mL 10.0-20.0 L code = 522) Weatherization Director ID - BSPOCT-GLUCOSE [id number] 16:47:25 Test Item Value Reference Range Interpretation Comments POC-GLUCOSE METER 106 mg/dL 70-110 : TESTED A T [facility] 6720 (BEAKER) (test code = [facility], 1538) 74457: Weatherization Director/Techni carol ID = [id number] for Anabel Ruiz POCT-GLUCOSE [id number] 11:49:02 Test Item Value Reference Range Interpretation Comments POC-GLUCOSE METER 121 mg/dL 70-110 H : TESTED A T [facility] 6720 (BEAKER) (test code = [facility], 1538) 12175: Weatherization Director/Techni carol ID = [id number] for Anabel Ruiz POCT-GLUCOSE [id number] 06:31:39 Test Item Value Reference Range Interpretation Comments POC-GLUCOSE METER 109 mg/dL 70-110 : TESTED A T [facility] 6720 (BEAKER) (test code = [facility], 1538) 85499: Weatherization Director/Techni carol ID = [id number] for SOULEYMANE RAYO CBC W/PLT COUNT & AUTO [id number] 04:20:15 Test Item Value Reference Range Interpretation [...] (BEAKER) (test code = 2801) BASIC METABOLIC [id number] 04:10:46 Test Item Value Reference Range Interpretation [...] high >=90 G2 Mildly decreased 60-89 G3a Mild ly to moderately 45-5 9 G3b Moderately to [...] not appl icable for dialysis patien ts Weatherization Director ID - [id number] 04:10:46 Test Item Value Reference Range Interpretation Comments MAGNESIUM (BEAKER) (test code = 1.9 mg/dL 1.6-2.6 627) Weatherization Director ID - [id number] 04:10:46 Test Item Value Reference Range Interpretation Comments PHOSPHORUS (BEAKER) (test code = 2.6 mg/dL 2.3-4.7 604) Weatherization Director ID - ADMINPOCT-GLUCOSE [id number] 00:36:00 Test Item Value Reference Range Interpretation Comments POC-GLUCOSE METER 115 mg/dL 70-110 H : TESTED A T [facility] 6720 (BEAKER) (test code = [facility] Deanna [facility], 1538) 83312: Weatherization Director/Techni carol ID = [id number] for LE MARLENY BURGESSA POCT-GLUCOSE [id number] 17:40:35 Test Item Value Reference Range Interpretation Comments POC-GLUCOSE METER 107 mg/dL 70-110 : TESTED A T [facility] 6720 (BEAKER) (test code = [facility] [place] [facility], 1538) 68288: Weatherization Director/Techni carol ID = [id number] for Ca Anabel huerta XR ABDOMEN/KUB 1 VIEW [id number] 13:44:03 [facility] : 1965 Sex: MEXAMINATION: XR ABDOMEN/KUB 1 VIEW PORTABLE INDICATION: Diarreha, concern for colitisCOMPARISON: November 06, 2022 FINDINGS/IMPRESSION:No bowel obstruction or free air. No radiographically apparent urinarycalculi. No acute osseous injury.The tip of the Dobbhoff feeding tube overlies the mid duodenum.Electronically Signed By: Salma Khan11/12/2022 13:46 CDTWorkstation Name: [id number] METER 2022-11-12 11:58:32 Test Item Value Reference Range Interpretation Comments POC-GLUCOSE METER 124 mg/dL 70-110 H : TESTED A T [facility] 6720 (BEAKER) (test code = [facility] [place] [facility], 1538) 87700: Weatherization Director/Techni carol ID = [id number] for MISSY MUIR LACTIC ACID, [id number] 08:57:10 Test Item Value Reference Range Interpretation [...] CONCENTRATION Adequate (CELLAVISION)(BEAKER) (test code = 3438) Weatherization Director ID - Tiffany Keen comments: Slide comments:CBC W/PLT COUNT & AUTO [id number] 07:51:37 Test Item Value Reference Range Interpretation [...] 0-0 (BEAKER) (test code = 413) URINALYSIS [id number] 06:44:11 Test Item Value Reference Range Interpretation Comments RBC UA (BEAKER) (test code = 519) 40 /HPF WBC UA (BEAKER) (test code = 520) 3 /HPF MUCUS (BEAKER) (test code = 1574) Rare SQUAMOUS EPITHELIAL (BEAKER) (test 4 /HPF code = 516) Weatherization Director ID - techURINALYSIS WITH MICROSCOPIC IF [id number] 06:26:58 Test Item Value Reference Range Interpretation [...] = 463) SOURCE(BEAKER) (test code = 2795) Weatherization Director ID - [auto]XR CHEST 1 VIEW PORTABLE / [id number] 05:32:07 [facility] SAL[facility] DOB: 1965 Sex: MCLINICAL IN DICATION: c/f pneumoniaComparison: 11/11/2022The cardiomediastinal contours are stable.The lung volumes remain low. Central pulmonary vascular prominence andbilateral parenchymal opacities are unchanged.There is no pneumothorax.A feeding tube remains in place.Electronically Signed By: Jamarcus Schumacher11/12/2022 05:34 CDTWorkstation Name: [id number] 04:01:45 Test Item Value Reference Range Interpretation Comments PROCALCITONIN (BEAKER) (test code 0.26 ng/mL <0.05 H = 3036) SEPSIS RISK (ng/mL)Low: 0.05-0.50Intermediate: 0.51-2.00High: >=2.01BASIC METABOLIC [id number] 03:34:39 Test Item Value Reference Range Interpretation [...] not appl icable for dialysis patien ts Weatherization Director ID - FABIAN [id number] 03:34:39 Test Item Value Reference Range Interpretation Comments MAGNESIUM (BEAKER) (test code = 2.0 mg/dL 1.6-2.6 627) Weatherization Director ID - FABIAN [id number] 03:34:39 Test Item Value Reference Range Interpretation Comments PHOSPHORUS (BEAKER) (test code = 2.4 mg/dL 2.3-4.7 604) Weatherization Director ID - FABIAN WPOCT-GLUCOSE [id number] 03:21:18 Test Item Value Reference Range Interpretation Comments POC-GLUCOSE METER 140 mg/dL 70-110 H : TESTED A T [facility] 6720 (BEAKER) (test code = [facility], 1538) 60518: Weatherization Director/Techni carol ID = [id number] for YE (V), WEIPING POCT-GLUCOSE [id number] 21:27:28 Test Item Value Reference Range Interpretation Comments POC-GLUCOSE METER 129 mg/dL 70-110 H : TESTED A T [facility] 6720 (BEAKER) (test code = [facility], 1538) 92491: Weatherization Director/Techni carol ID = [id number] for YE (V), WEIPING POCT-GLUCOSE [id number] 12:21:08 Test Item Value Reference Range Interpretation Comments POC-GLUCOSE METER 142 mg/dL 70-110 H : TESTED A T [facility] 6720 (BEAKER) (test code = [facility], 1538) 53608: Weatherization Director/Techni carol ID = [id number] for Anabel Ruiz XR CHEST 1 VIEW PORTABLE / [id number] 08:50:01 [facility] : 1965 Sex: MXR CHEST 1VIEW PORTABLE / BEDSIDEINDICATION: IntubationCOMPARISON: Prior day's examFINDINGS: Portable frontal view of the chest. IMPRESSION:Support Lines: Endotracheal tube removed. Stable enteric tube.Lungs andpleura: Low lung volumes. Increased right lung baseatelectasis. Stable left lower lobe streaky opacities. No pneumothorax.Heart and mediastinum: Stable contours. Additional findings: None.Electronically Signed By: Ken Muniz11/11/2022 08:52 CDTWorkstation Name: [id number] W/PLT COUNT & AUTO [id number] 08:44:26 Test Item Value Reference Range Interpretation [...] PERCENT (BEAKER) (test code = 2801) POCT-GLUCOSE [id number] 06:38:49 Test Item Value Reference Range Interpretation Comments POC-GLUCOSE METER 91 mg/dL 70-110 : TESTED A T [facility] 6720 (BEAKER) (test code = JOSETONYA Huerta [facility], 1538) [address]: Weatherization Director/Techni carol ID = [id number] for [place] Ahmadi [id number] 05:32:17 Test Item Value Reference Range Interpretation Comments PHOSPHORUS (BEAKER) 2.6 mg/dL 2.3-4.7 Specimen slightly (test code = 604) hemolyzed Weatherization Director ID - FABIAN WBASIC METABOLIC [id number] 05:32:17 Test Item Value Reference Range Interpretation [...] not appl icable for dialysis patien ts Weatherization Director ID - FABIAN [id number] 05:32:16 Test Item Value Reference Range Interpretation Comments MAGNESIUM (BEAKER) 2.1 mg/dL 1.6-2.6 Specimen slightly (test code = 627) hemolyzed Weatherization Director ID Kendall PERALTA WPOCT-GLUCOSE [id number] 23:53:55 Test Item Value Reference Range Interpretation Comments POC-GLUCOSE METER 87 mg/dL 70-110 : TESTED A T [facility] 6720 (BEAKER) (test code = TREVOR Deanna [facility], 1538) 89394: Weatherization Director/Techni carol ID = [id number] for Virginia Ahmadi BLOOD [id number] 15:01:19 Test Item Value Reference Range Interpretation Comments CULTURE (BEAKER) (test No growth in 5 days code = 1095) The specimen volume collected for this blood culture was below the optimum (10 mL per bottle or 20 mL total). Use of lower volumes may adversely affect recovery and/or detection times of some organisms.BLOOD [id number] 15:01:19 Test Item Value Reference Range Interpretation Comments CULTURE (BEAKER) (test No growth in 5 days code = 1095) The specimen volume collected for this blood culture was below the optimum (10 mL per bottle or 20 mL total). Use of lower volumes may adversely affect recovery and/or detection times of some organisms.POCT-GLUCOSE [id number] 14:36:04 Test Item Value Reference Range Interpretation Comments POC-GLUCOSE METER 115 mg/dL 70-110 H : TESTED A T [facility] 6720 (BEAKER) (test code [facility], = 1538) 867[address]: Weatherization Director/Techni carol ID = [id number] for Jaswinder hamilton ([facility]), Deborah BASIC METABOLIC [id number] 14:32:42 Test Item Value Reference Range Interpretation [...] eGF R is based on the CKD-EPI 2021 equation that d oes not use a race coefficientEsti mated GFR is not as accur ate as Creatinine Eugenia mesha in predicting glom erular filtration rate . Estimated GFR is not appl icable for dialysis patien ts Weatherization Director ID - [id number] 14:32:42 Test Item Value Reference Range Interpretation Comments MAGNESIUM (BEAKER) (test code = 2.3 mg/dL 1.6-2.6 627) Weatherization Director ID - EOOPOCT-GLUCOSE [id number] 11:22:50 Test Item Value Reference Range Interpretation Comments POC-GLUCOSE METER 114 mg/dL 70-110 H : [facility]ED [facility] (BEAKER) (test code = TREVOR [place], 1538) [address]: Weatherization Director/Techni carol ID = [id number] for An Christel weiss XR CHEST 1 VIEW PORTABLE / [id number] 06:21:45 [facility] : 1965 Sex: MXR CHEST [...] Signed By: Ken Muniz11/10/2022 06:23 CDTWorkstation Name: [id number] METABOLIC PANEL 2022-11-10 04:58:19 Test Item Value [...] not appl icable for dialysis patien ts Weatherization Director ID - BVOperator ID - NWMROSAIYMOPW2498-06-03 04:14:08 Test Item Value Reference Range Interpretation Comments PHOSPHORUS (BEAKER) (test code = 3.3 mg/dL 2.3-4.7 604) Weatherization Director ID - [id number] 04:14:07 Test Item Value Reference Range Interpretation Comments MAGNESIUM (BEAKER) (test code = 1.9 mg/dL 1.6-2.6 627) Weatherization Director ID - BVPOCT-GLUCOSE [id number] 03:53:24 Test Item Value Reference Range Interpretation Comments POC-GLUCOSE METER 105 mg/dL 70-110 : TESTED A T [facility] 6720 (BEAKER) (test code = T[place], 1538) [address]: Weatherization Director/Techni carol ID = [id number] for LEAH SEGAL CBC W/PLT COUNT & AUTO [id number] 03:46:39 Test Item Value Reference Range Interpretation [...] (BEAKER) (test code = 2801) BLOOD GAS, [id number] 03:43:46 Test Item Value Reference Range Interpretation [...] (BEAKER) (test code = 1819) 32.0 POCT-GLUCOSE [id number] 22:29:45 Test Item Value Reference Range Interpretation Comments POC-GLUCOSE METER 149 mg/dL 70-110 H : TESTED A T [facility] 6720 (BEAKER) (test code = [facility], 1538) 76399: Weatherization Director/Techni carol ID = [id number] for LEAH SEGAL POCT-GLUCOSE [id number] 14:53:25 Test Item Value Reference Range Interpretation Comments POC-GLUCOSE METER 131 mg/dL 70-110 H : TESTED A T [facility] 6720 (BEAKER) (test code = [facility], 1538) 07292: Weatherization Director/Techni carol ID = [id number] for An akDamaso camposia POCT-GLUCOSE [id number] 11:25:13 Test Item Value Reference Range Interpretation Comments POC-GLUCOSE METER 125 mg/dL 70-110 H : TESTED A T [facility] 6720 (BEAKER) (test code = [facility], 1538) 50421: Weatherization Director/Techni carol ID = [id number] for An akani, Christel XR CHEST 1 VIEW PORTABLE / [id number] 09:08:16 [facility] BRETT SAL[facility]AR: 1965 Sex: MEXAMINATION: XR CHEST 1 VIEW [...] Signed By: Amita Bernal11/09/2022 09:10 CDTWorkstation Name: [id number] 03:52:49 Test Item Value Reference Range Interpretation Comments MAGNESIUM (BEAKER) (test code = 2.3 mg/dL 1.6-2.6 627) Weatherization Director ID - [id number] 03:52:49 Test Item Value Reference Range Interpretation Comments PHOSPHORUS (BEAKER) (test code = 2.4 mg/dL 2.3-4.7 604) Weatherization Director ID - MARCOBASIC METABOLIC [id number] 03:52:48 Test Item Value Reference Range Interpretation [...] not appl icable for dialysis patien ts Weatherization Director ID - MARCOCBC W/PLT COUNT & AUTO [id number] 03:35:35 Test Item Value Reference Range Interpretation [...] (BEAKER) (test code = 2801) BLOOD GAS, [id number] 03:29:39 Test Item Value Reference Range Interpretation [...] (BEAKER) (test code = 1819) 24.0 POCT-GLUCOSE [id number] 02:52:45 Test Item Value Reference Range Interpretation Comments POC-GLUCOSE METER 110 mg/dL 70-110 : TESTED A T [facility] 6720 (BEAKER) (test code = [place], 1538) [address]: Weatherization Director/Techni carol ID = [id number] for LEAH SEGAL POCT-GLUCOSE [id number] 02:49:54 Test Item Value Reference Range Interpretation Comments POC-GLUCOSE METER 167 mg/dL 70-110 H : TESTED A T [facility] 6720 (BEAKER) (test code = [place], 1538) 42602: Weatherization Director/Techni carol ID = [id number] for LEAH SEGAL BASIC METABOLIC [id number] 16:07:43 Test Item Value Reference Range Interpretation [...] not appl icable for dialysis patien ts Weatherization Director ID - DBSPUTUM CULTURE + GRAM [id number] 10:16:15 Test Item Value Reference Range Interpretation Comments CULTURE A 1+ Beta-hemolyt ic (BEAKER) (test streptococcus group code = 1095) G, by serologic al grouping GRAM STAIN 4+ WBCs RESULT (BEAKER) (test code = 1123) GRAM STAIN 1+ gram positive RESULT (BEAKER) cocci in chains and (test code = pairs 850475) GRAM STAIN 1+ gram negative RESULT (BEAKER) coccobacilli (test code = 726933) GRAM STAIN <1+ gram positive RESULT (BEAKER) rods (test code = 225708) GRAM STAIN <1+ gram positive RESULT (BEAKER) cocci in clusters (test code = 854283) 3+ Normal respiratory kei presentXR CHEST 1 VIEW PORTABLE / [id number] 06:31:38[facility] : 1965 Sex: MChest one v iew:HISTORY: PneumoniaCompared to 11/07/2022. Bibasilar subsegmental atelectasis is present and improved on the left.There is a minimal left pleural effusion. Cardiac size remains withinnormal limits. Anendotracheal tube and enteric feeding tube appearunchanged in position.Electronically Signed By: Timmy Mcintyre11/08/2022 06:33 CDTWorkstation Name: [id number] 03:37:56 Test Item Value Reference Range Interpretation Comments MAGNESIUM (BEAKER) (test code = 2.3 mg/dL 1.6-2.6 627) Weatherization Director ID - [id number] 03:37:56 Test Item Value Reference Range Interpretation Comments PHOSPHORUS (BEAKER) (test code = 3.2 mg/dL 2.3-4.7 604) Weatherization Director ID - ADMINBASIC METABOLIC [id number] 03:37:55 Test Item Value Reference Range Interpretation [...] not appl icable for dialysis patien ts Weatherization Director ID - ADMINCBC W/PLT COUNT & AUTO [id number] 03:32:03 Test Item Value Reference Range Interpretation [...] (BEAKER) (test code = 2801) BLOOD GAS, [id number] 03:15:14 Test Item Value Reference Range Interpretation [...] (BEAKER) (test code = 1819) 24.0 POCT-GLUCOSE [id number] 23:26:56 Test Item Value Reference Range Interpretation Comments POC-GLUCOSE METER 133 mg/dL 70-110 H : TESTED A T [facility] 6720 (KOMAL) (test code = TREVOR Huerta [facility], 1538) 12123: Weatherization Director/Techni carol ID = [id number] for IR FATOU TEAGUE POCT-GLUCOSE [id number] 19:00:51 Test Item Value Reference Range Interpretation Comments POC-GLUCOSE METER 125 mg/dL 70-110 H : Notified RN/MD: (KOMAL) (test code = TESTED AT [facility] 6720 1538) MARIZOL [facility], [address]: Weatherization Director/Techni carol ID = [id number] for MISSY MUIR XR CHEST 1 VIEW PORTABLE / [id number] 18:19:28 [facility] : 1965 Sex: MExam: XR CHEST 1 VIEW PORTABLE / BEDSIDEDate: 11/07/2022 6:18 PMIndication:worsening hypoxiaComparison: Chest radiograph from earlier today.IMPRESSION:Lines/Tubes:Unchanged support devices.Lungs and Pleura : Low kell ng volumes. Mildly increasing perihilaropacities. Trace bilateral pleural effusions. No pneumothorax.Heart/Mediastinum:Unchanged.Bones/Soft Tissues: No acute osseous abnormality.Upper abdomen: Unremarkable.Electronically Signed By: Gerardo Cheng11/07/2022 18:21 CDTWorkstation Name: [id number] METABOLIC PANEL 2022-11-07 17:42:19 Test Item Value [...] not appl icable for dialysis patien ts Weatherization Director ID - ADMINBLOOD GAS, [id number] 17:07:40 Test Item Value Reference Range Interpretation [...] (test code = 1819) 21.0 BASIC METABOLIC [id number] 16:56:17 Test Item Value Reference Range Interpretation [...] not appl icable for dialysis patien ts Weatherization Director ID - BSUS RENAL [id number] 16:15:21 [facility] : 1965 Sex: MEXAM: Renal [...] Signed By: Amita Bernal11/07/2022 16:17 CDTWorkstation Name: [id number] NITROGEN, RANDOM [id number] 14:25:38 Test Item Value Reference Range Interpretation Comments UREA NITROGEN URINE (BEAKER) (test 351 mg/dL code = 538) Reference Range: No NormalsOperator ID - ADMINCREATININE, RANDOM [id number] 14:25:37 Test Item Value Reference Range Interpretation Comments CREATININE URINE (BEAKER) (test 117.9 mg/dL code = 375) Reference Range: No NormalsOperator ID - ADMINSODIUM, RANDOM [id number] 14:25:37 Test Item Value Reference Range Interpretation Comments SODIUM URINE (BEAKER) (test code = 43 meq/L 243) Reference Range: No NormalsOperator ID - ADMINBASIC METABOLIC [id number] 14:01:34 Test Item Value Reference Range Interpretation [...] not appl icable for dialysis patien ts Weatherization Director ID - MARCOB-TYPE NATRIURETIC FACTOR (BNP)2022-11-07 13:54:47 Test Item Value Reference Range Interpretation Comments B-TYPE NATRIURETIC PEPTIDE (BEAKER) 108 pg/mL 0-100 H (test code = 700) Weatherization Director ID - MARCOBLOOD GAS, [id number] 13:38:48 Test Item Value Reference Range Interpretation [...] (BEAKER) (test code = 1819) 21 OSMOLALITY, [id number] 12:37:47 Test Item Value Reference Range Interpretation Comments OSMOLALITY, SERUM (BEAKER) (test 302 mOsm/kg 275-295 H code = 615) POCT-GLUCOSE [id number] 12:14:10 Test Item Value Reference Range Interpretation Comments POC-GLUCOSE METER 144 mg/dL 70-110 H : Notified RN/MD: (BEAKER) (test code = TESTED AT [facility] 8396 4819) [place], [address]: Weatherization Director/Techni carol ID = [id number] for MISSY MUIR CREATINE KINASE (CK)2022-11-07 12:06:52 Test Item Value Reference Range Interpretation Comments CREATINE KINASE TOTAL (BEAKER) (test 393 U/L 29-200 H code = 380) Weatherization Director ID - MARCOOSMOLALITY, [id number] 11:47:18 Test Item Value Reference Range Interpretation Comments OSMOLALITY URINE 355 mOsm/kg See_Comment [Automated message] (BEAKER) (test code = The sy stem which 614) generated this result transmitted ref erence range: 50-1,200 mOsm/kg. The reference range was not used to int erpret this result as normal/abnormal . URINALYSIS WITH MICROSCOPIC IF [id number] 11:46:16 Test Item Value Reference Range Interpretation Comments COLOR (BEAKER) (test code = 470) [place] CLARITY (BEAKER) (test code = 469) Hazy [...] = 463) SOURCE(BEAKER) (test code = 2795) Weatherization Director ID - [auto]Weatherization Director ID - techURINALYSIS [id number] 11:46:16 Test Item Value Reference Range Interpretation Comments RBC UA (BEAKER) (test code = 519) 56 /HPF WBC UA (BEAKER) (test code = 520) 14 /HPF MUCUS (BEAKER) (test code = 1574) Rare SQUAMOUS EPITHELIAL (BEAKER) (test < /HPF code = 516) CASTS (BEAKER) (test code = 1579) 1 /LPF CRYSTALS, URINE (BEAKER) (test Occasional None Seen A code = 1521) Weatherization Director ID - techBLOOD GAS, [id number] 09:07:12 Test Item Value Reference Range Interpretation [...] (test code = 1819) 30.0 HEPATIC FUNCTION [id number] 08:17:04 Test Item Value Reference Range Interpretation [...] (test code = 24 U/L 6-55 347) Weatherization Director ID - MARCOXR CHEST 1 VIEW PORTABLE / [id number] 06:56:03 [facility] : 1965 Sex: MCLINICAL HISTORY: pneumonia follow-upTECHNIQUE: 1 view of the chest.COMPARISON: 11/06/2022IMPRESSION:ETT terminates 3 cm above the ulisses. Feeding tube now seen in theduodenum. Low lung volumes are again seen with decreased right perihilarairspace opacity. There are no significant appearing effusions. Thecardiomediastinal silhouette is magnified by technique.Electronically Signed By: Del Macdonald11/07/2022 06:58 CDTWorkstation Name: [id number] METABOLIC [id number] 04:01:18 Test Item Value Reference Range Interpretation [...] not appl icable for dialysis patien ts Weatherization Director ID - [id number] 03:53:48 Test Item Value Reference Range Interpretation Comments MAGNESIUM (BEAKER) (test code = 2.0 mg/dL 1.6-2.6 627) Weatherization Director ID - [id number] 03:53:48 Test Item Value Reference Range Interpretation Comments PHOSPHORUS (BEAKER) (test code = 4.8 mg/dL 2.3-4.7 H 604) Weatherization Director ID - ADMINCBC W/PLT COUNT & AUTO [id number] 03:39:24 Test Item Value Reference Range Interpretation [...] (BEAKER) (test code = 2801) BLOOD GAS, [id number] 03:20:41 Test Item Value Reference Range Interpretation [...] (test code = 1819) 60.0 BLOOD GAS, [id number] 23:12:54 Test Item Value Reference Range Interpretation [...] = 1819) 80.0 XR ABDOMEN/KUB 1 VIEW [id number] 22:12:42 [facility] SAL[facility] : 1965 Sex: MTECHNIQUE:XR ABDOMEN/KUB 1 VIEW PORTABLEINDICATION: corpak.COMPARISON: 11/06/2022FINDINGS:Feeding tube tip projects over the first portion of the duodenum. Nospecific evidence for bowel obstruction. Supine radiographs areinsensitive for detection of free intraperitoneal air.IMPRESSION:Feeding tube tip now projects over the first portion of the duodenum.Electronically Signed By: Oscar Orosco11/06/2022 22:14 CDTWorkstation Name: [id number] GAS, [id number] 20:54:23 Test Item Value Reference Range Interpretation [...] (test code = 1819) 100.0 BLOOD GAS, [id number] 20:16:35 Test Item Value Reference Range Interpretation [...] = 1819) 100.0 XR ABDOMEN/KUB 1 VIEW [id number] 19:23:18 [facility] : 1965 Sex: MTECHNIQUE:XR ABDOMEN/KUB 1 VIEW PORTABLEINDICATION: corpak.COMPARISON: 11/04/2022FINDINGS:Feeding tube with the tip projecting over the gastric fundus. Mildgaseous distention of the stomach. No specific evidence for bowelobstruction. Supine radiographs are insensitive for detection of freeintraperitoneal air.IMPRESSION:Feeding tube tip projects over the gastric fundus.Electronically Signed By: Oscar Orosco11/06/2022 19:25 CDTWorkstation Name: [id number] CHEST 1 VIEW PORTABLE / [id number] 19:07:36[facility] : 1965 Sex: MTECHNIQUE:Frontal view [...] Signed By: Oscar Orosco11/06/2022 19:09 CDTWorkstation Name: [id number] GAS, [id number] 18:22:09 Test Item Value Reference Range Interpretation [...] (BEAKER) (test code = 1819) 100.0 POCT-GLUCOSE [id number] 17:11:20 Test Item Value Reference Range Interpretation Comments POC-GLUCOSE METER 143 mg/dL 70-110 H : TESTED A T [facility] 6720 (BEAKER) (test code = TREVOR Huerta [place], 1538) [address]: Weatherization Director/Techni carol ID = [id number] for David García BLOOD GAS, [id number] 17:03:39 Test Item Value Reference Range Interpretation [...] 50.0 XR CHEST 1 VIEW PORTABLE / [id number] 15:04:51 [facility]EL [facility]ER[facility] : 1965 Sex: MCLINICAL HISTORY: Respiratory distress TECHNIQUE: 1 view of the chest.COMPARISON: 11/06/2022IMPRESSION:ETT removal. Feeding tube remains below the diaphragm.There is new right lung base consolidation/atelectasis. Left infrahilaratelectasis is unchanged. There is blunting of the right costophrenicangle. The cardiome diastinal silhouette is magnified by technique.Electronically Signed By: Del Macdonald11/06/2022 15:06 CDTWorkstation Name: [id number] GAS, ARTERIAL 2022-11-06 13:58:39 Test Item Value [...] (BEAKER) (test code = 1819) 44.0 POCT-GLUCOSE [id number] 13:32:55 Test Item Value Reference Range Interpretation Comments POC-GLUCOSE METER 100 mg/dL 70-110 : TESTED A T [facility] 6720 (BEAKER) (test code = [place], 1538) [address]: Weatherization Director/Techni carol ID = [id number] for David García [id number] 12:02:30 Test Item Value Reference Range Interpretation Comments PROCALCITONIN (BEAKER) (test code 0.12 ng/mL <0.05 H = 3036) SEPSIS RISK (ng/mL)Low: 0.05-0.50Intermediate: 0.51-2.00High: >=2.01LACTIC ACID, [id number] 11:45:29 Test Item Value Reference Range Interpretation Comments LACTATE BLOOD VENOUS 0.94 mmol/L 0.50-2.00 Specime n slightly (2) (BEAKER) (test hemolyzed code = 2872) Weatherization Director ID - STELLACT-GLUCOSE [id number] 09:00:12 Test Item Value Reference Range Interpretation Comments POC-GLUCOSE METER 114 mg/dL 70-110 H : TESTED A T [facility] 6720 (BEAKER) (test code = [place], 1538) [address]: Weatherization Director/Techni carol ID = [id number] for David García XR CHEST 1 VIEW PORTABLE / [id number] 08:33:53 [facility] YARIEL[facility]TT : 1965 Sex: MCLINICAL HISTORY: IntubatedTECHNIQUE: 1 view of the chest.COMPARISON: 11/05/2022IMPRESSION:ETT and feeding tube unchanged. Bibasilar bandlike opacities unchanged.No significant pleural fluid. The cardiomediastinal silhouette ismagnified by technique.Electronically Signed By: Del Macdonald11/06/2022 08:35 CDTWorkstation Name: [id number] GAS, [id number] 04:54:00 Test Item Value Reference Range Interpretation [...] (test code = 1819) 24.0 BASIC METABOLIC [id number] 04:25:31 Test Item Value Reference Range Interpretation [...] eGF R is based on the CKD-EPI 2021 equation that d oes not use a race coefficientEsti mated GFR is not as accur ate as Creatinine Eugenia zimmer in predicting glom erular filtration rate . Estimated GFR is not appl icable for dialysis patien ts Weatherization Director ID - DBCBC W/PLT COUNT & AUTO [id number] 04:12:40 Test Item Value Reference Range Interpretation [...] PERCENT (BEAKER) (test code = 2801) POCT-GLUCOSE [id number] 04:02:47 Test Item Value Reference Range Interpretation Comments POC-GLUCOSE METER 118 mg/dL 70-110 H : TESTED A T [facility] 6720 (BEAKER) (test code = TREVOR Huerta [facility], 1538) [address]: Weatherization Director/Techni carol ID = [id number] for MONICO SEGALI TH POCT-GLUCOSE [id number] 22:18:43 Test Item Value Reference Range Interpretation Comments POC-GLUCOSE METER 112 mg/dL 70-110 H : TESTED A T [facility] 6720 (BEAKER) (test code = [facility] Deanna [facility], 1538) [address]: Weatherization Director/Techni carol ID = [id number] for MONICO SEGALI TH POCT-GLUCOSE [id number] 18:11:35 Test Item Value Reference Range Interpretation Comments POC-GLUCOSE METER 100 mg/dL 70-110 : TESTED A T [facility] 6720 (BEAKER) (test code = [facility] Deanna [facility], 1538) [address]: Weatherization Director/Techni carol ID = [id number] for Indu Davidson URINALYSIS WITH MICROSCOPIC IF [id number] 14:21:46 Test Item Value Reference Range Interpretation [...] = 463) SOURCE(BEAKER) (test code = 2795) Weatherization Director ID - [auto]XR CHEST 1 VIEW PORTABLE / [id number] 13:26:09 [facility] : 1965 Sex: MCLINICAL HISTORY: IntubatedTECHNIQUE: 1 view of the chest.COMPARISON: 11/04/2022IMPRESSION:ETT again seen. New feeding tube in the distal stomach. There isincreased right basilar atelectasis. There is no significant pleuralfluid.Electronically Signed By: Del Macdonald11/05/2022 13:28 CDTWorkstation Name: [id number] GAS, ARTERIAL 2022-11-05 09:38:22 Test Item Value [...] (BEAKER) (test code = 1819) 21.0 POCT-GLUCOSE [id number] 06:10:38 Test Item Value Reference Range Interpretation Comments POC-GLUCOSE METER 94 mg/dL 70-110 : TESTED A T [facility] 6720 (BEAKER) (test code = [place], 1538) [address]: Weatherization Director/Techni caorl ID = [id number] for [place] Ahmadi BASIC METABOLIC [id number] 03:44:06 Test Item Value Reference Range Interpretation [...] not appl icable for dialysis patien ts Weatherization Director ID - [id number] 03:44:06 Test Item Value Reference Range Interpretation Comments MAGNESIUM (BEAKER) (test code = 2.5 mg/dL 1.6-2.6 627) Weatherization Director ID - [id number] 03:44:06 Test Item Value Reference Range Interpretation Comments PHOSPHORUS (BEAKER) (test code = 2.7 mg/dL 2.3-4.7 604) Weatherization Director ID - bvPROTHROMBIN TIME/[id number] 03:44:05 Test Item Value Reference Range Interpretation [...] mechanical heart valves.CBC W/PLT COUNT & AUTO [id number] 03:34:51 Test Item Value Reference Range Interpretation [...] (BEAKER) (test code = 2801) BLOOD GAS, [id number] 03:23:38 Test Item Value Reference Range Interpretation [...] = 1819) 100.0 CT BRAIN WITHOUT IV [id number] 01:08:18 [facility] : 1965 Sex: [...] Signed By: Claudio Valencia11/05/2022 01:11 CDTWorkstation Name: [id number] ABDOMEN/KUB 1 VIEW [id number] 17:52:58 [facility] : 1965 Sex: MXR ABDOMEN/KUB 1 VIEW PORTABLEINDICATION: Dixon advanceCOMPARISON: NoneTECHNIQUE: Limited portable radiograph of the lower chest and upperabdomen was acquired for purposes of evaluating tube placementFINDINGS/IMPRESSION:Feeding tube tip overlies the distal stomach. Electronically Signed By: Patricia Espinosa11/04/2022 17:55 CDTWorkstation Name: [id number] 17:26:34 Test Item Value Reference Range Interpretation Comments PHOSPHORUS (BEAKER) (test code = 3.4 mg/dL 2.3-4.7 604) Weatherization Director ID - [id number] 17:26:34 Test Item Value Reference Range Interpretation Comments POTASSIUM (BEAKER) (test code = 4.2 meq/L 3.5-5.1 379) Weatherization Director ID - [id number] 17:26:33 Test Item Value Reference Range Interpretation Comments MAGNESIUM (BEAKER) (test code = 3.2 mg/dL 1.6-2.6 H 627) Weatherization Director ID - ADMINXR ABDOMEN/KUB 1 VIEW [id number] 14:07:03 [facility] : 1965 Sex: MXR ABDOMEN/KUB [...] Signed By: Maida Story11/04/2022 14:09 CDTWorkstation Name: [id number] GAS, [id number] 11:02:55 Test Item Value Reference Range Interpretation [...] (BEAKER) (test code = 1819) 30.0 HEMOGLOBIN [id number] 11:01:34 Test Item Value Reference Range Interpretation Comments HEMOGLOBIN A1C 5.6 % See_Comment [Automated m essage] ELECTROPHORESIS (BEAKER) The system which (test code = 3811) generated this result transmitted ref erence range: <=5.6%. The reference range was not used to int erpret this result as normal/abnormal . "The A1c is measured using a GREAT [facility]-certified method. HbA1c value equal to or greater than 6.5% as thediagnosis cutoff for diabetes. An HbA1c value of 5.7- 6.4% indicates increased risk for diabetes (prediabetes)."Weatherization Director ID - ADM HEPATIC FUNCTION [id number] 10:57:01 Test Item Value Reference Range Interpretation [...] (test code = 16 U/L 6-55 347) Weatherization Director ID - EOOCTA [id number] 08:10:09 [facility] : 1965 Sex: MCT BRAIN WITHOUT IV CONTRAST, CTA CAROTID, CTA BRAINBRAIN CT WITHOUT CONTRASTINDICATION: Cerebral hemorrhage suspectedCOMPARISON: CT head, 11/03/2022TECHNIQUE:Rapid acquisition spiral images were obtained between the aortic archand the cranial vertex during intravenous contrast infusion toreconstruct axial imagesand angiographic 3D maximum intensityprojections (MIP). 3-D volumetric reformatted images were created at [employer] workstation. Precontrast images of the brain were alsoobtained. Stenosis evaluation reported in compliance with NASCET criteria.DOSE REDUCTION: Dose modulation, iterative reconstruction, and/orweight-based adjustment of the mA/kV was utilized to [...] cavernous and supraclinoid portionspatent. Middle cerebral arteries: Patentto distal branches.Anterior cerebral arteries: Patent. No A-comm aneurysm.Basilar system: Patent vertebrobasilar system.Posterior cerebral arteries:Patent P1 and P2 segments. Venous opacification: Major dural sinuses unremarkable for bolus timing.Additional findings: None.CTA NECK:Common carotid arteries: The common carotid arteries are normal in size. Bifurcations: No flow-limiting stenosis. Cervical internal carotid arteries: No flow limiting stenosis.Vertebral arteries: Codominant. No origin stenosis.Arch anatomy: Conventional.Nonvascular findings:Osseous structures: No acute osseous abnormality. Intact calvarium andskull base. Mild spondylosis and facet arthropathy are present withinthe spine.Cervical soft tissues: No adenopathy. Patent aerodigestive tract. Theendotracheal tube extends to theproximal trachea.Lung apices: No apical consolidation or pneumothorax.IMPRESSION:CT brain:1. No significant change.2. Evolving 3.7 x 2.0 x 2.5 cm intraparenchymal hematoma in the leftpons extending to the left midbrain3. Chronic lacunar infarct in the right basal ganglia.CTA head and neck:1. No acute vascular abnormality in the head and neck.Electronically Signed By: Nelson Delvalle11/04/2022 08:12 CDTWorkstation Name: [id number] 08:10:09[facility] SAL[facility] : 1965 Sex: MCT BRAIN WITHOUT IV CONTRAST, CTA CAROTID, CTA BRAINBRAIN CT WITHOUT CONTRASTINDICATION: Cerebral hemorrhage suspectedCOMPARISON: CT head, 11/03/2022TECHNIQUE:Rapid acquisition spiral images were obtained between the aortic archand the cranial vertex during intravenous contrast infusion toreconstruct axial images and angiographic 3D maximum intensityprojections (MIP). 3-D volumetric reformatted images were created at [employer] workstation. Precontrast images of the brain were [...] Signed By: Nelson Delvalle11/04/2022 08:12 CDTWorkstation Name: [id number] BRAIN WITHOUT IV CONTRAST 2022-11-04 08:10:09 [facility] : 1965 Sex: MCT BRAIN WITHOUT IV CONTRAST, CTA CAROTID, CTA BRAINBRAIN CT WITHOUT CONTRASTINDICATION: Cerebral hemorrhage suspectedCOMPARISON: CT head, 11/03/2022TECHNIQUE:Rapid acquisition spiral images were obtained between the aortic archand the cranial vertex during intravenous contrast infusion toreconstruct axial images and angiographic 3D maximum intensityprojections (MIP). 3-D volumetric reformatted images were created at [employer] workstation. Precontrast images of the brain were [...] Signed By: Nelson Delvalle11/04/2022 08:12 CDTWorkstation Name: [id number] 08:03:30 Test Item Value Reference Range Interpretation Comments PHOSPHORUS (BEAKER) (test code = 2.8 mg/dL 2.3-4.7 604) Weatherization Director ID - [id number] 07:50:14 Test Item Value Reference Range Interpretation Comments FIBRINOGEN LEVEL (BEAKER) (test 279 mg/dl 225-434 code = 658) [id number] 07:50:14 Test Item Value Reference Range Interpretation Comments PARTIAL THROMBOPLASTIN TIME 26.5 seconds 22.5-36.0 (BEAKER) (test code = 760) PROTHROMBIN TIME/[id number] 07:49:36 Test Item Value Reference Range Interpretation Comments PROTIME (BEAKER) (test code = 14.8 seconds 11.9-14.2 H 759) INR (BEAKER) (test code = 370) 1.23 <=5.90 RECOMMENDED COUMADIN/WARFARIN INR THERAPY RANGESSTANDARD DOSE: 2.0 - 3.0 Includes: PROPHYLAXIS for venous thrombosis, systemic embolization; TREATMENT for venous thrombosis and/or pulmonary embolus.HIGH RISK: Target INR is 2.5-3.5 for patients with mechanical heart valves.BLOOD GAS, [id number] 06:29:10 Test Item Value Reference Range Interpretation [...] 40.0 XR CHEST 1 VIEW PORTABLE / [id number] 06:26:18 [facility] SAL[facility] : 1965 Sex: MXR CHEST 1VIEW PORTABLE / BEDSIDEINDICATION: post intubationCOMPARISON: Prior day's examFINDINGS: Portable frontal view of the chest. IMPRESSION:Support Lines: ET tube tip is 4 cm superior to the ulisses. Lungs and pleura: Lungs are clear No significant pneumothorax.Heart and mediastinum: Normal contours.Additional findings: None.Electronically Signed By: Patricia Espinosa11/04/2022 06:28 CDTWorkstation Name: [id number] 01:46:30 Test Item Value Reference Range Interpretation Comments PHOSPHORUS (BEAKER) 1.0 mg/dL 2.3-4.7 LL Specimen slightly (test code = 604) hemolyzed Weatherization Director ID - ADMINBASIC METABOLIC [id number] 01:43:50 Test Item Value Reference Range Interpretation [...] not appl icable for dialysis patien ts Weatherization Director ID - [id number] 01:43:28 Test Item Value Reference Range Interpretation Comments MAGNESIUM (BEAKER) 1.8 mg/dL 1.6-2.6 Specimen slightly (test code = 627) hemolyzed Weatherization Director ID - ADMINBLOOD GAS, [id number] 01:29:20 Test Item Value Reference Range Interpretation [...] 1819) 40.0 CBC W/PLT COUNT & AUTO [id number] 01:01:10 Test Item Value Reference Range Interpretation [...] code = 2801) CT BRAIN WITHOUT IV [id number] 23:50:40 [facility] : 1965 Sex: [...] Signed By: Claudio Valencia11/03/2022 23:52 CDTWorkstation Name: [id number]
[2022-11-28] MEDS ORDERED: ACETAMINOPHEN 500 MG TAB PO PRN (11:15)
[2022-11-28] MEDS ORDERED: MORPHINE 2 MG/ML SYR IV PRN (11:15)
[2022-11-28] MEDS ORDERED: ONDANSETRON 4 MG/2 ML VIAL IV PRN (11:15)
[2022-11-28] MEDS: PIPER TAZO 3.375 GM in NA CHLORIDE 0.9% 100 ML IV SCH ×2 (11:48→16:58)
[2022-11-28] MEDS: NA CHLORIDE 0.9% 1,000 ML IV SCH (11:48)
[2022-11-28 12:07] LABS: Absolute Lymphocytes (CBC) 1.4 K/uL (0.7-4.9); Hematocrit 34.6 % (39.6-49.0); Lymphocytes % 7.4 % (15.3-44.8); MCV 79.3 fL (80-100); MPV 8.1 fL (7.6-11.3); Platelets 342 thou/uL (152-406); RBC Red Blood Cell Count 4.37 M/uL (4.33-5.43)
[2022-11-28 12:23] LABS: Albumin 2.4 g/dL (3.4-5.0); Bilirubin Total 0.3 mg/dL (0.2-1.0); Magnesium 2.5 mg/dL (1.6-2.4); Potassium 3.9 mEq/L (3.5-5.1); Protein, Total 6.8 g/dL (6.4-8.2)
[2022-11-28 13:42] VITALS: BMI 25.0
[2022-11-28] MEDS: ALBUTEROL 2.5 MG/3 ML NEB SOL NEB SCH ×2 (14:08→19:15)
[2022-11-28] MEDS: IPRATROPIUM BROM 0.5MG/2.5ML NEB SCH ×2 (14:08→19:15)
[2022-11-29] MEDS: IPRATROPIUM BROM 0.5MG/2.5ML NEB SCH ×4 (00:50→20:15)
[2022-11-29] MEDS: ALBUTEROL 2.5 MG/3 ML NEB SOL NEB SCH ×4 (00:50→20:15)
[2022-11-29] MEDS: PIPER TAZO 3.375 GM in NA CHLORIDE 0.9% 100 ML IV SCH ×3 (01:17→18:40)
[2022-11-29 03:39] LABS: Absolute Lymphocytes (CBC) 1.2 K/uL (0.7-4.9); Hematocrit 34.9 % (39.6-49.0); Lymphocytes % 7.3 % (15.3-44.8); MCV 79.3 fL (80-100); MPV 8.4 fL (7.6-11.3); Platelets 321 thou/uL (152-406); RBC Red Blood Cell Count 4.41 M/uL (4.33-5.43)
[2022-11-29 03:41] LABS: Protime INR 1.19
[2022-11-29 03:55] LABS: Albumin 2.4 g/dL (3.4-5.0); Bilirubin Total 0.3 mg/dL (0.2-1.0); Potassium 3.8 mEq/L (3.5-5.1); Protein, Total 6.7 g/dL (6.4-8.2)
--- NOTE | 2022-11-29 07:38 | RAD REPORT ---
EXAM DESCRIPTION: RAD - Chest Single View - 11/29/2022 6:47 am CLINICAL HISTORY: pneumonia Chest pain. COMPARISON: Abdomen 1 View (KUB) dated 11/27/2022; Chest Single View dated 11/26/2022; Chest Single Vi ew dated 11/03/2022; Chest Single View dated 06/30/2021 FINDINGS: Portable technique limits examination quality. The lungs are underinflated resulting in vascular crowding. This appears unchanged since 11/26/2022 p rior study. The heart is upper limit of normal in size. No displaced fractures. IMPRESSION: Stable chest since 11/26/2022 study.
[2022-11-29] MEDS: NA CHLORIDE 0.9% 1,000 ML IV SCH ×2 (10:51→14:40)
[2022-11-30] MEDS: PIPER TAZO 3.375 GM in NA CHLORIDE 0.9% 100 ML IV SCH ×3 (01:22→16:32)
[2022-11-30] MEDS: IPRATROPIUM BROM 0.5MG/2.5ML NEB SCH ×4 (02:10→20:10)
[2022-11-30] MEDS: ALBUTEROL 2.5 MG/3 ML NEB SOL NEB SCH ×4 (02:10→20:10)
[2022-11-30] MEDS: NA CHLORIDE 0.9% 1,000 ML IV SCH ×2 (04:00→16:32)
[2022-11-30] MEDS ORDERED: MELATONIN 3 MG TABLET PO PRN (05:06)
--- NOTE | 2022-11-30 05:06 | P.HP ---
Certification for Inpatient Patient admitted to: Inpatient With expected LOS: >2 Midnights Patient will require the following post-hospital care: None Practitioner: I am a practitioner with admitting privileges, knowledge of patient current condition, hospital course, and medical plan of care. Services: Services provided to patient in accordance with Admission requirements found in Title 42 Section 412.3 of the Code of Federal Regulations Patient History Date of Service: 11/28/22 Reason for admission: Leukocytosis and sepsis History of Present Illness: Patient is a 57-year-old gentleman whose prolonged hospital course over the last month started on November 04 after patient had a seizure and was brought to the emergency room. Patient's work-up in the emergency room revealed a hemorrhagic infarct in the basal ganglia region. Patient required intubation and PEG tube placement while patient was at [facility]. After patient was extubated patient did develop haemophilus influenza. Patient was treated with IV antibiotics and patient was transferred to [facility] inpatient rehab few days ago-November 26. Since patient has been in inpatient rehab patient has been having some upper respiratory symptoms. Patient was found to have leukocytosis and it appeared he was septic. Patient is deaf and he interacts with sign language. Patient is currently febrile and his white blood cell count has been elevated. Patient was transferred to inpatient hospitalization for further evaluation. Patient also has been having hematuria as patient had hydronephrosis on prior imaging studies. Patient continues to have hematuria. We will further evaluate and monitor H&H and we may need to consult urology. Patient will be admitted to inpatient services. Allergies No Known Allergies Allergy (Verified 11/26/22 15:46) Home Medications: Albuterol Neb [Proventil 0.083% Neb Soln] 1 amp IN Q6H 11/26/22 Duloxetine HCl [Cymbalta] 30 mg PO BEDTIME 11/26/22 Folic Acid 1 mg PO DAILY 11/26/22 Ipratropium Neb [Atrovent*] 1 amp IN Q6H 11/26/22 Melatonin [Melatonin*] 3 mg PO BEDTIME PRN 11/26/22 Multivit-Min/Ferrous Fumarate [Multivitamin Liquid] 5 ml PO DAILY 11/26/22 Pantoprazole Granules [Protonix Granules*] 40 mg PO BID 11/26/22 Terazosin HCl [Hytrin*] 2 mg PO BEDTIME 11/26/22 modafiniL [Provigil*] 100 mg PO DAILY 11/26/22 - Past Medical/Surgical History Has patient received pneumonia vaccine in the past: No Diabetic: No -: Hypertension -: deaf/mute -: CVA- hemorrhagic -: tonsillectomy -: PEG tube Psychosocial/ Personal History: Patient is Jehovah witness; would not want blood transfusion - Family History Mother Medical History: Cancer - Social History Smoking Status: Never smoker Alcohol use: No CD- Drugs: No Caffeine use: No Place of Residence: Home Review of Systems 10-point ROS is otherwise unremarkable Physical Examination - Vital Signs Temperature: 97.2 F Blood Pressure: 167/104 Pulse: 91 Respirations: 18 Pulse Ox (%): 93 - Physical Exam General: Alert, In no apparent distress, Cooperative, Mild distress HEENT: Atraumatic, PERRLA, Mucous membr. moist/pink, EOMI, Sclerae nonicteric Neck: Supple, 2+ carotid pulse no bruit, No LAD, Without JVD or thyroid abnormality Respiratory: Clear to auscultation bilaterally, Normal air movement Cardiovascular: Regular rate/rhythm, Normal S1 S2 Gastrointestinal: Normal bowel sounds, Soft and benign, Non-distended, No tenderness, Other (PEG tube) Musculoskeletal: No tenderness Integumentary: No rashes Neurological: Cranial nerves 3-12 intact, Abnormal gait, Abnormal speech, Abnormal strength, Abnormal tone Lymphatics: No axilla or inguinal lymphadenopathy Urinary: Smith catheter Assessment & Plan - Problems (Diagnosis) (1) Sepsis Current Visit: Yes Status: Acute (2) Leukocytosis Current Visit: Yes Status: Acute (3) Hemorrhagic stroke Current Visit: Yes Status: Acute (4) Pneumonia Current Visit: Yes Status: Acute (5) PEG tube malfunction Current Visit: Yes Status: Acute (6) Pneumonia Current Visit: Yes Status: Acute Qualifiers: Pneumonia type: due to Haemophilus influenzae (7) Gross hematuria Current Visit: Yes Status: Acute - Plan Plan: 1. Continue with IV antibiotics 2. Awaiting culture 3. Repeat chest x-ray 4. Monitor H&H and hematuria; may need to do bladder irrigation 5. Monitor pneumonic process. 6. Continue with nebs as needed 7. O2 per protocol 8. Continue with gentle hydration 9. Repeat labs 10. Neurochecks 11. PEG tube feeds 12. PT/OT/Speech therapy 13. Urology consult 14. GI and DVT prophylaxis Discharge Plan: Home Plan to discharge in: Greater than 2 days - Advance Directives Does patient have a Living Will: No Does patient have a Durable POA for Healthcare: No - Code Status/Comfort Care Code Status Assessed: Yes Code Status: Full Code Critical Care: No Time Spent Managing PTS Care (In Minutes): 45
[2022-11-30] MEDS ORDERED: TERAZOSIN HCL 1 MG CAP PO ONE (05:08)
[2022-11-30] MEDS: METOPROLOL TAR 50 MG TAB PO SCH ×2 (06:19→17:15)
[2022-11-30] MEDS: Pantoprazole (granules) 40 MG/BLIST PACKET PO SCH ×2 (08:32→20:35)
[2022-11-30] MEDS: FOLIC ACID 1 MG TABLET PO SCH (08:32)
[2022-11-30] MEDS: DULOXETINE 30 MG CAP PO SCH (20:35)
[2022-11-30] MEDS: TERAZOSIN HCL 1 MG CAP PO SCH (20:35)
[2022-12-01] MEDS: ALBUTEROL 2.5 MG/3 ML NEB SOL NEB SCH ×4 (01:00→18:50)
[2022-12-01] MEDS: IPRATROPIUM BROM 0.5MG/2.5ML NEB SCH ×4 (01:00→18:50)
[2022-12-01] MEDS: PIPER TAZO 3.375 GM in NA CHLORIDE 0.9% 100 ML IV SCH ×3 (02:17→16:38)
[2022-12-01] MEDS: METOPROLOL TAR 50 MG TAB PO SCH ×2 (06:19→16:38)
[2022-12-01] MEDS: NA CHLORIDE 0.9% 1,000 ML IV SCH ×3 (06:21→20:00)
[2022-12-01] MEDS: Pantoprazole (granules) 40 MG/BLIST PACKET PO SCH ×2 (08:40→21:54)
[2022-12-01] MEDS: FOLIC ACID 1 MG TABLET PO SCH (08:41)
[2022-12-01 13:15] LABS: Protime INR 1.17
[2022-12-01 13:20] LABS: Absolute Lymphocytes (CBC) 1.1 K/uL (0.7-4.9); Hematocrit 33.4 % (39.6-49.0); MCV 78.5 fL (80-100); MPV 7.9 fL (7.6-11.3); Platelets 347 thou/uL (152-406); RBC Red Blood Cell Count 4.26 M/uL (4.33-5.43)
[2022-12-01 13:51] LABS: Albumin 2.2 g/dL (3.4-5.0); Bilirubin Total 0.2 mg/dL (0.2-1.0); Magnesium 1.6 mg/dL (1.6-2.4); Potassium 3.9 mEq/L (3.5-5.1); Protein, Total 6.2 g/dL (6.4-8.2)
[2022-12-01 17:21] LABS: Specific Gravity 1.008 (1.005-1.030); Urine Bacteria <20 /HPF (<20); Urine Bilirubin NEGATIVE (Negative); Urine Blood 3+ (OVER) (Negative); Urine Clarity Extremely Turbid (Clear); Urine Color Brown (Yellow); Urine Glucose NEGATIVE (Negative); Urine Protein 1+ (Negative); Urine RBC >50 /HPF (None Seen); Urine Urobilinogen Normal (Normal)
--- NOTE | 2022-12-01 20:19 | P.CNS ---
Date of Consult: 12/01/22 Reason for Consult: gross hematuria Chief Complaint: Leukocytosis and sepsis History of Present Illness: 57-year-old deaf gentleman, who interacts via sign language, with pre-existing LUTS due to BPH on terazosin 2 mg, GERD and asthma p hemorrhagic CVA on 11/03/2022 with resultant right-sided weakness greater than left. He describes having noted the development of gross hematuria only 2 days ago, though I am told it began several days ago and recurred within the last 2 days. The patient has had the urethral Smith catheter placed since the CVA, but he acknowledges significant bothersome LUTS including frequency, urgency, and urge incontinence even prior to the CVA. He does not have significant sensation beneath the bellybutton; so he is unable to describe any dysuria or suprapubic pain. Past medical history as above Past surgical history: Unknown penile surgery at age 8 and PEG tube placement No known drug allergies Social history: Never smoker Examination: Reasonably well-appearing and in no acute distress Alert and awake Receiving a nebulizer treatment at the time of the evaluation actively No signs of dyspnea or respiratory distress Abdomen soft, nontender, nondistended with PEG tube in place in left upper quadrant Genitalia: Circumcised without lesion, orthotopic meatus patent with 18 [place] urethral Smith catheter in place and pink but translucent urine. Evidence of nursing having irrigated the catheter was present in the room. Scrotum without crepitus or erythema and at least the left testis was descended. 11/28/2022 WBC 19.4, hemoglobin 11.2, platelets 342 12/01/2022 WBC 10.2, creatinine 0.73, LFTs all elevated, UA micro 3+ heme, 1+ leukocyte Estrace, 20-50 WBCs, > 50 RBCs per hpf I was given a report of a CT scan that had been performed on this patient, but that imaging is not available in this medical record for my review. Patient was transferred from a facility in [place], but he does not recall the name. Assessment and recommendation: 57-year-old deaf gentleman, who interacts via sign language, with pre-existing LUTS due to BPH on Terazosin 2 mg, GERD, and asthma p hemorrhagic CVA 11/03/2022 with right hemiparesis greater than left now with gross hematuria and an indwelling 18 [place] urethral Smith catheter. -Follow-up urine culture, as infection likely source of the gross hematuria -Recommend exchange urethral Smith catheter and replace with an 18 [place] coud tip catheter that is placed to the hub to ensure adequate catheter positioning with balloon not situated within the prostatic fossa causing hematuria -If a report of a CT scan or imaging is available, I would appreciate the opportunity to review it, otherwise, in the absence of definitive infection seen, CT urography would be recommended. -Follow-up as an outpatient within the next 3 weeks for cystoscopy -May irrigate catheter, once exchanged, every 4 hours with 60 cc catheter tip syringe and NS, as long as his urine remains anything more than pink-tinged Allergies No Known Allergies Allergy (Verified 11/26/22 15:46) Home medications list reviewed: Yes Home Medications: Albuterol Neb [Proventil 0.083% Neb Soln] 1 amp IN Q6H 11/26/22 Duloxetine HCl [Cymbalta] 30 mg PO BEDTIME 11/26/22 Folic Acid 1 mg PO DAILY 11/26/22 Ipratropium Neb [Atrovent*] 1 amp IN Q6H 11/26/22 Melatonin [Melatonin*] 3 mg PO BEDTIME PRN 11/26/22 Multivit-Min/Ferrous Fumarate [Multivitamin Liquid] 5 ml PO DAILY 11/26/22 Pantoprazole Granules [Protonix Granules*] 40 mg PO BID 11/26/22 Terazosin HCl [Hytrin*] 2 mg PO BEDTIME 11/26/22 modafiniL [Provigil*] 100 mg PO DAILY 11/26/22 - Past Medical/Surgical History Diabetic: No -: htn -: deaf/mute -: CVA- hemorrhagic -: tonsillectomy - Family History Mother Medical History: Cancer - Social History Smoking Status: Unknown if ever smoked Alcohol use: No CD- Drugs: No Caffeine use: No Place of Residence: Home Physical Examination Temp Pulse Resp BP Pulse Ox 97.6 F 78 16 154/98 H 95 12/01/22 16:00 12/01/22 16:38 12/01/22 16:00 12/01/22 16:38 12/01/22 16:00 Laboratory Data (last 24 hrs) 12/01/22 12/01/22 12/01/22 12:53 12:53 12:53 WBC 10.20 Hgb 11.0 L Hct 33.4 L Plt Count 347 PT 12.9 H INR 1.17 APTT 30.0 Sodium 139 Potassium 3.9 BUN 22 H Creatinine 0.73 Glucose 111 H Magnesium 1.6 Total Bilirubin 0.2 AST 39 H ALT 118 H Alkaline Phosphatase 147 H - Problems (1) Voiding dysfunction Current Visit: Yes Status: Acute (2) Gross hematuria Current Visit: Yes Status: Acute (3) Hemorrhagic stroke Current Visit: Yes Status: Acute Critical Care: No Time Spent Managing Pts care (In Minutes): 40 (paraprofessional interpreter #[id number] for 18 minutes)
[2022-12-01] MEDS: DULOXETINE 30 MG CAP PO SCH (21:55)
[2022-12-01] MEDS: TERAZOSIN HCL 1 MG CAP PO SCH (21:55)
[2022-12-02] MEDS: ALBUTEROL 2.5 MG/3 ML NEB SOL NEB SCH ×4 (01:00→20:15)
[2022-12-02] MEDS: IPRATROPIUM BROM 0.5MG/2.5ML NEB SCH ×4 (01:00→20:15)
[2022-12-02] MEDS: VITAL AF 1,000 ML BOT FT SCH ×2 (01:03→09:00)
[2022-12-02] MEDS: PIPER TAZO 3.375 GM in NA CHLORIDE 0.9% 100 ML IV SCH ×3 (01:03→18:50)
[2022-12-02] MEDS ORDERED: NA CHLORIDE 0.9% 100 ML ONE (01:14)
--- NOTE | 2022-12-02 04:18 | P.PN ---
Subjective Date of Service: 11/29/22 Subjective: No new changes, No C/O voiced, Improving Patient continues to have some hematuria. Overall clinical symptoms are improving. Review of Systems 10-point ROS is otherwise unremarkable Physical Examination - Vital Signs Temperature: 97.2 F Blood Pressure: 167/104 Pulse: 91 Respirations: 18 Pulse Ox (%): 93 - Physical Exam General: Alert, In no apparent distress HEENT: Atraumatic, PERRLA, EOMI Neck: Supple, JVD not distended Respiratory: Clear to auscultation bilaterally, Normal air movement Cardiovascular: Regular rate/rhythm, Normal S1 S2, No murmurs Gastrointestinal: Normal bowel sounds, Soft and benign, Non-distended, No tenderness, Other (PEG tube) Musculoskeletal: No clubbing, No swelling, No tenderness Integumentary: No rashes Neurological: Sensation intact, Cranial nerves 3-12 intact - Studies Laboratory Data (last 24 hrs) 12/01/22 12/01/22 12/01/22 12:53 12:53 12:53 WBC 10.20 Hgb 11.0 L Hct 33.4 L Plt Count 347 PT 12.9 H INR 1.17 APTT 30.0 Sodium 139 Potassium 3.9 BUN 22 H Creatinine 0.73 Glucose 111 H Magnesium 1.6 Total Bilirubin 0.2 AST 39 H ALT 118 H Alkaline Phosphatase 147 H Medications List Reviewed: Yes Assessment & Plan - Problems (Diagnosis) (1) Sepsis Current Visit: Yes Status: Acute (2) Leukocytosis Current Visit: Yes Status: Acute (3) Hemorrhagic stroke Current Visit: Yes Status: Acute (4) PEG tube malfunction Current Visit: Yes Status: Acute (5) Pneumonia Current Visit: Yes Status: Acute Qualifiers: Pneumonia type: due to Haemophilus influenzae (6) Gross hematuria Current Visit: Yes Status: Acute - Plan Plan: Continue with plan of care as mentioned below: 1. Continue with IV antibiotics 2. Awaiting culture 3. Repeat chest x-ray 4. Monitor H&H and hematuria; may need to do bladder irrigation 5. Monitor pneumonic process. 6. Continue with nebs as needed 7. O2 per protocol 8. Continue with gentle hydration 9. Repeat labs 10. Neurochecks 11. PEG tube feeds 12. PT/OT/Speech therapy 13. Urology consult will be obtained if continues to have hematuria 14. GI and DVT prophylaxis - Advance Directives Does patient have a Living Will: No Does patient have a Durable POA for Healthcare: No - Code Status/Comfort Care Code Status: Full Code
--- NOTE | 2022-12-02 04:22 | P.PN ---
Date of Service: 11/30/22 Subjective Patient is doing well and patient denies any new complaints. Clinical symptoms are improving. Physical Examination - Vital Signs reviewed - Physical Exam General: Alert, In no apparent distress Respiratory: Clear to auscultation bilaterally, Normal air movement Cardiovascular: Regular rate/rhythm, Normal S1 S2, No murmurs Gastrointestinal: Normal bowel sounds, Soft and benign, Non-distended, No tenderness, Other (PEG tube) Musculoskeletal: No clubbing, No swelling, No tenderness Neurological: right sided weakness; 1/5-face upper extremity and lower extremity; left is 5/5 Assessment & Plan - Problems (Diagnosis) (1) Sepsis Current Visit: Yes Status: Acute (2) Leukocytosis Current Visit: Yes Status: Acute (3) Hemorrhagic stroke Current Visit: Yes Status: Acute (4) PEG tube malfunction Current Visit: Yes Status: Acute (5) Pneumonia Current Visit: Yes Status: Acute Qualifiers: Pneumonia type: due to Haemophilus influenzae (6) Gross hematuria Current Visit: Yes Status: Acute - Plan Plan: Continue with plan of care as mentioned below: 1. Continue with IV antibiotics 2. Cultures been negative 3. Chest x-ray will be repeated as needed 4. Monitor H&H 5. Monitor pneumonic process. 6. Continue with nebs as needed 7. O2 per protocol 8. Heplock IV 9. Repeat labs 10. Neurochecks 11. PEG tube feeds 12. PT/OT/Speech therapy appreciated 13. Urology consult in AM as patient with continued with hematuria 14. GI and DVT prophylaxis - Advance Directives Does patient have a Living Will: No Does patient have a Durable POA for Healthcare: No - Code Status/Comfort Care Code Status: Full Code
--- NOTE | 2022-12-02 04:26 | P.PN ---
Date of Service: 12/01/22 Subjective Patient continues to have gross hematuria. However, patient is tolerating tube feeds. Interacts with sign language on iPad. We will go ahead and try to get patient back to inpatient rehab as medically he is stable. Appreciate urology input and further evaluation. Continue with physical therapy/speech therapy/Occupational Therapy.Patient should be able to go back to inpatient rehab as long as her I can do any aggressive surgical intervention with urology. Hemoglobin is stable. Physical Examination - Vital Signs reviewed - Physical Exam General: Alert, In no apparent distress Respiratory: Clear to auscultation bilaterally, Normal air movement Cardiovascular: Regular rate/rhythm, Normal S1 S2, No murmurs Gastrointestinal: Normal bowel sounds, Soft and benign, Non-distended, No tenderness, Other (PEG tube) Musculoskeletal: No clubbing, No swelling, No tenderness Neurological: right sided weakness; 1/5-face upper extremity and lower extremity; left is 5/5 Assessment & Plan - Problems (Diagnosis) (1) Sepsis Current Visit: Yes Status: Acute (2) Leukocytosis Current Visit: Yes Status: Acute (3) Hemorrhagic stroke Current Visit: Yes Status: Acute (4) PEG tube malfunction Current Visit: Yes Status: Acute (5) Pneumonia Current Visit: Yes Status: Acute Qualifiers: Pneumonia type: due to Haemophilus influenzae (6) Gross hematuria Current Visit: Yes Status: Acute - Plan Plan: Continue with plan of care as mentioned below: 1. Continue with IV antibiotics 2. Cultures been negative 3. Chest x-ray will be repeated as needed 4. Monitor H&H; Hgb is stable-pt is a Jehovah Witness so unlikely to accept blood transfusion if needed 5. Monitor pneumonic process. Continue Zosyn for aspiration 6. Continue with nebs as needed 7. O2 per protocol 8. Heplock IV 9. Repeat labs 10. Neurochecks 11. PEG tube feeds at goal 12. PT/OT/Speech therapy appreciated 13. Urology consult for hematuria; appreciate their recommendations 14. GI and DVT prophylaxis - Advance Directives Does patient have a Living Will: No Does patient have a Durable POA for Healthcare: No - Code Status/Comfort Care Code Status: Full Code
[2022-12-02] MEDS: METOPROLOL TAR 50 MG TAB PO SCH ×2 (06:23→18:51)
--- NOTE | 2022-12-02 07:32 | RAD REPORT ---
EXAM DESCRIPTION: US - Renal Ultrasound-Complete - 12/01/2022 11:57 pm CLINICAL HISTORY: hematuria Flank pain COMPARISON: No comparisons FINDINGS: Both kidneys are normal in size, shape and echotexture. The right kidney measures 9.5 x 4.6 x 4.6 cm. No hydronephrosis, focal mass or perinephric fluid. The left kidney measures 10.8 x 5.4 x 5.0 cm.. No hydronephrosis, focal mass or perinephric fluid. 11 mm cyst noted parapelvic location. Urinary bladder appears filled with debris. IMPRESSION: No worrisome renal abnormality. Significant debris is present in the urinary bladder.
[2022-12-02 08:20] LABS: Albumin 2.6 g/dL (3.4-5.0); Bilirubin Total 0.2 mg/dL (0.2-1.0); Potassium 3.7 mEq/L (3.5-5.1); Protein, Total 6.7 g/dL (6.4-8.2)
[2022-12-02] MEDS: NA CHLORIDE 0.9% 1,000 ML IV SCH (09:52)
[2022-12-02] MEDS: Pantoprazole (granules) 40 MG/BLIST PACKET PO SCH ×2 (09:53→21:55)
[2022-12-02] MEDS: AMLODIPINE 10 MG TAB PO SCH (09:53)
[2022-12-02] MEDS: LOSARTAN POTASSIUM 50 MG TABLET PO SCH ×2 (09:54→21:56)
[2022-12-02] MEDS: FOLIC ACID 1 MG TABLET PO SCH (09:54)
--- NOTE | 2022-12-02 12:11 | P.PN ---
Subjective Date of Service: 12/02/22 Chief Complaint: Leukocytosis and sepsis Mr. Mat Tate has complete hearing loss (deafness). The following history was obtained with the assistance of [employer] certified Citizen Of [place] Sign Language- Jamaican media services specialist, Mr. Jonas Carpenter, (ID# [id number]). No acute events overnight. He reports generalized weakness. He feels that his symptoms are gradually improving; however, he continues to have gross hematuria. Urology has been consultedrecommendations appreciated. He denies any chest pain, palpitations, or shortness of breath. Review of Systems 10-point ROS is otherwise unremarkable General: Weakness (generalized) Physical Examination - Vital Signs Temperature: 97.8 F Blood Pressure: 160/99 Pulse: 69 Respirations: 18 Pulse Ox (%): 98 - Physical Exam General: Alert, In no apparent distress, Oriented x3 HEENT: Atraumatic, Mucous membr. moist/pink, Sclerae nonicteric Neck: JVD not distended Respiratory: Clear to auscultation bilaterally, Normal air movement Cardiovascular: No edema, Regular rate/rhythm, Normal S1 S2, No gallops, No rubs, No murmurs Gastrointestinal: Normal bowel sounds, Soft and benign, Non-distended, No tenderness, No rebound, No guarding, Other (PEG-tube site is clean, dry, intact) Musculoskeletal: No clubbing Integumentary: No rashes Neurological: Sensation intact, Other (left-sided facial droop), Abnormal strength (right-sided weakness (2-3/5 in RUE/RLE. 5/5 in LUE/LLE)) - Studies Laboratory Data (last 24 hrs) 12/02/22 12/01/22 12/01/22 07:53 12:53 12:53 WBC Hgb Hct Plt Count PT 12.9 H INR 1.17 APTT 30.0 Sodium 138 139 Potassium 3.7 3.9 BUN 22 H 22 H Creatinine 0.95 0.73 Glucose 125 H 111 H Magnesium 1.6 Total Bilirubin 0.2 0.2 AST 32 39 H ALT 112 H 118 H Alkaline Phosphatase 144 H 147 H 12/01/22 12:53 WBC 10.20 Hgb 11.0 L Hct 33.4 L Plt Count 347 PT INR APTT Sodium Potassium BUN Creatinine Glucose Magnesium Total Bilirubin AST ALT Alkaline Phosphatase Medications List Reviewed: Yes Assessment And Plan - Plan NIH Stroke Scale 1a. Level of consciousness: 0 - Alert; keenly responsive 1b. LOC questions: 0 - Both questions right 1c. LOC commands: 0 - Performs both tasks 2. Best Gaze: 0 - Normal 3. Visual: 0 - No visual loss 4. Facial Palsy: 3 - unilateral complete paralysis (upper/lower face) 5a. Motor left arm: 0 - No drift for 10 seconds 5b. Motor right arm: 1 - Drift, but doesn't hit bed 6a. Motor left le - No drift for 5 seconds 6b. Motor right le - Drift, hits bed 7. Limb ataxia: 0 - No ataxia 8. Sensory: 0 - Normal; no sensory loss 9. Best Language: 0 - Normal; no aphasia 10. Dysarthria: 0 - Unable to test 11. Extinction and Inattention: 0 - No abnormality 12. Distal motor function: 0 - No abnormality Total Score: 6 # Sepsis likely secondary to possible Pneumonia vs Urinary Tract Infection He met SIRS criteria based on HR > 90 bpm, RR > 20 breaths/min, and WBC > 12,000, and the suspected source is pneumonia vs a urinary tract infection. - Chest x-ray = "stable chest since 11/26/2022 study." - Sepsis order set was initiated - Lactate requested - Blood cultures drawn - Broad spectrum antibiotics started: Piperacillin-Tazobactam - In regards to fluids: - 30 mL/kg of IV fluids was not administered given SBP > 90, MAP > 65 # Recent Hemorrhagic Cerebrovascular Accident # Hypertension Was sent down from inpatient rehab due to concern for sepsis. - Neurology consulted - recommendations appreciated - NIHSS = 6 - q4hr neurochecks - PT/OT evaluation requested - Continue home amlodipine, losartan, metoprolol # Gross Hematuria # Left Parapelvic Cyst (11 mm) - Renal ultrasound = "no worrisome renal abnormality. Significant debris is present in the urinary bladder." - Urology consulted and he was evaluated by Dr. Schumacher - recommendations appreciated - Suspects infection to be source of hematuria - Recommended Smith catheter exchange - Outpatient follow-up in 3 weeks for cystoscopy - q4hr catheter irrigation - He is a Jehovah witness, so he is unlikely to accept a blood transfusion Mat Cobb M.D.
[2022-12-02 13:17] LABS: Hematocrit 34.7 % (39.6-49.0)
[2022-12-02] MEDS: TERAZOSIN HCL 1 MG CAP PO SCH (21:55)
[2022-12-02] MEDS: DULOXETINE 30 MG CAP PO SCH (21:55)
[2022-12-03] MEDS: PIPER TAZO 3.375 GM in NA CHLORIDE 0.9% 100 ML IV SCH ×3 (00:33→16:56)
[2022-12-03] MEDS: ALBUTEROL 2.5 MG/3 ML NEB SOL NEB SCH ×4 (02:00→19:35)
[2022-12-03] MEDS: IPRATROPIUM BROM 0.5MG/2.5ML NEB SCH ×4 (02:00→19:35)
[2022-12-03 04:38] LABS: Hematocrit 32.4 % (39.6-49.0)
[2022-12-03 04:47] LABS: Albumin 2.4 g/dL (3.4-5.0); Bilirubin Total 0.2 mg/dL (0.2-1.0); Potassium 3.5 mEq/L (3.5-5.1); Protein, Total 6.3 g/dL (6.4-8.2)
[2022-12-03] MEDS: METOPROLOL TAR 50 MG TAB PO SCH ×2 (05:53→17:49)
[2022-12-03] MEDS ORDERED: PIPERACIL/TAZO 3.375 GM VIAL IV ONE (08:32)
[2022-12-03] MEDS: AMLODIPINE 10 MG TAB PO SCH (08:34)
[2022-12-03] MEDS ORDERED: NA CHLORIDE 0.9% 100 ML ONE (08:34)
[2022-12-03] MEDS: Pantoprazole (granules) 40 MG/BLIST PACKET PO SCH ×2 (08:35→21:28)
[2022-12-03] MEDS: FOLIC ACID 1 MG TABLET PO SCH (08:35)
[2022-12-03] MEDS: LOSARTAN POTASSIUM 50 MG TABLET PO SCH ×2 (08:35→21:28)
[2022-12-03] MEDS: VITAL AF 1,000 ML BOT FT SCH (08:41)
--- NOTE | 2022-12-03 19:28 | P.PN ---
Subjective Date of Service: 12/03/22 Chief Complaint: Leukocytosis and sepsis Mr. Mat Tate has complete hearing loss (deafness). The following history was obtained with the assistance of [employer] certified Palestinian Sign Language- Anguillan tubing machine operator, Miranda KrugerDarren, (ID# [id number]). No new changes. He denies any new symptoms this morning. He is pending placement into inpatient rehab. Review of Systems 10-point ROS is otherwise unremarkable General: Weakness (right-sided) Physical Examination - Vital Signs Temperature: 98.6 F Blood Pressure: 143/81 Pulse: 95 Respirations: 19 Pulse Ox (%): 96 - Studies Laboratory Data (last 24 hrs) 12/03/22 12/03/22 03:48 03:48 Hgb 10.9 L Hct 32.4 L Sodium 139 Potassium 3.5 BUN 24 H Creatinine 0.87 Glucose 145 H Total Bilirubin 0.2 AST 29 ALT 97 H Alkaline Phosphatase 128 H Medications List Reviewed: Yes Assessment And Plan - Plan - Physical Exam General: Alert, In no apparent distress, Oriented x3 HEENT: Atraumatic, Mucous membr. moist/pink, Sclerae nonicteric Neck: JVD not distended Respiratory: Clear to auscultation bilaterally, Normal air movement Cardiovascular: No edema, Regular rate/rhythm, No murmurs Gastrointestinal: Normal bowel sounds, Soft, Non-distended, No tenderness, Other (PEG-tube site is clean, dry, intact) Musculoskeletal: No clubbing Integumentary: No rashes Neurological: Sensation intact, Other (left-sided facial droop), Abnormal strength (right-sided weakness (2-3/5 in RUE/RLE. 5/5 in LUE/LLE)) NIH Stroke Scale 1a. Level of consciousness: 0 - Alert; keenly responsive 1b. LOC questions: 0 - Both questions right 1c. LOC commands: 0 - Performs both tasks 2. Best Gaze: 0 - Normal 3. Visual: 0 - No visual loss 4. Facial Palsy: 3 - unilateral complete paralysis (upper/lower face) 5a. Motor left arm: 0 - No drift for 10 seconds 5b. Motor right arm: 1 - Drift, but doesn't hit bed 6a. Motor left le - No drift for 5 seconds 6b. Motor right le - Drift, hits bed 7. Limb ataxia: 0 - No ataxia 8. Sensory: 0 - Normal; no sensory loss 9. Best Language: 0 - Normal; no aphasia 10. Dysarthria: 0 - Unable to test 11. Extinction and Inattention: 0 - No abnormality 12. Distal motor function: 0 - No abnormality Total Score: 6 # Sepsis likely secondary to possible Pneumonia vs Urinary Tract Infection He met SIRS criteria based on HR > 90 bpm, RR > 20 breaths/min, and WBC > 12,000, and the suspected source is pneumonia vs a urinary tract infection. - Chest x-ray = "stable chest since 11/26/2022 study." - Sepsis order set was initiated - Lactate = 0.5 - Blood cultures drawn - Broad spectrum antibiotics started: Piperacillin-Tazobactam - In regards to fluids: - 30 mL/kg of IV fluids was not administered given SBP > 90, MAP > 65 # Recent Hemorrhagic Cerebrovascular Accident # Hypertension Was sent down from inpatient rehab due to concern for sepsis. - Neurology consulted - recommendations appreciated - NIHSS = 6 - q4hr neurochecks - PT/OT evaluation requested - Continue home amlodipine, losartan, metoprolol # Gross Hematuria # Left Parapelvic Cyst (11 mm) - Renal ultrasound = "no worrisome renal abnormality. Significant debris is present in the urinary bladder." - Urology consulted and he was evaluated by Dr. Schumacher - recommendations appreciated - Suspects infection to be source of hematuria - Recommended Smith catheter exchange - Outpatient follow-up in 3 weeks for cystoscopy - q4hr catheter irrigation - He is a Jehovah witness, so he is unlikely to accept a blood transfusion 12/03: Pending placement into inpatient rehab. CM assistance appreciated. Mat Cobb M.D.
[2022-12-03] MEDS: DULOXETINE 30 MG CAP PO SCH (21:28)
[2022-12-03] MEDS: TERAZOSIN HCL 1 MG CAP PO SCH (21:28)
--- NOTE | 2022-12-03 21:32 | P.CNS ---
Date of Consult: 12/03/22 Consultation follow-up: 57-year-old deaf gentleman, who interacts via sign language, with pre-existing LUTS due to BPH on Terazosin 2 mg, GERD, and asthma p hemorrhagic CVA 11/03/2022 with right hemiparesis greater than left now with gross hematuria and an indwelling 18 Iranian urethral Smith catheter. -Follow-up urine culture, as infection likely source of the gross hematuria -Recommend exchange urethral Smith catheter and replace with an 18 Iranian coud tip catheter that is placed to the hub to ensure adequate catheter positioning with balloon not situated within the prostatic fossa causing hematuria -If a report of a CT scan or imaging is available, I would appreciate the opportunity to review it, otherwise, in the absence of definitive infection seen, CT urography would be recommended. -Follow-up as an outpatient within the next 3 weeks for cystoscopy -May irrigate catheter, once exchanged, every 4 hours with 60 cc catheter tip syringe and NS, as long as his urine remains anything more than pink-tinged Patient seen and examined. Sleeping at the time I arrived. He indicated with the traditional hand signal that he was "okay". Examination: Urethral Smith catheter in place draining port wine colored old hematuria Hemoglobin 10.9 today from 11.2 on admission Bladder irrigation procedure note: Utilizing a 60 cc catheter tip syringe and initially sterile water 500 cc followed by normal saline 500 cc, I aggressively irrigated his bladder and removed likely 150 to 200 cc of formed clot. At the end of the irrigation, no significant clot was retrieved, and the efflux of urine was minimally pink. He tolerated the procedure well, in fact mostly slept through the procedure, and without complication. Recommendations as above minus the need for catheter exchange.
[2022-12-04] MEDS: ALBUTEROL 2.5 MG/3 ML NEB SOL NEB SCH ×3 (01:00→14:05)
[2022-12-04] MEDS: IPRATROPIUM BROM 0.5MG/2.5ML NEB SCH ×3 (01:00→14:05)
[2022-12-04] MEDS: VITAL AF 1,000 ML BOT FT SCH ×2 (01:02→10:12)
[2022-12-04] MEDS: PIPER TAZO 3.375 GM in NA CHLORIDE 0.9% 100 ML IV SCH ×2 (01:02→10:06)
[2022-12-04] MEDS: METOPROLOL TAR 50 MG TAB PO SCH (06:35)
[2022-12-04 09:12] VITALS: O2SAT 93
[2022-12-04] MEDS: LOSARTAN POTASSIUM 50 MG TABLET PO SCH (10:06)
[2022-12-04] MEDS: Pantoprazole (granules) 40 MG/BLIST PACKET PO SCH (10:06)
[2022-12-04] MEDS: AMLODIPINE 10 MG TAB PO SCH (10:06)
[2022-12-04] MEDS: FOLIC ACID 1 MG TABLET PO SCH (10:07)
[2022-12-04 10:45] VITALS: BP 118/70; TEMP 98.4
--- NOTE | 2022-12-04 12:53 | P.DS ---
Admission Date: 11/28/22 Discharge Date: 12/04/22 Disposition: TRANSFER TO INPATIENT REHAB Discharge Condition: FAIR Reason for Admission: Leukocytosis and sepsis Consultations: 1. Neurology 2. Urology Hospital Course: DIAGNOSES: # Sepsis likely secondary to possible Pneumonia vs Urinary Tract Infection # Recent Hemorrhagic Cerebrovascular Accident # Elevated LFTs - improved # Hypertension # Gross Hematuria # Left Parapelvic Cyst (11 mm) HOSPITAL COURSE: Mr. Mat Tate has complete hearing loss (deafness). The following communication was achieved with the assistance of [employer] certified [place]altese Sign Language-Pu[place]ican veterinarian epidemiologist, Wilbert LathamDarren, (ID# [id number]). Mr. Mat Tate is a pleasant 57 year old male with a past medical history significant for a recent hemorrhagic cerebrovascular accident s/p PEG-tube and hypertension who was admitted to the [facility] on 11/28/2022 due to concern for sepsis and gross hematuria. He was admitted to the Medicine service. Upon further evaluation, he was found to meet SIRS criteria and had a suspected source of pneumonia versus a urinary tract infection. His chest x-ray revealed, "stable chest since 11/26/2022 study." He was also noted to have gross hematuria. His renal ultrasound, "no worrisome renal abnormality. Significant debris is present in the urinary bladder." Urology was consulted and he was evaluated by Dr. Schumacher. He felt that a urinary tract infection was the source of his hematuria. He was treated with IV antibiotics and, over the course of his hospitalization, his symptoms improved significantly. PT was consulted and it was recommended that he be re- admitted to inpatient rehab for continued therapy services. With the assistance of case management, this was arranged. In regards to his hematuria, he was advised to follow-up with Urology as an outpatient for possible CT urography and cystoscopy to further evaluate for an underlying urologic malignancy. On 12/04/2022, he was seen on rounds and deemed medically stable for discharge. He was discharged with instructions to schedule follow-up appointments with PCP, with Neurology (Dr. Castellanos), and with Urology (Dr. Schumacher). He was given the opportunity to ask questions and reported no further questions. Furthermore, all questions were answered to the best of my ability. A copy of this discharge summary will be sent to the above providers to facilitate continuity of care. Today, I personally spent 25 minutes on his case, of which greater than 50% of the time was spent in patient education, counseling, and coordination of care as described above. - Physical Exam General: Alert, In no apparent distress, Oriented x3 HEENT: Atraumatic, Mucous membr. moist/pink, Sclerae nonicteric Neck: JVD not distended Respiratory: Clear to auscultation bilaterally, Normal air movement Cardiovascular: No edema, Regular rate/rhythm, No murmurs Gastrointestinal: Normal bowel sounds, Soft, Non-distended, No tenderness, Other (PEG-tube site is clean, dry, intact) Musculoskeletal: No clubbing Integumentary: No rashes Neurological: Sensation intact, Other (left-sided facial droop), Abnormal strength (right-sided weakness (2-3/5 in RUE/RLE. 5/5 in LUE/LLE)) NIH Stroke Scale 1a. Level of consciousness: 0 - Alert; keenly responsive 1b. LOC questions: 0 - Both questions right 1c. LOC commands: 0 - Performs both tasks 2. Best Gaze: 0 - Normal 3. Visual: 0 - No visual loss 4. Facial Palsy: 3 - unilateral complete paralysis (upper/lower face) 5a. Motor left arm: 0 - No drift for 10 seconds 5b. Motor right arm: 1 - Drift, but doesn't hit bed 6a. Motor left le - No drift for 5 seconds 6b. Motor right le - Drift, hits bed 7. Limb ataxia: 0 - No ataxia 8. Sensory: 0 - Normal; no sensory loss 9. Best Language: 0 - Normal; no aphasia 10. Dysarthria: 0 - Unable to test 11. Extinction and Inattention: 0 - No abnormality 12. Distal motor function: 0 - No abnormality Total Score: 6 Vital Signs/Physical Exam: Temp Pulse Resp BP Pulse Ox 98.4 F 98 H 20 118/70 93 12/04/22 08:00 12/04/22 08:00 12/04/22 08:00 12/04/22 08:00 12/04/22 08:00 Laboratory Data at Discharge: WBC 10.20 thou/uL (4.3-10.9) 12/01/22 12:53 Hgb 10.9 g/dL (13.6-17.9) L 12/03/22 03:48 Hct 32.4 % (39.6-49.0) L 12/03/22 03:48 Plt Count 347 thou/uL (152-406) 12/01/22 12:53 PT 12.9 SECONDS (9.5-12.5) H 12/01/22 12:53 INR 1.17 12/01/22 12:53 APTT 30.0 SECONDS (24.3-36.9) 12/01/22 12:53 Sodium 139 mEq/L (136-145) 12/03/22 03:48 Potassium 3.5 mEq/L (3.5-5.1) 12/03/22 03:48 BUN 24 mg/dL (7-18) H 12/03/22 03:48 Creatinine 0.87 mg/dL (0.70-1.30) 12/03/22 03:48 Glucose 145 mg/dL (74-106) H 12/03/22 03:48 Magnesium 1.6 mg/dL (1.6-2.4) 12/01/22 12:53 Total Bilirubin 0.2 mg/dL (0.2-1.0) 12/03/22 03:48 AST 29 U/L (15-37) 12/03/22 03:48 ALT 97 U/L (16-61) H 12/03/22 03:48 Alkaline Phosphatase 128 U/L (45-117) H 12/03/22 03:48 Home Medications: Albuterol Neb [Proventil 0.083% Neb Soln] 1 amp IN Q6H 11/26/22 Duloxetine HCl [Cymbalta] 30 mg PO BEDTIME 11/26/22 Folic Acid 1 mg PO DAILY 11/26/22 Ipratropium Neb [Atrovent*] 1 amp IN Q6H 11/26/22 Melatonin [Melatonin*] 3 mg PO BEDTIME PRN 11/26/22 Multivit-Min/Ferrous Fumarate [Multivitamin Liquid] 5 ml PO DAILY 11/26/22 Pantoprazole Granules [Protonix Granules*] 40 mg PO BID 11/26/22 Terazosin HCl [Hytrin*] 2 mg PO BEDTIME 11/26/22 modafiniL [Provigil*] 100 mg PO DAILY 11/26/22 Amlodipine [Norvasc*] 10 mg PO DAILY tab 12/04/22 Amox Tr/Potassium Clavulanate [Augmentin 400-57 mg/5 ml] 10 ml FT BID 10 Days #1 12/04/22 Losartan Potassium [Cozaar*] 50 mg PO BID 12/04/22 Metoprolol Tartrate [Lopressor*] 75 mg PO BID 6AM 6PM tab 12/04/22 Vital AF 50 ml FT DAILY bot 12/04/22 New Medications: Amox Tr/Potassium Clavulanate [Augmentin 400-57 mg/5 ml] 10 ml FT BID 10 Days #1 Physician Discharge Instructions: - Continue care at [facility] - Once discharged, please schedule a follow-up with Urology (Dr. Schumacher). He will need to further evaluate the blood in your urine to make sure it is not due to a bladder/kidney cancer. Diet: AHA Activity: Fall precautions Followup: Reece Castellanos MD [ASSOCIATE-ACTIVE - CAN ADMIT] - Brian Schumacher [ACTIVE - CAN ADMIT] - Time spent managing pt's care (in minutes): 25
== END 2022-12-04 13:50 | DRG 871 ==
LOC: 4TH 10:45
PROVIDERS: ADMIT Hospitalist; ATTEND Internal Medicine
DX: A41.9 Sepsis, unspecified organism (principal); J14 Pneumonia due to Hemophilus influenzae; K94.23 Gastrostomy malfunction; I69.351 Hemiplegia and hemiparesis following cerebral infarction affecting right dominant side; N39.0 Urinary tract infection, site not specified; H91.3 Deaf nonspeaking, not elsewhere classified; I10 Essential (primary) hypertension; N40.1 Benign prostatic hyperplasia with lower urinary tract symptoms; K21.9 Gastro-esophageal reflux disease without esophagitis; J45.909 Unspecified asthma, uncomplicated; H91.90 Unspecified hearing loss, unspecified ear; R31.0 Gross hematuria; R79.89 Other specified abnormal findings of blood chemistry; R29.810 Facial weakness; Z53.1 Procedure and treatment not carried out because of patient's decision for reasons of belief and group pressure; Z79.899 Other long term (current) drug therapy; Y84.8 Other medical procedures as the cause of abnormal reaction of the patient, or of later complication, without mention of misadventure at the time of the procedure
CPT/HCPCS: 36415; 71045; 76770; 80053; 81001; 82607; 82947; 83540; 83605; 83735; 84145; 84484; 85014; 85018; 85025; 85044; 85610; 85730; 86850; 86900; 86901; 87040; 87086; 87088; 92526; 92610; 97116; 97163; 97530; J2270; J2543; J7030; J7613; J7644

== ENCOUNTER 2022-12-04 12:36 | Inpatient (IN) | payer BC ==
--- OUTSIDE RECORDS SUMMARY | 2022-12-04 14:06 | XMS REPORT | Continuity of Care Document ---
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 Hemifacial 22:01:28 l (finding) spasm [place] (finding) Active Problem 12/15/2021 [facility] Cerebral Cerebral [...] Date Date Clinician NO KNOWN Allergy Active [facility] Social History Social Habit Start Date Stop Date Quantity Comments Source Social History 2021-07-01 2021-07-01 [facility] 05:05:44 05:05:44 Sex Ass[birth year] At [birth year] [facility] 00:00:00 00:00:00 [facility] Center Medications Ordered Filled Start Stop Current Ordering Indication Dosage Frequency Signature Comments Components Source Medication Medication Date Date Medication? Clinician (SIG) Name Name baclofen Yes 10 mg = 1 M emoria mg oral 4-27 tab, PO, l tablet 18:43: Bedtime, # Bekah nn 00 30 tab, 3 Refill(s), Pharmacy: [facility], 162.56, cm, 08/28/21 13:19:00 CDT, Height, 75.455, kg, 08/28/21 13:19:00 CDT, Weight baclofen Yes 10 mg = 1 M emoria mg oral 4-27 tab, PO, l tablet 18:43: Bedtime, # Bekah nn 00 30 tab, 3 Refill(s), Pharmacy: [facility], 162.56, cm, 08/28/21 13:19:00 CDT, Height, 75.455, kg, 08/28/21 13:19:00 CDT, Weight baclofen Yes 10 mg = 1 M emoria mg oral 4-27 tab, PO, l tablet 18:43: Bedtime, # Bekah nn 00 30 tab, 3 Refill(s), Pharmacy: [facility], 162.56, cm, 08/28/21 13:19:00 CDT, Height, 75.455, kg, 08/28/21 13:19:00 CDT, Weight baclofen 10 2021-0 Yes 10 mg = 1 M emoria mg oral 4-27 tab, PO, l tablet 18:43: Bedtime, # Bekah nn 00 30 tab, 3 Refill(s), Pharmacy: [facility], 162.56, cm, 08/28/21 13:19:00 CDT, Height, 75.455, kg, 08/28/21 13:19:00 CDT, Weight baclofen 10 2021-0 Yes 10 mg = 1 M emoria mg oral 4-27 tab, PO, l tablet 18:43: Bedtime, # Bekah nn 00 30 tab, 3 Refill(s), Pharmacy: [facility], 162.56, cm, 08/28/21 13:19:00 CDT, Height, 75.455, kg, 08/28/21 13:19:00 CDT, Weight baclofen 10 2021-0 Yes 10 mg = 1 M emoria mg oral 4-27 tab, PO, l tablet 18:43: Bedtime, # Bekah nn 00 30 tab, 3 Refill(s), Pharmacy: [facility], 162.56, cm, 08/28/21 13:19:00 CDT, Height, 75.455, kg, 08/28/21 13:19:00 CDT, Weight baclofen 10 2021-0 Yes 10 mg = 1 M emoria mg oral 4-27 tab, PO, l tablet 18:43: Bedtime, # Bekah nn 00 30 tab, 3 Refill(s), Pharmacy: [facility], 162.56, cm, 08/28/21 13:19:00 CDT, Height, 75.455, kg, 08/28/21 13:19:00 CDT, Weight baclofen 10 2021-0 Yes 10 mg = 1 M emoria mg oral 4-27 tab, PO, l tablet 18:43: Bedtime, # Bekah nn 00 30 tab, 3 Refill(s), Pharmacy: [facility], 162.56, cm, 08/28/21 13:19:00 CDT, Height, 75.455, kg, 08/28/21 13:19:00 CDT, Weight baclofen 10 2021-0 Yes 10 mg = 1 M emoria mg oral 4-27 tab, PO, l tablet 18:43: Bedtime, # Bekah nn 00 30 tab, 3 Refill(s), Pharmacy: [facility], 162.56, cm, 08/28/21 13:19:00 CDT, Height, 75.455, kg, 08/28/21 13:19:00 CDT, Weight baclofen 10 2021-0 Yes 10 mg = 1 M emoria mg oral 4-27 tab, PO, l tablet 18:43: Bedtime, # Bekah nn 00 30 tab, 3 Refill(s), Pharmacy: [facility], 162.56, cm, 08/28/21 13:19:00 CDT, Height, 75.455, kg, 08/28/21 13:19:00 CDT, Weight baclofen 10 2021-0 Yes 10 mg = 1 M emoria mg oral 4-27 tab, PO, l tablet 18:43: Bedtime, # Bekah nn 00 30 tab, 3 Refill(s), Pharmacy: [facility], 162.56, cm, 08/28/21 13:19:00 CDT, Height, 75.455, kg, 08/28/21 13:19:00 CDT, Weight baclofen 10 2021-0 Yes 10 mg = 1 M emoria mg oral 4-27 tab, PO, l tablet 18:43: Bedtime, # Bekah nn 00 30 tab, 3 Refill(s), Pharmacy: [facility], 162.56, cm, 08/28/21 13:19:00 CDT, Height, 75.455, kg, 08/28/21 13:19:00 CDT, Weight baclofen 10 2021-0 Yes 10 mg = 1 M emoria mg oral 4-27 tab, PO, l tablet 18:43: Bedtime, # Bekah nn 00 30 tab, 3 Refill(s), Pharmacy: [facility], 162.56, cm, 08/28/21 13:19:00 CDT, Height, 75.455, kg, 08/28/21 13:19:00 CDT, Weight baclofen 10 2021-0 Yes 10 mg = 1 M emoria mg oral 4-27 tab, PO, l tablet 18:43: Bedtime, # Bekah nn 00 30 tab, 3 Refill(s), Pharmacy: [facility], 162.56, cm, 08/28/21 13:19:00 CDT, Height, 75.455, kg, 08/28/21 13:19:00 CDT, Weight baclofen 10 2021-0 Yes 10 mg = 1 M emoria mg oral 4-27 tab, PO, l tablet 18:43: Bedtime, # Bekah nn 00 30 tab, 3 Refill(s), Pharmacy: [facility], 162.56, cm, 08/28/21 13:19:00 CDT, Height, 75.455, kg, 08/28/21 13:19:00 CDT, Weight baclofen 10 2021-0 Yes 10 mg = 1 M emoria mg oral 4-27 tab, PO, l tablet 18:43: Bedtime, # Bekah nn 00 30 tab, 3 Refill(s), Pharmacy: [facility], 162.56, cm, 08/28/21 13:19:00 CDT, Height, 75.455, kg, 08/28/21 13:19:00 CDT, Weight baclofen 10 2021-0 Yes 10 mg = 1 M emoria mg oral 4-27 tab, PO, l tablet 18:43: Bedtime, # Bekah nn 00 30 tab, 3 Refill(s), Pharmacy: [facility], 162.56, cm, 08/28/21 13:19:00 CDT, [...] Systolic (mm Hg) 2021-08-28 18:10:00 Dre rial [place] Diastolic (mm Hg) 2021-08-28 18:10:00 Mem orial [place] Heart Rate 2021-08-28 18:10:00 [facility] Respitory Rate 2021-08-28 18:10:00 Memori al [place] Height 2021-08-28 18:10:00 162.56 cm [facility] Weight 2021-08-28 18:10:00 [facility] [place] BMI Calculated 2021-08-28 18:10:00 Memori al [place] Systolic (mm Hg) 2020-04-10 20:22:00 Dre rial [place] Diastolic (mm Hg) 2020-04-10 20:22:00 Mem orial [place] Heart Rate 2020-04-10 20:22:00 [facility] [place] Respitory Rate 2020-04-10 20:22:00 Memori al [place] Height 2020-04-10 20:22:00 162.56 cm [facility] Weight 2020-04-10 20:22:00 [facility] BMI Calculated 2020-04-10 20:22:00 Memori al [place] Procedures This patient has no known procedures. Encounters Start End Encounter Admission Attending Care Care Encounter Source Date/Time Date/Time Type Type Clinicians Facility Department ID 2022-11-23 Inpatient ER BRITTNEE [facility] [id number] [facility] 16:43:43 MRINALINI 2022-11-21 Inpatient ER WOODS, [facility] [id number] [facility] 00:00:00 [facility] 2022-11-19 Inpatient ER BRITTNEE, [facility] [id number] [facility] 13:43:58 MRINALINI 2022-11-19 Inpatient ER BRITTNEE, [facility] [id number] [facility] 12:07:38 MRINALINI 2022-11-17 Inpatient ER BRITTNEE, [facility] [id number] [facility] 18:57:40 MRINALINI 2022-11-17 Inpatient ER BRITTNEE, [facility] [id number] [facility] 13:21:32 MRINALINI 2022-11-16 Inpatient ER BRITTNEE, [facility] [id number] [facility] 11:12:44 MRINALINI 2022-11-15 Inpatient ER BRITTNEE [facility] [id number] [facility] 18:09:15 MRINALINI 2022-11-12 Inpatient ER MAGOAND [facility] [id number] [facility] 10:47:24 N, LINTU 2022-11-12 Inpatient ER BERSHAD, [facility] [id number] [facility] 08:14:58 FALGUNI 2022-11-12 Inpatient ER BERSHAD, [facility] [id number] [facility] 08:14:51 FALGUNI 2022-11-12 Inpatient ER WOODS, [facility] [id number] [facility] 04:37:56 [facility] 2022-11-12 Inpatient ER WOODS, [facility]H [facility] [id number] [facility] 04:20:00 [facility] 2022-11-11 Inpatient ER BERSHAD, [facility] [id number] [facility] 00:25:30 FALGUNI 2022-11-10 Inpatient ER BERSHAD, [facility] [id number] [facility] 00:05:49 FALGUNI 2022-11-09 Inpatient ER BERSHAD, [facility] [id number] [facility] 00:27:15 FALGUNI 2022-11-08 Inpatient ER SLEH [facility] [id number] [facility] 00:26:38 2022-11-07 Inpatient ER SLEH [facility] [id number] [facility] 15:12:58 2022-11-07 Inpatient ER BERSHAD, [facility] [id number] [facility] 14:35:00 FALGUNI 2022-11-07 Inpatient ER SLEH [facility] [id number] [facility] 13:27:25 2022-11-07 Inpatient ER RAMACHANDRA [facility] [id number] [facility] 08:29:48 N, [facility] 2022-11-07 Inpatient ER RAMACHANDRA [facility] [id number] SLEH 07:58:55 N, [facility] 2022-11-07 Inpatient ER SLEH [facility]H [id number] [facility] 00:07:44 2022-11-06 Inpatient ER BERSHAD, [facility] [id number] [facility] 20:29:11 FALGUNI 2022-11-06 Inpatient ER SLEH [facility] [id number] [facility] 17:15:27 2022-11-06 Inpatient ER SLEH [facility] [id number] [facility] 17:15:20 2022-11-06 Inpatient ER RAMACHANDRA SLE SLE [id number] [facility]H 16:03:43 N, [facility] 2022-11-06 Inpatient ER RAMACHANDRA SLEH SLE [id number] SLEH 16:03:37 N, [facility] 2022-11-06 Inpatient ER BERSHAD, [facility] [id number] [facility] 13:19:28 FALGUNI 2022-11-06 Inpatient ER BERSHAD, [facility] [id number] SLEH 00:25:37 FALGUNI 2022-11-05 Inpatient ER BERSHAD, [facility] [id number] SLEH 09:20:39 FALGUNI 2022-11-04 Inpatient ER BERSHAD, [facility] [id number] SLEH 14:30:51 FALGUNI 2022-11-04 Inpatient ER RAMACHANDRA [facility] SLEH [id number] SLEH 10:05:39 N, [facility] 2022-11-04 Inpatient ER ELMIRA, [facility]H [facility] [id number] SLEH 06:27:46 [facility] 2022-11-04 Inpatient ER ELMIRA, [facility]H [facility] [id number] [facility] 06:27:39 [facility] 2022-11-04 Inpatient ER ELMIRA [facility] [id number] SLE 06:27:32 [facility] 2022-11-04 Inpatient ER ELMIRA [facility] [id number] SLE 00:28:35 [facility] 2022-11-03 Outpatient [facility] [id number] [place] 23:37:31 [id number] [facility] 2022-11-03 Inpatient ER ELMIRA [facility] [id number] SLE 23:02:31 [facility] 2021-07-29 Outpatient [facility] [id number] [place] 12:58:22 [id number] [facility] 2021-07-02 Outpatient TEJA, [facility] [id number] [place] 17:00:59 [facility] 2021-07-02 Outpatient RASHIDA, [facility] [id number] [place] 10:22:46 [facility] 2021-06-30 Inpatient ER ELMIRA [facility] Neurosurger [id number] [facility] 18:28:49 [facility] 2022-11-03 2022-11-26 Inpatient ER BRITTNEE, [facility] Neuro ICU [id number] SLE 22:50:00 10:56:00 MRINALINI 2022-11-06 2022-11-06 Inpatient ER SARAI [facility] [id number] SLE 12:12:14 00:00:00 N, YVONNETU 2022-11-05 2022-11-05 Inpatient ER ELMIRA [facility] [id number] SLE 00:38:59 00:00:00 [facility] 2021-12-13 2021-12-13 Ambulatory nullFlavo MNA [id number] Memoria 16:00:00 16:00:00 Pre-Reg r Neurology 02 l Capri [place] 2021-12-13 2021-12-13 Ambulatory nullFlavo MNA [id number] Memoria 16:00:00 16:00:00 Pre-Reg r Neurology 02 l Capri [place] 2021-12-13 2021-12-13 Outpatient [facility] [id number] 11:00:00 11:00:00 Scott 02 [place] 2021-11-27 2021-11-27 Outpatient MHIE IE [id number] Memoria 13:45:00 13:45:00 02 l Chong 2021-08-28 2021-08-29 Outpatient nullFlavo MNA [id number] Memoria 18:00:00 04:59:59 r Neurology 01 l Capri Schwarz 2021-08-28 2021-08-29 Outpatient nullFlavo MNA [id number] Memoria 18:00:00 04:59:59 r Neurology 01 l Capri Schwarz 2021-08-28 2021-08-28 Outpatient Lorie MISCHER MHMISCHER [id number] 13:00:00 23:59:59 Scott 01 [place] 2021-08-28 2021-08-28 Outpatient MHIE MHIE [id number] Memoria 13:00:00 13:00:00 01 sherry Chong 2020-04-10 2020-04-11 Outpatient nullFlavo MNA [id number] Memoria 20:15:00 05:59:59 r Neurology 00 l Capri Hernandezann 2020-04-10 2020-04-11 Outpatient nullFlavo MNA [id number] Memoria 20:15:00 05:59:59 r Neurology 00 l Capri Hernandezann 2020-04-10 2020-04-10 [facility] [id number] 14:15:00 23:59:59 Scott 00 [place] 2020-04-10 2020-04-10 Outpatient MHIE IE [id number] Memoria 14:15:00 14:15:00 00 sherry Schwarz Results Test Description Test Time Test Comments Results Result Comments Source POCT-GLUCOSE METER 2022-11-26 07:10:15 Test Item Value Reference Range Interpretation Comme nts POC-GLUCOSE METER (BEAKER) 113 mg/dL 70-110 H : TESTED AT [facility] [address] [facility] (test code = 1538) EMILY Paulson [address]: Customer Care Assistant/Techni carol ID = [id number] for LUIS BOUDREAUX [id number] 06:34:45 Test Item Value Reference Range Interpretation Comments MAGNESIUM (BEAKER) (test code = 1.8 mg/dL 1.6-2.6 627) Customer Care Assistant ID - [id number] 06:34:45 Test Item Value Reference Range Interpretation Comments PHOSPHORUS (BEAKER) (test code = 2.8 mg/dL 2.3-4.7 604) Customer Care Assistant ID - ADMINPOCT-GLUCOSE [id number] 01:10:15 Test Item Value Reference Range Interpretation Comments POC-GLUCOSE METER 100 mg/dL 70-110 : TESTED A T [facility] [address] (BEAKER) (test code = [facility], 1538) 34128: Customer Care Assistant/Techni carol ID = [id number] for MARIELA MARTINEZ POCT-GLUCOSE [id number] 17:12:52 Test Item Value Reference Range Interpretation Comments POC-GLUCOSE METER 104 mg/dL 70-110 : TESTED A T [facility] [address] (BEAKER) (test code = [facility], 1538) 65784: Customer Care Assistant/Techni carol ID = [id number] for Delmy Orr POCT-GLUCOSE [id number] 12:42:29 Test Item Value Reference Range Interpretation Comments POC-GLUCOSE METER 109 mg/dL 70-110 : TESTED A T [facility] [address] (BEAKER) (test code = [facility], 1538) 32572: Customer Care Assistant/Techni carol ID = [id number] for Delmy Orr [id number] 05:29:16 Test Item Value Reference Range Interpretation Comments PHOSPHORUS (BEAKER) (test code = 2.7 mg/dL 2.3-4.7 604) Customer Care Assistant ID - FABIAN WBASIC METABOLIC [id number] 05:29:15 Test Item Value Reference Range Interpretation [...] not appl icable for dialysis patien ts Customer Care Assistant ID - FABIAN [id number] 05:29:15 Test Item Value Reference Range Interpretation Comments MAGNESIUM (BEAKER) (test code = 2.0 mg/dL 1.6-2.6 627) Customer Care Assistant ID - FABIAN WPOCT-GLUCOSE [id number] 01:39:19 Test Item Value Reference Range Interpretation Comments POC-GLUCOSE METER 129 mg/dL 70-110 H : TESTED A T [facility] [address] (BEAKER) (test code = [facility] [place], 1538) 61822: Customer Care Assistant/Techni carol ID = [id number] for MARIELA MARTINEZ CBC W/PLT COUNT & AUTO [id number] 10:38:05 Test Item Value Reference Range Interpretation [...] PERCENT (BEAKER) (test code = 2801) POCT-GLUCOSE [id number] 06:03:32 Test Item Value Reference Range Interpretation Comments POC-GLUCOSE METER 123 mg/dL 70-110 H : TESTED A T [facility] [address] (BEAKER) (test code = [facility] [place], 1538) 22464: Customer Care Assistant/Techni carol ID = [id number] for BRUNO SULLIVAN [id number] 05:07:42 Test Item Value Reference Range Interpretation Comments PHOSPHORUS (BEAKER) (test code = 2.5 mg/dL 2.3-4.7 604) Customer Care Assistant ID - FABIAN [id number] 05:07:41 Test Item Value Reference Range Interpretation Comments MAGNESIUM (BEAKER) (test code = 2.0 mg/dL 1.6-2.6 627) Customer Care Assistant ID - FABIAN WPOCT-GLUCOSE [id number] 00:05:37 Test Item Value Reference Range Interpretation Comments POC-GLUCOSE METER 122 mg/dL 70-110 H : TESTED A T [facility] [address] (BEAKER) (test code = [facility], 1538) 42575: Customer Care Assistant/Techni carol ID = [id number] for BRUNO SULLIVAN URINALYSIS W/ REFLEX URINE [id number] 18:50:27 Test Item Value Reference Range Interpretation [...] 1574) Rare SOURCE(BEAKER) (test code = 2795) Customer Care Assistant ID - [auto]Customer Care Assistant ID - techPOCT-GLUCOSE [id number] 17:27:05 Test Item Value Reference Range Interpretation Comments POC-GLUCOSE METER 144 mg/dL 70-110 H : TESTED A T [facility] [address] (BEAKER) (test code = [facility], 1538) 72476: Customer Care Assistant/Techni carol ID = [id number] for An Delmy avila XR CHEST 1 VIEW PORTABLE / [id number] 17:17:52 [facility] : 1965 Sex: MChest one [...] Signed By: Timmy Mcintyre11/23/2022 17:19 CDTWorkstation Name: [id number] METER 2022-11-23 12:28:58 Test Item Value Reference Range Interpretation Comments POC-GLUCOSE METER 124 mg/dL 70-110 H : [facility]ED [facility] T [facility] ([employer]) (test code = [facility] Huerta [facility], 1538) 27417: Customer Care Assistant/Techni carol ID = [id number] for An Delmy avila POCT-GLUCOSE [id number] 06:37:26 Test Item Value Reference Range Interpretation Comments POC-GLUCOSE METER 130 mg/dL 70-110 H : TESTED A T [facility] [address] (BEAKER) (test code = JOSEMD Deanna [facility], 1538) 24499: Customer Care Assistant/Techni carol ID = [id number] for BRUNO SULLIVAN [id number] 05:52:45 Test Item Value Reference Range Interpretation Comments MAGNESIUM (BEAKER) (test code = 2.1 mg/dL 1.6-2.6 627) Customer Care Assistant ID - [id number] 05:52:45 Test Item Value Reference Range Interpretation Comments PHOSPHORUS (BEAKER) (test code = 2.7 mg/dL 2.3-4.7 604) Customer Care Assistant ID - MMPOCT-GLUCOSE [id number] 00:24:47 Test Item Value Reference Range Interpretation Comments POC-GLUCOSE METER 105 mg/dL 70-110 : TESTED A T [facility] [address] (BEAKER) (test code = [facility], 1538) 82607: Customer Care Assistant/Techni carol ID = [id number] for BRUNO SULLIVAN POCT-GLUCOSE [id number] 12:59:07 Test Item Value Reference Range Interpretation Comments POC-GLUCOSE METER 90 mg/dL 70-110 : TESTED A T [facility] [address] (BEAKER) (test code = [facility], 1538) 80269: Customer Care Assistant/Techni carol ID = [id number] for ESPINOZA KAMARA POCT-GLUCOSE [id number] 06:53:06 Test Item Value Reference Range Interpretation Comments POC-GLUCOSE METER 79 mg/dL 70-110 : TESTED A T [facility] [address] (BEAKER) (test code = [facility], 1538) 64508: Customer Care Assistant/Techni carol ID = [id number] for FRANK SHINE [id number] 06:00:35 Test Item Value Reference Range Interpretation Comments MAGNESIUM (BEAKER) (test code = 2.1 mg/dL 1.6-2.6 627) Customer Care Assistant ID - [id number] 06:00:35 Test Item Value Reference Range Interpretation Comments PHOSPHORUS (BEAKER) (test code = 3.2 mg/dL 2.3-4.7 604) Customer Care Assistant ID - BSBASIC METABOLIC [id number] 06:00:34 Test Item Value Reference Range Interpretation [...] not appl icable for dialysis patien ts Customer Care Assistant ID - BSCBC W/PLT COUNT & AUTO [id number] 05:31:38 Test Item Value Reference Range Interpretation [...] PERCENT (BEAKER) (test code = 2801) POCT-GLUCOSE [id number] 01:00:35 Test Item Value Reference Range Interpretation Comments POC-GLUCOSE METER 93 mg/dL 70-110 : TESTED A T [facility] [address] (BEAKER) (test code = [facility], 153) 65237: Customer Care Assistant/Techni carol ID = [id number] for FRANK SHINE POCT-GLUCOSE [id number] 18:15:53 Test Item Value Reference Range Interpretation Comments POC-GLUCOSE METER 88 mg/dL 70-110 : TESTED A T [facility] [address] (BEAKER) (test code = [facility], 1538) 01865: Customer Care Assistant/Techni carol ID = [id number] for KARTHIKEYAN FLEMING POCT-GLUCOSE [id number] 13:34:49 Test Item Value Reference Range Interpretation Comments POC-GLUCOSE METER 100 mg/dL 70-110 : TESTED A T [facility] [address] (BEAKER) (test code = [facility], 1538) 99324: Customer Care Assistant/Techni carol ID = [id number] for KARTHIKEYAN ALTAMIRANO PROTHROMBIN [id number] 06:38:54 Test Item Value Reference Range Interpretation Comments PROTIME (BEAKER) (test code = 14.7 seconds 11.9-14.2 H 759) INR (BEAKER) (test code = 370) 1.23 <=5.90 RECOMMENDED COUMADIN/WARFARIN INR THERAPY RANGESSTANDARD DOSE: 2.0 - 3.0 Includes: PROPHYLAXIS for venous thrombosis, systemic embolization; TREATMENT for venous thrombosis and/or pulmonary embolus.HIGH RISK: Target INR is 2.5-3.5 for patients with mechanical heart valves.POCT-GLUCOSE [id number] 06:23:43 Test Item Value Reference Range Interpretation Comments POC-GLUCOSE METER 108 mg/dL 70-110 : TESTED A T [facility] [address] (BEAKER) (test code = [facility], 1538) 01407: Customer Care Assistant/Techni carol ID = [id number] for SHAMIKA DON [id number] 04:40:04 Test Item Value Reference Range Interpretation Comments MAGNESIUM (BEAKER) (test code = 2.0 mg/dL 1.6-2.6 627) Customer Care Assistant ID - [id number] 04:40:04 Test Item Value Reference Range Interpretation Comments PHOSPHORUS (BEAKER) (test code = 3.1 mg/dL 2.3-4.7 604) Customer Care Assistant ID - DBBASIC METABOLIC [id number] 04:40:03 Test Item Value Reference Range Interpretation [...] not appl icable for dialysis patien ts Customer Care Assistant ID - DBCBC W/PLT COUNT & AUTO [id number] 04:38:30 Test Item Value Reference Range Interpretation [...] PERCENT (BEAKER) (test code = 2801) POCT-GLUCOSE [id number] 23:40:37 Test Item Value Reference Range Interpretation Comments POC-GLUCOSE METER 140 mg/dL 70-110 H : TESTED A T [facility] [address] (BEAKER) (test code = [facility], 153) 15725: Customer Care Assistant/Techni carol ID = [id number] for SHAMIKA DON POCT-GLUCOSE [id number] 17:58:13 Test Item Value Reference Range Interpretation Comments POC-GLUCOSE METER 118 mg/dL 70-110 H : TESTED A T [facility] [address] (BEAKER) (test code = [facility], 153) 85217: Customer Care Assistant/Techni carol ID = [id number] for An derson, Delmy POCT-GLUCOSE [id number] 12:12:53 Test Item Value Reference Range Interpretation Comments POC-GLUCOSE METER 123 mg/dL 70-110 H : TESTED A T [facility] [address] (BEAKER) (test code = [facility], 153) [address]63: Customer Care Assistant/Techni carol ID = [id number] for An derson, Delmy POCT-GLUCOSE [id number] 06:03:50 Test Item Value Reference Range Interpretation Comments POC-GLUCOSE METER 120 mg/dL 70-110 H : TESTED A T [facility] 6720 (BEAKER) (test code = [facility] [place], 1538) [address]: Customer Care Assistant/Techni carol ID = [id number] for BRUNO SULLIVAN [id number] 06:03:44 Test Item Value Reference Range Interpretation Comments PHOSPHORUS (BEAKER) (test code = 3.2 mg/dL 2.3-4.7 604) Customer Care Assistant ID - [id number] 06:03:43 Test Item Value Reference Range Interpretation Comments MAGNESIUM (BEAKER) (test code = 2.1 mg/dL 1.6-2.6 627) Customer Care Assistant ID - BSBASIC METABOLIC [id number] 06:03:42 Test Item Value Reference Range Interpretation [...] not appl icable for dialysis patien ts Customer Care Assistant ID - BSCBC W/PLT COUNT & AUTO [id number] 05:13:39 Test Item Value Reference Range Interpretation [...] 417) IMMATURE GRANULOCYTES-RELATIVE 0.90 % 0.00-1.00 PERCENT (KOMAL) (test code = 2801) POCT-GLUCOSE [id number] 00:21:43 Test Item Value Reference Range Interpretation Comments POC-GLUCOSE METER 122 mg/dL 70-110 H : [facility] (test code = [facility], 1538) [address]: Customer Care Assistant/Techni carol ID = [id number] for BRUNO SULLIVAN POCT-GLUCOSE [id number] 17:44:59 Test Item Value Reference Range Interpretation Comments POC-GLUCOSE METER 91 mg/dL 70-110 : [facility] (KOMAL[facility] (test code = [facility] Deanna [facility], 1538) [address]: Customer Care Assistant/Techni carol ID = [id number] for ESPINOZA KAMARA XR ABDOMEN/KUB 1 VIEW [id number] 15:07:20 [facility] : 1965 Sex: MTECHNIQUE:XR ABDOMEN/KUB 1 VIEW PORTABLEINDICATION: NG tube placement.COMPARISON: 11/17/2022FINDINGS:Feeding tube tip projects over the second portion of the duodenum. Acatheter projects over the pelvis. Nonobstructive bowel gas pattern.Supine radiographs are insensitive for detection of free intraperitonealair.IMPRESSION:1. Feeding tube tip projects over the second portion of the duodenum.Electronically SignedBy: Oscar Orosco11/19/2022 15:09 CDTWorkstation Name: [id number] 11:55:25 Test Item Value Reference Range Interpretation Comments POC-GLUCOSE METER 85 mg/dL 70-110 : TESTED A T [facility] 6720 (BEAKER) (test code = [place], 1538) 12619: Customer Care Assistant/Techni carol ID = [id number] for ESPINOZA KAMARA (CELLAVISION MANUAL DIFF)2022-11-19 06:41:39 Test Item Value [...] CONCENTRATION Adequate (CELLAVISION)(BEAKER) (test code = 3438) Customer Care Assistant ID - Tiffany Keen comments: Slide comments:CBC W/PLT COUNT & AUTO [id number] 06:41:38 Test Item Value Reference Range Interpretation [...] 0-0 (BEAKER) (test code = 413) POCT-GLUCOSE [id number] 06:12:53 Test Item Value Reference Range Interpretation Comments POC-GLUCOSE METER 98 mg/dL 70-110 : TESTED A T [facility] 6720 (BEAKER) (test code = [place], 1538) 58260: Customer Care Assistant/Techni carol ID = [id number] for BRUNO SHARP [id number] 04:43:04 Test Item Value Reference Range Interpretation Comments PHOSPHORUS (BEAKER) (test code = 3.5 mg/dL 2.3-4.7 604) Customer Care Assistant ID - EOOBASIC METABOLIC [id number] 04:43:03 Test Item Value Reference Range Interpretation [...] not appl icable for dialysis patien ts Customer Care Assistant ID - [id number] 04:43:03 Test Item Value Reference Range Interpretation Comments MAGNESIUM (BEAKER) (test code = 2.1 mg/dL 1.6-2.6 627) Customer Care Assistant ID - EOOPOCT-GLUCOSE [id number] 23:57:38 Test Item Value Reference Range Interpretation Comments POC-GLUCOSE METER 93 mg/dL 70-110 : TESTED A T [facility] 6720 (BEAKER) (test code = [facility], 1538) 19733: Customer Care Assistant/Techni carol ID = [id number] for DON ELIZABETH SHRUTHIDARBY POCT-GLUCOSE [id number] 19:00:28 Test Item Value Reference Range Interpretation Comments POC-GLUCOSE METER 125 mg/dL 70-110 H : TESTED A T [facility] 6720 (BEAKER) (test code = [facility], 1538) 39758: Customer Care Assistant/Techni carol ID = [id number] for Rajinder Sullivan POCT-GLUCOSE [id number] 12:41:10 Test Item Value Reference Range Interpretation Comments POC-GLUCOSE METER 116 mg/dL 70-110 H : TESTED A T [facility] 6720 (BEAKER) (test code = [place], 1538) 44710: Customer Care Assistant/Techni carol ID = [id number] for Rajinder Sullivan (CELLAVISION MANUAL DIFF)2022-11-18 07:54:05 [...] CONCENTRATION Adequate (CELLAVISION)(BEAKER) (test code = 3438) Customer Care Assistant ID - brett Howell comments: Slide comments:CBC W/PLT COUNT & AUTO [id number] 07:54:04 Test Item Value Reference Range Interpretation [...] 0-0 (BEAKER) (test code = 413) POCT-GLUCOSE [id number] 07:17:47 Test Item Value Reference Range Interpretation Comments POC-GLUCOSE METER 128 mg/dL 70-110 H : TESTED A T [facility] 6720 (BEAKER) (test code = [place], 1538) 59540: Customer Care Assistant/Techni carol ID = [id number] for Ch kylah, Gracie [id number] 06:22:58 Test Item Value Reference Range Interpretation Comments MAGNESIUM (BEAKER) 2.1 mg/dL 1.6-2.6 Specimen slightly (test code = 627) hemolyzed Customer Care Assistant ID - FABIAN [id number] 06:22:58 Test Item Value Reference Range Interpretation Comments PHOSPHORUS (BEAKER) 3.6 mg/dL 2.3-4.7 Specimen slightly (test code = 604) hemolyzed Customer Care Assistant ID Kendall PERALTA WBASIC METABOLIC [id number] 06:22:58 Test Item Value Reference Range Interpretation [...] (test code = 697) EGFR (BEAKER) 95 Interpretati on of eGFR (test code = [...] not appl icable for dialysis patien ts Customer Care Assistant ID Kendall PERALTA WPOCT-GLUCOSE [id number] 23:56:34 Test Item Value Reference Range Interpretation Comments POC-GLUCOSE METER 106 mg/dL 70-110 : TESTED A T [facility] 6720 (BEAKER) (test code = [place], 1538) 06478: Customer Care Assistant/Techni carol ID = [id number] for Ch Gracie montero XR ABDOMEN/KUB 1 VIEW [id number] 20:53:28 [facility] 1965 Sex: MEXAMINATION: XR ABDOMEN/KUB 1 VIEW PORTABLE INDICATION: NG tube placementCOMPARISON: KUB of 11/16/22 FINDINGS/IMPRESSION:Enteric tube tip terminates in the proximal duodenum. No bowelobstruction or free air. No acute osseous injury.Electronically Signed By: Amita Bernal11/17/2022 20:55 CDTWorkstation Name: [id number] 18:09:40 Test Item Value Reference Range Interpretation Comments POC-GLUCOSE METER 113 mg/dL 70-110 H : TESTED A T [facility] 6720 (KOMAL) (test code = [place], 1538) 41441: Customer Care Assistant/Techni carol ID = [id number] for MYRIAM PALMREMEDIOS KARTHIKEYAN XR CHEST 1 VIEW PORTABLE / [id number] 15:35:17 [facility] 1965 Sex: MAP view ofthe chest dated 3COMPARISON: November 123CLINICAL INFORMATION: follow up infiltartesComment: Heart is normal in size. Pulmonary vasculature isunremarkable. Opacity is seen in the left lower lobe suggestivepneumonia unchanged from prior study. The rest of lungs are clear. Nopleural effusion or pneumothorax is seen. Feeding tube remains in place.IMPRESSION:Left lower lobe pneumonia unchanged from prior study.Electronically Signed By: Claudio Acevedo11/17/2022 15:37 CDTWorkstation Name: [id number] 12:18:49 Test Item Value Reference Range Interpretation Comments POC-GLUCOSE METER 120 mg/dL 70-110 H : TESTED A T [facility] 6720 (BEAKER) (test code = [place], 1538) 82699: Customer Care Assistant/Techni carol ID = [id number] for KARTHIKEYAN ALTAMIRANO BLOOD [id number] 06:00:10 Test Item Value Reference Range Interpretation Comments CULTURE (BEAKER) (test No growth in 5 days code = 1095) BLOOD [id number] 06:00:09 Test Item Value Reference Range Interpretation Comments CULTURE (BEAKER) (test No growth in 5 days code = 1095) [id number] 04:53:04 Test Item Value Reference Range Interpretation Comments MAGNESIUM (BEAKER) (test code = 2.1 mg/dL 1.6-2.6 627) [id number] 04:53:04 Test Item Value Reference Range Interpretation Comments PHOSPHORUS (BEAKER) (test code = 3.1 mg/dL 2.3-4.7 604) BASIC METABOLIC [id number] 04:53:03 Test Item Value Reference Range Interpretation [...] (test code = 697) EGFR (BEAKER) 102 Interpretati on of eGFR (test code = [...] patien ts CBC W/PLT COUNT & AUTO [id number] 04:36:30 Test Item Value Reference Range Interpretation [...] PERCENT (BEAKER) (test code = 2801) POCT-GLUCOSE [id number] 21:57:20 Test Item Value Reference Range Interpretation Comments POC-GLUCOSE METER 121 mg/dL 70-110 H : TESTED A T [facility] 6720 (BEAKER) (test code = [facility], 1538) 16748: Customer Care Assistant/Techni carol ID = [id number] for Jolynn Good POCT-GLUCOSE [id number] 17:46:20 Test Item Value Reference Range Interpretation Comments POC-GLUCOSE METER 109 mg/dL 70-110 : TESTED A T [facility] 6720 (BEAKER) (test code = [facility], 1538) 38494: Customer Care Assistant/Techni carol ID = [id number] for Aj Jeaneligio POCT-GLUCOSE [id number] 12:37:23 Test Item Value Reference Range Interpretation Comments POC-GLUCOSE METER 94 mg/dL 70-110 : TESTED A T [facility] 6720 (BEAKER) (test code = [facility], 1538) 84650: Customer Care Assistant/Techni carol ID = [id number] for Jamey wise Tobiashok XR ABDOMEN/KUB 1 VIEW [id number] 12:18:19 [facility] 1965 Sex: MONE VIEW AB DOMENHISTORY: Feeding tube placementCOMPARISON:11/15/2022FINDINGS:2 supine AP images of the abdomen were obtained.The feeding tube has been advanced, with its tip now at the junction ofthe second and third portions of the duodenum.No dilated bowel loops are visualized.Electronically Signed By: Montrell Benoit 11/16/2022 12:20 CDTWorkstation Name: [id number] 08:28:32 Test Item Value Reference Range Interpretation Comments POC-GLUCOSE METER 91 mg/dL 70-110 : TESTED A T [facility] 6720 (BEAKER) (test code = [facility], 1538) 75772: Customer Care Assistant/Techni carol ID = [id number] for Courtney Matthews CBC W/PLT COUNT & AUTO [id number] 04:56:54 Test Item Value Reference Range Interpretation [...] H PERCENT (BEAKER) (test code = 2801) [id number] 04:52:25 Test Item Value Reference Range Interpretation Comments MAGNESIUM (BEAKER) (test code = 2.0 mg/dL 1.6-2.6 627) Customer Care Assistant ID - [id number] 04:52:25 Test Item Value Reference Range Interpretation Comments PHOSPHORUS (BEAKER) (test code = 3.0 mg/dL 2.3-4.7 604) Customer Care Assistant ID - MARCOBASIC METABOLIC [id number] 04:52:24 Test Item Value Reference Range Interpretation [...] not appl icable for dialysis patien ts Customer Care Assistant ID - MARCOPOCT-GLUCOSE [id number] 22:19:57 Test Item Value Reference Range Interpretation Comments POC-GLUCOSE METER 85 mg/dL 70-110 : TESTED A T [facility] 6720 (BEMIN) (test code = TREVOR Huerta [facility], 1538) 95277: Customer Care Assistant/Techni carol ID = [id number] for Weaury erDayronha XR ABDOMEN/KUB 1 VIEW [id number] 21:30:05 [facility] 1965 Sex: MEXAM/TECHNIQUE: XR ABDOMEN/KUB 1 VIEW PORTABLEINDICATION: cortrak placementCOMPARISON: 11/12/2022.FINDINGS: Feeding tube terminates in the stomach. Nondilated loops of large smallbowel. No acute osseous process.IMPRESSION:Impression:Feeding tube terminates in the stomach.Electronically Signed By: Ilan Sung11/15/2022 21:32 CDTWorkstation Name: [id number] 18:11:10 Test Item Value Reference Range Interpretation Comments POC-GLUCOSE METER 88 mg/dL 70-110 : TESTED A T [facility] 6720 (BEAKER) (test code = [place], 1538) 64336: Customer Care Assistant/Techni carol ID = [id number] for Rajinder Sharp LIPID [id number] 13:11:54 Test Item Value Reference Range Interpretation Comments TRIGLYCERIDES (BEAKER) (test code = 77 mg/dL 540) CHOLESTEROL (BEAKER) (test code = 123 mg/dL 631) HDL CHOLESTEROL (BEAKER) (test code 24 mg/dL = 976) LDL CHOLESTEROL CALCULATED (BEAKER) 84 mg/dL (test code = 633) Triglyceride Reference Range: Low Risk <150 Borderline 150-199 High Risk 200- 499 Very High Risk >=500Cholesterol Reference Range: Low Risk <200 Borderline 200-239 High Risk >240HDL Cholesterol Reference Range: Low Risk >=60 High Risk <40LDL Cholesterol Reference Range: Optimal <100 Near Optimal 100-129 Borderline 130-159 High 160-189 Very High >=190 Customer Care Assistant ID - ADMINPOCT-GLUCOSE [id number] 12:44:17 Test Item Value Reference Range Interpretation Comments POC-GLUCOSE METER 113 mg/dL 70-110 H : TESTED A T [facility] 6720 (BEAKER) (test code = [place], 1538) 54810: Customer Care Assistant/Techni carol ID = [id number] for Rajinder Sullivan POCT-GLUCOSE [id number] 08:51:18 Test Item Value Reference Range Interpretation Comments POC-GLUCOSE METER 108 mg/dL 70-110 : TESTED A T [facility] 6720 (BEAKER) (test code = TREVOR Huerta [place], 1538) 63299: Customer Care Assistant/Techni carol ID = [id number] for Rajinder Sullivan POCT-GLUCOSE [id number] 06:40:10 Test Item Value Reference Range Interpretation Comments POC-GLUCOSE METER 117 mg/dL 70-110 H : TESTED A T [facility] 6720 (BEAKER) (test code = TREVOR Huerta [facility], 1538) 18195: Customer Care Assistant/Techni carol ID = [id number] for Jolynn Good [id number] 06:06:26 Test Item Value Reference Range Interpretation Comments PHOSPHORUS (BEAKER) (test code = 3.0 mg/dL 2.3-4.7 604) BASIC METABOLIC [id number] 06:06:25 Test Item Value Reference Range Interpretation [...] not appl icable for dialysis patien ts [id number] 06:06:25 Test Item Value Reference Range Interpretation Comments MAGNESIUM (BEAKER) (test code = 1.9 mg/dL 1.6-2.6 627) CBC W/PLT COUNT & AUTO [id number] 05:31:57 Test Item Value Reference Range Interpretation [...] PERCENT (BEAKER) (test code = 2801) POCT-GLUCOSE [id number] 23:34:04 Test Item Value Reference Range Interpretation Comments POC-GLUCOSE METER 109 mg/dL 70-110 : TESTED A T [facility] 6720 (BEAKER) (test code = [facility] [place], 1538) 06563: Customer Care Assistant/Techni carol ID = [id number] for Jolynn Good POCT-GLUCOSE [id number] 18:31:14 Test Item Value Reference Range Interpretation Comments POC-GLUCOSE METER 112 mg/dL 70-110 H : TESTED A T [facility] 6720 (BEAKER) (test code = [facility], 1538) 64372: Customer Care Assistant/Techni carol ID = [id number] for ELIOT ALEXANDER SPUTUM CULTURE + GRAM [id number] 11:17:03 Test Item Value Reference Range Interpretation Comments CULTURE (BEAKER) 4+ Normal respiratory (test code = 1095) kei present GRAM STAIN RESULT 1+ WBCs (BEAKER) (test code = 1123) GRAM STAIN RESULT 1+ budding yeast (BEAKER) (test code = 26060) GRAM STAIN RESULT <1+ gram variable rods (BEAKER) (test code = 93314) [id number] 07:15:02 Test Item Value Reference Range Interpretation Comments MAGNESIUM (BEAKER) (test code = 1.8 mg/dL 1.6-2.6 627) Customer Care Assistant ID - [id number] 07:15:02 Test Item Value Reference Range Interpretation Comments PHOSPHORUS (BEAKER) (test code = 2.6 mg/dL 2.3-4.7 604) Customer Care Assistant ID - MMBASIC METABOLIC [id number] 07:15:01 Test Item Value Reference Range Interpretation [...] not appl icable for dialysis patien ts Customer Care Assistant ID - MMCBC W/PLT COUNT & AUTO [id number] 06:11:39 Test Item Value Reference Range Interpretation [...] PERCENT (BEAKER) (test code = 2801) POCT-GLUCOSE [id number] 06:09:35 Test Item Value Reference Range Interpretation Comments POC-GLUCOSE METER 111 mg/dL 70-110 H : TESTED A T [facility] 6720 (BEAKER) (test code = [facility], 1538) 71582: Customer Care Assistant/Techni carol ID = [id number] for Aaliyah Fu POCT-GLUCOSE [id number] 01:00:38 Test Item Value Reference Range Interpretation Comments POC-GLUCOSE METER 105 mg/dL 70-110 : TESTED A T [facility] 6720 (BEAKER) (test code [facility], = 1538) 62331: Customer Care Assistant/Techni carol ID = [id number] for Balbina blerTimothya POCT-GLUCOSE [id number] 00:22:13 Test Item Value Reference Range Interpretation Comments POC-GLUCOSE METER 101 mg/dL 70-110 : TESTED A T [facility] 6720 (BEAKER) (test code = [facility], 153) 28649: Customer Care Assistant/Techni carol ID = [id number] for CASIE EVANS VANCOMYCIN LEVEL, [id number] 18:01:21 Test Item Value Reference Range Interpretation Comments VANCOMYCIN TROUGH (BEAKER) (test 8.2 ug/mL 10.0-20.0 L code = 522) Customer Care Assistant ID - BSPOCT-GLUCOSE [id number] 16:47:25 Test Item Value Reference Range Interpretation Comments POC-GLUCOSE METER 106 mg/dL 70-110 : TESTED A T [facility] 6720 (BEAKER) (test code = [facility], 153) 63821: Customer Care Assistant/Techni carol ID = [id number] for Anabel Ruiz POCT-GLUCOSE [id number] 11:49:02 Test Item Value Reference Range Interpretation Comments POC-GLUCOSE METER 121 mg/dL 70-110 H : TESTED A T [facility] 6720 (BEAKER) (test code = [facility], 1538) 19551: Customer Care Assistant/Techni carol ID = [id number] for Anabel Ruiz POCT-GLUCOSE [id number] 06:31:39 Test Item Value Reference Range Interpretation Comments POC-GLUCOSE METER 109 mg/dL 70-110 : TESTED A T [facility] 6720 (BEAKER) (test code = [facility], 153) 05886: Customer Care Assistant/Techni carol ID = [id number] for SOULEYMANE RAYO CBC W/PLT COUNT & AUTO [id number] 04:20:15 Test Item Value Reference Range Interpretation [...] (BEAKER) (test code = 2801) BASIC METABOLIC [id number] 04:10:46 Test Item Value Reference Range Interpretation [...] not appl icable for dialysis patien ts Customer Care Assistant ID - [id number] 04:10:46 Test Item Value Reference Range Interpretation Comments MAGNESIUM (BEAKER) (test code = 1.9 mg/dL 1.6-2.6 627) Customer Care Assistant ID - [id number] 04:10:46 Test Item Value Reference Range Interpretation Comments PHOSPHORUS (BEAKER) (test code = 2.6 mg/dL 2.3-4.7 604) Customer Care Assistant ID - ADMINPOCT-GLUCOSE [id number] 00:36:00 Test Item Value Reference Range Interpretation Comments POC-GLUCOSE METER 115 mg/dL 70-110 H : TESTED A T [facility] 6720 (BEAKER) (test code = [place], 1538) 17318: Customer Care Assistant/Techni carol ID = [id number] for SOULEYMANE RAYO POCT-GLUCOSE [id number] 17:40:35 Test Item Value Reference Range Interpretation Comments POC-GLUCOSE METER 107 mg/dL 70-110 : TESTED A T [facility] 6720 (BEAKER) (test code = TREVOR Huerta [facility], 1538) 31941: Customer Care Assistant/Techni carol ID = [id number] for Anabel Ruiz XR ABDOMEN/KUB 1 VIEW [id number] 13:44:03 [facility] 1965 Sex: MEXAMINATION: XR ABDOMEN/KUB 1 VIEW PORTABLE INDICATION: Diarreha, concern for colitisCOMPARISON: November 06, 2022 FINDINGS/IMPRESSION:No bowel obstruction or free air. No radiographically apparent urinarycalculi. No acute osseous injury.The tip of the Dobbhoff feeding tube overlies the mid duodenum.Electronically Signed By: Salma Khan11/12/2022 13:46 CDTWorkstation Name: [id number] METER 2022-11-12 11:58:32 Test Item Value Reference Range Interpretation Comments POC-GLUCOSE METER 124 mg/dL 70-110 H : TESTED A T [facility] 6720 (BEAKER) (test code = [place], 1538) 12369: Customer Care Assistant/Techni carol ID = [id number] for LL CARLEY HANNAHA LACTIC ACID, [id number] 08:57:10 Test Item Value Reference Range Interpretation [...] CONCENTRATION Adequate (CELLAVISION)(BEAKER) (test code = 3438) Customer Care Assistant ID - Tiffany Keen comments: Slide comments:CBC W/PLT COUNT & AUTO [id number] 07:51:37 Test Item Value Reference Range Interpretation [...] 0-0 (BEAKER) (test code = 413) URINALYSIS [id number] 06:44:11 Test Item Value Reference Range Interpretation Comments RBC UA (BEAKER) (test code = 519) 40 /HPF WBC UA (BEAKER) (test code = 520) 3 /HPF MUCUS (BEAKER) (test code = 1574) Rare SQUAMOUS EPITHELIAL (BEAKER) (test 4 /HPF code = 516) Customer Care Assistant ID - techURINALYSIS WITH MICROSCOPIC IF [id number] 06:26:58 Test Item Value Reference Range Interpretation [...] = 463) SOURCE(BEAKER) (test code = 2795) Customer Care Assistant ID - [auto]XR CHEST 1 VIEW PORTABLE / [id number] 05:32:07 [facility]TT [facility] : 1965 Sex: MCLINICAL I NDICATION: c/f pneumoniaComparison: 11/11/2022The cardiomediastinal contours are stable.The lung volumes remain low. Central pulmonary vascular prominence andbilateral parenchymal opacities are unchanged.There is no pneumothorax.A feeding tube remains in place.Electronically Signed By: Jamarcus Schumacher11/12/2022 05:34 CDTWorkstation Name: [id number] 04:01:45 Test Item Value Reference Range Interpretation Comments PROCALCITONIN (BEAKER) (test code 0.26 ng/mL <0.05 H = 3036) SEPSIS RISK (ng/mL)Low: 0.05-0.50Intermediate: 0.51-2.00High: >=2.01BASIC METABOLIC [id number] 03:34:39 Test Item Value Reference Range Interpretation [...] not appl icable for dialysis patien ts Customer Care Assistant ID - FABIAN [id number] 03:34:39 Test Item Value Reference Range Interpretation Comments MAGNESIUM (BEAKER) (test code = 2.0 mg/dL 1.6-2.6 627) Customer Care Assistant ID - FABIAN [id number] 03:34:39 Test Item Value Reference Range Interpretation Comments PHOSPHORUS (BEAKER) (test code = 2.4 mg/dL 2.3-4.7 604) Customer Care Assistant ID - FABIAN WPOCT-GLUCOSE [id number] 03:21:18 Test Item Value Reference Range Interpretation Comments POC-GLUCOSE METER 140 mg/dL 70-110 H : TESTED A T [facility] 6720 (BEAKER) (test code = [facility] [employer] [facility], 153) 77031: Customer Care Assistant/Techni carol ID = [id number] for YE (V), WEIPING POCT-GLUCOSE [id number] 21:27:28 Test Item Value Reference Range Interpretation Comments POC-GLUCOSE METER 129 mg/dL 70-110 H : TESTED A T [facility] 6720 (BEAKER) (test code = [facility] [employer] [facility], 1538) 27765: Customer Care Assistant/Techni carol ID = [id number] for YE (V), WEIPING POCT-GLUCOSE [id number] 12:21:08 Test Item Value Reference Range Interpretation Comments POC-GLUCOSE METER 142 mg/dL 70-110 H : TESTED A T [facility] 6720 (BEAKER) (test code = [facility] [employer] [facility], 1538) 81668: Customer Care Assistant/Techni carol ID = [id number] for Anabel Ruiz XR CHEST 1 VIEW PORTABLE / [id number] 08:50:01 [facility]ENTER[facility]: BRETT SALDIVAR : 1965 Sex: MXR CHEST 1VIEW PORTABLE / BEDSIDEINDICATION: IntubationCOMPARISON: Prior day's examFINDINGS: Portable frontal view of the chest. IMPRESSION:Support Lines: Endotracheal tube removed. Stable enteric tube.Lungs andpleura: Low lung volumes. Increased right lung baseatelectasis. Stable left lower lobe streaky opacities. No pneumothorax.Heart and mediastinum: Stable contours. Additional findings: None.Electronically Signed By: Ken Muniz11/11/2022 08:52 CDTWorkstation Name: [id number] W/PLT COUNT & AUTO [id number] 08:44:26 Test Item Value Reference Range Interpretation [...] PERCENT (BEAKER) (test code = 2801) POCT-GLUCOSE [id number] 06:38:49 Test Item Value Reference Range Interpretation Comments POC-GLUCOSE METER 91 mg/dL 70-110 : TESTED A T [facility] 6720 (BEAKER) (test code = [place], 1538) 19495: Customer Care Assistant/Techni carol ID = [id number] for [place] Ahmadi [id number] 05:32:17 Test Item Value Reference Range Interpretation Comments PHOSPHORUS (BEAKER) 2.6 mg/dL 2.3-4.7 Specimen slightly (test code = 604) hemolyzed Customer Care Assistant ID Kendall PERALTA WBASIC METABOLIC [id number] 05:32:17 Test Item Value Reference Range Interpretation [...] not appl icable for dialysis patien ts Customer Care Assistant ID - FABIAN [id number] 05:32:16 Test Item Value Reference Range Interpretation Comments MAGNESIUM (BEAKER) 2.1 mg/dL 1.6-2.6 Specimen slightly (test code = 627) hemolyzed Customer Care Assistant ID - FABIAN WPOCT-GLUCOSE [id number] 23:53:55 Test Item Value Reference Range Interpretation Comments POC-GLUCOSE METER 87 mg/dL 70-110 : TESTED A T [facility] 6720 (BEAKER) (test code = [place], 1538) 28992: Customer Care Assistant/Techni carol ID = [id number] for [place] Ahmadi BLOOD [id number] 15:01:19 Test Item Value Reference Range Interpretation Comments CULTURE (BEAKER) (test No growth in 5 days code = 1095) The specimen volume collected for this blood culture was below the optimum (10 mL per bottle or 20 mL total). Use of lower volumes may adversely affect recovery and/or detection times of some organisms.BLOOD [id number] 15:01:19 Test Item Value Reference Range Interpretation Comments CULTURE (BEAKER) (test No growth in 5 days code = 1095) The specimen volume collected for this blood culture was below the optimum (10 mL per bottle or 20 mL total). Use of lower volumes may adversely affect recovery and/or detection times of some organisms.POCT-GLUCOSE [id number] 14:36:04 Test Item Value Reference Range Interpretation Comments POC-GLUCOSE METER 115 mg/dL 70-110 H : TESTED Rachel T [facility] 6720 (BEAKER) (test code [facility], = 1538) [address]: Customer Care Assistant/Techni carol ID = [id number] for Jaswinder hamilton ([facility])Deborah BASIC METABOLIC [id number] 14:32:42 Test Item Value Reference Range Interpretation [...] not appl icable for dialysis patien ts Customer Care Assistant ID - [id number] 14:32:42 Test Item Value Reference Range Interpretation Comments MAGNESIUM (BEAKER) (test code = 2.3 mg/dL 1.6-2.6 627) Customer Care Assistant ID - EOOPOCT-GLUCOSE [id number] 11:22:50 Test Item Value Reference Range Interpretation Comments POC-GLUCOSE METER 114 mg/dL 70-110 H : TESTED A T [facility] 6720 (BEAKER) (test code = TREV[place] Huerta [place], 1538) [address]: Customer Care Assistant/Techni carol ID = [id number] for An Christel weiss XR CHEST 1 VIEW PORTABLE / [id number] 06:21:45 [facility] : 1965 Sex: MXR [...] Signed By: Ken Muniz11/10/2022 06:23 CDTWorkstation Name: [id number] METABOLIC PANEL 2022-11-10 04:58:19 Test Item Value [...] not appl icable for dialysis patien ts Customer Care Assistant ID - BVOperator ID - [id number] 04:14:08 Test Item Value Reference Range Interpretation Comments PHOSPHORUS (BEAKER) (test code = 3.3 mg/dL 2.3-4.7 604) Customer Care Assistant ID - [id number] 04:14:07 Test Item Value Reference Range Interpretation Comments MAGNESIUM (BEAKER) (test code = 1.9 mg/dL 1.6-2.6 627) Customer Care Assistant ID - BVPOCT-GLUCOSE [id number] 03:53:24 Test Item Value Reference Range Interpretation Comments POC-GLUCOSE METER 105 mg/dL 70-110 : TESTED A T [facility] 6720 (BEAKER) (test code = [place], 1538) [address]: Customer Care Assistant/Techni carol ID = [id number] for LEAH SEGAL CBC W/PLT COUNT & AUTO [id number] 03:46:39 Test Item Value Reference Range Interpretation [...] (BEAKER) (test code = 2801) BLOOD GAS, [id number] 03:43:46 Test Item Value Reference Range Interpretation [...] (BEAKER) (test code = 1819) 32.0 POCT-GLUCOSE [id number] 22:29:45 Test Item Value Reference Range Interpretation Comments POC-GLUCOSE METER 149 mg/dL 70-110 H : TESTED A T [facility] 6720 (BEAKER) (test code = [facility], 1538) [address]: Customer Care Assistant/Techni carol ID = [id number] for LEAH SEGAL POCT-GLUCOSE [id number] 14:53:25 Test Item Value Reference Range Interpretation Comments POC-GLUCOSE METER 131 mg/dL 70-110 H : TESTED A T [facility] 6720 (BEAKER) (test code = [facility], 1538) 18[address]: Customer Care Assistant/Techni carol ID = [id number] for An Christel weiss POCT-GLUCOSE [id number] 11:25:13 Test Item Value Reference Range Interpretation Comments POC-GLUCOSE METER 125 mg/dL 70-110 H : TESTED A T [facility] 6720 (BEAKER) (test code = [facility], 1538) [address]: Customer Care Assistant/Techni carol ID = [id number] for An akDamaso camposia XR CHEST 1 VIEW PORTABLE / [id number] 09:08:16 [facility] 1965 Sex: MEXAMINATION: XR CHEST 1 [...] Signed By: Amita Bernal11/09/2022 09:10 CDTWorkstation Name: [id number] 03:52:49 Test Item Value Reference Range Interpretation Comments MAGNESIUM (BEAKER) (test code = 2.3 mg/dL 1.6-2.6 627) Customer Care Assistant ID - [id number] 03:52:49 Test Item Value Reference Range Interpretation Comments PHOSPHORUS (BEAKER) (test code = 2.4 mg/dL 2.3-4.7 604) Customer Care Assistant ID - MARCOBASIC METABOLIC [id number] 03:52:48 Test Item Value Reference Range Interpretation [...] not appl icable for dialysis patien ts Customer Care Assistant ID - MARCOCBC W/PLT COUNT & AUTO [id number] 03:35:35 Test Item Value Reference Range Interpretation [...] (BEAKER) (test code = 2801) BLOOD GAS, [id number] 03:29:39 Test Item Value Reference Range Interpretation [...] (BEAKER) (test code = 1819) 24.0 POCT-GLUCOSE [id number] 02:52:45 Test Item Value Reference Range Interpretation Comments POC-GLUCOSE METER 110 mg/dL 70-110 : TESTED A T [facility] 6720 (BEAKER) (test code = TREVOR Huerta [facility], 1538) [address]: Customer Care Assistant/Techni carol ID = [id number] for LEAH SEGAL POCT-GLUCOSE [id number] 02:49:54 Test Item Value Reference Range Interpretation Comments POC-GLUCOSE METER 167 mg/dL 70-110 H : TESTED A T [facility] 6720 (BEAKER) (test code = TREVOR Huerta [facility], 1538) [address]: Customer Care Assistant/Techni carol ID = [id number] for LEAH SEGAL BASIC METABOLIC [id number] 16:07:43 Test Item Value Reference Range Interpretation [...] not appl icable for dialysis patien ts Customer Care Assistant ID - DBSPUTUM CULTURE + GRAM [id number] 10:16:15 Test Item Value Reference Range Interpretation Comments CULTURE A 1+ Beta-hemolyt ic (BEAKER) (test streptococcus group code = 1095) G, by serologic al grouping GRAM STAIN 4+ WBCs RESULT (BEAKER) (test code = 1123) GRAM STAIN 1+ gram positive RESULT (BEAKER) cocci in chains and (test code = pairs 079027) GRAM STAIN 1+ gram negative RESULT (BEAKER) coccobacilli (test code = 687074) GRAM STAIN <1+ gram positive RESULT (BEAKER) rods (test code = 932095) GRAM STAIN <1+ gram positive RESULT (BEAKER) cocci in clusters (test code = 415898) 3+ Normal respiratory kei presentXR CHEST 1 VIEW PORTABLE / [id number] 06:31:38[facility] : 1965 Sex: MChest one v iew:HISTORY: PneumoniaCompared to 11/07/2022. Bibasilar subsegmental atelectasis is present and improved on the left.There is a minimal left pleural effusion. Cardiac size remains withinnormal limits. Anendotracheal tube and enteric feeding tube appearunchanged in position.Electronically Signed By: Timmy Mcintyre11/08/2022 06:33 CDTWorkstation Name: [id number] 03:37:56 Test Item Value Reference Range Interpretation Comments MAGNESIUM (BEAKER) (test code = 2.3 mg/dL 1.6-2.6 627) Customer Care Assistant ID - [id number] 03:37:56 Test Item Value Reference Range Interpretation Comments PHOSPHORUS (BEAKER) (test code = 3.2 mg/dL 2.3-4.7 604) Customer Care Assistant ID - ADMINBASIC METABOLIC [id number] 03:37:55 Test Item Value Reference Range Interpretation [...] (test code = 697) EGFR (BEAKER) 35 Interpretati on of eGFR (test code = mL/min/1.73 values Stage De scription 1092) sq m Result G1 Onelia l or high >=90 G2 Mildly decreased 60-89 G3a Mildl y to moderately 45- 59 G3b Moderately to s everely 30-44 G4 Severl y decreased 15-29 G5 Kidney failure <15Reported eGF R is based on the CKD-EPI 2020 equation that d oes not use a race coefficientEsti mated GFR is not as accur ate as Creatinine Eugenia mesha in predicting glom erular filtration rate . Estimated GFR is not appl icable for dialysis patien ts Customer Care Assistant ID - ADMINCBC W/PLT COUNT & AUTO [id number] 03:32:03 Test Item Value Reference Range Interpretation [...] (BEAKER) (test code = 2801) BLOOD GAS, [id number] 03:15:14 Test Item Value Reference Range Interpretation Comments PH ARTERIAL (BEAKER) (test code = 7.47 7.35-7.45 H 383) PCO2 ARTERIAL (BEAKER) (test code 42 mm Hg 35-45 = 384) PO2 ARTERIAL (BEAKER) (test code = 100 mm Hg 80-90 H 385) O2 SATURATION ARTERIAL (BEAKER) 97.8 % 96.0-97.0 H (test code = 386) HCO3 ARTERIAL ([facility]) (test code 30 mmol/L 21-29 H = 388) BASE EXCESS ARTERIAL ([facility]) 5.5 mmol/L -2.0-3.0 H (test code = 387) PATIENT TEMPERATURE ([facility]) (test 37.0 code = 1818) FIO2 ([facility]) (test code = 1819) 24.0 POCT-GLUCOSE [id number] 23:26:56 Test Item Value Reference Range Interpretation Comments POC-GLUCOSE METER 133 mg/dL 70-110 H : TESTED A T [facility] 67 ([facility]) (test code = [facility], 1538) [address]: Customer Care Assistant/Techni carol ID = [id number] for FATOU FRANCISCO POCT-GLUCOSE [id number] 19:00:51 Test Item Value Reference Range Interpretation Comments POC-GLUCOSE METER 125 mg/dL 70-110 H : Notified RN/MD: ([facility]) (test code = TESTED AT [facility] 6720 1538) [facility], [address]: Customer Care Assistant/Techni carol ID = [id number] for MISSY MUIR XR CHEST 1 VIEW PORTABLE / [id number] 18:19:28 [facility] : 1965 Sex: MExam: XR CHEST 1 VIEW PORTABLE / BEDSIDEDate: 11/07/2022 6:18 PMIndication:worsening hypoxiaComparison: Chest radiograph from earlier today.IMPRESSION:Lines/Tubes:Unchanged support devices.Lungs and Pleura : Low lung volumes. Mildly increasing perihilaropacities. Trace bilateral pleural effusions. No pneumothorax.Heart/Mediastinum:Unchanged.Bones/Soft Tissues: No acute osseous abnormality.Upper abdomen: Unremarkable.Electronically Signed By: Gerardo Cheng11/07/2022 18:21 CDTWorkstation Name: [id number] METABOLIC PANEL 2022-11-07 17:42:19 Test Item Value [...] not appl icable for dialysis patien ts Customer Care Assistant ID - ADMINBLOOD GAS, [id number] 17:07:40 Test Item Value Reference Range Interpretation [...] (test code = 1819) 21.0 BASIC METABOLIC [id number] 16:56:17 Test Item Value Reference Range Interpretation [...] not appl icable for dialysis patien ts Customer Care Assistant ID - BSUS RENAL [id number] 16:15:21 [facility] : 1965 Sex: MEXAM: [...] Signed By: Amita Bernal11/07/2022 16:17 CDTWorkstation Name: [id number] NITROGEN, RANDOM [id number] 14:25:38 Test Item Value Reference Range Interpretation Comments UREA NITROGEN URINE (BEAKER) (test 351 mg/dL code = 538) Reference Range: No NormalsOperator ID - ADMINCREATININE, RANDOM [id number] 14:25:37 Test Item Value Reference Range Interpretation Comments CREATININE URINE (BEAKER) (test 117.9 mg/dL code = 375) Reference Range: No NormalsOperator ID - ADMINSODIUM, RANDOM [id number] 14:25:37 Test Item Value Reference Range Interpretation Comments SODIUM URINE (BEAKER) (test code = 43 meq/L 243) Reference Range: No NormalsOperator ID - ADMINBASIC METABOLIC [id number] 14:01:34 Test Item Value Reference Range Interpretation [...] not appl icable for dialysis patien ts Customer Care Assistant ID - MARCOB-TYPE NATRIURETIC FACTOR (BNP)2022-11-07 13:54:47 Test Item Value Reference Range Interpretation Comments B-TYPE NATRIURETIC PEPTIDE (BEAKER) 108 pg/mL 0-100 H (test code = 700) Customer Care Assistant ID - MARCOBLOOD GAS, [id number] 13:38:48 Test Item Value Reference Range Interpretation [...] (BEAKER) (test code = 1819) 21 OSMOLALITY, [id number] 12:37:47 Test Item Value Reference Range Interpretation Comments OSMOLALITY, SERUM (BEAKER) (test 302 mOsm/kg 275-295 H code = 615) POCT-GLUCOSE [id number] 12:14:10 Test Item Value Reference Range Interpretation Comments POC-GLUCOSE METER 144 mg/dL 70-110 H : Notified RN/MD: (BEAKER) (test code = TESTED AT [facility] 6483 2260) [facility], [address]: Customer Care Assistant/Techni carol ID = [id number] for MISSY MUIR CREATINE KINASE (CK)2022-11-07 12:06:52 Test Item Value Reference Range Interpretation Comments CREATINE KINASE TOTAL (BEAKER) (test 393 U/L 29-200 H code = 380) Customer Care Assistant ID - VIOLETASMOLALITY, [id number] 11:47:18 Test Item Value Reference Range Interpretation Comments OSMOLALITY URINE 355 mOsm/kg See_Comment [Automated message] (BEAKER) (test code = The sy stem which 614) generated this result transmitted ref erence range: 50-1,200 mOsm/kg. The reference range was not used to int erpret this result as normal/abnormal . URINALYSIS WITH MICROSCOPIC IF [id number] 11:46:16 Test Item Value Reference Range Interpretation Comments COLOR (BEAKER) (test code = 470) Spade CLARITY (BEAKER) (test code = 469) Hazy [...] = 463) SOURCE(BEAKER) (test code = 2795) Customer Care Assistant ID - [auto]Customer Care Assistant ID - techURINALYSIS [id number] 11:46:16 Test Item Value Reference Range Interpretation Comments RBC UA (BEAKER) (test code = 519) 56 /HPF WBC UA (BEAKER) (test code = 520) 14 /HPF MUCUS (BEAKER) (test code = 1574) Rare SQUAMOUS EPITHELIAL (BEAKER) (test < /HPF code = 516) CASTS (BEAKER) (test code = 1579) 1 /LPF CRYSTALS, URINE (BEAKER) (test Occasional None Seen A code = 1521) Customer Care Assistant ID - techBLOOD GAS, [id number] 09:07:12 Test Item Value Reference Range Interpretation [...] (test code = 1819) 30.0 HEPATIC FUNCTION [id number] 08:17:04 Test Item Value Reference Range Interpretation [...] (test code = 24 U/L 6-55 347) Customer Care Assistant ID - MARCOXR CHEST 1 VIEW PORTABLE / [id number] 06:56:03 [facility] : 1965 Sex: MCLINICAL HISTORY: pneumonia follow-upTECHNIQUE: 1 view of the chest.COMPARISON: 11/06/2022IMPRESSION:ETT terminates 3 cm above the ulisses. Feeding tube now seen in theduodenum. Low lung volumes are again seen with decreased right perihilarairspace opacity. There are no significant appearing effusions. Thecardiomediastinal silhouette is magnified by technique.Electronically Signed By: Del Macdonald11/07/2022 06:58 CDTWorkstation Name: [id number] METABOLIC [id number] 04:01:18 Test Item Value Reference Range Interpretation [...] not appl icable for dialysis patien ts Customer Care Assistant ID - [id number] 03:53:48 Test Item Value Reference Range Interpretation Comments MAGNESIUM (BEAKER) (test code = 2.0 mg/dL 1.6-2.6 627) Customer Care Assistant ID - [id number] 03:53:48 Test Item Value Reference Range Interpretation Comments PHOSPHORUS (BEAKER) (test code = 4.8 mg/dL 2.3-4.7 H 604) Customer Care Assistant ID - ADMINCBC W/PLT COUNT & AUTO [id number] 03:39:24 Test Item Value Reference Range Interpretation [...] (BEAKER) (test code = 2801) BLOOD GAS, [id number] 03:20:41 Test Item Value Reference Range Interpretation [...] (test code = 1819) 60.0 BLOOD GAS, [id number] 23:12:54 Test Item Value Reference Range Interpretation [...] = 1819) 80.0 XR ABDOMEN/KUB 1 VIEW [id number] 22:12:42 [facility] : 1965 Sex: MTECHNIQUE:XR ABDOMEN/KUB 1 VIEW PORTABLEINDICATION: corpak.COMPARISON: 11/06/2022FINDINGS:Feeding tube tip projects over the first portion of the duodenum. Nospecific evidence for bowel obstruction. Supine radiographs areinsensitive for detection of free intraperitoneal air.IMPRESSION:Feeding tube tip now projects over the first portion of the duodenum.Electronically Signed By: Oscar Orosco11/06/2022 22:14 CDTWorkstation Name: [id number] GAS, [id number] 20:54:23 Test Item Value Reference Range Interpretation [...] (test code = 1819) 100.0 BLOOD GAS, [id number] 20:16:35 Test Item Value Reference Range Interpretation [...] = 1819) 100.0 XR ABDOMEN/KUB 1 VIEW [id number] 19:23:18 [facility] : 1965 Sex: MTECHNIQUE:XR ABDOMEN/KUB 1 VIEW PORTABLEINDICATION: corpak.COMPARISON: 11/04/2022FINDINGS:Feeding tube with the tip projecting over the gastric fundus. Mildgaseous distention of the stomach. No specific evidence for bowelobstruction. Supine radiographs are insensitive for detection of freeintraperitoneal air.IMPRESSION:Feeding tube tip projects over the gastric fundus.Electronically Signed By: Oscar Akckcdpkzmr39/06/2023 19:25 CDTWorkstation Name: [id number] CHEST 1 VIEW PORTABLE / [id number] 19:07:36[facility] : 1965 Sex: MTECHNIQUE:Frontal [...] Signed By: Oscar Orosco11/06/2022 19:09 CDTWorkstation Name: [id number] GAS, [id number] 18:22:09 Test Item Value Reference Range Interpretation [...] (BEAKER) (test code = 1819) 100.0 POCT-GLUCOSE [id number] 17:11:20 Test Item Value Reference Range Interpretation Comments POC-GLUCOSE METER 143 mg/dL 70-110 H : [facility] (BE[facility]ER[facility] (test code = TREV[place] Huerta [place], 1538) [address]: Customer Care Assistant/Techni carol ID = [id number] for David García BLOOD GAS, [id number] 17:03:39 Test Item Value Reference Range Interpretation [...] 50.0 XR CHEST 1 VIEW PORTABLE / [id number] 15:04:51 [facility] : 1965 Sex: MCLINICAL HISTORY: Respiratory distress TECHNIQUE: 1 view of the chest.COMPARISON: 11/06/2022IMPRESSION:ETT removal. Feeding tube remains below the diaphragm.There is new right lung base consolidation/atelectasis. Left infrahilaratelectasis is unchanged. There is blunting of the right costophrenicangle. The cardiome diastinal silhouette is magnified by technique.Electronically Signed By: Del Macdonald11/06/2022 15:06 CDTWorkstation Name: [id number] GAS, ARTERIAL 2022-11-06 13:58:39 Test Item Value [...] (BEAKER) (test code = 1819) 44.0 POCT-GLUCOSE [id number] 13:32:55 Test Item Value Reference Range Interpretation Comments POC-GLUCOSE METER 100 mg/dL 70-110 : TESTED A T [facility] 6720 (BEAKER) (test code = [place], 1538) [address]: Customer Care Assistant/Techni carol ID = [id number] for Jordyndelroy David chirinos [id number] 12:02:30 Test Item Value Reference Range Interpretation Comments PROCALCITONIN (BEAKER) (test code 0.12 ng/mL <0.05 H = 3036) SEPSIS RISK (ng/mL)Low: 0.05-0.50Intermediate: 0.51-2.00High: >=2.01LACTIC ACID, [id number] 11:45:29 Test Item Value Reference Range Interpretation Comments LACTATE BLOOD VENOUS 0.94 mmol/L 0.50-2.00 Specime n slightly (2) (KOMAL) (test hemolyzed code = 2872) Customer Care Assistant ID - MARCOPOCT-GLUCOSE [id number] 09:00:12 Test Item Value Reference Range Interpretation Comments POC-GLUCOSE METER 114 mg/dL 70-110 H : TESTED A T [facility] 6720 (KOMAL) (test code = [place], 1538) [address]: Customer Care Assistant/Techni carol ID = [id number] for David García XR CHEST 1 VIEW PORTABLE / [id number] 08:33:53 [facility] : 1965 Sex: MCLINICAL HISTORY: IntubatedTECHNIQUE: 1 view of the chest.COMPARISON: 11/05/2022IMPRESSION:ETT and feeding tube unchanged. Bibasilar bandlike opacities unchanged.No significant pleural fluid. The cardiomediastinal silhouette ismagnified by technique.Electronically Signed By: Del Macdonald11/06/2022 08:35 CDTWorkstation Name: [id number] GAS, [id number] 04:54:00 Test Item Value Reference Range Interpretation Comments PH ARTERIAL (KOMAL) (test code = 7.44 7.35-7.45 383) PCO2 [...] (test code = 1819) 24.0 BASIC METABOLIC [id number] 04:25:31 Test Item Value Reference Range Interpretation [...] not appl icable for dialysis patien ts Customer Care Assistant ID - DBCBC W/PLT COUNT & AUTO [id number] 04:12:40 Test Item Value Reference Range Interpretation [...] PERCENT (BEAKER) (test code = 2801) POCT-GLUCOSE [id number] 04:02:47 Test Item Value Reference Range Interpretation Comments POC-GLUCOSE METER 118 mg/dL 70-110 H : TESTED A T [facility] 6720 (BEAKER) (test code = [facility], 1538) [address]: Customer Care Assistant/Techni carol ID = [id number] for AKHIONBARE, LEAH TH POCT-GLUCOSE [id number] 22:18:43 Test Item Value Reference Range Interpretation Comments POC-GLUCOSE METER 112 mg/dL 70-110 H : TESTED A T [facility] 6720 (BEAKER) (test code = [facility], 1538) [address]: Customer Care Assistant/Techni carol ID = [id number] for AKHIONBARE, LEAH TH POCT-GLUCOSE [id number] 18:11:35 Test Item Value Reference Range Interpretation Comments POC-GLUCOSE METER 100 mg/dL 70-110 : TESTED A T [facility] 6720 (BEAKER) (test code = [facility], 1538) [address]: Customer Care Assistant/Techni carol ID = [id number] for Indu Davidson URINALYSIS WITH MICROSCOPIC IF [id number] 14:21:46 Test Item Value Reference Range Interpretation [...] = 463) SOURCE(BEAKER) (test code = 2795) Customer Care Assistant ID - [auto]XR CHEST 1 VIEW PORTABLE / [id number] 13:26:09 [facility] : 1965 Sex: MCLINICAL HISTORY: IntubatedTECHNIQUE: 1 view of the chest.COMPARISON: 11/04/2022IMPRESSION:ETT again seen. New feeding tube in the distal stomach. There isincreased right basilar atelectasis. There is no significant pleuralfluid.Electronically Signed By: Del Macdonald11/05/2022 13:28 CDTWorkstation Name: [id number] GAS, ARTERIAL 2022-11-05 09:38:22 Test Item Value [...] (BEAKER) (test code = 1819) 21.0 POCT-GLUCOSE [id number] 06:10:38 Test Item Value Reference Range Interpretation Comments POC-GLUCOSE METER 94 mg/dL 70-110 : TESTED A T [facility] 6720 (BEAKER) (test code = [place], 1538) [address]: Customer Care Assistant/Techni carol ID = [id number] for Virginia Ahmadi BASIC METABOLIC [id number] 03:44:06 Test Item Value Reference Range Interpretation [...] (test code = 697) EGFR (BEAKER) 101 Interpretati on of eGFR (test code = [...] not appl icable for dialysis patien ts Customer Care Assistant ID - [id number] 03:44:06 Test Item Value Reference Range Interpretation Comments MAGNESIUM (BEAKER) (test code = 2.5 mg/dL 1.6-2.6 627) Customer Care Assistant ID - [id number] 03:44:06 Test Item Value Reference Range Interpretation Comments PHOSPHORUS (BEAKER) (test code = 2.7 mg/dL 2.3-4.7 604) Customer Care Assistant ID - bvPROTHROMBIN TIME/[id number] 03:44:05 Test Item Value Reference Range Interpretation [...] mechanical heart valves.CBC W/PLT COUNT & AUTO [id number] 03:34:51 Test Item Value Reference Range Interpretation [...] (BEAKER) (test code = 2801) BLOOD GAS, [id number] 03:23:38 Test Item Value Reference Range Interpretation [...] = 1819) 100.0 CT BRAIN WITHOUT IV [id number] 01:08:18 [facility] : 1965 Sex: MEXAM: [...] Signed By: Claudio Valencia11/05/2022 01:11 CDTWorkstation Name: [id number] ABDOMEN/KUB 1 VIEW [id number] 17:52:58 [facility] : 1965 Sex: MXR ABDOMEN/KUB 1 VIEW PORTABLEINDICATION: Dixon advanceCOMPARISON: NoneTECHNIQUE: Limited portable radiograph of the lower chest and upperabdomen was acquired for purposes of evaluating tube placementFINDINGS/IMPRESSION:Feeding tube tip overlies the distal stomach. Electronically Signed By: Patricia Espinosa11/04/2022 17:55 CDTWorkstation Name: [id number] 17:26:34 Test Item Value Reference Range Interpretation Comments PHOSPHORUS (BEAKER) (test code = 3.4 mg/dL 2.3-4.7 604) Customer Care Assistant ID - [id number] 17:26:34 Test Item Value Reference Range Interpretation Comments POTASSIUM (BEAKER) (test code = 4.2 meq/L 3.5-5.1 379) Customer Care Assistant ID - [id number] 17:26:33 Test Item Value Reference Range Interpretation Comments MAGNESIUM (BEAKER) (test code = 3.2 mg/dL 1.6-2.6 H 627) Customer Care Assistant ID - ADMINXR ABDOMEN/KUB 1 VIEW [id number] 14:07:03 [facility] : 1965 Sex: MXR ABDOMEN/KUB [...] Signed By: Maida Story11/04/2022 14:09 CDTWorkstation Name: [id number] GAS, [id number] 11:02:55 Test Item Value Reference Range Interpretation [...] (BEAKER) (test code = 1819) 30.0 HEMOGLOBIN [id number] 11:01:34 Test Item Value Reference Range Interpretation Comments HEMOGLOBIN A1C 5.6 % See_Comment [Automated m essage] ELECTROPHORESIS (BEAKER) The system which (test code = 3811) generated this result transmitted ref erence range: <=5.6%. The reference range was not used to int erpret this result as normal/abnormal . "The A1c is measured using a NGSP-certified method. HbA1c value equal to or greater than 6.5% as thediagnosis cutoff for diabetes. An HbA1c value of 5.7- 6.4% indicates increased risk for diabetes (prediabetes)."Customer Care Assistant ID - ADM HEPATIC FUNCTION [id number] 10:57:01 Test Item Value Reference Range Interpretation [...] (test code = 16 U/L 6-55 347) Customer Care Assistant ID - EOOCTA [id number] 08:10:09 [facility] 1965 Sex: MCT BRAIN WITHOUT IV CONTRAST, CTA CAROTID, CTA BRAINBRAIN CT WITHOUT CONTRASTINDICATION: Cerebral hemorrhage suspectedCOMPARISON: CT head, 11/03/2022TECHNIQUE:Rapid acquisition spiral images were obtained between the aortic archand the cranial vertex during intravenous contrast infusion toreconstruct axial images and angiographic 3D maximum intensityprojections (MIP). 3-D volumetric reformatted images were created at [employer] workstation. Precontrast images of the brain were [...] Signed By: Nelson Delvalle11/04/2022 08:12 CDTWorkstation Name: [id number] 08:10:09[facility] : 1965 Sex: MCT BRAIN WITHOUT IV CONTRAST, CTA CAROTID, CTA BRAINBRAIN CT WITHOUT CONTRASTINDICATION: Cerebral hemorrhage suspectedCOMPARISON: CT head, 11/03/2022TECHNIQUE:Rapid acquisition spiral images were obtained between the aortic archand the cranial vertex during intravenous contrast infusion toreconstruct axial imagesand angiographic 3D maximum intensityprojections (MIP). 3-D volumetric reformatted images were created at [employer] work[employer]. Precontrast images of the brain were [...] Signed By: Nelson Delvalle11/04/2022 08:12 CDTWorkstation Name: [id number] BRAIN WITHOUT IV CONTRAST 2022-11-04 08:10:09 [facility] : 1965 Sex: MCT BRAIN WITHOUT IV CONTRAST, CTA CAROTID, CTA BRAINBRAIN CT WITHOUT CONTRASTINDICATION: Cerebral hemorrhage suspectedCOMPARISON: CT head, 11/03/2022TECHNIQUE:Rapid acquisition spiral images were obtained between the aortic archand the cranial vertex during intravenous contrast infusion toreconstruct axial images and angiographic 3D maximum intensityprojections (MIP). 3-D volumetric reformatted images were created at [employer] work[employer]. Precontrast images of the brain were [...] Signed By: Nelson Delvalle11/04/2022 08:12 CDTWorkstation Name: [id number] 08:03:30 Test Item Value Reference Range Interpretation Comments PHOSPHORUS (BEAKER) (test code = 2.8 mg/dL 2.3-4.7 604) Customer Care Assistant ID - [id number] 07:50:14 Test Item Value Reference Range Interpretation Comments FIBRINOGEN LEVEL (BEAKER) (test 279 mg/dl 225-434 code = 658) [id number] 07:50:14 Test Item Value Reference Range Interpretation Comments PARTIAL THROMBOPLASTIN TIME 26.5 seconds 22.5-36.0 (BEAKER) (test code = 760) PROTHROMBIN TIME/[id number] 07:49:36 Test Item Value Reference Range Interpretation Comments PROTIME (BEAKER) (test code = 14.8 seconds 11.9-14.2 H 759) INR (BEAKER) (test code = 370) 1.23 <=5.90 RECOMMENDED COUMADIN/WARFARIN INR THERAPY RANGESSTANDARD DOSE: 2.0 - 3.0 Includes: PROPHYLAXIS for venous thrombosis, systemic embolization; TREATMENT for venous thrombosis and/or pulmonary embolus.HIGH RISK: Target INR is 2.5-3.5 for patients with mechanical heart valves.BLOOD GAS, [id number] 06:29:10 Test Item Value Reference Range Interpretation [...] 40.0 XR CHEST 1 VIEW PORTABLE / [id number] 06:26:18 [facility] : 1965 Sex: MXR CHEST 1VIEW PORTABLE / BEDSIDEINDICATION: post intubationCOMPARISON: Prior day's examFINDINGS: Portable frontal view of the chest. IMPRESSION:Support Lines: ET tube tip is 4 cm superior to the ulisses. Lungs and pleura: Lungs are clear No significant pneumothorax.Heart and mediastinum: Normal contours.Additional findings: None.Electronically Signed By: Patricia Espinosa11/04/2022 06:28 CDTWorkstation Name: [id number] 01:46:30 Test Item Value Reference Range Interpretation Comments PHOSPHORUS (BEAKER) 1.0 mg/dL 2.3-4.7 LL Specimen slightly (test code = 604) hemolyzed Customer Care Assistant ID - ADMINBASIC METABOLIC [id number] 01:43:50 Test Item Value Reference Range Interpretation [...] not appl icable for dialysis patien ts Customer Care Assistant ID - [id number] 01:43:28 Test Item Value Reference Range Interpretation Comments MAGNESIUM (BEAKER) 1.8 mg/dL 1.6-2.6 Specimen slightly (test code = 627) hemolyzed Customer Care Assistant ID - ADMINBLOOD GAS, [id number] 01:29:20 Test Item Value Reference Range Interpretation [...] 1819) 40.0 CBC W/PLT COUNT & AUTO [id number] 01:01:10 Test Item Value Reference Range Interpretation [...] code = 2801) CT BRAIN WITHOUT IV [id number] 23:50:40 [facility] : 1965 Sex: MEXAM: CT BRAIN WITHOUT IV CONTRASTINDICATION: Cerebral hemorrhage suspectedNeuro deficit, acute, stroke suspectedTECHNIQUE: CT images from skull base to vertex without IV contrast.This exam was performed according to the departmental dose optimizationprogram which includes automated exposure control, adjustmentof the mAand/or kV according to the patient size, and/or use of an iterativereconstruction technique.COMPARISON: None.FINDINGS: Parenchyma: There is acute hemorrhage centered within the left hemiponsextending to the left midbrain and left cerebral peduncle withmeasurements of 2.5 x 1.6 x 2.1 cm (4.2 cc). Mild associated vasogenicedema and slight effacement of the adjacent fourth ventricle whichremains patent. No intraventricular extension. No hydrocephalus. Noevidence of acute large territory infarction. Chronic infarction of theright external capsule and chronic appearing lacunar infarction of theanterior limb of left internal capsule.Extra-axial Collection: NoneVentricular System: As aboveOsseous Structures: No acute osseous abnormality. Included Orbits: NormalParanasal Sinuses: Predominantly clearTympanomastoid Cavities: NormalOther: NoneIMPRESSION:Acute hemorrhage (4.2 cc) centered in the left hemipons extending to theleft midbrain and left cerebral peduncle. There is mild associated masseffect without hydrocephalus or intraventricular extension.Chronic bilateral basal ganglia infarctions.Discussed the on-call neurology resident at 11:49 PM 11/03/2022Electronically Signed By: Claudio Valencia07/2022 23:52 CDTWorkstation Name: [id number]
[2022-12-04 14:18] VITALS: BMI 23.6
[2022-12-04] MEDS ORDERED: D50W 25 GM/50 ML SYRINGE IV PRN (14:30)
[2022-12-04] MEDS ORDERED: GLUCAGON 1 MG/VIAL IM PRN (14:30)
[2022-12-04] MEDS ORDERED: D10W 125 ML IV PRN (14:36)
[2022-12-04] MEDS: METOPROLOL TAR 25 MG TAB FT SCH (17:35)
[2022-12-04] MEDS: VITAL AF 1,000 ML BOT FT SCH ×2 (17:36→21:20)
[2022-12-04] MEDS: INSULIN -REGULAR HUMAN 50 UNIT/0.5 ML ML SQ SCH (17:41)
[2022-12-04] MEDS ORDERED: METOPROLOL TAR 25 MG TAB PO SCH (18:00)
[2022-12-04] MEDS: IPRATROPIUM BROM 0.5MG/2.5ML NEB SCH (19:35)
[2022-12-04] MEDS: ALBUTEROL 2.5 MG/3 ML NEB SOL NEB SCH (19:35)
--- NOTE | 2022-12-04 19:56 | P.CNS ---
Date of Consult: 12/04/22 Consultation follow-up: 57-year-old deaf gentleman, who interacts via sign language, with pre-existing LUTS due to BPH on Terazosin 2 mg, GERD, and asthma p hemorrhagic CVA 11/03/2022 with right hemiparesis greater than left now with gross hematuria and an indwelling 18 Burkinan urethral Smith catheter. Patient seen and examined. Awake and in no acute distress. Examination: Urethral Smith catheter in place draining translucent light tea colored old hematuria Recommendation: -f/u for cystoscopy as outpatient on discharge
[2022-12-04] MEDS ORDERED: AMOX/K CLAV 600 MG/5 ML ORAL SUSP (75 ML BTL) FT SCH (20:00)
[2022-12-04] MEDS: TERAZOSIN HCL 1 MG CAP FT SCH (20:56)
[2022-12-04] MEDS: LOSARTAN POTASSIUM 50 MG TABLET PO SCH (20:57)
[2022-12-04] MEDS: Pantoprazole (granules) 40 MG/BLIST PACKET FT SCH (20:57)
[2022-12-04] MEDS: MELATONIN 3 MG TABLET PO PRN (20:58)
[2022-12-04] MEDS: DULOXETINE 30 MG CAP PO SCH (20:58)
[2022-12-04] MEDS: AMOX/K CLAV 600 MG/5 ML ORAL SUSP (75 ML BTL) FT SCH (21:47)
[2022-12-05] MEDS ORDERED: VITAL AF 1,000 ML BOT FT SCH
[2022-12-05] MEDS: VITAL AF 1,000 ML BOT FT SCH (00:19)
[2022-12-05] MEDS: ALBUTEROL 2.5 MG/3 ML NEB SOL NEB SCH ×4 (01:30→21:25)
[2022-12-05] MEDS: IPRATROPIUM BROM 0.5MG/2.5ML NEB SCH ×4 (01:30→21:25)
[2022-12-05] MEDS: INSULIN -REGULAR HUMAN 50 UNIT/0.5 ML ML SQ SCH ×4 (06:00→17:17)
[2022-12-05] MEDS: METOPROLOL TAR 25 MG TAB FT SCH ×2 (06:00→17:18)
[2022-12-05 06:12] LABS: Absolute Lymphocytes (CBC) 1.8 K/uL (0.7-4.9); Hematocrit 32.7 % (39.6-49.0); Lymphocytes % 8.7 % (15.3-44.8); MCV 78.6 fL (80-100); MPV 7.6 fL (7.6-11.3); Platelets 417 thou/uL (152-406); RBC Red Blood Cell Count 4.16 M/uL (4.33-5.43)
[2022-12-05 06:36] LABS: Albumin 2.6 g/dL (3.4-5.0); Magnesium 2.1 mg/dL (1.6-2.4); Potassium 3.9 mEq/L (3.5-5.1); Prealbumin 28.6 mg/dL (20-40)
[2022-12-05] MEDS: modafiniL 100 MG TAB PO SCH (08:00)
[2022-12-05] MEDS ORDERED: LIDOCAINE 4% PATCH TOP SCH (08:00)
[2022-12-05] MEDS: AMLODIPINE 10 MG TAB PO SCH (08:00)
[2022-12-05] MEDS: LOSARTAN POTASSIUM 50 MG TABLET PO SCH ×2 (08:00→20:00)
[2022-12-05] MEDS: Pantoprazole (granules) 40 MG/BLIST PACKET FT SCH ×2 (08:45→20:44)
[2022-12-05] MEDS: AMOX/K CLAV 600 MG/5 ML ORAL SUSP (75 ML BTL) FT SCH (09:24)
[2022-12-05] MEDS: MULTIVITAMINS 5 ML ORAL SYR FT SCH (09:54)
[2022-12-05] MEDS: FOLIC ACID 1 MG TABLET FT SCH (09:54)
--- NOTE | 2022-12-05 13:08 | P.RH.PN ---
Estimated Length of Stay: 23 Expected Discharge Date: 12/28/22 Discharge Disposition Plan: [facility] Family Support: Yes Cassandra Developer Goal: Transfers Vital Signs: Last Vital Signs Temp 97.3 F 12/05/22 13:08 Pulse 91 H 12/05/22 13:08 Resp 19 12/05/22 13:08 BP 112/63 12/05/22 13:08 Pulse Ox 92 12/05/22 13:08 Laboratory: Laboratory Last Values WBC 20.30 thou/uL (4.3-10.9) H 12/05/22 05:23 RBC 4.16 M/uL (4.33-5.43) L 12/05/22 05:23 Hgb 10.6 g/dL (13.6-17.9) L 12/05/22 05:23 Hct 32.7 % (39.6-49.0) L 12/05/22 05:23 MCV 78.6 fL (80-100) L 12/05/22 05:23 MCH 25.4 pg (27.0-35.0) L 12/05/22 05:23 MCHC 32.3 g/dL (32.0-36.0) 12/05/22 05:23 RDW 15.0 % (12.1-15.2) 12/05/22 05:23 Plt Count 417 thou/uL (152-406) H 12/05/22 05:23 MPV 7.6 fL (7.6-11.3) 12/05/22 05:23 Neutrophils % 83.3 % (41.7-73.7) H 12/05/22 05:23 Lymphocytes % 8.7 % (15.3-44.8) L 12/05/22 05:23 Monocytes % 5.7 % (3.3-12.3) 12/05/22 05:23 Eosinophils % 1.8 % (0-4.4) 12/05/22 05:23 Basophils % 0.5 % (0-1.3) 12/05/22 05:23 Absolute Neutrophils 16.9 K/uL (1.8-8.0) H 12/05/22 05:23 Absolute Lymphocytes 1.8 K/uL (0.7-4.9) 12/05/22 05:23 Absolute Monocytes 1.2 K/uL (0.1-1.3) 12/05/22 05:23 Absolute Eosinophils 0.4 K/uL (0-0.5) 12/05/22 05:23 Absolute Basophils 0.1 K/uL (0-0.5) 12/05/22 05:23 Sodium 137 mEq/L (136-145) 12/05/22 05:23 Potassium 3.9 mEq/L (3.5-5.1) 12/05/22 05:23 Chloride 106 mEq/L (98-107) 12/05/22 05:23 Carbon Dioxide 26 mEq/L (21-32) 12/05/22 05:23 Anion Gap 8.9 mEq/L (5.0-15.0) 12/05/22 05:23 BUN 29 mg/dL (7-18) H 12/05/22 05:23 Creatinine 0.89 mg/dL (0.70-1.30) 12/05/22 05:23 Est GFR (CKD-EPI) 101 ml/min (=/>90) 12/05/22 05:23 Glucose 143 mg/dL (74-106) H 12/05/22 05:23 POC Glucose 118 mg/dL (65-120) 12/05/22 12:00 Calcium 8.7 mg/dL (8.5-10.1) 12/05/22 05:23 Magnesium 2.1 mg/dL (1.6-2.4) 12/05/22 05:23 Albumin 2.6 g/dL (3.4-5.0) L 12/05/22 05:23 Prealbumin 28.6 mg/dL (20-40) 12/05/22 05:23 Weight: 146 lb Within Defined Parameters: No Wound Present: No Closed Surgical Incision Present: No Negative Pressure Wound Therapy Present: No Physician Update: Patient admitted yesterday afternoon. Patient is complete tube feeds. On antibiotics. Patient had gross hematuria. Patient is still seeing Urology. Right abdominal pain. Medical Issues: Numerous issues: Education Needed: Using ASL line for communications. Functional Improvement: Maximum assist Functional Improvement Occupational Therapy: Not participating much. Speech Therapy Update: Severe oropharyngeal dysphagia Summary: Patient's care plan and buttermaker helper goals have been reviewed and revised as necessary. Please see the Rehabilitation Signature page for all necessary signatures.
--- NOTE | 2022-12-05 13:08 | P.HP ---
Patient History Allergies No Known Allergies Allergy (Verified 12/04/22 15:50) Home Medications: Albuterol Neb [Proventil 0.083% Neb Soln] 1 amp IN Q6H 11/26/22 Duloxetine HCl [Cymbalta] 30 mg PO BEDTIME 11/26/22 Folic Acid 1 mg PO DAILY 11/26/22 Ipratropium Neb [Atrovent*] 1 amp IN Q6H 11/26/22 Melatonin [Melatonin*] 3 mg PO BEDTIME PRN 11/26/22 Multivit-Min/Ferrous Fumarate [Multivitamin Liquid] 5 ml PO DAILY 11/26/22 Pantoprazole Granules [Protonix Granules*] 40 mg PO BID 11/26/22 Terazosin HCl [Hytrin*] 2 mg PO BEDTIME 11/26/22 modafiniL [Provigil*] 100 mg PO DAILY 11/26/22 Amlodipine [Norvasc*] 10 mg PO DAILY tab 12/04/22 Amox Tr/Potassium Clavulanate [Augmentin 400-57 mg/5 ml] 10 ml FT BID 10 Days #1 12/04/22 Losartan Potassium [Cozaar*] 50 mg PO BID 12/04/22 Vital AF 50 ml FT DAILY bot 12/04/22 Metoprolol Tartrate [Lopressor*] 75 mg PO BID 12/05/22 - Past Medical/Surgical History Has patient received pneumonia vaccine in the past: Yes Diabetic: No -: Hypertension -: deaf/mute -: CVA- hemorrhagic -: tonsillectomy -: PEG tube Psychosocial/ Personal History: Patient is Jehovah witness; would not want blood transfusion - Family History Mother Medical History: Cancer - Social History Smoking Status: Never smoker Alcohol use: No CD- Drugs: No Caffeine use: No Place of Residence: Home Physical Examination - Vital Signs Temperature: 97.3 F Blood Pressure: 112/63 Pulse: 91 Respirations: 19 Pulse Ox (%): 92 - Studies Laboratory Data (last 24 hrs) 12/05/22 12/05/22 05:23 05:23 WBC 20.30 H Hgb 10.6 L Hct 32.7 L Plt Count 417 H Sodium 137 Potassium 3.9 BUN 29 H Creatinine 0.89 Glucose 143 H Magnesium 2.1 Assessment & Plan - Advance Directives Does patient have a Living Will: No Does patient have a Durable POA for Healthcare: No
[2022-12-05] MEDS: NA CHLORIDE 0.9% 1,000 ML IV SCH (14:18)
--- NOTE | 2022-12-05 14:20 | RAD REPORT ---
EXAM DESCRIPTION: Mónica Single View12/05/2022 2:06 pm CLINICAL HISTORY: Cough COMPARISON: November 28, 2022 FINDINGS: Development of mild to moderate left basilar opacities. Right lung appears clear. Heart is normal size IMPRESSION: Mild to moderate left basilar opacities probably pneumonia
[2022-12-05] MEDS: METHYLPREDNISOLONE 125 MG INJ IV SCH (16:09)
[2022-12-05] MEDS: PIPER TAZO 3.375 GM in NA CHLORIDE 0.9% 100 ML IV SCH (16:17)
[2022-12-05] MEDS: BISACODYL 10 MG RECTAL SUPP PR PRN (17:18)
[2022-12-05] MEDS: DULOXETINE 30 MG CAP PO SCH (20:45)
[2022-12-05] MEDS: TERAZOSIN HCL 1 MG CAP FT SCH (20:45)
[2022-12-06] MEDS: PIPER TAZO 3.375 GM in NA CHLORIDE 0.9% 100 ML IV SCH ×3 (00:16→17:05)
[2022-12-06] MEDS: METHYLPREDNISOLONE 125 MG INJ IV SCH (00:17)
[2022-12-06] MEDS: IPRATROPIUM BROM 0.5MG/2.5ML NEB SCH ×4 (02:00→20:25)
[2022-12-06] MEDS: ALBUTEROL 2.5 MG/3 ML NEB SOL NEB SCH ×4 (02:00→20:25)
[2022-12-06] MEDS: METOPROLOL TAR 25 MG TAB FT SCH ×2 (05:45→17:26)
[2022-12-06] MEDS: INSULIN -REGULAR HUMAN 50 UNIT/0.5 ML ML SQ SCH ×4 (05:45→17:39)
[2022-12-06] MEDS: NA CHLORIDE 0.9% 1,000 ML IV SCH ×2 (05:48→15:56)
[2022-12-06 07:25] LABS: Absolute Lymphocytes (CBC) 0.9 K/uL (0.7-4.9); Hematocrit 34.2 % (39.6-49.0); Lymphocytes % 3.1 % (15.3-44.8); MCV 78.4 fL (80-100); MPV 7.4 fL (7.6-11.3); Platelets 445 thou/uL (152-406); RBC Red Blood Cell Count 4.36 M/uL (4.33-5.43)
[2022-12-06] MEDS: Pantoprazole (granules) 40 MG/BLIST PACKET FT SCH ×2 (07:31→20:09)
[2022-12-06] MEDS: MULTIVITAMINS 5 ML ORAL SYR FT SCH (07:42)
[2022-12-06 07:43] LABS: Potassium 4.3 mEq/L (3.5-5.1)
[2022-12-06] MEDS: modafiniL 100 MG TAB PO SCH (08:00)
[2022-12-06] MEDS: AMLODIPINE 10 MG TAB PO SCH (08:00)
[2022-12-06] MEDS: LOSARTAN POTASSIUM 50 MG TABLET PO SCH ×2 (08:41→20:08)
[2022-12-06] MEDS: FOLIC ACID 1 MG TABLET FT SCH (08:42)
[2022-12-06] MEDS: SCOPOLAMINE HYDROBROMIDE PATCH TD SCH (09:05)
[2022-12-06 09:51] LABS: Blood Morphology Comment NOT SEEN (NOT SEEN); Platelet Estimate ADEQ
[2022-12-06] MEDS: ACETAMINOPHEN 500 MG TAB PO PRN (10:14)
[2022-12-06] MEDS: AMLODIPINE 5 MG TAB PO SCH ×2 (10:32→20:08)
[2022-12-06 15:29] LABS: Absolute Lymphocytes (CBC) 1.8 K/uL (0.7-4.9); Hematocrit 32.9 % (39.6-49.0); Lymphocytes % 7.1 % (15.3-44.8); MCV 78.4 fL (80-100); MPV 7.5 fL (7.6-11.3); Platelets 428 thou/uL (152-406)
[2022-12-06] MEDS: MELATONIN 3 MG TABLET PO PRN (20:08)
[2022-12-06] MEDS: TERAZOSIN HCL 1 MG CAP FT SCH (20:08)
[2022-12-06] MEDS: DULOXETINE 30 MG CAP PO SCH (20:09)
[2022-12-07] MEDS: ALBUTEROL 2.5 MG/3 ML NEB SOL NEB SCH ×4 (01:30→19:45)
[2022-12-07] MEDS: IPRATROPIUM BROM 0.5MG/2.5ML NEB SCH ×4 (01:30→19:45)
[2022-12-07] MEDS: NA CHLORIDE 0.9% 1,000 ML IV SCH ×4 (02:05→18:26)
[2022-12-07 04:06] LABS: Absolute Lymphocytes (CBC) 1.8 K/uL (0.7-4.9); Hematocrit 30.5 % (39.6-49.0); Lymphocytes % 9.9 % (15.3-44.8); MCV 79.6 fL (80-100); MPV 7.5 fL (7.6-11.3); Platelets 357 thou/uL (152-406); RBC Red Blood Cell Count 3.84 M/uL (4.33-5.43)
[2022-12-07 04:21] LABS: Potassium 3.6 mEq/L (3.5-5.1)
[2022-12-07] MEDS: INSULIN -REGULAR HUMAN 50 UNIT/0.5 ML ML SQ SCH ×4 (05:24→18:00)
[2022-12-07] MEDS: METOPROLOL TAR 25 MG TAB FT SCH ×2 (05:35→17:03)
[2022-12-07] MEDS: JEVITY 1.5 CAL LIQUID 1,000 ML BOT RTH SCH (06:59)
[2022-12-07] MEDS: PIPER TAZO 3.375 GM in NA CHLORIDE 0.9% 100 ML IV SCH ×4 (07:00→17:03)
[2022-12-07] MEDS: LOSARTAN POTASSIUM 50 MG TABLET PO SCH ×2 (07:18→19:51)
[2022-12-07] MEDS: AMLODIPINE 5 MG TAB PO SCH ×2 (07:19→19:50)
[2022-12-07] MEDS: FOLIC ACID 1 MG TABLET FT SCH (07:19)
[2022-12-07] MEDS: MULTIVITAMINS 5 ML ORAL SYR FT SCH (07:19)
[2022-12-07] MEDS: Pantoprazole (granules) 40 MG/BLIST PACKET FT SCH ×2 (07:19→19:52)
[2022-12-07] MEDS: TERAZOSIN HCL 1 MG CAP FT SCH (19:50)
[2022-12-07] MEDS: DULOXETINE 30 MG CAP PO SCH (19:53)
[2022-12-08] MEDS: PIPER TAZO 3.375 GM in NA CHLORIDE 0.9% 100 ML IV SCH ×3 (00:05→16:49)
[2022-12-08] MEDS: INSULIN -REGULAR HUMAN 50 UNIT/0.5 ML ML SQ SCH ×4 (00:30→17:13)
[2022-12-08] MEDS: IPRATROPIUM BROM 0.5MG/2.5ML NEB SCH ×4 (01:50→20:05)
[2022-12-08] MEDS: ALBUTEROL 2.5 MG/3 ML NEB SOL NEB SCH ×4 (01:50→20:05)
[2022-12-08] MEDS: NA CHLORIDE 0.9% 1,000 ML IV SCH ×3 (04:03→19:04)
[2022-12-08] MEDS: METOPROLOL TAR 25 MG TAB FT SCH ×2 (05:15→16:49)
[2022-12-08] MEDS: JEVITY 1.5 CAL LIQUID 1,000 ML BOT RTH SCH (06:29)
[2022-12-08] MEDS: FOLIC ACID 1 MG TABLET FT SCH (06:51)
[2022-12-08] MEDS: Pantoprazole (granules) 40 MG/BLIST PACKET FT SCH ×2 (06:51→20:42)
[2022-12-08] MEDS: MULTIVITAMINS 5 ML ORAL SYR FT SCH (06:52)
[2022-12-08] MEDS: LOSARTAN POTASSIUM 50 MG TABLET PO SCH ×2 (06:52→20:41)
[2022-12-08] MEDS: AMLODIPINE 5 MG TAB PO SCH ×2 (06:52→20:42)
[2022-12-08] MEDS: LIDOCAINE 4% PATCH TOP SCH (15:25)
[2022-12-08] MEDS: BISACODYL 10 MG RECTAL SUPP PR PRN (17:11)
[2022-12-08] MEDS: DULOXETINE 30 MG CAP PO SCH (20:42)
[2022-12-08] MEDS: TERAZOSIN HCL 1 MG CAP FT SCH (20:42)
[2022-12-09] MEDS: PIPER TAZO 3.375 GM in NA CHLORIDE 0.9% 100 ML IV SCH ×3 (00:02→17:15)
[2022-12-09] MEDS: IPRATROPIUM BROM 0.5MG/2.5ML NEB SCH ×4 (01:46→19:50)
[2022-12-09] MEDS: ALBUTEROL 2.5 MG/3 ML NEB SOL NEB SCH ×4 (01:46→19:50)
--- NOTE | 2022-12-09 04:06 | HP ---
Date of Admission: 12/04/2022 Time Of Service: 12:30 p.m. Chief Complaint: Stroke and right face and arm more than leg weakness. Mr. Tate communicates via s ign language and a communication device with a sign language expert at the end of an ASL landscaper helper f or deafness was used for communication. History Of Present Illness: Mr. Tate is a 57-year-old, right-handed Jehovah witness patient with hi story of hemifacial spasm, right basal ganglia hemorrhagic stroke after a nuclear infarct, hypertensi on, tobacco abuse, who was originally seen at [facility] on the 04 of November with seizures. He was found to have a 2.3 x 1.7 cm acute hemorrhagic infarct in the left brainstem and was treated w Coral Canela and transferred to [facility] for higher leve l of care. There he received Versed, fentanyl, etomidate and was intubated and was unresponsive when he arrived at [facility]. A CT scan showed no worsening bleed and no hydrocephalus. He did have attemp ts at extubation and received Haldol for agitation and was successfully intubated on November 07. He di d develops aspiration pneumonia with positive sputum for Haemophilus influenzae and was started on me ropenem on 11/06. He had tachycardia on 11/11 and prerenal dysfunction with obstructive nephropathy. He did improve and had voiding trials. He was started on terazosin in the ICU, which did help with urination. He was febrile and had leukocytosis and pneumonia again noted. He was able to perform s elf-suctioning while in the ICU, but could not manage oral feeding and was placed on PEG tube. When the patient came to [facility] originally was admitted on 11/26/2022. However, the patient immediately worsened with worsening leukocytosis and was determined to have worsening pneumonia with urinary tract infection and sepsis and was determined to require IV antibiotics. His urine showed si gnificant hematuria. He was transferred to the acute care floor for further management. There he di d receive Urology consultation which was determined that the source of infection was likely related t o the urine and his Smith catheter was replaced with an 18-British tip catheter with adequate position ing verified. The catheter was irrigated and did remain blood-tinged. He did have significant eleva tions in blood pressure and hypoglycemia along with increased tone in the right upper extremity where he has significant dense paresis in the right face and arm more than leg. He did begin to work with rehabilitation including physical, occupational, and speech therapy. It was determined that the yasemin álvarez is a more appropriate candidate to return back to the inpatient rehabilitation unit once his med ical condition has been stabilized enough for it to be managed in the rehabilitation unit and was the refore admitted again to the rehabilitation unit on 12/04/2022 to begin more aggressive therapy. Past Medical History: Hypertension, he is deaf and mute, stroke with PEG tube placement, and asthma, benign prostatic hypertrophy, hemifacial spasm, PEG tube placement on 11/21/2022, and an endoscope w as done at that time. Family History: Noncontributory. Allergies: NO KNOWN DRUG ALLERGIES. Medications: Albuterol nebulizer 2.5 mg every 6 hours, ampicillin sulbactam 3 g every 6 hours, Cymba lta 30 mg at bedtime, Lovenox 40 mg subcutaneously daily, folic acid 1 mg daily, Atrovent 0.5 mg nebu lized every 6 hours, melatonin 3 mg at night, Provigil 100 mg daily, multivitamin 5 mL per PEG tube d aily, Protonix 40 mg per PEG tube daily, Hytrin 2 mg per PEG tube daily. Review of Systems: The patient does report some spasmodic areas in the right shoulder where a stroke is impacting him an d he has very little voluntary movement. He is doing some passive movement with the left side. Also denies any significant depression given his situation and is still upbeat. Otherwise, denies any ch ills, any other myalgias, no arthralgias, no rash. Still has significant difficulty with secretion a nd he uses suction for that. Social History: The patient lives with and hope he is able to back at home with his . Curr ently, no alcohol, tobacco, or IV drug use. Laboratory Studies: White cell count yesterday 18.4, down from 25.1 on 12/06/2022, his neutrophils d own to 80.3 from 86.7, hemoglobin 9.9, hematocrit 30.5, platelets 357. INR 1.17. Blood sugars range d from 118 to 136. Sodium 139, potassium 3.6, chloride 110, carbon dioxide 25, BUN 27, creatinine 0. 90, calcium 8.3. Procalcitonin on the 06 of December is less than 0.05, calcium 9.0. X-ray Imaging: Chest x-ray from 12/05/2022, shows mild to moderate left basilar opacities probably p neumonia. Note on consultations, the patient was seen by Dr. Brian Schumacher on 12/04/2022, with followup cystos copy at the outpatient basis. Urethral Smith catheter in place, draining translucent clear tea-color ed old hematuria. Physical Examination: Vital Signs: Blood pressure 117/71, pulse 64, respiratory rate 18, temperature 97.2, oxygen saturati on 96%. Pain level between 0 and 2. General: Mr. Tate is resting in his room. His at bedside through the anime designer . The patient does report the mild disturbance in terms of some spasms in the right arm. Otherwise, he has no significant complaints as his mood is okay given his situation. He is otherwise in terms of examination some oral secretions noted. These sounds wet as he tries to vocalize and there is nakia e mild coughing and he does have suction. He is capable of using the suction on his own with the lef t arm. HEENT: In terms of his general exam otherwise, he is normocephalic and atraumatic. Sclerae anicteri c. Decreased breath sounds bilaterally. Abdomen: Soft and nondistended. Extremities: He has no clubbing, cyanosis, edema in the lower extremities. Heart: Regular. Neurological: On cranial nerves, he has right nasolabial fold decrease, decreased to light touch in the right face compared to the left side. Unable to make good labial lingual or guttural sounds. He has motor exam, in the right upper extremity around 1/5 in the shoulder are otherwise and the right forearm and hand around 1/5 as well in terms of flexion extension at the biceps. Right lower extremi ty around 1 to 2/5 proximally and distally. Sensory exam decreased to light touch and temperature in the right compared to left upper and lower extremity. Tone increased in the right upper and lower c ompared to the left upper and lower extremities. Reflexes increased around 2 to 3 in the right upper and lower extremity compared to 1 in the left upper and lower extremity. Coordination intact in the left upper and lower extremity. Gait, he is unable to ambulate. Current Level Of Functioning: Today, he was able to mobilize a wheelchair 40 feet with the left uppe r extremity and left lower extremity, able to mobilize the wheelchair, did require multiple cues. He did fatigue quickly. He did work on bed mobility, turning [id number] and scooting from left to ri ght. Work on supine to sit movement with physical therapist, but required maximum assistance for brian t. The landscaper helper was required during all therapy sessions. He did complete oral motor exercises 10 times with 50% accuracy. Left facial droop noted and continued to use oral secretion management. Rehabilitation And Medical Assessment And Plan: Mr. Tate is admitted to the rehabilitation unit wit h an impairment category of 01 stroke. His impairment group code is 01.2 right hemibody, left brain. His etiologic diagnosis is left hemorrhagic stroke. His comorbidities are hematuria, hypertension, s epsis, dysphagia, aspiration pneumonia, dehydration, respiratory distress. Plan: 1.He will have physical, occupational, and speech therapy for 3.5 hours, 5 of 7 days. 2.We will continue albuterol nebulizers for his respiratory distress. Continue Norvasc 5 mg twice d aily for hypertension. Continue Cymbalta 30 mg at bedtime for depression. Continue folic acid 1 mg daily for stroke risk reduction. Continue Atrovent along with the albuterol for nebulizer treatments . Continue lidocaine patch in the right arm for pain. Continue Cozaar 50 mg twice daily for hyperte nsion, melatonin 3 mg at night for sleep. Continue Protonix for GE reflux. Continue piperacillin-ta zobactam 3.375 mg every 8 hours. 3.Scopolamine patch for symptoms of vertigo. 4.Hytrin 2 mg at bedtime for urinary retention. Impact Of Comorbids: Mr. Tate has significant difficulty with his ability to swallow and he is on P EG tube feeding. Currently, he is able to suction himself and is beginning to show improvement with his transfers and ability to mobilize with wheelchair, but those are significantly limiting factors. His communication is by a sign language and does require a landscaper helper, but that is being worked thro [facility]. Rehabilitation Specific Plan: 1.Mr. Tate will have physical, occupational, speech therapy for 3.5 hours for 5 of 7 days to improv e his ability to communicate, to comprehend speech, to follow instructions, to be able to swallow, an d he will be evaluated by barium swallow at the appropriate time to see if he can begin to have oral hydration and nutrition. 2.He will have physical and occupational therapy to improve his ability to transfer to mobilize a wh eelchair and to begin to stand and get to the commode, get to the shower. 3.Occupational therapy will help him with dressing upper and lower body, grooming, eating, and perfo rming an activities of daily living. 4.Mr. Tate and his has a good understanding of the process of admission to the inpatient rehab ilitation unit and has a good potential to improve and require less help and to be more on his own. In addition, if need be the Respiratory Service, ID Service, Nutrition Service, and Renal Service chuy l be consulted. 5.Given the complex medical condition and risk of further worsening, rehabilitation services cannot be safely or affectively provided at a lower level care such as a detention unit. Barriers To Discharge: He is deaf and mute and does require sign language for communication and he i s on antibiotics for sepsis likely from bladder infection. He has had significant drop in hemoglobin and hematocrit, and he is high risk of aspiration pneumonia and all is already being treated for brian t. Length Of Stay: About 3 weeks. Disposition: He is hoping to go home with family, but may potentially depending on how he is doing, go to detention. Prognosis: Fair overall. Rehabilitation Goals: 1.Be able to assist in transfers with minimum assistance required to go from bed to chair to toilet commode. 2.Perform grooming with min assist. 3.Perform dressing upper body with min assist. 4.Perform lower body with mod assist. 5.Perform eating and swallowing with consistencies such as thickened liquids and chopped meats as he is working hard with physical therapy. 6.Perform his cognitive functioning independently. 7.The above goals have been discussed with Mr. Tate and he is in agreement. I acknowledge that I personally performed a full physical examination on Mr. Tate after admission to the inpatient rehabilitation facility and to determine that he is able to tolerate the above course of treatment at an intensive level for a reasonable period of time. A detailed individualized plan o f care for him will be completed by the hospital day 4 of his admission to the rehabilitation unit ba sed on the preadmission screen, history and physical, and therapy evaluations. LB/MODL Voice ID: [id number]
[2022-12-09] MEDS: METOPROLOL TAR 25 MG TAB FT SCH ×2 (05:28→17:14)
[2022-12-09] MEDS: INSULIN -REGULAR HUMAN 50 UNIT/0.5 ML ML SQ SCH ×4 (06:00→18:00)
[2022-12-09] MEDS: JEVITY 1.5 CAL LIQUID 1,000 ML BOT RTH SCH (06:32)
[2022-12-09] MEDS: NA CHLORIDE 0.9% 1,000 ML IV SCH ×3 (07:02→22:04)
[2022-12-09] MEDS: MULTIVITAMINS 5 ML ORAL SYR FT SCH (07:07)
[2022-12-09] MEDS: Pantoprazole (granules) 40 MG/BLIST PACKET FT SCH ×2 (07:07→21:31)
[2022-12-09] MEDS: AMLODIPINE 5 MG TAB PO SCH ×2 (07:08→21:31)
[2022-12-09] MEDS: LOSARTAN POTASSIUM 50 MG TABLET PO SCH ×2 (07:08→21:32)
[2022-12-09] MEDS: FOLIC ACID 1 MG TABLET FT SCH (07:08)
[2022-12-09] MEDS: LIDOCAINE 4% PATCH TOP SCH (09:25)
[2022-12-09] MEDS: SCOPOLAMINE HYDROBROMIDE PATCH TD SCH (09:26)
[2022-12-09] MEDS: MAGNESIUM OXIDE 400 MG TAB PO SCH (14:22)
[2022-12-09] MEDS: TERAZOSIN HCL 1 MG CAP FT SCH (21:32)
[2022-12-09] MEDS: APIXABAN 2.5 MG TABLET FT SCH (21:32)
[2022-12-09] MEDS: DULOXETINE 30 MG CAP PO SCH (21:32)
[2022-12-10] MEDS: NA CHLORIDE 0.9% 1,000 ML IV SCH ×2 (00:09→11:03)
[2022-12-10] MEDS: PIPER TAZO 3.375 GM in NA CHLORIDE 0.9% 100 ML IV SCH ×3 (00:10→16:15)
[2022-12-10] MEDS: IPRATROPIUM BROM 0.5MG/2.5ML NEB SCH ×4 (01:15→20:15)
[2022-12-10] MEDS: ALBUTEROL 2.5 MG/3 ML NEB SOL NEB SCH ×4 (01:15→20:15)
[2022-12-10] MEDS: METOPROLOL TAR 25 MG TAB FT SCH ×2 (05:38→17:02)
[2022-12-10] MEDS: INSULIN -REGULAR HUMAN 50 UNIT/0.5 ML ML SQ SCH ×5 (05:51→23:58)
--- NOTE | 2022-12-10 07:08 | PN ---
Date of Progress Note: 12/09/2022 Ybyl-mt-Bhis Progress Note Visit Time Of Service: 1 p.m. Subjective: Mr. Tate, through a ceramic design engineer reports that his mood is upbeat. He did give a thumbs up sign with the left hand and he is glad so far about his level of recovery. He is currently working with the speech pathologist. Review of Systems: Some pain and spasm noted in the right forearm and he is on magnesium to help with that. Otherwise, he denies fevers, chills. No rash. No headache. No evidence of significant depression despite his circumstance. No other complaints. Physical Examination: Vital Signs: Blood pressure 125/79, pulse 64, respiratory rate 17, temperature 97.7, oxygen saturation 92%. General: Mr. Tate is resting in bed. Extremities: He does have today a significant change in terms of more improvement in the right upper extremity and lower extremity strength. He was able to show around 2 to 3/5 proximal and distal strength in the right upper extremity and about 3/5 strength in the right lower extremity. Some decrease to touch and temperature in the right upper and lower extremity. Left side is fully strong. Neurologic: He does have more significant difficulty with any form of communication verbally for which he actually uses sign language. His oropharyngeal functioning is lagging behind recovery of his arm and leg strength. He has very poor oropharyngeal strength, difficulty maintaining his secretions and is using suction with the left arm and the suction device at bed. He is independent with his own suctioning. Laboratory Studies: Blood sugars ranged from 112-137. X-ray/imaging: No new x-rays or imaging. Medications: Norvasc 5 mg twice daily, Eliquis 2.5 mg twice daily, albuterol nebulizer 2.5 mg every 6 hours, Tylenol 500 mg every 6 hours as needed, Dulcolax 10 mg per rectum as needed, Cymbalta 30 mg at bedtime, folic acid 1 mg daily, Atrovent nebulizer 0.5 mg every 6 hours as needed, lidocaine patch apply topically daily, Cozaar 50 mg twice daily, magnesium oxide 400 mg daily, Lopressor 75 mg twice daily, multivitamin that is a Cerovite liquid 5 mL per feeding tube daily and as noted, he is actually on feeding tube and nothing oral. He has Protonix 40 mL a packet twice daily and is continuing on IV antibiotics, piperacillin-tazobactam 3.375 mg every 8 hours IV, he has transdermal scopolamine patch and he is also on terazosin 2 mg at bedtime and is receiving IV fluids 1 L, 25 cc/hour. Current Functional Status: Today, he did work on gait training and parallel bars, standing upright with the left hand placement with absorption and adsorption engineer helping. After several attempts, he was finally able to stand with good posture and tried to begin to step. He was able to walk 4 feet with two attempts on the parallel bars. He worked on a wheelchair mobilization for 30 feet, with 2 rest breaks to the left upper and left lower extremity. He did communicate he was tired, worked on [id number] transfers 3 times and stand to pivot transfers with 2 physical therapist assisting. Pain was up to 7/10 on the right upper extremity as he was mobilizing. With speech therapy, he worked on improving oral motor strength and volitional swallowing, worked on lip strengthening, lingual strengthening and range of motion, also had thermal tactile stimulation to facilitate swallowing reflex. He did moderate to max assistance and cues for those activities. He did have a delay in swallowing reflex by 3-5 seconds. He did participate actively in those exercises. With his occupational therapy, wheelchair transfer with maximum assistance, sit to stand maximum assistance, to go moving from out of bed requires maximum assistance. Progress Toward Rehabilitation Goals: Mr. Ross is making fair progress, which is a good and he is working, as he begins to mobilize, he is doing better with a wheelchair. He is working on the parallel bars, working with oropharyngeal strengthening exercises and making fair overall progress. He is still on IV antibiotics for pneumonia, which is aspiration pneumonia and has no capacity at this point to swallow orally, but is beginning to work with physical therapy to improve strength and oropharyngeal coordinated activities. Assessment And Plan: Mr. Tate is a 57-year-old patient in the rehabilitation unit with the left hemorrhagic stroke producing paresis of the right upper and lower extremity with dysarthria, dysphagia and numbness in the right upper and lower extremity. He has comorbid hypertension, his hematuria is improving, and he has sepsis, aspiration pneumonia, dehydration, respiratory distress. Plan: 1. Continue physical, occupational and speech therapy for 3.5 hours, 5 out of 7 days. 2. Continue with nebulizers. 3. Continue Norvasc at a lower dose as appropriate for managing his blood pressure. 4. Continue with Cozaar 50 mg twice daily. 5. Protonix for GE reflux. 6. Continue with piperacillin-tazobactam 3.375 mg every 8 hours for his pneumonia. 7. Continue Hytrin for urinary retention. 8. Continue scopolamine for vertiginous symptoms. Comorbids That Are Continuing To Impact Rehabilitation Process: Currently, he requires IV antibiotics, which should be ongoing for a while and he requires a patient scheduling coordinator for a interactive graphic designer. However, those are being worked through and are not negatively impacting his ability to improve and do well. UYEN/DIONNE Voice ID: [id number] Report ID: [id number]
[2022-12-10] MEDS: LOSARTAN POTASSIUM 50 MG TABLET PO SCH ×3 (08:00→20:18)
[2022-12-10] MEDS: Pantoprazole (granules) 40 MG/BLIST PACKET FT SCH ×2 (08:09→20:18)
[2022-12-10] MEDS: APIXABAN 2.5 MG TABLET FT SCH ×2 (08:10→20:18)
[2022-12-10] MEDS: FOLIC ACID 1 MG TABLET FT SCH (08:11)
[2022-12-10] MEDS: MAGNESIUM OXIDE 400 MG TAB PO SCH (08:12)
[2022-12-10] MEDS: AMLODIPINE 5 MG TAB PO SCH ×2 (08:12→20:17)
[2022-12-10] MEDS: MULTIVITAMINS 5 ML ORAL SYR FT SCH (08:14)
[2022-12-10] MEDS: LIDOCAINE 4% PATCH TOP SCH (08:15)
[2022-12-10] MEDS: JEVITY 1.5 CAL LIQUID 1,000 ML BOT RTH SCH (12:14)
[2022-12-10] MEDS: BISACODYL 10 MG RECTAL SUPP PR PRN (17:33)
[2022-12-10] MEDS: TERAZOSIN HCL 1 MG CAP FT SCH (20:17)
[2022-12-10] MEDS: DULOXETINE 30 MG CAP PO SCH (20:18)
[2022-12-11] MEDS: NA CHLORIDE 0.9% 1,000 ML IV SCH ×3 (00:01→13:52)
[2022-12-11] MEDS: PIPER TAZO 3.375 GM in NA CHLORIDE 0.9% 100 ML IV SCH ×3 (00:01→16:59)
[2022-12-11] MEDS: ALBUTEROL 2.5 MG/3 ML NEB SOL NEB SCH ×4 (01:40→20:15)
[2022-12-11] MEDS: IPRATROPIUM BROM 0.5MG/2.5ML NEB SCH ×4 (01:40→20:15)
--- NOTE | 2022-12-11 03:39 | PN ---
Date of Progress Note: 12/10/2022 Time Of Service: 1:50 p.m. Subjective: Mr. Tate is actually beginning to go from a [id number] position with the physical the rapist and the web design specialist is on the iPad. He is denying any significant pain in the ri t arm, where there was some muscle spasms and he also has good mood despite the circumstances. Review of Systems: Again, very mild pain in the right arm. His magnesium is stretching the extremity, which helps. No fevers. No chills. No headache. No depression. Physical Examination: Vital Signs: Blood pressure 123/75, pulse 61, respiratory rate 16, temperature 97.5, oxygen saturati on 96%. General: Mr. Tate is resting well again as he is standing. Neurologic: He actually has improved strength in the right upper extremity, now around at least 3 to 4/5 proximally and distally. He would open and close his hand better. He has some improving coordi nation in the upper extremity. Right lower extremity, also improvement. He can go against gravity e xtending his right leg. Sensation, he reports to be still intact. He still has marked difficulty ma jamaal any sounds such as lingual, labial, or guttural sounds and working with Speech Pathology. Laboratory Studies: Blood sugars ranged from 117 to 138. X-ray/imaging: No new x-rays or imaging. Medications: His medications have been reviewed and remained unchanged. Current Functional Status: Today, he did work in the parallel bars 3 times, trying to do short steps , but required maximum assistance. Uud-ex-iukjs transfers, 5 times done with maximum assistance. Jaime pine-to-sit transfers with maximum assistance. With his occupational therapy, all other care require d minimum assistance to brush teeth, grooming was at supervision level. He is able to suction with m odified independence once he can reach the suction device. With speech, he did work on labial sealin g, lingual strength, and lingual range of motion and even tongue extension and retraction exercises. He did 10-15 sets with breaks in between. Progress Towards Rehabilitation Goals: Mr. Tate is making slow progress overall with his goals of b eing able to transfer with supervision for bed to chair, mobilizing with supervision to modified inde pendence and being able to swallow thickened liquids and pureed consistency with modified independenc e. Assessment: Mr. Tate is a 57-year-old patient in the rehabilitation unit with a left hemispheric he morrhagic stroke, who has right upper and lower extremity weakness which is improving. He has dysart hria and dysphagia and some numbness in the right upper and lower extremities. He has hypertension i ncluding hematuria including aspiration pneumonia, dehydration, including sepsis. Plan: 1.Continue physical, occupational, and speech therapy for 3-1/2 hours, 5 of 7 days. 2.He will continue Norvasc and Cozaar for hypertension. Continue Hytrin for urinary retention. Con tinue piperacillin/tazobactam 3.375 every 8 hours for pneumonia. Continue Protonix for GE reflux. Continue scopolamine patch for vertigo. 3.Comorbidities continue to impact his rehabilitation process. He is on IV antibiotics every 8 hour s and that will continue and schedules worked around that and for effective communication, a sign cornell guage electrical engineering teacher was used, and all therapy is scheduled around the access to receive that and he is d oing well with that. UYEN/DIONNE Voice ID: [id number] Report ID: [id number]
[2022-12-11 04:44] LABS: Absolute Lymphocytes (CBC) 1.4 K/uL (0.7-4.9); Hematocrit 31.4 % (39.6-49.0); Lymphocytes % 10.1 % (15.3-44.8); MCV 78.6 fL (80-100); MPV 7.6 fL (7.6-11.3); Platelets 362 thou/uL (152-406); RBC Red Blood Cell Count 3.99 M/uL (4.33-5.43)
[2022-12-11] MEDS: METOPROLOL TAR 25 MG TAB FT SCH ×2 (05:15→17:07)
[2022-12-11 05:21] LABS: Albumin 2.6 g/dL (3.4-5.0); Magnesium 2.2 mg/dL (1.6-2.4); Potassium 3.7 mEq/L (3.5-5.1); Prealbumin 25.2 mg/dL (20-40)
[2022-12-11] MEDS: INSULIN -REGULAR HUMAN 50 UNIT/0.5 ML ML SQ SCH ×3 (05:22→18:00)
[2022-12-11] MEDS: Pantoprazole (granules) 40 MG/BLIST PACKET FT SCH ×2 (07:30→20:32)
[2022-12-11] MEDS: APIXABAN 2.5 MG TABLET FT SCH ×2 (07:40→20:19)
[2022-12-11] MEDS: AMLODIPINE 5 MG TAB PO SCH ×2 (08:00→20:18)
[2022-12-11] MEDS: LOSARTAN POTASSIUM 50 MG TABLET PO SCH ×2 (08:00→20:18)
[2022-12-11] MEDS: MULTIVITAMINS 5 ML ORAL SYR FT SCH (08:07)
[2022-12-11] MEDS: FOLIC ACID 1 MG TABLET FT SCH (08:07)
[2022-12-11] MEDS: LIDOCAINE 4% PATCH TOP SCH (08:13)
[2022-12-11] MEDS: MAGNESIUM OXIDE 400 MG TAB PO SCH (08:14)
[2022-12-11] MEDS: JEVITY 1.5 CAL LIQUID 1,000 ML BOT RTH SCH (17:00)
[2022-12-11] MEDS: DULOXETINE 30 MG CAP PO SCH (20:17)
[2022-12-11] MEDS: MELATONIN 3 MG TABLET PO PRN (20:19)
[2022-12-11] MEDS: TERAZOSIN HCL 1 MG CAP FT SCH (20:32)
--- NOTE | 2022-12-11 23:00 | PN ---
Date of Progress Note: 12/11/2022 Time Of Service: 1:35 p.m. Subjective: Mr. Tate is resting in bed with speech pathologist at bedside. He is smiling. He is s howing a thumbs up sign with the left hand and he was able to say through the speech therapist doing some minimum sign language that he is feeling well despite his situation and he is making some progre ss, says he feels that way and not much muscle spasms. Review of Systems: No fevers, chills. No nausea, vomiting. No rash. No signs of depression. Physical Examination: Vital Signs: Blood pressure 108/54, pulse 74, respiratory rate 16, temperature 97.5, oxygen saturati on 97%. General: Mr. Tate is again resting in bed. He has a somewhat decrease in right nasolabial fold. Extremities: Right upper and lower extremities showing improving strength on a daily basis at least 3 to 4/5 proximally and distally. Sensation intact in the right upper and lower extremity, left side is fully strong. He has poor movement of the lips, tongue, and oropharyngeal region. Laboratory Studies: White blood cell count improved to 13.4 from 18.4 on the 6th, neutrophils 88.1, hemoglobin 10.3, platelets 362. Sodium 137, potassium 3.7, chloride 108, carbon dioxide 26, BUN 14, creatinine 0.91, glucose ranged from 116 to 145, calcium 8.3. Magnesium 2.2. Prealbumin 25.2. X-ray/imaging: No new x-ray imaging. Medications: His medications have been reviewed and remained unchanged. Current Functional Status: Today, he did ambulate with a platform walker completing 25 feet with max imum assist and doing it 3 times with physical therapists, rehabilitation services aide, and RN helping with the [facility] hair. He also completed another 35 feet ambulating with maximal assistance with a wheelchair. He di d another 50 feet twice with minimum assistance and another 15 feet again with min assist. [facility], did oromotor exercises with 90% accuracy for 10 reps with each exercises. Volitional swa llowing was completed within 1-3 seconds on 4/4 attempts. Progress Towards Rehabilitation Goals: Mr. Tate is making much better progress today towards his go als of requiring minimum assistance for his transfers from bed to chair to toilet and to ambulate wit h a rolling walker and mobilized wheelchair. In addition, also supervision or minimal assistance wit h upper and lower body dressing and toileting and to begin to take oral intake, he is making slow pro camilo there. He is fed by NG tube. Medicines are given by NG tube. Assessment: Mr. Tate is a 57-year-old patient in the rehabilitation unit with a left hemispheric he morrhagic stroke producing right upper and lower extremity weakness for which he is improving fairly well. He has dysarthria, dysphagia and is fed by NG tube. He has hypertension, hematuria, which has resolved. Aspiration pneumonia, which is resolving. Dehydration. Again, sepsis, which is resolvin g. Plan: 1.Continue physical, occupational, and speech therapy for 3.5 hours, 5/7 days. 2.Continue with management for hypertension using Norvasc and Cozaar. Continue with Hytrin for urin meir tract infection. Continue with his antibiotics, piperacillin/tazobactam 3.375 g every 8 hours. 3.Continue Protonix for GE reflux. 4.Continue scopolamine patch for the vertigo. Comorbids That Continue To Impact Rehabilitation Process: His comorbids are stably managed and do no t negatively impact his rehabilitation including the IV antibiotics, which he is receiving every 8 ho urs. UYEN/DIONNE Voice ID: [id number] Report ID: [id number]
[2022-12-12] MEDS: PIPER TAZO 3.375 GM in NA CHLORIDE 0.9% 100 ML IV SCH ×3 (00:38→17:01)
[2022-12-12] MEDS: IPRATROPIUM BROM 0.5MG/2.5ML NEB SCH ×2 (02:00→07:29)
[2022-12-12] MEDS: ALBUTEROL 2.5 MG/3 ML NEB SOL NEB SCH ×2 (02:00→07:29)
[2022-12-12] MEDS: NA CHLORIDE 0.9% 1,000 ML IV SCH ×3 (03:55→19:33)
[2022-12-12] MEDS: METOPROLOL TAR 25 MG TAB FT SCH (05:11)
[2022-12-12] MEDS: INSULIN -REGULAR HUMAN 50 UNIT/0.5 ML ML SQ SCH ×4 (05:11→18:00)
[2022-12-12] MEDS: Pantoprazole (granules) 40 MG/BLIST PACKET FT SCH ×2 (06:59→21:28)
[2022-12-12] MEDS: MAGNESIUM OXIDE 400 MG TAB PO SCH (07:08)
--- NOTE | 2022-12-12 07:27 | RAD REPORT ---
EXAM DESCRIPTION: RAD - Chest Single View - 12/12/2022 5:11 am CLINICAL HISTORY: ff/up COMPARISON: Chest Single View dated 12/05/2022; Chest Single View dated 11/29/2022; Abdomen 1 View (KUB ) dated 11/27/2022; Chest Single View dated 11/26/2022 FINDINGS: Lines: None. Lungs: Airspace disease at the left lung base has nearly completely resolved. Pleural: No significant pleural effusions or pneumothorax. Cardiac: The heart size is within normal limits. Mediastinum: Within normal limits. Bones: No acute fractures. Other: None IMPRESSION: Near complete resolution of left basilar airspace disease likely reflecting pneumonia. I f the patient is improving, continued follow-up is probably not necessary.
[2022-12-12] MEDS: AMLODIPINE 5 MG TAB PO SCH ×2 (08:00→21:28)
[2022-12-12] MEDS: LOSARTAN POTASSIUM 50 MG TABLET PO SCH ×2 (08:00→21:28)
[2022-12-12] MEDS: APIXABAN 2.5 MG TABLET FT SCH ×2 (09:00→21:28)
[2022-12-12] MEDS: LIDOCAINE 4% PATCH TOP SCH (09:06)
[2022-12-12] MEDS: ACETAMINOPHEN 500 MG TAB PO PRN (09:06)
[2022-12-12] MEDS: FOLIC ACID 1 MG TABLET FT SCH (09:07)
[2022-12-12] MEDS: SCOPOLAMINE HYDROBROMIDE PATCH TD SCH (09:10)
[2022-12-12] MEDS: MULTIVITAMINS 5 ML ORAL SYR FT SCH (09:10)
[2022-12-12] MEDS ORDERED: IPRATROPIUM BROM 0.5MG/2.5ML NEB PRN ×2 (13:05→16:00)
[2022-12-12] MEDS ORDERED: ALBUTEROL 2.5 MG/3 ML NEB SOL NEB PRN ×2 (13:05→16:00)
--- NOTE | 2022-12-12 13:15 | P.RH.PN ---
Estimated Length of Stay: 23 Expected Discharge Date: 12/26/22 Discharge Disposition Plan: Home Family Support: Yes Care Home Goal: Mobility, Transfers, Self Care Vital Signs: Last Vital Signs Temp 97.5 F 12/12/22 06:43 Pulse 63 12/12/22 08:00 Resp 17 12/12/22 06:43 BP 117/69 12/12/22 08:00 Pulse Ox 97 12/12/22 06:43 Laboratory: Laboratory Last Values WBC 13.40 thou/uL (4.3-10.9) H 12/11/22 03:44 RBC 3.99 M/uL (4.33-5.43) L 12/11/22 03:44 Hgb 10.3 g/dL (13.6-17.9) L 12/11/22 03:44 Hct 31.4 % (39.6-49.0) L 12/11/22 03:44 MCV 78.6 fL (80-100) L 12/11/22 03:44 MCH 25.9 pg (27.0-35.0) L 12/11/22 03:44 MCHC 32.9 g/dL (32.0-36.0) 12/11/22 03:44 RDW 15.4 % (12.1-15.2) H 12/11/22 03:44 Plt Count 362 thou/uL (152-406) 12/11/22 03:44 MPV 7.6 fL (7.6-11.3) 12/11/22 03:44 Neutrophils % 80.1 % (41.7-73.7) H 12/11/22 03:44 Lymphocytes % 10.1 % (15.3-44.8) L 12/11/22 03:44 Monocytes % 7.0 % (3.3-12.3) 12/11/22 03:44 Eosinophils % 2.3 % (0-4.4) 12/11/22 03:44 Basophils % 0.5 % (0-1.3) 12/11/22 03:44 Absolute Neutrophils 10.7 K/uL (1.8-8.0) H 12/11/22 03:44 Segmented Neutrophils 96 % (40-80) H 12/06/22 07:10 Absolute Lymphocytes 1.4 K/uL (0.7-4.9) 12/11/22 03:44 Lymphocytes 3 % (15-42) L 12/06/22 07:10 Monocytes 1 % (0-10) 12/06/22 07:10 Absolute Monocytes 0.9 K/uL (0.1-1.3) 12/11/22 03:44 Absolute Eosinophils 0.3 K/uL (0-0.5) 12/11/22 03:44 Absolute Basophils 0.1 K/uL (0-0.5) 12/11/22 03:44 Platelet Estimate Adeq 12/06/22 07:10 Morphology Comment Not seen (NOT SEEN) 12/06/22 07:10 Sodium 137 mEq/L (136-145) 12/11/22 03:44 Potassium 3.7 mEq/L (3.5-5.1) 12/11/22 03:44 Chloride 108 mEq/L (98-107) H 12/11/22 03:44 Carbon Dioxide 26 mEq/L (21-32) 12/11/22 03:44 Anion Gap 6.7 mEq/L (5.0-15.0) 12/11/22 03:44 BUN 14 mg/dL (7-18) 12/11/22 03:44 Creatinine 0.91 mg/dL (0.70-1.30) 12/11/22 03:44 Est GFR (CKD-EPI) 99 ml/min (=/>90) 12/11/22 03:44 Glucose 145 mg/dL (74-106) H 12/11/22 03:44 POC Glucose 111 mg/dL (65-120) 12/12/22 11:11 Calcium 8.3 mg/dL (8.5-10.1) L 12/11/22 03:44 Magnesium 2.2 mg/dL (1.6-2.4) 12/11/22 03:44 Albumin 2.6 g/dL (3.4-5.0) L 12/11/22 03:44 Prealbumin 25.2 mg/dL (20-40) 12/11/22 03:44 Procalcitonin < 0.05 ng/mL (<0.050) 12/06/22 07:10 Weight: 151 lb Within Defined Parameters: No Wound Present: No Closed Surgical Incision Present: No Negative Pressure Wound Therapy Present: No Physician Update: He is making fair overall progress with all therapy. Blood work is stable. Improved transfers, oral hygiene and mobilization. Still on IV Zosyn for 10 days. Will repeat chest x-ray and blood work next week. Medical Issues: Numerous issues: Education Needed: Using ASL line for communications. Functional Improvement: Maximum assist Functional Improvement Occupational Therapy: Not participating much. Speech Therapy Update: Severe oropharyngeal dysphagia Summary: Patient's care plan and retirement goals have been reviewed and revised as necessary. Please see the Rehabilitation Signature page for all necessary signatures.
[2022-12-12] MEDS ORDERED: GABAPENTIN 100 MG CAP PO SCH (15:00)
[2022-12-12] MEDS ORDERED: POLYETHYL GLY 3350 17 GM/DOSE FT PRN (16:49)
[2022-12-12] MEDS: METOPROLOL TAR 50 MG TAB FT SCH (17:22)
[2022-12-12] MEDS: DULOXETINE 30 MG CAP PO SCH (21:28)
[2022-12-12] MEDS: DOCUSATE NA/SENNA CONC 1 TAB PO SCH (21:29)
[2022-12-12] MEDS: TERAZOSIN HCL 1 MG CAP FT SCH (21:29)
[2022-12-12] MEDS: MELATONIN 3 MG TABLET PO PRN (21:29)
[2022-12-13] MEDS: PIPER TAZO 3.375 GM in NA CHLORIDE 0.9% 100 ML IV SCH ×3 (01:04→16:59)
[2022-12-13] MEDS: METOPROLOL TAR 50 MG TAB FT SCH ×2 (05:07→17:25)
[2022-12-13] MEDS: INSULIN -REGULAR HUMAN 50 UNIT/0.5 ML ML SQ SCH ×5 (05:08→23:52)
[2022-12-13] MEDS: NA CHLORIDE 0.9% 1,000 ML IV SCH ×2 (05:09→21:13)
[2022-12-13] MEDS: AMLODIPINE 5 MG TAB PO SCH ×2 (08:00→20:06)
[2022-12-13] MEDS: LOSARTAN POTASSIUM 50 MG TABLET PO SCH (08:00)
[2022-12-13] MEDS: MAGNESIUM OXIDE 400 MG TAB PO SCH (08:00)
[2022-12-13] MEDS: APIXABAN 2.5 MG TABLET FT SCH ×2 (09:00→20:06)
[2022-12-13] MEDS: MULTIVITAMINS 5 ML ORAL SYR FT SCH (09:06)
[2022-12-13] MEDS: Pantoprazole (granules) 40 MG/BLIST PACKET FT SCH ×2 (09:29→20:06)
[2022-12-13] MEDS: FOLIC ACID 1 MG TABLET FT SCH (09:29)
[2022-12-13] MEDS: GABAPENTIN 100 MG CAP FT SCH (09:30)
[2022-12-13] MEDS: LIDOCAINE 4% PATCH TOP SCH (10:47)
[2022-12-13] MEDS: BISACODYL 10 MG RECTAL SUPP PR PRN (17:26)
[2022-12-13] MEDS: TERAZOSIN HCL 1 MG CAP FT SCH (20:05)
[2022-12-13] MEDS: LOSARTAN POTASSIUM 50 MG TABLET FT SCH (20:05)
[2022-12-13] MEDS: DULOXETINE 30 MG CAP PO SCH (20:07)
[2022-12-13] MEDS: DOCUSATE NA/SENNA CONC 1 TAB PO SCH (20:07)
[2022-12-13] MEDS: IPRATROPIUM BROM 0.5MG/2.5ML NEB SCH (21:15)
[2022-12-13] MEDS: ALBUTEROL 2.5 MG/3 ML NEB SOL NEB SCH (21:15)
[2022-12-14] MEDS: JEVITY 1.5 CAL LIQUID 1,000 ML BOT RTH SCH (04:12)
[2022-12-14] MEDS: METOPROLOL TAR 50 MG TAB FT SCH ×2 (05:12→16:42)
[2022-12-14] MEDS: INSULIN -REGULAR HUMAN 50 UNIT/0.5 ML ML SQ SCH ×4 (05:13→23:55)
[2022-12-14 06:10] LABS: Absolute Lymphocytes (CBC) 1.3 K/uL (0.7-4.9); Hematocrit 34.6 % (39.6-49.0); Lymphocytes % 15.3 % (15.3-44.8); MCV 79.5 fL (80-100); MPV 7.6 fL (7.6-11.3); Platelets 338 thou/uL (152-406); RBC Red Blood Cell Count 4.35 M/uL (4.33-5.43)
[2022-12-14 06:18] LABS: Potassium 3.7 mEq/L (3.5-5.1)
[2022-12-14] MEDS: PIPER TAZO 3.375 GM in NA CHLORIDE 0.9% 100 ML IV SCH ×4 (07:48→16:43)
[2022-12-14] MEDS: LIDOCAINE 4% PATCH TOP SCH (07:48)
[2022-12-14] MEDS: GABAPENTIN 100 MG CAP FT SCH (07:49)
[2022-12-14] MEDS: AMLODIPINE 5 MG TAB PO SCH ×2 (07:49→19:09)
[2022-12-14] MEDS: DOCUSATE NA 50 MG/5 ML UCUP FT SCH (07:49)
[2022-12-14] MEDS: APIXABAN 2.5 MG TABLET FT SCH ×2 (07:50→19:06)
[2022-12-14] MEDS: FOLIC ACID 1 MG TABLET FT SCH (07:50)
[2022-12-14] MEDS: Pantoprazole (granules) 40 MG/BLIST PACKET FT SCH ×2 (07:50→19:06)
[2022-12-14] MEDS: MULTIVITAMINS 5 ML ORAL SYR FT SCH (07:51)
[2022-12-14] MEDS: LOSARTAN POTASSIUM 50 MG TABLET FT SCH ×2 (07:52→19:10)
[2022-12-14] MEDS: IPRATROPIUM BROM 0.5MG/2.5ML NEB SCH ×2 (08:54→23:20)
[2022-12-14] MEDS: ALBUTEROL 2.5 MG/3 ML NEB SOL NEB SCH ×2 (08:54→23:20)
[2022-12-14] MEDS: NA CHLORIDE 0.9% 1,000 ML IV SCH ×2 (11:50→23:54)
[2022-12-14] MEDS: DULOXETINE 30 MG CAP PO SCH (19:06)
[2022-12-14] MEDS: DOCUSATE NA/SENNA CONC 1 TAB PO SCH (19:06)
[2022-12-14] MEDS: TERAZOSIN HCL 1 MG CAP FT SCH (19:07)
[2022-12-15] MEDS: PIPER TAZO 3.375 GM in NA CHLORIDE 0.9% 100 ML IV SCH ×2 (00:25→07:21)
[2022-12-15] MEDS: NA CHLORIDE 0.9% 1,000 ML IV SCH ×3 (01:41→19:01)
[2022-12-15] MEDS: METOPROLOL TAR 50 MG TAB FT SCH ×2 (05:21→17:02)
[2022-12-15] MEDS: INSULIN -REGULAR HUMAN 50 UNIT/0.5 ML ML SQ SCH ×3 (05:35→17:34)
[2022-12-15] MEDS: JEVITY 1.5 CAL LIQUID 1,000 ML BOT RTH SCH (06:13)
[2022-12-15] MEDS: GABAPENTIN 100 MG CAP FT SCH (07:20)
[2022-12-15] MEDS: APIXABAN 2.5 MG TABLET FT SCH ×2 (07:20→20:03)
[2022-12-15] MEDS: FOLIC ACID 1 MG TABLET FT SCH (07:20)
[2022-12-15] MEDS: AMLODIPINE 5 MG TAB PO SCH ×2 (07:20→20:02)
[2022-12-15] MEDS: LOSARTAN POTASSIUM 50 MG TABLET FT SCH ×2 (07:21→20:03)
[2022-12-15] MEDS: MULTIVITAMINS 5 ML ORAL SYR FT SCH (07:21)
[2022-12-15] MEDS: DOCUSATE NA 50 MG/5 ML UCUP FT SCH (07:22)
[2022-12-15] MEDS: Pantoprazole (granules) 40 MG/BLIST PACKET FT SCH ×2 (07:23→20:03)
[2022-12-15] MEDS: ALBUTEROL 2.5 MG/3 ML NEB SOL NEB SCH ×2 (08:00→20:50)
[2022-12-15] MEDS: IPRATROPIUM BROM 0.5MG/2.5ML NEB SCH ×2 (08:00→20:50)
[2022-12-15] MEDS: SCOPOLAMINE HYDROBROMIDE PATCH TD SCH (09:52)
[2022-12-15] MEDS: LIDOCAINE 4% PATCH TOP SCH (09:53)
[2022-12-15] MEDS: DOCUSATE NA/SENNA CONC 1 TAB PO SCH (20:02)
[2022-12-15] MEDS: DULOXETINE 30 MG CAP PO SCH (20:03)
[2022-12-15] MEDS: TERAZOSIN HCL 1 MG CAP FT SCH (20:03)
--- NOTE | 2022-12-16 01:21 | PN ---
Date of Progress Note: 12/15/2022 Time Of Service: 1:30 p.m. Subjective: Mr. Tate is resting in the hospital bed, his speech pathologist at the bedside. He is smiling and appears more back towards his normal baseline functioning and family at the bedside. He has no complaints through sign language, moving the right arm and leg much better. Also feeling much better about his oral movements. Review of Systems: No fevers, chills, nausea, vomiting. No significant myalgias, arthralgias, rash, headache, weight ch puja. Physical Examination: Vital Signs: Blood pressure 142/79, pulse 69, respiratory rate 16, temperature 97, oxygen saturation 97. Extremities: Mr. Tate has now 3-4 actually strength proximally and right lower extremity and 3-4 st rength proximally and distally right upper extremity, decreased in the right nasolabial fold, still t here. However, he is able to move the face somewhat better. Laboratory Studies: Yesterday, white blood cell count, now normal at 8.3, it was down from 20.3 on 0 12/05/2022. Hemoglobin improved to 11.2 from 10.6 when he first came to the unit. Platelets are norm al at 338. His blood sugars ranged from 115 to 124. X-ray Imaging: Chest x-ray done on 12/12/2022 showed near-complete resolution of left basilar airspa ce disease, likely reflecting pneumonia. Medications: His medications have been reviewed and remained unchanged. Current Functional Status: Today with physical therapy, he worked on bed mobility and was able to tu rn [id number]-[id number] with minimum assistance and also, right to left. Supine to sit, done with min-to-mo d assist for trunk controls. He ambulated with maximum assistance 35 feet, another 30 feet, and then 95 feet with 2 seated rest breaks. With Speech Pathology, he completed 10 repetitions each of oral motor exercises with 90% accuracy. He tolerated 2 ounces of ice chips with 1 cough and attempted 2 a t the same time again. With Occupational Therapy, bathing with maximum assistance; upper body dressi ng, maximal assistance; lower body dressing, total assistance. Progress Towards Rehabilitation Goals: Mr. Tate is making improved progress overall towards his goa ls of performing transfers with min assist, able to do upper and lower body dressing with min assist and to begin to swallow consistencies such as pureed food with thickened liquids with min assist. He is currently fed by NG tube, medicines given by NG tube. Assessment And Plan: Mr. Tate is in the rehabilitation unit with a left hemispheric hemorrhagic str wesley, which produced right upper and lower extremity weakness along with dysphagia and dysarthria. He is improving strength on the right side and beginning to move oropharyngeal muscles better. He is f ed by NG tube. He has hypertension, hematuria, resolving pneumonia, dehydration, and resolving sepsi s. Plan: 1.Continue with physical, occupational, and speech therapy for 3.5 hours, 5 to 7 days. 2.Norvasc and Cozaar for hypertension. 3.Hytrin for urinary retention. 4.Finish the piperacillin/tazobactam 3.375 mg every 8 hours for his pneumonia and sepsis. 5.Continue Protonix for gastroesophageal reflux. 6.Continue scopolamine patch for vertigo. Comorbidities That Continue To Impact His Rehabilitation Process: He has received IV medications for pneumonia and has done very well with white blood cell count showing resolution and he completed 30 bags, starting 12/05/2022. Also, his mood is better with Cymbalta and he is participating well. He has magnesium for muscle spasms and he has Eliquis for DVT prophylaxis. UYEN/MODL Voice ID: [id number] Report ID: [id number]
[2022-12-16] MEDS: NA CHLORIDE 0.9% 1,000 ML IV SCH ×3 (03:20→16:40)
[2022-12-16] MEDS: INSULIN -REGULAR HUMAN 50 UNIT/0.5 ML ML SQ SCH ×4 (05:29→17:54)
[2022-12-16] MEDS: METOPROLOL TAR 50 MG TAB FT SCH ×2 (05:32→17:16)
[2022-12-16] MEDS: Pantoprazole (granules) 40 MG/BLIST PACKET FT SCH ×2 (07:24→19:47)
[2022-12-16] MEDS: APIXABAN 2.5 MG TABLET FT SCH ×2 (07:24→19:48)
[2022-12-16] MEDS: LIDOCAINE 4% PATCH TOP SCH (07:26)
[2022-12-16] MEDS: GABAPENTIN 100 MG CAP FT SCH (07:26)
[2022-12-16] MEDS: FOLIC ACID 1 MG TABLET FT SCH (07:26)
[2022-12-16] MEDS: LOSARTAN POTASSIUM 50 MG TABLET FT SCH ×2 (07:27→19:48)
[2022-12-16] MEDS: AMLODIPINE 5 MG TAB PO SCH ×2 (07:27→19:49)
[2022-12-16] MEDS: MULTIVITAMINS 5 ML ORAL SYR FT SCH (07:28)
[2022-12-16] MEDS: DOCUSATE NA 50 MG/5 ML UCUP FT SCH (07:28)
[2022-12-16] MEDS: ALBUTEROL 2.5 MG/3 ML NEB SOL NEB SCH ×2 (07:30→20:10)
[2022-12-16] MEDS: IPRATROPIUM BROM 0.5MG/2.5ML NEB SCH ×2 (07:30→20:10)
[2022-12-16] MEDS: JEVITY 1.5 CAL LIQUID 1,000 ML BOT RTH SCH (09:37)
[2022-12-16] MEDS: DOCUSATE NA/SENNA CONC 1 TAB PO SCH (19:48)
[2022-12-16] MEDS: DULOXETINE 30 MG CAP PO SCH (19:48)
[2022-12-16] MEDS: TERAZOSIN HCL 1 MG CAP FT SCH (19:48)
--- NOTE | 2022-12-16 23:32 | PN ---
Date of Progress Note: 12/16/2022 Time Of Service: 1:30 p.m. Subjective: Mr. Tate is doing very well. The assignment manager is on the monitor and quest ions were answered about to where he would likely go from here and which is actually a skilled nursin g facility, which is recommended as the family is not likely to be able to take care of him at home a nd provide his feedings. He was told that bolus feedings will begin gently and bolus water administr ation will begin gently, which is changing for the continuous feeding. He is happy that right upper and lower extremity is improving in terms of strength and his face still movement also is improving t hat is in the right facial weakness. Review of Systems: Denies any fevers, chills. Mild myalgias or arthralgias. No rash. No headache. No psychiatric iss ues. His mood is good. Physical Examination: Vital Signs: Blood pressure 122/66, pulse 61, respiratory rate 16, temperature 97.6, oxygen saturati on 96%. General: Mr. Tate is resting in bed. He is recovering to at least around 4/5 strength proximally a nd distally in the right upper and lower extremity. Right face still has a decrease in the nasolabia l fold. He is able to do more sign languaging with the right hand, which is the stroke side. No oth er new deficits identified. Laboratory Studies: Blood sugars ranged from 111 to 120. X-ray Imaging: No new x-rays or imaging. Medications: Medications have been reviewed and remained unchanged. Current Functional Status: With occupational therapy today, he did perform right upper body self ran ge of motion exercises to maintain joint mobility, decrease potential contractures, completed 4 sets of 10 repetition with 5-pound box. With his physical therapy today, he ambulated 30 feet, 20 feet, 4 0 feet, and 10 feet with moderate assistance. Leg; right leg may buckle at times. With Speech Thera py, he was able to do 20 volitional swallows within 1 to 3 seconds of prompting. Also manages saliva 6% of the time with moderate to minimal cues. Progress Towards Rehabilitation Goals: Mr. Tate is making good progress with his overall goals of b ecoming supervision level with transfers, upper and lower body dressing and ambulating 250 feet and b eginning to take in oral food and liquid. However, he still has a long way to go because of his dens e weakness initially on the right side and difficulty with swallowing and is fed by PEG tube. Assessment: Mr. Tate is a 57-year-old patient in the rehabilitation unit with a left-sided hemorrha gic stroke producing right upper and lower weakness with dysarthria, dysphagia. He is improving his oropharyngeal strength and coordination as he worked with Physical Therapy, more improving his streng th in the right upper and lower extremity. He has hypertension, hematuria, which has resolved, dehyd ration resolved, and pneumonia and sepsis, which have resolved. Plan: 1.Continue with physical, occupational, and speech therapy for 3.5 hours, 5 of 7 days. 2.Continue with aggressive management of hypertension, Hytrin for urinary retention, completed antib iotics for pneumonia and sepsis. He is on Protonix for GE reflux. Continue scopolamine patch for ve rtigo. Completed DVT prophylaxis and again continue with aggressive physical, occupational, and spee ch therapy. Comorbidities That Continue To Impact His Rehabilitation Process: At this point, he completed IV ant ibiotics. He is only communicating by sign language, but the control systems designer is available, so not much of a hindrance to his improvement and other factors have been well mediated. UYEN/MODL Voice ID: [id number] Report ID: [id number]
[2022-12-17] MEDS: NA CHLORIDE 0.9% 1,000 ML IV SCH ×3 (00:22→16:20)
[2022-12-17] MEDS: METOPROLOL TAR 50 MG TAB FT SCH (05:27)
[2022-12-17] MEDS: INSULIN -REGULAR HUMAN 50 UNIT/0.5 ML ML SQ SCH ×2 (05:32)
[2022-12-17] MEDS: DOCUSATE NA 50 MG/5 ML UCUP FT SCH (07:29)
[2022-12-17] MEDS: LOSARTAN POTASSIUM 50 MG TABLET FT SCH ×2 (07:29→19:25)
[2022-12-17] MEDS: GABAPENTIN 100 MG CAP FT SCH (07:30)
[2022-12-17] MEDS: LIDOCAINE 4% PATCH TOP SCH (07:30)
[2022-12-17] MEDS: Pantoprazole (granules) 40 MG/BLIST PACKET FT SCH ×2 (07:30→19:23)
[2022-12-17] MEDS: AMLODIPINE 5 MG TAB PO SCH ×2 (07:31→19:25)
[2022-12-17] MEDS: APIXABAN 2.5 MG TABLET FT SCH ×2 (07:31→19:25)
[2022-12-17] MEDS: FOLIC ACID 1 MG TABLET FT SCH (07:32)
[2022-12-17] MEDS: MULTIVITAMINS 5 ML ORAL SYR FT SCH (07:33)
[2022-12-17] MEDS: IPRATROPIUM BROM 0.5MG/2.5ML NEB SCH ×2 (08:22→21:00)
[2022-12-17] MEDS: ALBUTEROL 2.5 MG/3 ML NEB SOL NEB SCH ×2 (08:22→21:00)
[2022-12-17] MEDS ORDERED: JEVITY 1.5 CAL LIQUID 1,000 ML BOT RTH SCH ×3 (09:00→14:00)
--- NOTE | 2022-12-17 11:12 | DS ---
Date of Discharge: 12/02/2022 Discharge Diagnoses: Left hemispheric stroke with dense right paresis. The patient had stroke invol ving the basal ganglia and pontine region; pneumonia, which has led to sepsis and hypertension, hemif acial spasm, obstructive nephropathy, hypercalcemia, and seizures. Discharge Condition: He is serious. He is discharged to the acute care with pneumonia and worsening white count and fever to receive IV antibiotics and acute care. Activity: Will be in bed with IV antibiotics. Allergies: NO KNOWN DRUG ALLERGIES. Medications: Albuterol nebulizer 2.5 mg every 6 hours as needed, Mucomyst 20% 4 mL nebulizer inhaled twice daily. He is on ampicillin, sulbactam 3 g every 6 hours, Artificial Tears 2 drops in each eye 4 times daily, Dulcolax suppository per rectum, Cymbalta 30 mL per PEG tube daily, Lovenox 40 mg sub cutaneously daily, folic acid 1 mg per PEG tube daily, he is on a mild insulin sliding scale, melaton in 3 mg per PEG tube daily, Lopressor 25 mg twice daily, modafinil 100 mg daily, Theravite 5 mL daily , Protonix 40 mg twice daily, Fleet enema as needed, Hytrin 2 mg per PEG tube daily. He is receiving normal saline, he is at 75 cc an hour, to receive a liter. Procedures And Studies In Hospital: He had an abdomen and pelvis CT scan on 11/28. The study showed a Smith catheter in the bladder. There were clots and gross hematuria in the bladder lumen with enl arged prostate. There is colonic diverticulosis, air-fluid level in the rectum suggesting diarrhea s ymptoms. No evidence of colitis. PEG tube noted in the stomach. Synopsis Of Events That Led To Admission: Mr. Tate is a 57-year-old patient who had a left-sided st roke producing right-sided weakness. He came to [facility] on November 04 with seizures. Glas foster Coma Scale was 8. Strokes showed a 2.3 x 1.3 cm hemorrhagic stroke in the left aspect of the bra instem. He received 2 g of Keppra, 10 mg Decadron and transferred to [facility] for higher level of care. There, he also received 5 of Versed, 100 of fentanyl, and 10 of etomi date and was intubated and he was actually unresponsive at the time of his arrival to the [facility] in [place]. Repeat CT scan showed a stable bleed without hydrocephalus. He did fail an attempte d extubation and an arterial line was placed on 11/07/2022. By 11/10/2022, he was extubated successf ully and had light sedation. He did develop aspiration pneumonia and sputum was positive for Haemoph ilus influenzae and he was started on meropenem. He continued meropenem from 11/06. After vomiting on 11/11 and more tachycardia on 11/11, he was found to have pre renal dysfunction with obstructive n ephropathy. He did have significant pooling of oral secretions after stroke and that started to do s elf suctioning, has a suction, which was provided next to him. During his sickness and hospitalizati on, he had become significantly debilitated, requiring maximum assistance for all mobilization, trans fers, and to perform his activities of daily living. 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 In addition, he has kirby d a PEG tube for feeding. Due to his complex medical condition and need for aggressive inpatient rajan abilitation in the setting of his acute stroke, he was determined to be an appropriate candidate for inpatient rehabilitation at the hospital and was therefore, admitted for physical, occupational, and speech therapy with alf and physician management and continue his IV antibiotics. Hospital Course: As noted, the patient was admitted to the hospital on 11/26/2022. However, while h ospitalized, he developed more shortness of breath and white blood cell count became elevated to 20,0 00 with 86% neutrophils. He did have significant blood in the urine as well and had elevated heart r ate with findings consistent with systemic infection. As a result, he was transferred to the acute c are floor for aggressive management including multiple IV antibiotics and telemetry monitoring. Progress Made With Physical And Occupational Therapy: As a result of the worsening abdominal pain an d his hematuria and elevated white count, patient was unable to meet any of his goals left at maximum assistance for transfers, all activities of daily living, and was sent to the acute care floor. The refore, did not meet any of his physical therapy goals. Regarding speech therapy, also failed to ace t any of his goals as he was continued with his PEG tube placement. His worsening white count, blood in the urine, therefore prohibit him from beginning to thrive and doing well with his therapy. The patient will follow up with his physicians from [place] and primary care physician. UYEN/DIONNE Voice ID: [id number] Report ID: [id number]
[2022-12-17] MEDS ORDERED: DOCUSATE NA 50 MG/5 ML UCUP FT PRN (13:32)
[2022-12-17] MEDS ORDERED: DOCUSATE NA/SENNA CONC 1 TAB PO PRN (13:33)
[2022-12-17] MEDS: JEVITY 1.5 CAL LIQUID 1,000 ML BOT RTH SCH ×2 (14:35→19:26)
[2022-12-17] MEDS: levETIRAcetam 500 MG/5 ML OSYR FT SCH (14:40)
[2022-12-17] MEDS: METOPROLOL TAR 25 MG TAB FT SCH (17:08)
[2022-12-17] MEDS: DULOXETINE 30 MG CAP PO SCH (19:24)
[2022-12-17] MEDS: TERAZOSIN HCL 1 MG CAP FT SCH (19:24)
[2022-12-18 04:05] LABS: Absolute Lymphocytes (CBC) 1.5 K/uL (0.7-4.9); Hematocrit 32.7 % (39.6-49.0); Lymphocytes % 17.3 % (15.3-44.8); MCV 79.3 fL (80-100); MPV 7.6 fL (7.6-11.3); Platelets 259 thou/uL (152-406); RBC Red Blood Cell Count 4.12 M/uL (4.33-5.43)
[2022-12-18 04:33] LABS: Albumin 2.9 g/dL (3.4-5.0); Potassium 3.6 mEq/L (3.5-5.1); Prealbumin 24.4 mg/dL (20-40)
[2022-12-18] MEDS: JEVITY 1.5 CAL LIQUID 1,000 ML BOT RTH SCH ×4 (04:42→20:29)
[2022-12-18] MEDS: METOPROLOL TAR 25 MG TAB FT SCH ×2 (05:02→16:44)
[2022-12-18] MEDS: NA CHLORIDE 0.9% 1,000 ML IV SCH ×3 (05:46→21:08)
[2022-12-18] MEDS: APIXABAN 2.5 MG TABLET FT SCH ×2 (07:00→20:26)
[2022-12-18] MEDS: Pantoprazole (granules) 40 MG/BLIST PACKET FT SCH ×2 (07:33→20:29)
[2022-12-18] MEDS: AMLODIPINE 5 MG TAB PO SCH ×2 (08:00→20:26)
[2022-12-18] MEDS: LOSARTAN POTASSIUM 50 MG TABLET FT SCH ×2 (08:00→20:24)
[2022-12-18] MEDS: SCOPOLAMINE HYDROBROMIDE PATCH TD SCH (08:42)
[2022-12-18] MEDS: MULTIVITAMINS 5 ML ORAL SYR FT SCH (08:42)
[2022-12-18] MEDS: LIDOCAINE 4% PATCH TOP SCH (08:43)
[2022-12-18] MEDS: levETIRAcetam 500 MG/5 ML OSYR FT SCH (08:43)
[2022-12-18] MEDS: GABAPENTIN 100 MG CAP FT SCH (08:43)
[2022-12-18] MEDS: FOLIC ACID 1 MG TABLET FT SCH (08:43)
[2022-12-18] MEDS: BISACODYL 10 MG RECTAL SUPP PR PRN (09:14)
[2022-12-18] MEDS: IPRATROPIUM BROM 0.5MG/2.5ML NEB SCH ×2 (09:28→21:00)
[2022-12-18] MEDS: ALBUTEROL 2.5 MG/3 ML NEB SOL NEB SCH ×2 (09:28→21:00)
[2022-12-18] MEDS ORDERED: METOPROLOL TAR 25 MG TAB FT SCH (16:58)
[2022-12-18] MEDS: DOCUSATE NA 50 MG/5 ML UCUP FT SCH (20:24)
[2022-12-18] MEDS: TERAZOSIN HCL 1 MG CAP FT SCH (20:27)
[2022-12-18] MEDS: DULOXETINE 30 MG CAP PO SCH (20:28)
--- NOTE | 2022-12-18 22:18 | PN ---
Date of Progress Note: 12/18/2022 Time Of Service: 1:30 p.m. Subjective: Through the catia designer, Mr. Tate said he is doing well. He did not have any spasms in the right upper extremity as reported yesterday and he is feeling better with his impr ovement with speech therapy, which actually is improvement in his ability to start to swallow. He is not verbal, but communicates with sign language. Review of Systems: Denies any fevers or chills, myalgias or arthralgias. No rash. No depression. Physical Examination: Vital Signs: Blood pressure 128/74, pulse 70, respiratory rate 16, temperature 97.4, oxygen saturati on 98%. General: Mr. Tate is resting in bed. In terms of his exam, he continues to have a decrease in the right nasolabial fold, but there is fair excursion when he tries to move his face. He has around 3 t o 4/5 strength in the right upper and lower extremities, which is improving. He has some decreased l ight touch temperature in the right compared to the left side. Otherwise, he has good air movement. Abdomen: Soft and his Smith bag in place shows no blood. Laboratory Studies: White blood cell 8.4, hemoglobin 10.8, platelets 259. Sodium 137, potassium 3.6 , chloride 108, BUN 15, creatinine 0.85, glucose ranged from 95 to 111, calcium 8.2, magnesium 2.0, a lbumin 2.9, prealbumin 24.4. X-ray/imaging: No new x-rays or imaging. Medications: Medications have been reviewed and remained unchanged. Current Functional Status: Today, with physical therapy he completed 40 feet with max assist with a rolling walker and completed another 60 feet with mod to min assist. His right knee did buckle at ti mes. The patient actually is now on bolus feedings and is actually doing well with bowel movements i n between his sessions. With Occupational Therapy, he did range of motion exercises, right upper ext remity with 1 pound weight and 10 sets of repetitions twice. In terms of speech, he did oral motor e xercises completing 10 repetitions with 100% accuracy of volitional swallowing completed 10 of 10 shraddha es within 1 to 3 seconds each. Tongue base retraction exercises complete 10 of 10 times with minimum visual cues. He was given oral trials of pureed 2 ounces and nectar thick 3 ounces. No overt signs of aspiration with puree demonstrated adequate oral clearing. On nectar thick liquids, he demonstra john 2 coughs. He attempted to take large swallows and needed tactile and visual cues to slow the rat e and decreased bolus size during oral trials. Progress Towards Rehabilitation Goals: Mr. Tate is making good progress so far towards his goals of requiring supervision to min assist for his transfers, his ability to mobilize short distances at le ast household distances and to dress upper and lower body and to begin to take oral intake. Currentl y, he is fed mostly by his PEG tube. He was started on some Keppra for possible seizures, which cons ist of the right-sided stiffness. He has no other episodes of that and has noted he is beginning to make great progress in terms of speech, in his ability to regain that swallowing function, and his st rength and coordination, gait balance. Assessment: Mr. Tate is a 57-year-old patient with a left-sided hemorrhagic stroke and right-sided weakness, numbness, dysphasia, who is making some good improvement now with all therapies including p hysical, occupational, and speech therapy. He has hypertension, hematuria that is resolved, dehydrat ion, resolved, pneumonia and sepsis which have improved and resolved. He still has GE reflux, is on scopolamine patch, which may be removed and urinary retention. Plan: 1.Continue with physical, occupational, and speech therapy 3.5 hours, 5 of 7 days. 2.Continue with aggressive management of his hypertension, maintain upright position, and suctioning to reduce risk of pneumonia. Scopolamine patch may be removed. He will continue with DVT prophylax is. Comorbidities That Continue To Impact Rehabilitation Process: He has finished all the IV antibiotics that is improving. Does require set designer, but those have been worked around very well and he is managing excellently in [facility] rehab unit. LB/MODL Voice ID: [id number] Report ID: [id number]
[2022-12-19] MEDS: JEVITY 1.5 CAL LIQUID 1,000 ML BOT RTH SCH ×5 (05:00→20:00)
[2022-12-19] MEDS: METOPROLOL TAR 25 MG TAB FT SCH ×2 (05:04→17:25)
[2022-12-19] MEDS ORDERED: METOPROLOL TAR 25 MG TAB FT SCH (06:00)
[2022-12-19] MEDS: Pantoprazole (granules) 40 MG/BLIST PACKET FT SCH ×2 (07:04→19:48)
[2022-12-19] MEDS: APIXABAN 2.5 MG TABLET FT SCH ×2 (07:04→19:47)
[2022-12-19] MEDS: GABAPENTIN 100 MG CAP FT SCH (07:36)
[2022-12-19] MEDS: LIDOCAINE 4% PATCH TOP SCH (07:36)
[2022-12-19] MEDS: AMLODIPINE 5 MG TAB PO SCH ×2 (07:37→19:47)
[2022-12-19] MEDS: FOLIC ACID 1 MG TABLET FT SCH (07:37)
[2022-12-19] MEDS: MULTIVITAMINS 5 ML ORAL SYR FT SCH (07:38)
[2022-12-19] MEDS: DOCUSATE NA 50 MG/5 ML UCUP FT SCH ×2 (07:38→19:46)
[2022-12-19] MEDS: levETIRAcetam 500 MG/5 ML OSYR FT SCH (07:38)
[2022-12-19] MEDS: IPRATROPIUM BROM 0.5MG/2.5ML NEB SCH ×2 (07:40→19:40)
[2022-12-19] MEDS: ALBUTEROL 2.5 MG/3 ML NEB SOL NEB SCH ×2 (07:40→19:40)
[2022-12-19] MEDS: LOSARTAN POTASSIUM 50 MG TABLET FT SCH ×2 (09:11→19:46)
[2022-12-19] MEDS: NA CHLORIDE 0.9% 1,000 ML IV SCH (12:35)
--- NOTE | 2022-12-19 13:18 | P.RH.PN ---
Estimated Length of Stay: 23 Expected Discharge Date: 12/26/22 Discharge Disposition Plan: Home Family Support: Yes Nursing Home Goal: Mobility, Transfers, Self Care Vital Signs: Last Vital Signs Temp 98.1 F 12/19/22 06:57 Pulse 81 12/19/22 07:37 Resp 19 12/19/22 06:57 BP 131/85 12/19/22 07:37 Pulse Ox 97 12/19/22 06:57 Laboratory: Laboratory Last Values WBC 8.40 thou/uL (4.3-10.9) 12/18/22 03:35 RBC 4.12 M/uL (4.33-5.43) L 12/18/22 03:35 Hgb 10.8 g/dL (13.6-17.9) L 12/18/22 03:35 Hct 32.7 % (39.6-49.0) L 12/18/22 03:35 MCV 79.3 fL (80-100) L 12/18/22 03:35 MCH 26.1 pg (27.0-35.0) L 12/18/22 03:35 MCHC 33.0 g/dL (32.0-36.0) 12/18/22 03:35 RDW 16.0 % (12.1-15.2) H 12/18/22 03:35 Plt Count 259 thou/uL (152-406) 12/18/22 03:35 MPV 7.6 fL (7.6-11.3) 12/18/22 03:35 Neutrophils % 71.0 % (41.7-73.7) 12/18/22 03:35 Lymphocytes % 17.3 % (15.3-44.8) 12/18/22 03:35 Monocytes % 8.4 % (3.3-12.3) 12/18/22 03:35 Eosinophils % 2.6 % (0-4.4) 12/18/22 03:35 Basophils % 0.7 % (0-1.3) 12/18/22 03:35 Absolute Neutrophils 6.0 K/uL (1.8-8.0) 12/18/22 03:35 Segmented Neutrophils 96 % (40-80) H 12/06/22 07:10 Absolute Lymphocytes 1.5 K/uL (0.7-4.9) 12/18/22 03:35 Lymphocytes 3 % (15-42) L 12/06/22 07:10 Monocytes 1 % (0-10) 12/06/22 07:10 Absolute Monocytes 0.7 K/uL (0.1-1.3) 12/18/22 03:35 Absolute Eosinophils 0.2 K/uL (0-0.5) 12/18/22 03:35 Absolute Basophils 0.1 K/uL (0-0.5) 12/18/22 03:35 Platelet Estimate Adeq 12/06/22 07:10 Morphology Comment Not seen (NOT SEEN) 12/06/22 07:10 Sodium 137 mEq/L (136-145) 12/18/22 03:35 Potassium 3.6 mEq/L (3.5-5.1) 12/18/22 03:35 Chloride 108 mEq/L (98-107) H 12/18/22 03:35 Carbon Dioxide 26 mEq/L (21-32) 12/18/22 03:35 Anion Gap 6.6 mEq/L (5.0-15.0) 12/18/22 03:35 BUN 15 mg/dL (7-18) 12/18/22 03:35 Creatinine 0.85 mg/dL (0.70-1.30) 12/18/22 03:35 Est GFR (CKD-EPI) 102 ml/min (=/>90) 12/18/22 03:35 Glucose 100 mg/dL (74-106) 12/18/22 03:35 POC Glucose 95 mg/dL (65-120) 12/17/22 05:21 Calcium 8.2 mg/dL (8.5-10.1) L 12/18/22 03:35 Magnesium 2.0 mg/dL (1.6-2.4) 12/18/22 03:35 Albumin 2.9 g/dL (3.4-5.0) L 12/18/22 03:35 Prealbumin 24.4 mg/dL (20-40) 12/18/22 03:35 Procalcitonin < 0.05 ng/mL (<0.050) 12/06/22 07:10 Weight: 150 lb 1.6 oz Within Defined Parameters: No Wound Present: No Closed Surgical Incision Present: No Negative Pressure Wound Therapy Present: No Physician Update: His labs are stable. His bolus feeding and water intake via the PEG is working well. May have and barium study is OK with speech. Doing well with speech therapy. Improving swallowing. Improving well with physical therapy. Walking 160' with two seated breaks. Medical Issues: Numerous issues: Education Needed: Using ASL line for communications. Functional Improvement: Maximum assist Functional Improvement Occupational Therapy: Not participating much. Speech Therapy Update: Severe oropharyngeal dysphagia Summary: Patient's care plan and intermodal customer service goals have been reviewed and revised as necessary. Please see the Rehabilitation Signature page for all necessary signatures.
[2022-12-19] MEDS: TERAZOSIN HCL 1 MG CAP FT SCH (19:48)
[2022-12-19] MEDS: DULOXETINE 30 MG CAP PO SCH (19:48)
[2022-12-20] MEDS: NA CHLORIDE 0.9% 1,000 ML IV SCH ×2 (01:30→13:22)
[2022-12-20] MEDS: JEVITY 1.5 CAL LIQUID 1,000 ML BOT RTH SCH ×4 (04:00→19:54)
[2022-12-20] MEDS: METOPROLOL TAR 25 MG TAB FT SCH ×2 (05:23→16:50)
[2022-12-20] MEDS: Pantoprazole (granules) 40 MG/BLIST PACKET FT SCH ×2 (07:17→19:54)
[2022-12-20] MEDS: APIXABAN 2.5 MG TABLET FT SCH ×2 (07:17→19:53)
[2022-12-20] MEDS: LOSARTAN POTASSIUM 50 MG TABLET FT SCH ×2 (07:18→19:53)
[2022-12-20] MEDS: AMLODIPINE 5 MG TAB PO SCH ×2 (07:18→19:53)
[2022-12-20] MEDS: LIDOCAINE 4% PATCH TOP SCH (07:18)
[2022-12-20] MEDS: FOLIC ACID 1 MG TABLET FT SCH (07:19)
[2022-12-20] MEDS: GABAPENTIN 100 MG CAP FT SCH (07:19)
[2022-12-20] MEDS: DOCUSATE NA 50 MG/5 ML UCUP FT SCH ×2 (07:20→19:52)
[2022-12-20] MEDS: MULTIVITAMINS 5 ML ORAL SYR FT SCH (07:20)
[2022-12-20] MEDS: levETIRAcetam 500 MG/5 ML OSYR FT SCH (07:20)
[2022-12-20] MEDS: IPRATROPIUM BROM 0.5MG/2.5ML NEB SCH ×2 (07:35→20:05)
[2022-12-20] MEDS: ALBUTEROL 2.5 MG/3 ML NEB SOL NEB SCH ×2 (07:35→20:05)
[2022-12-20] MEDS: DULOXETINE 30 MG CAP PO SCH (19:53)
[2022-12-20] MEDS: TERAZOSIN HCL 1 MG CAP FT SCH (19:54)
[2022-12-21] MEDS: NA CHLORIDE 0.9% 1,000 ML IV SCH ×2 (03:14→14:32)
[2022-12-21] MEDS: JEVITY 1.5 CAL LIQUID 1,000 ML BOT RTH SCH ×4 (04:33→19:20)
[2022-12-21] MEDS: METOPROLOL TAR 25 MG TAB FT SCH ×2 (05:02→16:51)
[2022-12-21] MEDS: APIXABAN 2.5 MG TABLET FT SCH (07:11)
[2022-12-21] MEDS: Pantoprazole (granules) 40 MG/BLIST PACKET FT SCH ×2 (07:11→19:20)
[2022-12-21] MEDS: LIDOCAINE 4% PATCH TOP SCH (07:12)
[2022-12-21] MEDS: GABAPENTIN 100 MG CAP FT SCH (07:13)
[2022-12-21] MEDS: MULTIVITAMINS 5 ML ORAL SYR FT SCH (07:13)
[2022-12-21] MEDS: levETIRAcetam 500 MG/5 ML OSYR FT SCH (07:13)
[2022-12-21] MEDS: FOLIC ACID 1 MG TABLET FT SCH (07:13)
[2022-12-21] MEDS: DOCUSATE NA 50 MG/5 ML UCUP FT SCH ×2 (07:15→19:19)
[2022-12-21] MEDS: SCOPOLAMINE HYDROBROMIDE PATCH TD SCH (07:17)
[2022-12-21] MEDS: LOSARTAN POTASSIUM 50 MG TABLET FT SCH ×2 (07:46→19:19)
[2022-12-21] MEDS: AMLODIPINE 5 MG TAB PO SCH ×2 (07:47→19:19)
[2022-12-21] MEDS: IPRATROPIUM BROM 0.5MG/2.5ML NEB SCH ×2 (08:00→19:45)
[2022-12-21] MEDS: ALBUTEROL 2.5 MG/3 ML NEB SOL NEB SCH ×2 (08:00→19:45)
[2022-12-21] MEDS: BISACODYL 10 MG RECTAL SUPP PR PRN (11:36)
[2022-12-21] MEDS: TERAZOSIN HCL 1 MG CAP FT SCH (19:20)
[2022-12-21] MEDS: DULOXETINE 30 MG CAP PO SCH (19:20)
[2022-12-22] MEDS: NA CHLORIDE 0.9% 1,000 ML IV SCH ×2 (03:06→19:43)
[2022-12-22] MEDS: METOPROLOL TAR 25 MG TAB FT SCH ×2 (04:45→17:03)
[2022-12-22] MEDS: JEVITY 1.5 CAL LIQUID 1,000 ML BOT RTH SCH ×4 (04:45→19:45)
[2022-12-22] MEDS: AMLODIPINE 5 MG TAB PO SCH ×2 (07:45→19:44)
[2022-12-22] MEDS: Pantoprazole (granules) 40 MG/BLIST PACKET FT SCH ×2 (07:45→19:45)
[2022-12-22] MEDS: FOLIC ACID 1 MG TABLET FT SCH (07:45)
[2022-12-22] MEDS: LOSARTAN POTASSIUM 50 MG TABLET FT SCH ×2 (07:46→19:44)
[2022-12-22] MEDS: GABAPENTIN 100 MG CAP FT SCH (07:46)
[2022-12-22] MEDS: levETIRAcetam 500 MG/5 ML OSYR FT SCH (07:46)
[2022-12-22] MEDS: DOCUSATE NA 50 MG/5 ML UCUP FT SCH ×2 (07:47→19:44)
[2022-12-22] MEDS: MULTIVITAMINS 5 ML ORAL SYR FT SCH (07:47)
[2022-12-22] MEDS: ALBUTEROL 2.5 MG/3 ML NEB SOL NEB SCH ×2 (08:05→19:45)
[2022-12-22] MEDS: IPRATROPIUM BROM 0.5MG/2.5ML NEB SCH ×2 (08:05→19:45)
--- NOTE | 2022-12-22 12:18 | RAD REPORT ---
EXAM DESCRIPTION: RAD - Barium Swallow Modified - 12/22/2022 12:12 pm CLINICAL HISTORY: DYSPHAGIA COMPARISON: Renal Ultrasound-Complete dated 12/01/2022 TECHNIQUE: The patient was given liquid, semi-solid and solid forms of barium. Lateral view fluorosc opic imaging was performed in conjunction with speech pathology service. FINDINGS: Laryngeal penetration and aspiration identified with nectar consistency and cup. See speec h pathology note. Total fluoroscopy time: 2 minutes 1 seconds
[2022-12-22] MEDS: LIDOCAINE 4% PATCH TOP SCH (12:19)
[2022-12-22] MEDS: TERAZOSIN HCL 1 MG CAP FT SCH (19:44)
[2022-12-22] MEDS: DULOXETINE 30 MG CAP PO SCH (19:44)
--- NOTE | 2022-12-23 01:03 | PN ---
Date of Progress Note: 12/22/2022 Time Of Service: 1 p.m. Subjective: Mr. Tate is doing well. He is giving a thumbs up with the left hand. Has to be encour aged to use the right hand, right leg. Speech therapist at the bedside and he is happy about the res ults of his barium swallow done earlier today. He has no new complaints except he had tickets to the [employer] in February and is wondering if he is still able to attend. He was told he may do so, bu t may need a wheelchair to get around. Review of Systems: Denies any recent fevers or chills. No or myalgias. There is some stiffness in the right upper and lower extremity, which he has already acknowledged. Physical Examination: Vital Signs: Blood pressure 121/63, pulse 69, respiratory rate of 16, temperature 97.5, oxygen satur ation 96%. General: Mr. Tate is resting in bed. Neurologic: Right upper and lower extremity show improving strength, still increased tone and around 3 to 4/5 proximally and distally. The hand dexterity is improving slightly, but still significantly impaired. He has right facial drooping and there is some more improvement noted in his ability to m ove the face. Laboratory Studies: White blood cell count 8.4, hemoglobin 10.8, and platelets 259. Sodium 137, pot assium 3.6, chloride 108, BUN 15, creatinine 0.85, prealbumin 24.4. His glucose ranged from 95 to 11 1. X-ray/imaging: Modified barium swallow done earlier today showed laryngeal penetration and aspiratio n with nectar consistency in cup. The patient was able to manage only up to 2 spoons at a time of ne ctar-thick and honey-thick consistencies. Otherwise, there was aspiration noted. Medications: His medications have been reviewed. His Eliquis has been discontinued, as earlier the patient did have some blood tinging in the urine with Eliquis when it was resumed and that cleared up when Eliquis is stopped. Otherwise, medications have been unchanged. Current Functional Status: Today, with physical therapy, he worked on wheelchair mobility techniques . He had a lot of difficulty navigating his wheelchair and making turns. Gait training, he ambulate d 40 feet 3 times with a rolling walker. He also need maximal assistance as he had mobili zed wheelchair, did cover 30 feet 3 times. With his speech, he was able to do oral motor exercises i ndependently with 15-20 repetitions, require minimal assistance for tactile stimulation. After modif ied barium swallow, it was recommended that he be on a pureed diet with honey-thick liquids using spo on only. Given oral trials of pureed diet and honey-thick liquids using a spoon, no overt signs of a spiration were noted. With occupational therapy, the patient did easily fatigue as he was doing exer cises with the right upper extremity, which is the stroke affected side. Progress Made With Physical And Occupational Therapy: Currently, he is making fair progress towards the capacity to transfer with min assist also to mobilize a walker and wheelchair with min assist. G oals also to be able to eat orally without using the PEG tube, which he has been making slow progress with. Assessment: Mr. Tate is a 57-year-old patient with left hemispheric stroke, right-sided numbness, w eakness, and dysphagia. He communicates via sign language. He has hypertension, resolved hematuria, resolving pneumonia and sepsis, gastroesophageal reflux, and urinary retention. Plan: 1.Continue with physical, occupational, and speech therapy for 3.5 hours, 5 of 7 days. 2.Continue with management of his comorbid conditions as listed above including his hypertension, hi s vertiginous type symptoms, GE reflux, prostate hypertrophy, and continue DVT prophylaxis. Chest x- ray may be repeated as appropriate and blood work again to rule out any worsening infection. Comorbidities That Continue To Impact Rehabilitation: At this point, his comorbidities are being man aged. He does have need for communication via sign language interpretation and that is available at the sign language interpretation interface device at the bedside. The patient at this point will likely have to go to halfway as he is not able to be managed a t home by family. UYEN/DIONNE Voice ID: [id number] Report ID: [id number]
[2022-12-23] MEDS: JEVITY 1.5 CAL LIQUID 1,000 ML BOT RTH SCH ×4 (04:46→20:00)
[2022-12-23] MEDS: METOPROLOL TAR 25 MG TAB FT SCH ×2 (04:47→17:16)
[2022-12-23 06:41] LABS: Hematocrit 32.8 % (39.6-49.0); Lymphocytes % 11.5 % (15.3-44.8); MCV 80.3 fL (80-100); MPV 8.2 fL (7.6-11.3); Platelets 218 thou/uL (152-406); RBC Red Blood Cell Count 4.09 M/uL (4.33-5.43)
[2022-12-23 06:43] LABS: Potassium 3.6 mEq/L (3.5-5.1)
[2022-12-23] MEDS: Pantoprazole (granules) 40 MG/BLIST PACKET FT SCH ×2 (07:28→20:05)
[2022-12-23] MEDS: LIDOCAINE 4% PATCH TOP SCH (07:29)
--- NOTE | 2022-12-23 07:59 | RAD REPORT ---
EXAM DESCRIPTION: RAD - Chest Single View - 12/23/2022 4:40 am CLINICAL HISTORY: R/O aspiration pneumonia COMPARISON: Chest Single View dated 12/12/2022; Chest Single View dated 12/05/2022; Chest Single View d ated 11/29/2022; Abdomen 1 View (KUB) dated 11/27/2022 FINDINGS: Lines: None. Lungs: No evidence of edema or pneumonia. Pleural: No significant pleural effusions or pneumothorax. Cardiac: The heart size is within normal limits. Mediastinum: Within normal limits. Bones: No acute fractures. Other: None IMPRESSION: No acute cardiopulmonary disease.
[2022-12-23] MEDS: AMLODIPINE 5 MG TAB PO SCH ×2 (08:00→20:05)
[2022-12-23] MEDS: LOSARTAN POTASSIUM 50 MG TABLET FT SCH ×2 (08:00→20:05)
[2022-12-23] MEDS: IPRATROPIUM BROM 0.5MG/2.5ML NEB SCH ×2 (08:07→21:50)
[2022-12-23] MEDS: ALBUTEROL 2.5 MG/3 ML NEB SOL NEB SCH ×2 (08:07→21:50)
[2022-12-23] MEDS: GABAPENTIN 100 MG CAP FT SCH (08:16)
[2022-12-23] MEDS: FOLIC ACID 1 MG TABLET FT SCH (08:16)
[2022-12-23] MEDS: levETIRAcetam 500 MG/5 ML OSYR FT SCH (08:17)
[2022-12-23] MEDS: DOCUSATE NA 50 MG/5 ML UCUP FT SCH ×2 (08:18→20:04)
[2022-12-23] MEDS: MULTIVITAMINS 5 ML ORAL SYR FT SCH (08:19)
[2022-12-23] MEDS: NA CHLORIDE 0.9% 1,000 ML IV SCH (11:19)
[2022-12-23] MEDS: TERAZOSIN HCL 1 MG CAP FT SCH (20:05)
[2022-12-23] MEDS: DULOXETINE 30 MG CAP PO SCH (20:05)
--- NOTE | 2022-12-24 00:03 | PN ---
Date of Progress Note: 12/23/2022 Time Of Service: 1:50 p.m. Subjective: Mr. Tate is doing very well. He is able to give a thumbs up sign with the left hand ea sily and the right hand, which has stroke is also able to, but at a slower pace. Still has some diff iculty moving his face, but he communicates with sign language. He has no new complaints. Review of Systems: No issues such as significant fevers or chills. No cough. No myalgias, but there is some stiffness in the right upper and lower extremity. Physical Examination: Vital Signs: Blood pressure 122/66, pulse 82, respiratory rate 16, temperature 97.7 oxygen saturatio n 95%. General: Mr. Tate is resting in bed. Neuro: Does have decrease in the right nasolabial fold with fair excursions as he tries to move the face. He has 3-4 strength in the upper and lower extremity on the right side, 5/5 on the left side. Does have incoordination in the left upper and lower extremity on the right. Laboratory Studies: White blood cell count 8.3, hemoglobin 10.9, platelets 218. Sodium 139, potassi um 3.6, chloride 108, carbon dioxide 25, BUN 12, creatinine 0.94, calcium 8.4. X-rays/imaging: Chest x-ray was done today. The study showed no acute cardiopulmonary process. Medications: His medications have been reviewed and remain unchanged. Current Functional Status: Today, with physical therapy, he was able to ambulate 50 feet with a roll ing walker and minimum assistance. He completed wheelchair and mobilization 100 feet twice with mini mum assistance. With his speech therapy, he did a few oral trials of pureed diet and honey thick liq uids using a spoon. There was no overt aspiration. Recommended he continue with pureed diet at meal times, but still has bulk of his nutrition via PEG tube, medications can be crushed as appropriate, b ut mostly via PEG tube. Progress Towards Rehabilitation Goals: Mr. Tate is making fair progress now towards goals of beginn ing to transfer with modified independence from bed to toilet to chair, to be able to ambulate househ old distances with modified independence, still needs significant help with his nutrition as he has c ontinued dysphagia with high aspiration risk, but again chest x-ray today is negative. He has family who are participating in training for use of the PEG tube and how to assist him to proper consistenc y of meals. Assessment: Mr. Tate is a 57-year-old patient with a left hemispheric stroke producing right-sided face, arm, and leg numbness and weakness with dysarthria and dysphagia. He communicates via sign cornell guage. He has hypertension, resolved pneumonia, resolved hematuria, resolved sepsis, gastroesophagea l reflux, and urinary retention. Plan: 1.Continue with physical, occupational, and speech therapy for 3.5 hours, 5/7 days. 2.We will continue aspiration precautions. Continue with meal consistency as directed by Speech, wh ich does include pureed food and honey thick liquids along with nectar thick as well. Continue with DVT prophylaxis. Continue with GE reflux treatment with Protonix and for urinary retention, medicati ons continued as well. Comorbids That Continue To Impact Rehabilitation: At this point, he does have a high risk of aspirat ion and will need to have aspiration precautions at all times even after leaving perhaps for several more weeks if not months. Otherwise, his transfers are doing well. He does have some risk of infect ion from his catheter, which is still in place. He will follow up with Urology, perhaps for urodynam ics and appropriate treatment to begin with proper bladder draining and removal of the Smith. UYEN/DIONNE Voice ID: [id number] Report ID: [id number]
[2022-12-24] MEDS: NA CHLORIDE 0.9% 1,000 ML IV SCH ×4 (00:08→23:45)
[2022-12-24] MEDS: JEVITY 1.5 CAL LIQUID 1,000 ML BOT RTH SCH ×4 (04:00→19:36)
[2022-12-24] MEDS: METOPROLOL TAR 25 MG TAB FT SCH ×2 (05:03→17:15)
[2022-12-24] MEDS: Pantoprazole (granules) 40 MG/BLIST PACKET FT SCH ×2 (06:59→19:34)
[2022-12-24] MEDS: LIDOCAINE 4% PATCH TOP SCH (07:25)
[2022-12-24] MEDS: SCOPOLAMINE HYDROBROMIDE PATCH TD SCH (07:25)
[2022-12-24] MEDS: ALBUTEROL 2.5 MG/3 ML NEB SOL NEB SCH (07:30)
[2022-12-24] MEDS: IPRATROPIUM BROM 0.5MG/2.5ML NEB SCH (07:30)
[2022-12-24] MEDS: GABAPENTIN 100 MG CAP FT SCH (08:00)
[2022-12-24] MEDS: AMLODIPINE 5 MG TAB PO SCH ×2 (08:00→19:35)
[2022-12-24] MEDS: LOSARTAN POTASSIUM 50 MG TABLET FT SCH ×2 (08:00→19:36)
[2022-12-24] MEDS: FOLIC ACID 1 MG TABLET FT SCH (09:09)
[2022-12-24] MEDS: levETIRAcetam 500 MG/5 ML OSYR FT SCH (09:10)
[2022-12-24] MEDS: MULTIVITAMINS 5 ML ORAL SYR FT SCH (09:14)
[2022-12-24] MEDS: DOCUSATE NA 50 MG/5 ML UCUP FT SCH ×2 (09:15→19:35)
[2022-12-24] MEDS ORDERED: ALBUTEROL 2.5 MG/3 ML NEB SOL NEB PRN (14:16)
[2022-12-24] MEDS ORDERED: IPRATROPIUM BROM 0.5MG/2.5ML NEB PRN (14:17)
[2022-12-24] MEDS: TERAZOSIN HCL 1 MG CAP FT SCH (19:34)
[2022-12-24] MEDS: DULOXETINE 30 MG CAP PO SCH (19:34)
[2022-12-25] MEDS: JEVITY 1.5 CAL LIQUID 1,000 ML BOT RTH SCH ×3 (03:28→14:00)
[2022-12-25 04:28] LABS: Absolute Lymphocytes (CBC) 1.1 K/uL (0.7-4.9); Hematocrit 33.1 % (39.6-49.0); Lymphocytes % 16.5 % (15.3-44.8); MCV 79.6 fL (80-100); MPV 7.8 fL (7.6-11.3); Platelets 240 thou/uL (152-406); RBC Red Blood Cell Count 4.15 M/uL (4.33-5.43)
[2022-12-25 04:51] LABS: Albumin 2.9 g/dL (3.4-5.0); Magnesium 2.1 mg/dL (1.6-2.4); Potassium 3.4 mEq/L (3.5-5.1)
[2022-12-25] MEDS: METOPROLOL TAR 25 MG TAB FT SCH (05:01)
[2022-12-25] MEDS: Pantoprazole (granules) 40 MG/BLIST PACKET FT SCH (06:44)
[2022-12-25 07:00] VITALS: BP 137/83; TEMP 97.7
[2022-12-25] MEDS: LIDOCAINE 4% PATCH TOP SCH (07:53)
[2022-12-25] MEDS: NA CHLORIDE 0.9% 1,000 ML IV SCH (07:53)
[2022-12-25] MEDS: GABAPENTIN 100 MG CAP FT SCH (08:00)
[2022-12-25] MEDS: levETIRAcetam 500 MG/5 ML OSYR FT SCH (08:53)
[2022-12-25] MEDS: MULTIVITAMINS 5 ML ORAL SYR FT SCH (08:53)
[2022-12-25] MEDS: DOCUSATE NA 50 MG/5 ML UCUP FT SCH (08:53)
[2022-12-25] MEDS: FOLIC ACID 1 MG TABLET FT SCH (08:55)
[2022-12-25] MEDS: LOSARTAN POTASSIUM 50 MG TABLET FT SCH (09:23)
[2022-12-25] MEDS: AMLODIPINE 5 MG TAB PO SCH (10:26)
[2022-12-25] MEDS: BISACODYL 10 MG RECTAL SUPP PR PRN (11:08)
== END 2022-12-25 13:50 | DRG 56 ==
LOC: 5TH 13:49
PROVIDERS: ADMIT Psychiatry & Neurology Neurology with Special Qualifications in Child Neurology; ATTEND Psychiatry & Neurology Neurology with Special Qualifications in Child Neurology
DX: I69.351 Hemiplegia and hemiparesis following cerebral infarction affecting right dominant side (principal); A41.9 Sepsis, unspecified organism; J69.0 Pneumonitis due to inhalation of food and vomit; I69.391 Dysphagia following cerebral infarction; I69.322 Dysarthria following cerebral infarction; I69.392 Facial weakness following cerebral infarction; I10 Essential (primary) hypertension; R00.0 Tachycardia, unspecified; K21.9 Gastro-esophageal reflux disease without esophagitis; R31.9 Hematuria, unspecified; R13.10 Dysphagia, unspecified; E86.0 Dehydration; R06.03 Acute respiratory distress; N40.1 Benign prostatic hyperplasia with lower urinary tract symptoms; R33.8 Other retention of urine; R42 Dizziness and giddiness; J45.909 Unspecified asthma, uncomplicated; H91.3 Deaf nonspeaking, not elsewhere classified; F17.200 Nicotine dependence, unspecified, uncomplicated; Z93.1 Gastrostomy status
CPT/HCPCS: 36415; 71045; 74230; 80048; 82040; 82947; 83735; 84134; 84145; 85025; 87040; 92507; 92508; 92526; 92610; 92611; 97110; 97112; 97116; 97163; 97165; 97530; 97542; J2001; J2543; J2930; J7030; J7613; J7644